=== PATIENT | female | born 1945 | race Caucasian/White ===

== ENCOUNTER 2017-01-15 11:54 | Inpatient (IN) | payer MEDICARE ==
[2017-01-15] MEDS ORDERED: SODIUM CHLORIDE 0.9% 1,000 ML IV STA (12:53)
[2017-01-15] MEDS ORDERED: ONDANSETRON 4 MG/2 ML VIAL IVP STA (12:53)
--- NOTE | 2017-01-15 12:56 | ED ---
General Adult HPI <Joe Dickey - Last Filed: 01/15/17 16:41> - General Source: patient, RN notes reviewed Mode of arrival: wheelchair Limitations: no limitations <Eleazar Delvalle - Last Filed: 01/15/17 17:18> - General Chief complaint: Abdominal Pain Stated complaint: Bowel Blockage Time Seen by Provider: 01/15/17 12:47 - History of Present Illness Initial comments: Patient 72-year-old female with significant past medical history for bowel instruction, who presents emergency room today with chief complaint of increased abdominal pain 2 hours. Patient does admit to pain in her lower abdomen. She states feels consistent with bowel obstruction that she has had in the past. Does admit to a few episodes of vomiting. Patient denies any other complaints or associated symptoms. Patient denies any recent fever, chills, shortness of breath, chest pain, back pain, numbness or tingling, dysuria or hematuria, constipation or diarrhea, headaches or visual changes, or any other complaints. (Eleazar Delvalle) - Related Data Home Medications Medication Instructions Recorded Confirmed Aspirin 81 mg PO DAILY 01/15/17 01/15/17 Atorvastatin [Lipitor] 40 mg PO HS 01/15/17 01/15/17 Metoprolol Succinate (ER) [Toprol 25 mg PO DAILY 01/15/17 01/15/17 Xl] Multivits-Min/Iron/FA/Lutein 1 tab PO DAILY 01/15/17 01/15/17 [Centrum Silver Women Tablet] Venlafaxine HCl ER [Effexor Xr] 75 mg PO DAILY 01/15/17 01/15/17 Allergies Allergy/AdvReac Type Severity Reaction Status Date / Time Penicillins Allergy Rash/Hives Verified 01/15/17 12:46 Review of Systems ROS Other: All systems not noted in ROS Statement are negative. <Joe Dickey - Last Filed: 01/15/17 16:41> ROS Other: All systems not noted in ROS Statement are negative. <Eleazar Delvalle - Last Filed: 01/15/17 17:18> ROS Statement: Those systems with pertinent positive or pertinent negative responses have been documented in the HPI. Past Medical History Past Medical History: Hyperlipidemia, Hypertension Additional Past Medical History / Comment(s): bowel obstructions History of Any Multi-Drug Resistant Organisms: None Reported Past Surgical History: Bowel Resection Past Psychological History: No Psychological Hx Reported Smoking Status: Never smoker Past Alcohol Use History: None Reported Past Drug Use History: None Reported <Eleazar Delvalle - Last Filed: 01/15/17 17:18> General Exam <Joe Dickey - Last Filed: 01/15/17 16:41> Limitations: no limitations <Eleazar Delvalle - Last Filed: 01/15/17 17:18> - General Exam Comments Initial Comments: General: The patient is awake and alert, in mild distress. Eye: Pupils are equal, round and reactive to light, extra-ocular movements are intact. No nystagmus. There is normal conjunctiva bilaterally. No signs of icterus. Ears, nose, mouth and throat: There are moist mucous membranes and no oral lesions. Neck: The neck is supple, there is no tenderness or JVD. Cardiovascular: There is a regular rate and rhythm. No murmur, rub or gallop is appreciated. Respiratory: Lungs are clear to auscultation, respirations are non-labored, breath sounds are equal. No wheezes, stridor, rales, or rhonchi. Gastrointestinal: Normal appearance of the abdomen. Decreased bowel sounds. Abdomen soft on palpation. Patient does have increased tenderness to lower abdomen. No rebound tenderness. No guarding. No CVA tenderness. Musculoskeletal: Normal ROM, no tenderness. Strength 5/5. Sensation intact. Pulses equal bilaterally 2+. Neurological: A&O x 3. CN II-XII intact, There are no obvious motor or sensory deficits. Coordination appears grossly intact. Speech is normal. Skin: Skin is warm and dry and no rashes or lesions are noted. Psychiatric: Cooperative, appropriate mood & affect, normal judgment. (Eleazar Delvalle) Medical Decision Making - Lab Data Result diagrams: 01/15/17 13:30 01/15/17 13:30 <Joe Dickey - Last Filed: 01/15/17 16:41> - Lab Data Result diagrams: 01/15/17 13:30 01/15/17 13:30 <Eleazar Delvalle - Last Filed: 01/15/17 17:18> - Medical Decision Making Decision making; the patient states she's had approximately 13 episodes of partial small bowel obstruction in the past. Her last surgery was 6 years ago. She states she's had multiple surgeries on the abdomen including surgery for diverticulitis. CAT scan today shows probable partial small bowel obstruction at the proximal ileum. This is suspicious for to be at the anastomosis site. There is also mild that day basilar infiltrates. Patient's white count is 8 hemoglobin 15 hematocrit of 43. Patient's feeling better with IV hydration and analgesics on board. She'll have an NG tube placed. The case discussed with Dr. Dr. Carrasquillo on-call general surgeon patient be admitted to his service for further evaluation and management and he requests general medical consult as well. Dr. Dickey (oJe Dickey) - Lab Data Lab Results 01/15/17 01/15/17 01/15/17 Range/Units 13:30 13:30 13:30 WBC 8.1 (3.8-10.6) k/uL RBC 4.70 (3.80-5.40) m/uL Hgb 15.2 (11.4-16.0) gm/dL Hct 43.7 (34.0-46.0) % MCV 93.1 (80.0-100.0) fL MCH 32.3 (25.0-35.0) pg MCHC 34.7 (31.0-37.0) g/dL RDW 13.3 (11.5-15.5) % Plt Count 339 (150-450) k/uL Neutrophils % 66 % Lymphocytes % 25 % Monocytes % 5 % Eosinophils % 2 % Basophils % 1 % Neutrophils # 5.4 (1.3-7.7) k/uL Lymphocytes # 2.1 (1.0-4.8) k/uL Monocytes # 0.4 (0-1.0) k/uL Eosinophils # 0.1 (0-0.7) k/uL Basophils # 0.1 (0-0.2) k/uL PT 10.6 (9.0-12.0) sec INR 1.0 (<1.1) APTT 22.1 (22.0-30.0) sec Sodium 139 (137-145) mmol/L Potassium 4.3 (3.5-5.1) mmol/L Chloride 103 (98-107) mmol/L Carbon Dioxide 28 (22-30) mmol/L Anion Gap 8 mmol/L BUN 16 (7-17) mg/dL Creatinine 0.64 (0.52-1.04) mg/dL Est GFR (MDRD) Af Amer >60 (>60 ml/min/1.73 sqM) Est GFR (MDRD) Non-Af >60 (>60 ml/min/1.73 sqM) Glucose 94 (74-99) mg/dL Plasma Lactic Acid Chris (0.7-2.0) mmol/L Calcium 10.5 H (8.4-10.2) mg/dL Total Bilirubin 0.7 (0.2-1.3) mg/dL AST 27 (14-36) U/L ALT 28 (9-52) U/L Alkaline Phosphatase 55 (38-126) U/L Total Protein 7.4 (6.3-8.2) g/dL Albumin 4.6 (3.5-5.0) g/dL Lipase 189 (23-300) U/L Urine Color Urine Appearance (Clear) Urine pH (5.0-8.0) Ur Specific [place] (1.001-1.035) Urine Protein (Negative) Urine Glucose (UA) (Negative) Urine Ketones (Negative) Urine Blood (Negative) Urine Nitrite (Negative) Urine Bilirubin (Negative) Urine Urobilinogen (<2.0) mg/dL Ur Leukocyte Esterase (Negative) 01/15/17 01/15/17 Range/Units 13:30 14:13 WBC (3.8-10.6) k/uL RBC (3.80-5.40) m/uL Hgb (11.4-16.0) gm/dL Hct (34.0-46.0) % MCV (80.0-100.0) fL MCH (25.0-35.0) pg MCHC (31.0-37.0) g/dL RDW (11.5-15.5) % Plt Count (150-450) k/uL Neutrophils % % Lymphocytes % % Monocytes % % Eosinophils % % Basophils % % Neutrophils # (1.3-7.7) k/uL Lymphocytes # (1.0-4.8) k/uL Monocytes # (0-1.0) k/uL Eosinophils # (0-0.7) k/uL Basophils # (0-0.2) k/uL PT (9.0-12.0) sec INR (<1.1) APTT (22.0-30.0) sec Sodium (137-145) mmol/L Potassium (3.5-5.1) mmol/L Chloride (98-107) mmol/L Carbon Dioxide (22-30) mmol/L Anion Gap mmol/L BUN (7-17) mg/dL Creatinine (0.52-1.04) mg/dL Est GFR (MDRD) Af Amer (>60 ml/min/1.73 sqM) Est GFR (MDRD) Non-Af (>60 ml/min/1.73 sqM) Glucose (74-99) mg/dL Plasma Lactic Acid Chris 1.6 (0.7-2.0) mmol/L Calcium (8.4-10.2) mg/dL Total Bilirubin (0.2-1.3) mg/dL AST (14-36) U/L ALT (9-52) U/L Alkaline Phosphatase (38-126) U/L Total Protein (6.3-8.2) g/dL Albumin (3.5-5.0) g/dL Lipase (23-300) U/L Urine Color Yellow Urine Appearance Clear (Clear) Urine pH 7.0 (5.0-8.0) Ur Specific [place] 1.013 (1.001-1.035) Urine Protein Negative (Negative) Urine Glucose (UA) Negative (Negative) Urine Ketones Negative (Negative) Urine Blood Negative (Negative) Urine Nitrite Negative (Negative) Urine Bilirubin Negative (Negative) Urine Urobilinogen <2.0 (<2.0) mg/dL Ur Leukocyte Esterase Negative (Negative) Disposition <Joe Dickey - Last Filed: 01/15/17 16:41> Time of Disposition: 16:35 <Eleazar Delvalle - Last Filed: 01/15/17 17:18> Clinical Impression: Small bowel obstruction Disposition: ADMITTED IP TO THIS [facility] Condition: Good
[2017-01-15] MEDS: HYDROmorphone 1 MG/ML 1 ML SYRINGE IVP STA ×2 (13:41→15:11)
[2017-01-15 13:58] LABS: Basophils # (A) 0.1 k/uL (0-0.2); Basophils % (A) 1 %; CH 32.1; CHCM 34.6; Eosinophils # (A) 0.1 k/uL (0-0.7); Eosinophils % (A) 2 %; HCT 43.7 % (34.0-46.0); HGB 15.2 gm/dL (11.4-16.0); Luc # (Auto) 0.18; Luc % (Auto) 2; Lymphocytes # (A) 2.1 k/uL (1.0-4.8); Lymphocytes % (A) 25 %; MCH 32.3 pg (25.0-35.0); MCHC 34.7 g/dL (31.0-37.0); MCV 93.1 fL (80.0-100.0); Mean Platelet Volume 6.7; Monocytes # (A) 0.4 k/uL (0-1.0); Monocytes % (A) 5 %; Neutrophils # (A) 5.4 k/uL (1.3-7.7); Neutrophils % (A) 66 %; RDW 13.3 % (11.5-15.5); WBC 8.1 k/uL (3.8-10.6); WBC (Perox) 8.02
[2017-01-15 14:04] LABS: Appearance,Urine Clear (Clear); Bilirubin,Urine Negative (Negative); Glucose,Urine (UA) Negative (Negative); Ketones,Urine Negative (Negative); Leukocyte Esterase,Urine Negative (Negative); Nitrite,Urine Negative (Negative); Protein,Urine Negative (Negative); Specific Gravity,Urine 1.013 (1.001-1.035); UA Billing (MACRO vs. MICRO) CHEM; Urobilinogen,Urine <2.0 mg/dL (<2.0)
[2017-01-15 14:09] LABS: Prothrombin Time 10.6 sec (9.0-12.0)
[2017-01-15 14:15] LABS: ALT 28 U/L (9-52); AST 27 U/L (14-36); Alkaline Phosphatase 55 U/L (38-126); Anion Gap 8 mmol/L; Blood Urea Nitrogen 16 mg/dL (7-17); Calcium 10.5 mg/dL (8.4-10.2); Carbon Dioxide 28 mmol/L (22-30); Chloride 103 mmol/L (98-107); Glucose 94 mg/dL (74-99); Non-African American GFR(MDRD) >60 (>60 ml/min/1.73 sqM); Potassium 4.3 mmol/L (3.5-5.1); Sodium 139 mmol/L (137-145); Total Bilirubin 0.7 mg/dL (0.2-1.3); Total Protein 7.4 g/dL (6.3-8.2)
[2017-01-15 14:18] LABS: Partial Thromboplastin Time 22.1 sec (22.0-30.0)
--- NOTE | 2017-01-15 15:01 | XR ---
EXAMINATION TYPE: XR abdomen complete w decub DATE OF EXAM: 01/15/2017 2:22 PM COMPARISON: NONE HISTORY: Right abdominal pain, constipation TECHNIQUE: 3 view abdomen supine and upright left lateral decubitus views. FINDINGS: No suspicious air-fluid levels or differential air-fluid levels are evident. No free air is evident. Nonspecific bowel gas within small bowel loops as well as the colon. Costochondral cartilag e calcification is present. Psoas margins are normal. Endometrium is not evident. No suspicious calci fications are evident. There may be some postsurgical changes in the right hemipelvis. IMPRESSION: 1. Nonspecific abdomen.
[2017-01-15] MEDS ORDERED: RX INFO: IV CONTRAST WAS GIVEN 1 EACH MISC MISCELLANE PRN (15:11)
[2017-01-15] MEDS ORDERED: HYDROmorphone 1 MG/ML 1 ML SYRINGE IVP STA (15:11)
--- NOTE | 2017-01-15 16:18 | CT ---
EXAMINATION TYPE: CT abdomen pelvis w con DATE OF EXAM: 01/15/2017 3:32 PM COMPARISON: NONE INDICATION: Pt states of abdominal pain and vomiting. Hx of bowel obstructions. DLP: 974 mGycm, Automated exposure control for dose reduction was used. CONTRAST: 100 mL of Omnipaque 300. Study performed without Oral Contrast TECHNIQUE: Axial images were obtained from above the diaphragm to the pubic rami in the axial plane a t 5 mm thick sections. Reconstructed images are reviewed on the computer in the coronal plane. FINDINGS: Limited CT sections are obtained the lung bases. The lung bases are clear. Hiatal hernia is present CT ABDOMEN: Liver: There is a 1.1 cm cyst in the posterior right lobe liver Spleen: Normal Pancreas: Normal Adrenal glands: The adrenal glands are normal. Gallbladder: Normal Kidneys: No masses are evident. No hydronephrosis is present. No cysts are present. Delayed images were obtained through the kidneys, which remain unremarkable. Aorta: Vascular calcification is within the aorta. Inferior vena cava: Normal. CT PELVIS: There are dilated fluid-filled small bowel loops within the abdomen extending into the lower abdomen transition appears to be within the proximal ileum. Distal ileum contains fluid without dilatation. T here is a small bowel anastomosis in the right hemipelvis. This appears to be a zone of transition. A ir and fecal debris is within the colon. Appendix: Not visualized Urinary bladder: Normal. Tiny air bubble may be present within urinary bladder which could be related to instrumentation. Genitourinary structures: Uterus and ovaries are not identified. Osseous structures: No suspicious lytic or sclerotic lesions. IMPRESSIONS: 1. Findings suggestive for partial small bowel obstruction likely within the proximal ileum. This ap pears to be at the anastomosis in the right lower quadrant on the coronal plane images. 2. Mild bibasilar infiltrates. 3. Report was called to the emergency room by Dr. Ingram by telephone at the time of interpretation. 01/15/2017 1615 hours
[2017-01-15] MEDS ORDERED: NALOXONE 0.4 MG/ML 1 ML VIAL IV PRN (16:42)
[2017-01-15] MEDS ORDERED: LEVOFLOXACIN 500MG-D5W PMX 500 MG in DEXTROSE/WATER 1 100ML.BAG IVPB STA (16:44)
[2017-01-15] MEDS: HYDROmorphone 1 MG/ML 1 ML SYRINGE IV PRN ×3 (17:07→22:13)
[2017-01-15 19:29] VITALS: BMI 20.2
[2017-01-15] MEDS: ONDANSETRON 4 MG/2 ML VIAL IVP PRN (19:36)
[2017-01-15] MEDS: SODIUM CHLORIDE 0.9% 1,000 ML IV ONE ×2 (19:37→19:43)
[2017-01-16] MEDS: HYDROmorphone 1 MG/ML 1 ML SYRINGE IV PRN ×4 (01:18→23:33)
[2017-01-16 08:03] LABS: Basophils % (A) 0 %; CH 32.3; CHCM 34.7; Eosinophils # (A) 0.1 k/uL (0-0.7); Eosinophils % (A) 1 %; HCT 36.5 % (34.0-46.0); HDW 2.59; HGB 12.6 gm/dL (11.4-16.0); Luc # (Auto) 0.16; Luc % (Auto) 2; Lymphocytes # (A) 1.6 k/uL (1.0-4.8); Lymphocytes % (A) 22 %; MCH 32.2 pg (25.0-35.0); MCHC 34.5 g/dL (31.0-37.0); MCV 93.3 fL (80.0-100.0); Mean Platelet Volume 8.6; Monocytes # (A) 0.5 k/uL (0-1.0); Monocytes % (A) 7 %; Neutrophils # (A) 4.9 k/uL (1.3-7.7); Neutrophils % (A) 67 %; RBC 3.91 m/uL (3.80-5.40); RDW 13.3 % (11.5-15.5); WBC 7.3 k/uL (3.8-10.6); WBC (Perox) 7.72
[2017-01-16 08:28] LABS: Anion Gap 10 mmol/L; Calcium 9.9 mg/dL (8.4-10.2); Carbon Dioxide 21 mmol/L (22-30); Chloride 115 mmol/L (98-107); Glucose 97 mg/dL (74-99); Non-African American GFR(MDRD) >60 (>60 ml/min/1.73 sqM); Sodium 146 mmol/L (137-145); Total Bilirubin 0.9 mg/dL (0.2-1.3)
[2017-01-16 08:37] LABS: ALT 29 U/L (9-52); AST 34 U/L (14-36); Alkaline Phosphatase 21 U/L (38-126); Blood Urea Nitrogen 18 mg/dL (7-17); Total Protein 5.9 g/dL (6.3-8.2)
--- NOTE | 2017-01-16 09:55 | P.HPIM ---
History of Present Illness H&P Date: 01/16/17 Chief Complaint: Abdominal pain vomiting The patient is a 71-year-old white female with the fairly quick onset of the abdominal pain mostly in the left the lower part of the abdomen associated with nausea and vomiting. It progressively worsened. She presented to the emergency room. Was found to have evidence of small bowel obstruction on a computed tomography scan at the anastomotic site the. She did had the 2 resections in the past for small bowel obstruction. Has had the or for 5 or 6 admissions for small bowel obstruction as well. She did had a previous sigmoid resection for complicated diverticular disease all done at the [facility]. Did have a bowel movement yesterday. Since her admission she states the pain has mostly resolved. Did pass some flatus during the night. Past history as above. Also has hypertension. Hyperlipidemia. Medications as listed. Had colonoscopy about 2 years ago. ALLERGIES penicillin. Social history. Denies smoking. Drinks alcohol occasionally socially. Systems review as above. No chest pain. No cardiac or respiratory problems. No urinary symptoms. No vaginal discharge or bleeding. 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 On examination. Patient is well-built well-nourished in no acute distress at this time. She is average weight at the BMI of 20.3. Vitals are normal. Temperature is normal. Hydration borderline. Color is good. Head and neck are normal. No neck masses. No lymphadenopathy. Heart regular sinus rhythm. Lungs clinically clear. Abdomen reveals a well-healed midline scar. No hernias. No mass or organomegaly. There is the mild tenderness mostly in the left lower quadrant of the abdomen but no guarding or rebound. Extremities normal with full motion. STORE WORKER is intact. X-rays abdominal x-rays are normal showing a nonspecific bowel gas pattern. No free air. CT the partial small bowel obstruction with the narrowing at the anastomotic site in the pelvis. There is gas and stool in the colon. Laboratory studies reviewed. WBC is normal. Impression recurrent the partial small bowel obstruction probably secondary to adhesive disease in view of multiple previous abdominal surgeries. History of hypertension. History of hyperlipidemia. History of diverticulosis status post sigmoid resection. Recommendation continued medical management. Repeat abdominal x-rays tomorrow. We will try to treat her conservatively. She is somewhat the upset about having recurrent obstruction. She is explained potential for more adhesive disease with the repeated surgeries and the technically difficult surgeries in view of the previous the resections 3 with probably very extensive adhesions in the abdomen now. Past Medical History Past Medical History: Hyperlipidemia, Hypertension Additional Past Medical History / Comment(s): bowel obstructions History of Any Multi-Drug Resistant Organisms: None Reported Past Surgical History: Bowel Resection Past Anesthesia/Blood Transfusion Reactions: No Reported Reaction Past Psychological History: No Psychological Hx Reported Smoking Status: Never smoker Past Alcohol Use History: None Reported Past Drug Use History: None Reported - Past Family History Sister(s) Family Medical History: Diabetes Mellitus Father Family Medical History: Coronary Artery Disease (CAD) Medications and Allergies Home Medications Medication Instructions Recorded Confirmed Type Aspirin 81 mg PO DAILY 01/15/17 01/15/17 History Atorvastatin [Lipitor] 40 mg PO HS 01/15/17 01/15/17 History Metoprolol Succinate (ER) [Toprol 25 mg PO DAILY 01/15/17 01/15/17 History Xl] Multivits-Min/Iron/FA/Lutein 1 tab PO DAILY 01/15/17 01/15/17 History [Centrum Silver Women Tablet] Venlafaxine HCl ER [Effexor Xr] 75 mg PO DAILY 01/15/17 01/15/17 History Allergies Allergy/AdvReac Type Severity Reaction Status Date / Time Penicillins Allergy Rash/Hives Verified 01/16/17 02:35 Physical Exam Vitals: Vital Signs Temp Pulse Pulse Resp BP BP Pulse Ox 01/16/17 07:21 98 01/16/17 01:31 98.0 F 81 16 141/81 95 01/15/17 19:29 97.5 F L 77 16 122/68 93 L 01/15/17 18:51 97.2 F L 80 18 132/75 95 Intake and Output 01/15/17 01/16/17 01/16/17 22:59 06:59 14:59 Intake Total 150 Balance 150 Intake: Intake, IV Titration 150 Amount Sodium Chloride 0.9% 1, 150 000 ml @ 75 mls/hr IV . [id number] Rx#:[id number] Other: Voiding Method Toilet # Voids 1 Weight 53.524 kg Results CBC & Chem 7: 01/16/17 07:26 01/16/17 07:26 Labs: Abnormal Lab Results - Last 24 Hours (Table) 01/16/17 Range/Units 07:26 Sodium 146 H (137-145) mmol/L Potassium 6.0 H (3.5-5.1) mmol/L Chloride 115 H (98-107) mmol/L Carbon Dioxide 21 L (22-30) mmol/L BUN 18 H (7-17) mg/dL Alkaline Phosphatase 21 L (38-126) U/L Total Protein 5.9 L (6.3-8.2) g/dL Thrombosis Risk Factor Assmnt - Choose All That Apply Each Risk Factor Represents 2 Points: Age 61-74 years Thrombosis Risk Factor Assessment Total Risk Factor Score: 2 Thrombosis Risk Factor Assessment Level: Low Risk
[2017-01-16] MEDS: ONDANSETRON 4 MG/2 ML VIAL IVP PRN (15:37)
[2017-01-16] MEDS ORDERED: SODIUM BICARB 8.4% 50 ML SYR (1 MEQ/ML) IV STA (17:48)
[2017-01-16] MEDS ORDERED: SODIUM CHLORIDE 0.45% 1,000 ML IV SCH (18:00)
[2017-01-16] MEDS ORDERED: INSULIN REGULAR 100 UNIT/ML VIAL IV ONE (18:00)
[2017-01-16] MEDS ORDERED: CALCIUM GLUCONATE 1,000 MG in SODIUM CHLORIDE 0.9% 100 ML IVPB ONE (18:30)
[2017-01-16] MEDS ORDERED: WATER IV ONE (18:30)
[2017-01-16] MEDS ORDERED: SODIUM ACETATE IV ONE ×2 (18:30)
[2017-01-16] MEDS ORDERED: DEXTROSE 5% IV ONE (18:30)
[2017-01-16 18:45] LABS: Anion Gap 10 mmol/L; Blood Urea Nitrogen 12 mg/dL (7-17); Carbon Dioxide 24 mmol/L (22-30); Chloride 107 mmol/L (98-107); Glucose 84 mg/dL (74-99); Non-African American GFR(MDRD) >60 (>60 ml/min/1.73 sqM); Potassium 3.6 mmol/L (3.5-5.1); Sodium 141 mmol/L (137-145)
[2017-01-16] MEDS: ATORVASTATIN 40 MG TAB PO SCH (19:54)
[2017-01-16] MEDS: METOPROLOL SUCCINATE (ER) 25 MG TAB.ER.24H PO SCH (19:54)
[2017-01-16] MEDS: VENLAFAXINE HCL ER 75 MG CAP PO SCH (19:54)
[2017-01-16] MEDS: ENOXAPARIN 40 MG/0.4 ML SYRINGE SQ SCH (20:02)
[2017-01-16] MEDS: LEVOFLOXACIN 500MG-D5W PMX 500 MG in DEXTROSE/WATER 1 100ML.BAG IVPB SCH (20:02)
[2017-01-17] MEDS: SODIUM CHLORIDE 0.9% 1,000 ML IV SCH ×2 (01:32→13:40)
[2017-01-17 07:44] LABS: Anion Gap 11 mmol/L; Blood Urea Nitrogen 9 mg/dL (7-17); Carbon Dioxide 24 mmol/L (22-30); Chloride 106 mmol/L (98-107); Glucose 81 mg/dL (74-99); Non-African American GFR(MDRD) >60 (>60 ml/min/1.73 sqM); Potassium 3.9 mmol/L (3.5-5.1); Sodium 141 mmol/L (137-145)
--- NOTE | 2017-01-17 08:32 | CONS ---
DATE OF CONSULTATION: 01/16/2017 REASON FOR CONSULTATION: Medical management requested by Dr. Carrasquillo. CONSULTATION: This is a pleasant 72-year-old patient with prior surgery bowel surgery, presents with one day of increasing abdominal pain, vomiting, found to have a bowel obstruction, NG tube was placed. Patient normally has a bowel movement every day. Feels a bit better and further no nausea or vomiting. Other chronic stable conditions include hypertension, hyperlipidemia, depression, no bowel movement, right now, lying in bed. REVIEW OF SYSTEMS: CONSTITUTIONAL: Tired. HEENT: NG tube in place. CARDIOVASCULAR: None. GASTROINTESTINAL: As above. GENITOURINARY: None. MUSCULOSKELETAL: None. Dermatologic: None. HEMATOLOGIC: None. LYMPHATIC: None. PSYCHIATRY: Depression. NEUROLOGICAL: None. PAST MEDICAL HISTORY: Recurrent bowel obstruction, hypertension, hyperlipidemia. PAST SURGICAL HISTORY: Bowel resection. She had 2 resections in the past and also had a previous sigmoid resection for complicated diverticular disease at [facility]. HOME MEDICATIONS: 1. Effexor-XR 75 mg p.o. daily. 2. Toprol-XL 25 p.o. daily. 3. Lipitor 40 mg q.h.s. 4. Aspirin 81 mg p.o. daily. ALLERGIES: PENICILLIN. On examination, temperature 98.3, pulse 92, respiratory rate 16, blood pressure 141/89, pulse ox 99% on 2 L. GENERAL APPEARANCE: Average build, lying in bed, tired-appearing. EYES: Pupils equal. Conjunctivae normal. HEENT: External appearance of nose and ears normal. Oral cavity normal. NECK: JVD not raised. Mass not palpable. RESPIRATORY: Effort normal LUNGS: Fair air entry. CARDIOVASCULAR: First and second sounds normal. No edema. ABDOMEN: Soft, mild tenderness. Bowel sounds are present. LYMPHATIC: No lymph nodes palpable in neck or axillae. PSYCHIATRY: Alert and oriented times three. Mood and affect is normal. SOCIAL HISTORY: Patient is . Does not smoke or drink alcohol. Family history of diabetes mellitus type 2. INVESTIGATIONS: White count 8.1, hemoglobin 15.2. Potassium 4.3. Repeat 6, BUN 16, creatinine 0.64. CT scan of the abdomen and pelvis partial small bowel obstruction in the proximal ileum, atelectasis. ASSESSMENT: 1. ( ). 2. Hyperkalemia. 3. Essential hypertension. 4. Hyperlipidemia. PLAN: At this point we will give the patient insulin with amp of dextrose, sodium bicarbonate, calcium and repeat potassium later in the day and give saline and also add DVT prophylaxis. Thank you Dr. Carrasquillo.
--- NOTE | 2017-01-17 08:38 | XR ---
EXAMINATION TYPE: XR abdomen 2V DATE OF EXAM: 01/17/2017 7:45 AM COMPARISON: 01/15/2017 HISTORY: Small bowel obstruction TECHNIQUE: One view abdominal series FINDINGS: The osseous structures are intact. The bowel gas pattern is nonspecific NG tube seen. Air within the colon noted. Chronic rib deformities on the left seen. Arthropathy of the hip joints. Postsurgical c hange in the pelvis. Vascular calcification seen. Minimal blunting of the left costophrenic angle. IMPRESSION: 1. Nonspecific abdomen. NG tube noted in position.
[2017-01-17] MEDS: VENLAFAXINE HCL ER 75 MG CAP PO SCH (09:15)
[2017-01-17] MEDS: METOPROLOL SUCCINATE (ER) 25 MG TAB.ER.24H PO SCH (09:16)
[2017-01-17] MEDS: ENOXAPARIN 40 MG/0.4 ML SYRINGE SQ SCH ×2 (09:42→23:53)
[2017-01-17] MEDS: HYDROmorphone 1 MG/ML 1 ML SYRINGE IV PRN ×2 (10:18→13:41)
[2017-01-17] MEDS: ONDANSETRON 4 MG/2 ML VIAL IVP PRN (10:24)
--- NOTE | 2017-01-17 13:27 | P.PN ---
Progress Note - Text The patient is afebrile. She still doesn't feels good. Occasional abdominal cramps. Did pass some flatus This morning. No BM. On examination the patient is afebrile. Vitals are stable. Has NG tube in place. About 200 amalgams last 8 hours out of it. Ania abdomen is quite soft with mild tenderness mostly left lower quadrant area but no guarding or rebound or rigidity. No distention. No hernias. Wbc's normal. Abdominal x-ray shows a nonspecific bowel gas pattern. No definite obstruction. Impression partial small bowel obstruction improving. Recommendation Will R DC NG tube tomorrow morning. Continue. Medical management.
[2017-01-17] MEDS: diphenhydrAMINE 50 MG/ML 1 ML VIAL IVP PRN (15:28)
[2017-01-17] MEDS: PANTOPRAZOLE 40 MG/10 ML VIAL IVP SCH (15:40)
[2017-01-17] MEDS: LEVOFLOXACIN 500MG-D5W PMX 500 MG in DEXTROSE/WATER 1 100ML.BAG IVPB SCH (16:53)
[2017-01-17] MEDS: ATORVASTATIN 40 MG TAB PO SCH (23:53)
[2017-01-18] MEDS: ATORVASTATIN 40 MG TAB PO SCH ×2 (01:10→20:16)
[2017-01-18] MEDS: SODIUM CHLORIDE 0.9% 1,000 ML IV SCH ×2 (05:04→15:37)
[2017-01-18] MEDS: HYDROmorphone 1 MG/ML 1 ML SYRINGE IV PRN ×4 (08:05→19:45)
[2017-01-18] MEDS: PANTOPRAZOLE 40 MG/10 ML VIAL IVP SCH (08:06)
--- NOTE | 2017-01-18 08:35 | PN ---
DATE OF SERVICE: 01/17/2017 PRESENTING COMPLAINT: Increasing abdominal pain, found to have a bowel obstruction. INTERVAL HISTORY: This is a patient who presented to the Emergency Room Department with increasing abdominal pain, vomiting, found to have a bowel obstruction. NG tube was placed at that time. Today, NG tube remains in place, currently not attached to wall suction. Dark drainage is noted within the tubing. The patient feels a bit better today. She was lying in bed. REVIEW OF SYSTEMS: For constitutional, HEENT, cardiovascular, respiratory, gastrointestinal, genitourinary, musculoskeletal, hematological, psychiatric, neurological all completed with notations as above. Current medications include: 1. Atorvastatin 40 mg daily. 2. Diphenhydramine 25 mg every six hours as needed. 3. Enoxaparin sodium 40 mg subcu daily. 4. Levofloxacin in an IV solution daily. 5. Metoprolol 25 mg daily. 6. Naloxone 0.2 as needed for over sedation. 7. Ondansetron 4 mg IV push every eight hours as needed. 8. Pantoprazole 40 mg IV push daily. 9. Venlafaxine 75 mg daily. On exam, temperature 98, pulse 87, respiratory rate 16, blood pressure 170/90. Pulse ox 94% on room air. GENERAL APPEARANCE: Average build, lying in bed, tired appearing. EYES: Pupils equal, reactive, conjunctivae normal. HEENT: External appearance of nose and ears normal. Oral cavity normal. NECK: JVD not raised. Mass not palpable. RESPIRATORY: Effort is normal. LUNGS: Fair airway clearance. CARDIOVASCULAR: S1, S2 noted. No edema. ABDOMEN: Soft, mild tenderness. Bowel sounds are present. LYMPHATICS: No lymph nodes palpable in the neck, axillae or groin. PSYCHIATRY: Alert and oriented times three. Mood and affect is normal. INVESTIGATIONS: White blood cell count 7.3. Hemoglobin 12.6, potassium 3.9, abdominal x-ray dated 01/17/2017 shows nonspecific abdomen, NG tube noted to be in position. CT scan of the abdomen and pelvis reveals partial small bowel obstruction in the proximal ileum and atelectasis. ASSESSMENT: 1. Acute small bowel obstruction, slow to respond to treatment. Continue NG tube anti-nausea medications as needed. 2. Hyperkalemia resolved. 3. Essential hypertension. Continue metoprolol. 4. Hyperlipidemia, continue atorvastatin daily.
[2017-01-18] MEDS: diphenhydrAMINE 50 MG/ML 1 ML VIAL IVP PRN ×3 (09:25→21:42)
[2017-01-18] MEDS: VENLAFAXINE HCL ER 75 MG CAP PO SCH (09:31)
[2017-01-18] MEDS: METOPROLOL TARTRATE 50 MG TAB PO SCH ×2 (09:32→20:16)
--- NOTE | 2017-01-18 11:26 | P.PN ---
Progress Note - Text Patient passed a large amount of flatus this morning. Feeling a little better. Had problems with IV last night. Less abdominal pain. On examination the patient is afebrile. Vitals are stable. She is in no acute distress. The abdomen is quite soft with much less tenderness in the lower abdomen. No guarding or rebound. No mass or hernias. Impression improving small bowel obstruction. Recommendation we will DC the NG tube. Start on clear liquid diet.
[2017-01-18] MEDS: LEVOFLOXACIN 500MG-D5W PMX 500 MG in DEXTROSE/WATER 1 100ML.BAG IVPB SCH (17:49)
[2017-01-18] MEDS: ENOXAPARIN 40 MG/0.4 ML SYRINGE SQ SCH (20:16)
[2017-01-19] MEDS: SODIUM CHLORIDE 0.9% 1,000 ML IV SCH ×2 (05:49→19:10)
--- NOTE | 2017-01-19 07:39 | P.PN ---
Progress Note - Text Patient tolerated a clear liquid diet. Passing flatus still. Abdominal pain is pretty much resolved. No Vomiting. On examination blood pressure is on the high side. Was increased yesterday. Medicine will continue to manage. Otherwise she is in no acute distress. No fever. He is quite soft and benign now with very minimal tenderness in the left lower quadrant. No guarding or rebound. Improving small bowel obstruction. Recommend increase her diet.
[2017-01-19] MEDS: traMADol 50 MG TAB PO SCH ×4 (08:21→20:18)
--- NOTE | 2017-01-19 08:21 | PN ---
DATE OF SERVICE: 01/18/2017 CHIEF COMPLAINT: Abdominal pain. PRESENTING COMPLAINT: Increasing abdominal pain, found to have a bowel obstruction. INTERVAL HISTORY: This is a patient who presented to the emergency room with increasing abdominal pain, vomiting, found to have a bowel obstruction. NG tube was placed at that time. Today, NG tube was removed, passing flatus. Patient feels much better today, tolerating a clear liquid diet. She is lying in bed. REVIEW OF SYSTEMS: For constitutional, HEENT, cardiovascular, respiratory, GI, , musculoskeletal, hematological, psychiatric, neurological all completed with notations as above. Current medications include: 1. Atorvastatin 40 mg daily. 2. Diphenhydramine 25 mg every 6 hours as needed. 3. Enoxaparin sodium 40 mg subcutaneous daily. 4. Levofloxacin as an IV solution daily. 5. Metoprolol 25 mg daily. 6. Naloxone 0.2 as needed for over sedation. 7. Ondansetron 4 mg IV push every 8 hours as needed. 8. Pantoprazole 40 mg IV push daily. 9. Venlafaxine 75 mg daily. On exam, temperature 98.2, pulse 71, respiratory rate 18, blood pressure 192/91, pulse ox 96% on room air. GENERAL APPEARANCE: Average build, lying in bed, much more awake today, alert, more interactive. EYES: Pupils equal, reactive. Conjunctivae normal. HEENT: External appearance of nose and ears normal. Oral cavity normal. NECK: JVD not raised. Mass not palpable. RESPIRATORY: Effort is normal. LUNGS: Fair airway clearance. CARDIOVASCULAR: S1, S2 noted. No edema. ABDOMEN: Soft, mild tenderness. Bowel sounds are present. LYMPHATICS: No lymph nodes palpable in the neck, axillae or groin. PSYCHIATRY: Alert and oriented x3. Mood and affect are normal. INVESTIGATIONS: Today's lab values were all within normal limits, nothing to report. ASSESSMENT: 1. Acute small bowel obstruction, slow to respond to treatment. NG tube discontinued today. Tolerating diet. Will continue to follow. 2. Hyperkalemia, resolved. 3. Essential hypertension. Continue metoprolol. 4. Hyperlipidemia, continue atorvastatin daily. Rounds and assessment were performed on the patient by me, the nurse practitioner, and the attending Dr. Campbell. The relevant and valenzuela points of the rounding assessment/diagnosis/plan is as dictated above.
[2017-01-19] MEDS: PANTOPRAZOLE 40 MG/10 ML VIAL IVP SCH (08:22)
[2017-01-19] MEDS: VENLAFAXINE HCL ER 75 MG CAP PO SCH (08:22)
[2017-01-19] MEDS: METOPROLOL TARTRATE 50 MG TAB PO SCH ×2 (08:22→20:18)
[2017-01-19] MEDS: LEVOFLOXACIN 500 MG TAB PO SCH (19:14)
[2017-01-19] MEDS: LEVOFLOXACIN 500MG-D5W PMX 500 MG in DEXTROSE/WATER 1 100ML.BAG IVPB SCH (19:14)
[2017-01-19] MEDS: ENOXAPARIN 40 MG/0.4 ML SYRINGE SQ SCH (20:17)
[2017-01-19] MEDS: ATORVASTATIN 40 MG TAB PO SCH (20:18)
--- NOTE | 2017-01-19 20:58 | PN ---
DATE OF SERVICE: 01/17/2017 ADDENDUM: This patient was seen and examined by me. The patient was also seen and examined by nurse practitioner Ms. Young. The relevant points of the history/physical/diagnoses/plan were discussed with the nurse practitioner and are as dictated in the note of nurse practitioner Ms. Young. Additionally, I discussed with the patient ( ) out of bed ( ) overall she started to feel better.
--- NOTE | 2017-01-19 21:43 | PN ---
DATE OF SERVICE: 01/18/2017 ADDENDUM: This patient was seen and examined by me. The patient was also seen and examined by nurse practitioner Ms. Young. The relevant points of the history, physical, diagnoses and plan were discussed with the nurse practitioner and are as dictated in her progress note.
--- NOTE | 2017-01-19 22:20 | PN ---
DATE OF SERVICE: 01/18/2017 PRESENTING COMPLAINT: Increased abdominal pain; found to have a bowel obstruction. INTERVAL HISTORY: This is a patient who presented to the emergency room with increasing abdominal pain, vomiting; found to have bowel obstruction. NG tube was placed time at that time. NG tube has been out now for 2 days. Patient is passing flatus. Patient states she feels much better today, tolerating a clear liquid diet, planning to get it advanced. She is lying in bed, at the bedside. Review of systems done for constitutional, cardiovascular, respiratory, GI, musculoskeletal and psychiatric; relevant findings as above. CURRENT MEDICATIONS: 1. Atorvastatin. 2. Diphenhydramine. 3. Enoxaparin sodium. 4. Levofloxacin. 5. Metoprolol. 6. Naloxone. 7. Ondansetron. 8. Pantoprazole. 9. Venlafaxine. PHYSICAL EXAMINATION: VITAL SIGNS: Temperature 98.6, pulse 70, respirations 16, blood pressure 135/73, pulse ox 92% on room air. GENERAL APPEARANCE: Patient lying in bed, at the bedside. Awake, alert, smiling. More interactive. EYES: Pupils equal, reactive. Conjunctivae normal. NECK: JVD not raised. Mass not palpable. RESPIRATORY: Effort is normal. LUNGS: Fair airway clearance. CARDIOVASCULAR: S1, S2 noted. No edema. ABDOMEN: Soft. Mild tenderness. Bowel sounds are present. PSYCHIATRY: Alert and oriented x3. Mood and affect are normal. INVESTIGATIONS: No new lab values to report. ASSESSMENT: 1. Acute small bowel obstruction, slow to respond to treatment. NG tube has been out for 2 days. Tolerating diet. Will continue to follow. 2. Hyperkalemia, resolved. 3. Essential hypertension. Continue metoprolol. 4. Hyperlipidemia. Continue atorvastatin daily. Extensive conversation was held with the patient and family regarding frequent occurrences of small bowel obstruction, and a discussion was held on adhesions. All questions asked by and patient were answered appropriately. History and physical was performed on the patient by me, the nurse practitioner, and attending, Dr. Campbell. The relevant points of the history, physical, diagnoses and plan were discussed and are as dictated above.
[2017-01-20] MEDS: SODIUM CHLORIDE 0.9% 1,000 ML IV SCH (03:31)
[2017-01-20 07:25] LABS: CH 32.5; CHCM 35.7; HCT 35.4 % (34.0-46.0); HDW 2.75; HGB 12.2 gm/dL (11.4-16.0); MCH 31.5 pg (25.0-35.0); MCHC 34.5 g/dL (31.0-37.0); MCV 91.5 fL (80.0-100.0); Mean Platelet Volume 6.7; RBC 3.87 m/uL (3.80-5.40); RDW 13.2 % (11.5-15.5)
[2017-01-20 07:47] LABS: Anion Gap 9 mmol/L; Blood Urea Nitrogen 9 mg/dL (7-17); Carbon Dioxide 24 mmol/L (22-30); Chloride 109 mmol/L (98-107); Glucose 107 mg/dL (74-99); Non-African American GFR(MDRD) >60 (>60 ml/min/1.73 sqM); Potassium 3.5 mmol/L (3.5-5.1); Sodium 142 mmol/L (137-145)
[2017-01-20] MEDS: METOPROLOL TARTRATE 50 MG TAB PO SCH ×2 (09:40→20:29)
[2017-01-20] MEDS: PANTOPRAZOLE 40 MG/10 ML VIAL IVP SCH (09:40)
[2017-01-20] MEDS: traMADol 50 MG TAB PO SCH ×4 (09:41→22:01)
[2017-01-20] MEDS: VENLAFAXINE HCL ER 75 MG CAP PO SCH (09:41)
[2017-01-20] MEDS ORDERED: BISACODYL 10 MG SUPP RECTAL STA (12:06)
--- NOTE | 2017-01-20 12:06 | P.PN ---
Progress Note - Text The coming along fairly well. Did have a good general last night. Diminished appetite today but no nausea or vomiting. Passing a lot of flatus but no bowel movement. On examination she is afebrile. Blood pressure is better. Abdomen is soft with the thickened distention. She has some mild generalized tenderness but no guarding or rebound or rigidity. WBC is normal. Labs are noted. Impression resolving small bowel obstruction. Recommend Dulcolax suppository. Monitor her the next 24 hours and hopefully she can be discharged tomorrow.
[2017-01-20] MEDS: LEVOFLOXACIN 500 MG TAB PO SCH (17:35)
[2017-01-20] MEDS: ACETAMINOPHEN TAB 325 MG TAB PO PRN (17:41)
[2017-01-20] MEDS: ATORVASTATIN 40 MG TAB PO SCH (20:29)
[2017-01-20] MEDS: ENOXAPARIN 40 MG/0.4 ML SYRINGE SQ SCH (20:29)
[2017-01-21 01:42] VITALS: RESP 16
[2017-01-21] MEDS: METOPROLOL TARTRATE 50 MG TAB PO SCH (07:40)
[2017-01-21] MEDS: VENLAFAXINE HCL ER 75 MG CAP PO SCH (07:40)
[2017-01-21] MEDS: SODIUM CHLORIDE 0.9% 1,000 ML IV SCH ×2 (07:41→10:42)
[2017-01-21] MEDS ORDERED: PANTOPRAZOLE 40 MG TABLET PO SCH (09:00)
--- NOTE | 2017-01-21 09:46 | PN ---
DATE OF SERVICE: 01/20/2017 PRESENTING COMPLAINT: Increasing abdominal pain, found to have a bowel obstruction. INTERVAL HISTORY: This is a patient who presented to the emergency room with increasing abdominal pain, vomiting, found to have a bowel obstruction. NG tube was placed at that time. NG tube has been out now for 3 days. Patient is passing flatus. Patient states she feels much better today, tolerating a soft diet. Patient is lying in the bed, awake, alert, looking comfortable. Review of systems done for constitutional, cardiovascular, respiratory, GI, musculoskeletal, psychiatric and relevant findings as above. CURRENT MEDICATIONS: Atorvastatin, diphenhydramine, enoxaparin sodium, levofloxacin, metoprolol, naloxone, ondansetron, pantoprazole, venlafaxine. PHYSICAL EXAMINATION: VITAL SIGNS: Temperature 97.1, pulse 63, respiratory rate 16, blood pressure 155/78, oxygen saturation 96% on room air. GENERAL APPEARANCE: Patient lying in her bed, looking comfortable, no acute distress, more interactive. EYES: Pupils equal. Conjunctivae normal. NECK: JVD not raised. Mass not palpable. Respiratory effort is normal. LUNGS: Fair airway clearance. CARDIOVASCULAR: S1, S2 noted. No edema. ABDOMEN: Soft, mild tenderness. Bowel sounds are present. PSYCHIATRY: A&O x3. Mood and affect are normal. INVESTIGATIONS: CBC, no abnormal values to report. Basic metabolic panel, no abnormal values to report. ASSESSMENT: 1. Acute small bowel obstruction, slow to respond to treatment. NG tube has been out for 3 days. Tolerating diet. Awaiting a bowel movement. 2. Hyperkalemia, resolved. 3. Essential hypertension, continue metoprolol. 4. Hyperlipidemia, continue atorvastatin daily. PLAN: Administered Dulcolax suppository in hopes that patient has a reasonable size BM. Patient has not yet had a full BM. Potentially, patient could discharge tomorrow. Patient was seen and examined by me/nurse practitioner and attending/Dr. Campbell. The relevant points of the history/physical/diagnoses/plan were discussed and are as dictated above.
[2017-01-21] MEDS: traMADol 50 MG TAB PO SCH ×2 (10:41→13:18)
[2017-01-21] MEDS: ACETAMINOPHEN TAB 325 MG TAB PO PRN (10:59)
--- NOTE | 2017-01-21 12:12 | P.PN ---
Progress Note - Text Patient states she has no appetite. However denies any nausea or vomiting. Passing flatus. Minimal stool with Dulcolax suppository yesterday. Denies abdominal pain. On examination patient is awake alert in no distress. Blood pressure still on the high side was up to 190 systolic yesterday and again this morning. Again denies any pain. Abdomen is soft with the no distention. Mild tenderness in the left side of the abdomen but no guarding or rebound or rigidity. No mass or organomegaly or hernias noted. Impression small bowel obstruction mostly resolved. Anorexia. Hypertension. Recommendation continued monitoring. We'll repeat abdominal films. Discharge when okay with the medicine and follow-up in the office next week.
--- NOTE | 2017-01-21 12:50 | XR ---
EXAMINATION TYPE: XR abdomen acute w cxr DATE OF EXAM: 01/21/2017 12:40 PM COMPARISON: 01/17/2017 HISTORY: Pain TECHNIQUE: Two views of the abdomen are obtained. PA view of the chest submitted. FINDINGS: Chronic deformities involving the left rib cage are seen and there is a tiny left pleural e ffusion with subsegmental consolidation. There is biapical pleural-based thickening. This is somewhat nodular in pattern on the right. Underlying COPD noted. Bowel gas pattern nonspecific with retained fecal debris throughout the colon. No evidence of bowel d ilation. Postsurgical changes noted. Vascular calcifications are noted. Arthropathy of the hip joints. IMPRESSION: 1. Nonspecific abdomen with no diagnostic evidence of obstruction 2. Small left pleural effusion and basilar atelectasis. Additionally there is pleural-based thickenin g with a nodular pattern noted on the right. Correlate clinically. 3. COPD
[2017-01-21 15:41] VITALS: BP 131/65; PULSE 59; TEMP 98.1
--- NOTE | 2017-01-21 22:22 | PN ---
DATE OF SERVICE: 01/21/2017 PRESENTING COMPLAINT: Increased abdominal pain, found to have a bowel obstruction. INTERVAL HISTORY: This patient presented to the emergency room with increasing abdominal pain, vomiting, found to have a bowel obstruction. Patient continues to pass flatus. Patient states she feels much better today, tolerating a soft diet. Patient is lying in bed, awake, alert, looking comfortable. Review of systems done for cardiovascular, constitutional, respiratory, GI, musculoskeletal, psychiatric; relevant findings as above. CURRENT MEDICATIONS: 1. Atorvastatin. 2. Diphenhydramine. 3. Enoxaparin sodium. 4. Levofloxacin. 5. Metoprolol. 6. Naloxone. 7. Ondansetron. 8. Pantoprazole. 9. Venlafaxine. PHYSICAL EXAMINATION: VITAL SIGNS: Temperature 98.1, heart rate 59, blood pressure 131/65, oxygen saturation 93% on room air. GENERAL APPEARANCE: Patient lying in bed, looking comfortable. No acute distress noted. More interactive today. EYES: Pupils equal. Conjunctivae normal. NECK: JVD not raised. Mass not palpable. RESPIRATORY: Effort is normal. LUNGS: Fair airway clearance. CARDIOVASCULAR: S1, S2 noted. No edema. ABDOMEN: Soft. Mild tenderness. Bowel sounds are present in all 4 quadrants. PSYCHIATRY: Alert and oriented x3. Mood and affect are normal. INVESTIGATIONS: Acute abdominal series performed 01/21/2017: nonspecific abdomen; no evidence of obstruction. Chest x-ray: small left pleural effusion with bibasilar atelectasis; COPD noted. Chloride 109. ASSESSMENT: 1. Acute small bowel obstructions, slow to respond to treatment. Patient has poor appetite but tolerating a diet she has been prescribed. Abdominal x-ray shows no bowel obstruction. 2. Hyperkalemia, resolved. 3. Essential hypertension. Continue on metoprolol. 4. Hyperlipidemia. Continue on atorvastatin daily. PLAN: Patient no longer has a bowel obstruction. From a medicine standpoint, patient is stable and ready for discharge. The patient was seen and examined by me, nurse practitioner, and attending, Dr. Campbell. The relevant points of the history, physical, diagnoses and plan were discussed and are as dictated above.
--- NOTE | 2017-01-28 12:25 | P.DS ---
Providers Date of admission: 01/15/17 18:15 Attending physician: Chalino Carrasquillo Primary care physician: Jerome Hanna Patient Condition at Discharge: Good Plan - Discharge Summary Discharge Medication List Aspirin 81 mg PO DAILY 01/15/17 [History] Atorvastatin [Lipitor] 40 mg PO HS 01/15/17 [History] Metoprolol Succinate (ER) [Toprol Xl] 25 mg PO DAILY 01/15/17 [History] Multivits-Min/Iron/FA/Lutein [Centrum Silver Women Tablet] 1 tab PO DAILY [History] Venlafaxine HCl ER [Effexor Xr] 75 mg PO DAILY 01/15/17 [History] Naproxen 500 mg PO Q12HR #10 tab 01/22/17 [Rx] Ranitidine HCl [Zantac] 150 mg PO BID #20 tab 01/22/17 [Rx] Follow up Appointment(s)/Referral(s): Chalino Carrasquillo MD [STAFF PHYSICIAN] - 1 Week (call for appointment (office closed) ) Jerome Hanna DO [Primary Care Provider] - 1-2 days Patient Instructions/Handouts: Bowel Obstruction (DC) Activity/Diet/Wound Care/Special Instructions: activity as tolerated diet as tolerated follow-up as directed Discharge Disposition: HOME SELF-CARE
--- NOTE | 2017-02-16 22:11 | CONS ---
DATE OF CONSULTATION: 01/16/2017 ADDENDUM ASSESSMENT: 1. Acute small bowel obstruction in the proximal ileum.
--- NOTE | 2017-02-17 06:03 | PN ---
DATE OF SERVICE: 01/19/2017 ADDENDUM: Incorrect date placed on original dictation. Health information management number is [id number]. The DD/DT is 01/18/17 1900 and the TD/TT is 01/19/17 0820. The addended item is the date of that original dictation.
--- NOTE | 2017-02-17 06:53 | PN ---
DATE OF SERVICE: 01/20/2017 ATTENDING NOTE: This patient was seen and examined by me. I reviewed the note of my nurse practitioner, Ms. Young. I discussed with her and agreed to same. This is a patient who presented with bowel obstruction. NG tube was placed and then taken out. Patient on soft diet, passing flatus. On examination, afebrile, blood pressure 155/78. LUNGS: Fair air entry. CARDIOVASCULAR: First and second sounds normal. ABDOMEN: Minimal tenderness. No guarding or rigidity. Bowel sounds are present. ASSESSMENT: Acute small bowel obstruction responding to treatment, status post nasogastric tube, awaiting bowel movement. PLAN: Continue current medication and treatment plan. Patient is supposed to get a Dulcolax suppository. Follow.
--- NOTE | 2017-02-17 23:07 | PN ---
DATE OF SERVICE: 01/17/2017 Attending note: This patient was seen and examined by me on 01/17/2017. I reviewed the note of my nurse practitioner, Ms. Young. Agreed with her and discussed the same. The patient had a small bowel obstruction. NG tube remains in place. ( ) to suction and the patient had significant drainage from the suction. On examination: lying in bed, tired -appearing. ABDOMEN: Soft. Mild tenderness. No guarding or rigidity. Bowel sounds present. PSYCH: Awake. CT scan of the abdomen shows partial small bowel obstruction. ASSESSMENT: Acute small bowel obstruction, NG tube. Continued with antinausea medications. Follow.
--- NOTE | 2017-02-18 06:25 | PN ---
DATE OF SERVICE: 01/18/2017 ATTENDING NOTE: This patient seen and examined by me on 01/18/17. I reviewed the note of my nurse practitioner, Ms. Young. I discussed and agree with the same. This is a patient admitted with small bowel obstruction. NG tube was taken out earlier. Patient is passing some flatus. Feels better. On a liquid diet. On examination, afebrile, blood pressure 192/91, pulse ox 96% on room air. GENERAL APPEARANCE: Lying in bed, more awake. LUNGS: Clear. CARDIOVASCULAR: First and second sounds normal. No edema. ABDOMEN: Soft, nontender. Bowel sounds are present. ASSESSMENT: 1. Acute small bowel obstruction. NG tube discontinued. 2. Essential hypertension. Repeat blood pressure check. PLAN: Continue current medication and treatment plan. Will follow.
--- NOTE | 2017-02-18 07:48 | PN ---
DATE OF SERVICE: 01/21/2017 ATTENDING NOTE: This patient is being seen and examined by me on 01/21/17. I reviewed the note of my nurse practitioner, Ms. Young, and discussed and agreed. This is a patient admitted with small bowel obstruction. Passing flatus. Tolerating a diet. On exam, afebrile. Blood pressure 130/65. LUNGS: Clear. CARDIOVASCULAR: First and second sounds normal. ABDOMEN: Soft, minimal tenderness. Bowel sounds are present. ASSESSMENT: 1. Acute small bowel obstruction. Tolerating some diet. Abdominal x-ray is not showing bowel obstruction. 2. Hypertension. PLAN: Continue current medication and treatment plan. Follow.
--- NOTE | 2017-03-17 21:58 | PN ---
DATE OF SERVICE: 01/19/2017 PRESENTING COMPLAINT: Abdominal pain. INTERVAL HISTORY: This patient was seen by me on 01/19/17. Patient presented with abdominal pain, found to have bowel obstruction. Initially NG tube was placed, then disconnected. Patient has been passing flatus, feeling better. On a clear liquid diet. Review of systems done for constitutional, cardiovascular, GI, pulmonary; relevant findings as above. Current medications are reviewed. On examination, temperature 98.6, pulse 70, respiration 16, blood pressure 135/73, pulse ox 92% on room air. GENERAL APPEARANCE: Lying in bed. Awake. Comfortable. EYES: Pupils equal. Conjunctivae normal. NECK: JVD not raised. Mass not palpable. RESPIRATORY: Effort normal. LUNGS: Fair air entry. CARDIOVASCULAR: First and second sounds normal. No edema. ABDOMEN: Soft. Minimal tenderness. Bowel sounds are present. PSYCHIATRY: Alert and oriented x3. Mood and affect normal. INVESTIGATIONS: No new labs. ASSESSMENT: 1. Acute small bowel obstruction. NG tube has been out. Tolerating diet. 2. Hyperkalemia, improved. 3. Essential hypertension. 4. Hyperlipidemia. PLAN: Care was discussed with the patient and her family. Questions were answered. Continue care.
--- NOTE | 2017-03-20 13:39 | PN ---
CORRECTION: ADDENDUM: The note dictated by Deana Young, date dictated on 02/16/2017 time 2123, date transcribed 02/17/2017 time 0602. Addendum note by my nurse practitioner, Ms. Deana Young is to be deleted. A new note for this date of service 01/19/2017 has been dictated by me already.
== END 2017-01-21 17:24 | disposition home or self-care (01) | DRG 390 ==
LOC: EC 11:54 → 3SUR 18:15
PROVIDERS: ADMIT Surgery; ATTEND Surgery
DX: K56.60 Unspecified intestinal obstruction (principal); E87.5 Hyperkalemia; E78.5 Hyperlipidemia, unspecified; F32.9 Major depressive disorder, single episode, unspecified; I10 Essential (primary) hypertension; K57.90 Diverticulosis of intestine, part unspecified, without perforation or abscess without bleeding; Z79.82 Long term (current) use of aspirin; Z79.899 Other long term (current) drug therapy; Z88.0 Allergy status to penicillin; Z82.49 Family history of ischemic heart disease and other diseases of the circulatory system
CPT/HCPCS: 36415; 74020; 74022; 74177; 80048; 80053; 81003; 83605; 83690; 85025; 85027; 85610; 85730; 94760; 96365; 96375; 96376; 99285

== ENCOUNTER 2017-01-22 15:39 | Observation (INO) | payer MEDICARE ==
[2017-01-22] MEDS ORDERED: SODIUM CHLORIDE 0.9% 1,000 ML IV STA (16:05)
[2017-01-22] MEDS ORDERED: FAMOTIDINE 20 MG/2 ML VIAL IV STA (16:05)
[2017-01-22] MEDS ORDERED: MORPHINE SULFATE 4 MG/ML SYRINGE IV STA (16:05)
[2017-01-22] MEDS ORDERED: ONDANSETRON 4 MG/2 ML VIAL IVP STA (16:06)
--- NOTE | 2017-01-22 16:10 | ED ---
General Adult HPI - General Chief complaint: Nausea/Vomiting/Diarrhea Stated complaint: Arm Pain/Nausea Time Seen by Provider: 01/22/17 15:58 Source: patient, family, RN notes reviewed Mode of arrival: wheelchair Limitations: no limitations - History of Present Illness Initial comments: Patient is a pleasant 72-year-old female presenting to the emergency department with complaints of nausea and left arm discomfort. Left arm discomfort is near the antecubital fossa. Discomfort is somewhat positional. No swelling. Patient did say she had a few IVs placed while recently in the hospital. Patient does have a headache that she describes as not that bad. No confusion or weakness. No vomiting. Patient was just discharged from the hospital yesterday for bowel obstruction. Nausea and arm discomfort has been present since that time. No chest pain or dyspnea. - Related Data Home Medications Medication Instructions Recorded Confirmed Aspirin 81 mg PO DAILY 01/15/17 01/22/17 Atorvastatin [Lipitor] 40 mg PO HS 01/15/17 01/22/17 Metoprolol Succinate (ER) [Toprol 25 mg PO DAILY 01/15/17 01/22/17 Xl] Multivits-Min/Iron/FA/Lutein 1 tab PO DAILY 01/15/17 01/22/17 [Centrum Silver Women Tablet] Venlafaxine HCl ER [Effexor Xr] 75 mg PO DAILY 01/15/17 01/22/17 Allergies Allergy/AdvReac Type Severity Reaction Status Date / Time Penicillins Allergy Rash/Hives Verified 01/22/17 16:09 Review of Systems ROS Statement: Those systems with pertinent positive or pertinent negative responses have been documented in the HPI. ROS Other: All systems not noted in ROS Statement are negative. Constitutional: Denies: fever Eyes: Denies: eye pain ENT: Denies: ear pain Respiratory: Denies: cough Cardiovascular: Denies: chest pain Endocrine: Denies: fatigue Gastrointestinal: Reports: nausea. Denies: abdominal pain, vomiting Genitourinary: Denies: dysuria Musculoskeletal: Denies: back pain Skin: Denies: rash Neurological: Reports: headache. Denies: weakness, confusion Past Medical History Past Medical History: Hyperlipidemia, Hypertension Additional Past Medical History / Comment(s): bowel obstructions History of Any Multi-Drug Resistant Organisms: None Reported Past Surgical History: Bowel Resection Past Anesthesia/Blood Transfusion Reactions: No Reported Reaction Past Psychological History: No Psychological Hx Reported Smoking Status: Never smoker Past Alcohol Use History: None Reported Past Drug Use History: None Reported - Past Family History Sister(s) Family Medical History: Diabetes Mellitus Father Family Medical History: Coronary Artery Disease (CAD) General Exam Limitations: no limitations General appearance: alert, in no apparent distress Head exam: Present: atraumatic Eye exam: Present: normal appearance, PERRL ENT exam: Present: normal oropharynx Neck exam: Present: normal inspection Respiratory exam: Present: normal lung sounds bilaterally Cardiovascular Exam: Present: regular rate, normal rhythm Expanded Peripheral pulses: 2+: Radial (R), Radial (L), Dorsalis Pedis (R), Dorsalis Pedis (L) GI/Abdominal exam: Present: soft. Absent: distended, tenderness Extremities exam: Present: tenderness (Mild tenderness left lower bicep region and left antecubital fossa. No erythema or swelling. Distally the extremity is neurovascular intact.) Neurological exam: Present: alert, CN II-XII intact. Absent: motor sensory deficit Expanded Speech: Present: fluid speech Motor strength exam: RUE: 5, LUE: 5, RLE: 5, LLE: 5 Eye Response: (4) open spontaneously Motor Response: (6) obeys commands Verbal Response: (5) oriented Psychiatric exam: Present: normal affect, normal mood Skin exam: Absent: rash Course Vital Signs 01/22/17 01/22/17 15:42 17:33 Temperature 97.9 F 98.2 F Pulse Rate 74 61 Respiratory 18 18 Rate Blood Pressure 127/76 175/85 O2 Sat by Pulse 93 L 95 Oximetry EKG Findings - EKG Comments: EKG Findings:: Normal sinus rhythm 64. ME 144. QRS 94. QT 472. QTC 486. Normal axis. LVH criteria. Nonspecific ST-T. Medical Decision Making - Medical Decision Making Patient reevaluated. Patient and family updated. Case discussed in detail with Dr. Ballesteros, who will admit for Dr. Lund. Patient was recently seen by Dr. altman and Dr. Ballesteros is covering. Magnesium and potassium replaced. - Lab Data Result diagrams: 01/22/17 16:15 01/22/17 16:15 Lab Results 01/22/17 01/22/17 01/22/17 Range/Units 16:15 16:15 16:15 WBC 6.9 (3.8-10.6) k/uL RBC 4.33 (3.80-5.40) m/uL Hgb 13.6 (11.4-16.0) gm/dL Hct 39.8 (34.0-46.0) % MCV 92.1 (80.0-100.0) fL MCH 31.5 (25.0-35.0) pg MCHC 34.2 (31.0-37.0) g/dL RDW 13.7 (11.5-15.5) % Plt Count 312 (150-450) k/uL Neutrophils % 51 % Lymphocytes % 37 % Monocytes % 6 % Eosinophils % 3 % Basophils % 1 % Neutrophils # 3.5 (1.3-7.7) k/uL Lymphocytes # 2.6 (1.0-4.8) k/uL Monocytes # 0.4 (0-1.0) k/uL Eosinophils # 0.2 (0-0.7) k/uL Basophils # 0.0 (0-0.2) k/uL PT (9.0-12.0) sec INR (<1.1) APTT (22.0-30.0) sec Sodium 141 (137-145) mmol/L Potassium 2.8 L* (3.5-5.1) mmol/L Chloride 101 (98-107) mmol/L Carbon Dioxide 28 (22-30) mmol/L Anion Gap 12 mmol/L BUN 7 (7-17) mg/dL Creatinine 0.66 (0.52-1.04) mg/dL Est GFR (MDRD) Af Amer >60 (>60 ml/min/1.73 sqM) Est GFR (MDRD) Non-Af >60 (>60 ml/min/1.73 sqM) Glucose 125 H (74-99) mg/dL Calcium 9.1 (8.4-10.2) mg/dL Magnesium 1.0 L* (1.6-2.3) mg/dL Total Bilirubin 0.5 (0.2-1.3) mg/dL AST 26 (14-36) U/L ALT 17 (9-52) U/L Alkaline Phosphatase 39 (38-126) U/L Total Creatine Kinase 69 (30-135) U/L CK-MB (CK-2) 0.9 (0.0-2.4) ng/mL CK-MB (CK-2) Rel Index 1.3 Troponin I <0.012 (0.000-0.034) ng/mL Total Protein 6.5 (6.3-8.2) g/dL Albumin 3.9 (3.5-5.0) g/dL Amylase 57 (30-110) U/L Lipase 213 (23-300) U/L 01/22/17 Range/Units 16:15 WBC (3.8-10.6) k/uL RBC (3.80-5.40) m/uL Hgb (11.4-16.0) gm/dL Hct (34.0-46.0) % MCV (80.0-100.0) fL MCH (25.0-35.0) pg MCHC (31.0-37.0) g/dL RDW (11.5-15.5) % Plt Count (150-450) k/uL Neutrophils % % Lymphocytes % % Monocytes % % Eosinophils % % Basophils % % Neutrophils # (1.3-7.7) k/uL Lymphocytes # (1.0-4.8) k/uL Monocytes # (0-1.0) k/uL Eosinophils # (0-0.7) k/uL Basophils # (0-0.2) k/uL PT 10.2 (9.0-12.0) sec INR 1.0 (<1.1) APTT 20.2 L (22.0-30.0) sec Sodium (137-145) mmol/L Potassium (3.5-5.1) mmol/L Chloride (98-107) mmol/L Carbon Dioxide (22-30) mmol/L Anion Gap mmol/L BUN (7-17) mg/dL Creatinine (0.52-1.04) mg/dL Est GFR (MDRD) Af Amer (>60 ml/min/1.73 sqM) Est GFR (MDRD) Non-Af (>60 ml/min/1.73 sqM) Glucose (74-99) mg/dL Calcium (8.4-10.2) mg/dL Magnesium (1.6-2.3) mg/dL Total Bilirubin (0.2-1.3) mg/dL AST (14-36) U/L ALT (9-52) U/L Alkaline Phosphatase (38-126) U/L Total Creatine Kinase (30-135) U/L CK-MB (CK-2) (0.0-2.4) ng/mL CK-MB (CK-2) Rel Index Troponin I (0.000-0.034) ng/mL Total Protein (6.3-8.2) g/dL Albumin (3.5-5.0) g/dL Amylase (30-110) U/L Lipase (23-300) U/L - Radiology Data Radiology results: report reviewed (Ultrasound left arm associated superficial thrombosis without DVT.), image reviewed (Chest x-ray and abdominal x-ray revealed no acute process) Disposition Clinical Impression: Hypomagnesemia, Hypokalemia, Superficial vein thrombosis Disposition: ADMITTED IP TO THIS [facility] Time of Disposition: 17:46
[2017-01-22] MEDS ORDERED: diphenhydrAMINE 50 MG/ML 1 ML VIAL IVP STA (16:27)
[2017-01-22] MEDS ORDERED: HYDROmorphone 1 MG/ML 1 ML SYRINGE IVP STA (16:27)
[2017-01-22 16:40] LABS: ALT 17 U/L (9-52); AST 26 U/L (14-36); Alkaline Phosphatase 39 U/L (38-126); Amylase 57 U/L (30-110); Anion Gap 12 mmol/L; Blood Urea Nitrogen 7 mg/dL (7-17); Calcium 9.1 mg/dL (8.4-10.2); Carbon Dioxide 28 mmol/L (22-30); Chloride 101 mmol/L (98-107); Glucose 125 mg/dL (74-99); Non-African American GFR(MDRD) >60 (>60 ml/min/1.73 sqM); Sodium 141 mmol/L (137-145); Total Bilirubin 0.5 mg/dL (0.2-1.3); Total Protein 6.5 g/dL (6.3-8.2)
[2017-01-22 16:42] LABS: Basophils % (A) 1 %; CH 32.5; CHCM 35.4; Eosinophils # (A) 0.2 k/uL (0-0.7); Eosinophils % (A) 3 %; HCT 39.8 % (34.0-46.0); HDW 2.77; HGB 13.6 gm/dL (11.4-16.0); Luc # (Auto) 0.16; Luc % (Auto) 2; Lymphocytes # (A) 2.6 k/uL (1.0-4.8); Lymphocytes % (A) 37 %; MCH 31.5 pg (25.0-35.0); MCHC 34.2 g/dL (31.0-37.0); MCV 92.1 fL (80.0-100.0); Mean Platelet Volume 6.9; Monocytes # (A) 0.4 k/uL (0-1.0); Monocytes % (A) 6 %; Neutrophils # (A) 3.5 k/uL (1.3-7.7); Neutrophils % (A) 51 %; RBC 4.33 m/uL (3.80-5.40); RDW 13.7 % (11.5-15.5); WBC 6.9 k/uL (3.8-10.6); WBC (Perox) 6.57
[2017-01-22 16:43] LABS: Potassium 2.8 mmol/L (3.5-5.1)
[2017-01-22 16:47] LABS: Creatine Kinase 69 U/L (30-135)
[2017-01-22 17:00] LABS: Creatine Kinase MB 0.9 ng/mL (0.0-2.4); Troponin I <0.012 ng/mL (0.000-0.034)
[2017-01-22] MEDS ORDERED: POTASSIUM CHLORIDE 10 MEQ, LIDOCAINE 2% INJ 10 MG in SODIUM CHLORIDE 0.9% 100 ML IVPB SCH ×2 (17:00→19:00)
[2017-01-22 17:01] LABS: Partial Thromboplastin Time 20.2 sec (22.0-30.0); Prothrombin Time 10.2 sec (9.0-12.0)
--- NOTE | 2017-01-22 17:04 | US ---
EXAMINATION TYPE: US venous doppler duplex UE LT DATE OF EXAM: 01/22/2017 4:55 PM COMPARISON: NONE CLINICAL HISTORY: Pain. Pain in forearm at recent IV site SIDE PERFORMED: Left Left Arm: Negative for DVT but appears to have thrombus within cephalic vein in forearm and recent IV site, non compressible vessel with internal echoes Satisfactory color flow and phasicity is seen in left subclavian vein. Satisfactory color flow, phasi [place], compressibility is seen in left internal jugular vein,, axillary and brachial vein and superfic ial left basilic vein in the left upper extremity. Left cephalic vein is noncompressible with absent color flow. There is satisfactory compression and the radial and ulnar veins below elbow. IMPRESSION: Acute thrombus in the superficial left cephalic vein is noted.
[2017-01-22] MEDS: MAGNESIUM SULFATE-D5W PMX 1 GM in DEXTROSE/WATER 1 100ML.BAG IVPB SCH ×3 (17:12→21:42)
--- NOTE | 2017-01-22 17:17 | XR ---
EXAMINATION TYPE: XR chest 2V DATE OF EXAM: 01/22/2017 5:10 PM COMPARISON: Prior chest x-ray from yesterday. HISTORY: Pain and small bowel obstruction. TECHNIQUE: Frontal and lateral views of the chest are obtained. FINDINGS: There is chronic parenchymal change with persistent tiny left pleural effusion and associa savanna left basilar atelectasis and/or infiltrate. The cardiac silhouette size is upper limits of sherrill l with atherosclerotic thoracic aorta. The osseous structures are demineralized. Old fracture defor mity left mid clavicle is redemonstrated. IMPRESSION: Persistent tiny left pleural effusion and left basilar atelectasis and/or infiltrate. No new infiltrate is seen.
--- NOTE | 2017-01-22 17:18 | XR ---
EXAMINATION TYPE: XR abdomen 1V DATE OF EXAM: 01/22/2017 5:10 PM CLINICAL HISTORY: Nausea and pain. TECHNIQUE: Single supine KUB image of the abdomen is obtained. COMPARISON: CT abdomen and pelvis from one week ago. Acute abdominal series from yesterday. FINDINGS: Scattered gas is seen in non-distended small bowel loops. Gas and fecal material is seen in non-distended colon. Osseous structures are demineralized. Vascular consultation overlies the mid abdomen. IMPRESSION: Overall nonspecific favor nonobstructive bowel gas pattern.
[2017-01-22] MEDS ORDERED: NALOXONE 0.4 MG/ML 1 ML VIAL IV PRN (17:46)
[2017-01-22] MEDS ORDERED: POTASSIUM CHLORIDE ER 20 MEQ TAB.ER PO STA ×4 (17:49→18:54)
[2017-01-22] MEDS ORDERED: 0.9% NACL WITH KCL 20 MEQ/L 1,000 ML IV SCH (18:00)
[2017-01-22] MEDS ORDERED: MAGNESIUM OXIDE 400 MG TAB PO STA (18:01)
[2017-01-22] MEDS ORDERED: ATORVASTATIN 40 MG TAB PO SCH (21:00)
[2017-01-22] MEDS: KETOROLAC 30 MG/ML 1 ML VIAL IVP PRN (21:38)
--- NOTE | 2017-01-22 21:41 | HP ---
DATE OF ADMISSION: 01/22/2017 Patient is a 72-year-old female who emergency department with complaints of nausea and left tonsillar discomfort and patient was found to have superficial thrombus in the antecubital fossa. Patient was found to have found to have very low magnesium of one, being supplemented at this point of time. Potassium of 2.8, which is also being supplemented. None of these conditions require her to be hospitalized, but patient appears to be quite weak upon my exam although I cannot come up with any reason for her weakness at this point of time. Patient is also tremulousness. Will correct electrolytes. We will monitor her tonight and if required the patient will get evaluation from PT and OT considering her recent hospitalization. We will leave the NSAIDS for her left cephalic vein superficial thrombus. Patient will not require anticoagulation for that. Home medications include: 1. Aspirin. 2. Atorvastatin. 3. Metoprolol. 4. Multivitamin. 5. Venlafaxine. ALLERGIES: PENICILLINS. REVIEW OF SYSTEMS: CONSTITUTIONAL: As described in HPI. HEENT: No recent visual problems or hearing problems. Denied any sore throat. CARDIOVASCULAR: No chest pain, orthopnea, PND, no palpitations, no syncope. PULMONARY: No shortness of breath, no cough, no hemoptysis. GASTROINTESTINAL: No diarrhea, no nausea, no vomiting, no abdominal pain. Normoactive bowel sounds. NEUROLOGICAL: No headaches, no weakness, no numbness. HEMATOLOGICAL: Denies any bleeding or petechiae. GENITOURINARY: Denies any burning micturition, frequency, or urgency. MUSCULOSKELETAL/RHEUMATOLOGICAL: As described in HPI. ENDOCRINE: Denies any polyuria or polydipsia. DERMATOLOGICAL: As described in HPI. The rest of the 14 point review of systems is negative. ALLERGIES: ALLERGY TO PENICILLIN. PAST MEDICAL HISTORY: Significant for hypertension, hyperlipidemia, bowel resection surgery and patient had a recent partial bowel obstruction. FAMILY HISTORY: Sister had diabetes mellitus. Father had coronary artery disease. PHYSICAL EXAMINATION: Temperature 98.2, pulse of 61, respiratory rate of 18, blood pressure is 135/85, saturating at 95% on 2 L O2 nasal cannula. GENERAL: The patient is alert and oriented x3, not in any acute distress. Well developed, well nourished. HEENT: Pupils are round and equally reacting to light. EOMI. No scleral icterus. No conjunctival pallor. Normocephalic, atraumatic. No pharyngeal erythema. No thyromegaly. CARDIOVASCULAR: S1 and S2 present. No murmurs, rubs, or gallops. PULMONARY: Chest is clear to auscultation, no wheezing or crackles. ABDOMEN: Soft, nontender, nondistended, normoactive bowel sounds. No palpable organomegaly. MUSCULOSKELETAL: No joint swelling or deformity. EXTREMITIES: Patient does have tenderness in the cephalic vein area where she has superficial thrombosis. Patient is tremulous and patient appears to be quite weak. NEUROLOGICAL: Gross neurological examination did not reveal any focal deficits. SKIN: No rashes. LABORATORY DATA: CBC, CMP are abnormal for low magnesium of 1.5, potassium of 2.8. ASSESSMENT AND PLAN: 1. Generalized weakness; unsure of the etiology. So far I did not see any signs or symptoms of sepsis, although there is a small pleural effusion which appears to be present in the previous chest x-ray. Beyond that I did not see any significant abnormality. 2. Left cephalic vein superficial thrombus for which patient will be on anti-inflammatories in the form of tramadol. 3. Nausea probably related to gastritis. Patient is on famotidine. We will continue with that and we will continue with tramadol instead of any naproxen or ibuprofen. 4. Hypomagnesemia. Unsure of the etiology of hypomagnesemia. Patient denied any significant history of alcoholism. 5. Hypokalemia secondary to anemia both of which will be supplemented. Will repeat electrolytes. Possibility of discharge tomorrow depending on above mentioned plan. 6. Recent partial small bowel obstruction. 7. Hypertension. 8. Hyperlipidemia for which I will go ahead and continue her home medications. 9. Depression for which I will go ahead continue her home medications.
[2017-01-22] MEDS ORDERED: METOPROLOL SUCCINATE (ER) 25 MG TAB.ER.24H PO STA (22:26)
[2017-01-22] MEDS: PANTOPRAZOLE 40 MG TABLET PO SCH (22:26)
[2017-01-22] MEDS: traMADol 50 MG TAB PO PRN (22:43)
[2017-01-23 00:14] VITALS: RESP 16
[2017-01-23] MEDS: MAGNESIUM SULFATE-D5W PMX 1 GM in DEXTROSE/WATER 1 100ML.BAG IVPB SCH (01:59)
[2017-01-23] MEDS: POTASSIUM CHLORIDE ER 20 MEQ TAB.ER PO SCH ×2 (03:24→08:05)
[2017-01-23] MEDS: KETOROLAC 30 MG/ML 1 ML VIAL IVP PRN ×2 (03:25→08:38)
[2017-01-23] MEDS: traMADol 50 MG TAB PO PRN (07:27)
[2017-01-23 07:35] VITALS: BP 152/82; PULSE 59; TEMP 97.5
[2017-01-23] MEDS: PANTOPRAZOLE 40 MG TABLET PO SCH (08:06)
[2017-01-23] MEDS ORDERED: VENLAFAXINE HCL ER 75 MG CAP PO SCH (09:00)
[2017-01-23] MEDS ORDERED: METOPROLOL SUCCINATE (ER) 25 MG TAB.ER.24H PO SCH ×2 (09:00)
[2017-01-23] MEDS ORDERED: MAGNESIUM OXIDE 400 MG TAB PO SCH (09:00)
[2017-01-23 09:11] LABS: Anion Gap 7 mmol/L; Blood Urea Nitrogen 6 mg/dL (7-17); Calcium 8.6 mg/dL (8.4-10.2); Carbon Dioxide 24 mmol/L (22-30); Chloride 111 mmol/L (98-107); Glucose 90 mg/dL (74-99); Magnesium 2.4 mg/dL (1.6-2.3); Non-African American GFR(MDRD) >60 (>60 ml/min/1.73 sqM); Phosphorous 3.7 mg/dL (2.5-4.5); Sodium 142 mmol/L (137-145)
--- NOTE | 2017-01-23 11:44 | DS ---
DATE OF ADMISSION: 01/22/2017 DATE OF DISCHARGE: 72-year-old came to the emergency department with left arm discomfort found to have superficial thrombosis of the cephalic vein and patient will need NSAIDS for that and patient appeared to be quite weak yesterday because of which I obtained PT and OT consultation. Patient does not require any physical therapy at home. Patient hypomagnesemia and hypokalemia were corrected. Repeat labs will be obtained in 3 days. Patient will be discharged today with GI prophylaxis and naproxen and patient does not have any nausea anymore. Patient was seen and examined on the day of discharge. Vitals are stable. FINAL DIAGNOSIS(ES): 1. Generalized weakness probably due to hospitalization, which resolved and may be related to the electrolytes imbalances, with resolution of electrolytes imbalances her generalized weakness improved as well. 2. Cephalic vein superficial thrombosis for which patient will need NSAIDS and anti-inflammatories. 3. Hypomagnesemia. 4. Hypokalemia both of which are corrected etiology of hypomagnesemia is unknown. 5. Recent partial small bowel obstruction. Patient does not have any such issues at this point of time. Able to tolerate oral diet and does have bowel sounds. 6. Hypertension. 7. Hyperlipidemia. 8. Depression. Patient will be discharged today. Please refer to my depart summary for further details of discharge medications. Activity as tolerated. Cardiac diet. Follow up with Dr. Jerome Dunlap in 3 to 7 days. Spent greater than 35 minutes in total discharge process.
[2017-01-23] MEDS ORDERED: MULTIVITAMINS, THERA 1 EACH TAB PO SCH (12:00)
== END 2017-01-23 12:27 | disposition home or self-care (01) ==
LOC: EC 15:39 → 4MS4W 17:46
PROVIDERS: ADMIT Internal Medicine; ATTEND Internal Medicine
DX: R53.1 Weakness (principal); I82.612 Acute embolism and thrombosis of superficial veins of left upper extremity; R11.0 Nausea; R51 Headache; E83.42 Hypomagnesemia; E87.6 Hypokalemia; D64.9 Anemia, unspecified; I10 Essential (primary) hypertension; E78.5 Hyperlipidemia, unspecified; F32.9 Major depressive disorder, single episode, unspecified; Z79.82 Long term (current) use of aspirin; Z79.899 Other long term (current) drug therapy; Z88.0 Allergy status to penicillin; Z83.3 Family history of diabetes mellitus; Z82.49 Family history of ischemic heart disease and other diseases of the circulatory system
CPT/HCPCS: 96365; 96368; 96375 ×4; 96361; 99285; 36415; 94760; 93005; 97161; 80053; 80048; 82150; 82550; 82553; 83690; 83735 ×2; 84100; 84484; 85025; 85610; 85730; 71020; 74000; 93971; G0378 ×2; J2001; J1200; J2405; J3480; J1885 ×2; J1170; J3475 ×2; 96366

== ENCOUNTER 2017-01-24 05:49 | Emergency (ER) | payer MEDICARE ==
[2017-01-24] MEDS ORDERED: NITROGLYCERIN SL TABS 0.4 MG TAB SUBLINGUAL STA ×2 (06:14)
[2017-01-24] MEDS ORDERED: ASPIRIN 81 MG CHEW PO STA (06:14)
--- NOTE | 2017-01-24 06:20 | ED ---
General Adult HPI <Adriano Tierney - Last Filed: 01/24/17 08:25> - General Source: patient, family Mode of arrival: ambulatory Limitations: no limitations - History of Present Illness -: hour(s) Location: left, upper extremity Radiation: non-radiation Quality: aching Consistency: constant Improves with: none Worsens with: none Associated Symptoms: denies other symptoms Treatments Prior to Arrival: NSAID <James Michel - Last Filed: 01/27/17 20:48> - General Chief complaint: Recheck/Abnormal Lab/Rx Stated complaint: L arm pain Time Seen by Provider: 01/24/17 06:03 - History of Present Illness Initial comments: This patient is a 72-year-old woman presenting to be evaluated for left upper extremity pain. She indicates the posterior aspect of the upper part of the arm , along the triceps. Patient states that the pain is been going on since yesterday. She had been discharged from the hospital then, and states that the pain has only continue to worsen. She did take the nonsteroidal medication that was prescribed yesterday, but it has not really provide much relief. Patient states the pain is constant, aching, severe, and she has not noted any worsening or relieving factors. She has not had any associated symptoms, no diaphoresis, dyspnea, nausea or vomiting. Patient states she was diagnosed with a blood clot in that arm yesterday. (James Michel) - Related Data Home Medications Medication Instructions Recorded Confirmed Aspirin 81 mg PO DAILY 01/15/17 01/27/17 Atorvastatin [Lipitor] 40 mg PO HS 01/15/17 01/27/17 Metoprolol Succinate (ER) [Toprol 25 mg PO DAILY 01/15/17 01/27/17 Xl] Multivits-Min/Iron/FA/Lutein 1 tab PO DAILY 01/15/17 01/27/17 [Centrum Silver Women Tablet] Venlafaxine HCl ER [Effexor Xr] 75 mg PO DAILY 01/15/17 01/27/17 Previous Rx's Medication Instructions Recorded Naproxen 500 mg PO Q12HR #10 tab 01/22/17 Ranitidine HCl [Zantac] 150 mg PO BID #20 tab 01/22/17 Allergies Allergy/AdvReac Type Severity Reaction Status Date / Time Penicillins Allergy Rash/Hives Verified 01/27/17 07:48 Review of Systems ROS Other: All systems not noted in ROS Statement are negative. <Adriano Tierney - Last Filed: 01/24/17 08:25> ROS Other: All systems not noted in ROS Statement are negative. Constitutional: Denies: fever Respiratory: Denies: cough, dyspnea Cardiovascular: Denies: chest pain, palpitations, orthopnea, syncope Gastrointestinal: Denies: abdominal pain, nausea, vomiting Musculoskeletal: Reports: myalgia. Denies: back pain Skin: Denies: rash Neurological: Denies: headache, weakness, numbness, paresthesias Psychiatric: Reports: anxiety <James Michel - Last Filed: 01/27/17 20:48> ROS Statement: Those systems with pertinent positive or pertinent negative responses have been documented in the HPI. Past Medical History Past Medical History: Hyperlipidemia, Hypertension Additional Past Medical History / Comment(s): bowel obstructions History of Any Multi-Drug Resistant Organisms: None Reported Past Surgical History: Bowel Resection Additional Past Surgical History / Comment(s): bowel resection x 2 Past Anesthesia/Blood Transfusion Reactions: No Reported Reaction Past Psychological History: Anxiety, Depression Smoking Status: Former smoker Past Alcohol Use History: None Reported Past Drug Use History: None Reported - Past Family History Sister(s) Family Medical History: Diabetes Mellitus Father Family Medical History: Coronary Artery Disease (CAD) <James Michel - Last Filed: 01/27/17 20:48> General Exam Limitations: no limitations General appearance: alert, in distress (Secondary to arm pain) Head exam: Present: atraumatic, normocephalic Eye exam: Present: normal appearance Neck exam: Present: normal inspection, full ROM. Absent: tenderness Respiratory exam: Present: normal lung sounds bilaterally. Absent: respiratory distress, wheezes, rales, rhonchi, stridor Cardiovascular Exam: Present: regular rate, normal rhythm, normal heart sounds. Absent: systolic murmur, diastolic murmur, rubs, gallop GI/Abdominal exam: Present: soft. Absent: distended, tenderness, guarding, rebound, mass Extremities exam: Present: normal inspection, normal capillary refill, other ( There is some mild tenderness over the brachiocephalic vein in the patient's forearm. There is no palpable DVT in the upper portion of the arm.). Absent: tenderness, pedal edema, calf tenderness Left General: Present: normal inspection. Absent: laceration, abrasion Shoulder Exam: Present: full ROM. Absent: tenderness, swelling, abrasion, laceration, ecchymosis, deformity, crepitus, dislocation, erythema Upper Arm exam: Present: full ROM. Absent: tenderness, swelling, abrasion, laceration, ecchymosis, deformity, crepidus, erythema Elbow exam: Present: full ROM. Absent: tenderness, swelling, abrasion, laceration, ecchymosis, deformity, crepitus, erythema Neurosensory exam: Present: radial nerve intact, ulnar nerve intact, median nerve intact Vascular: Present: normal capillary refill, radial pulse (Normal). Absent: vascular compromise, Pallo Back exam: Present: normal inspection. Absent: paraspinal tenderness, vertebral tenderness Neurological exam: Present: alert. Absent: motor sensory deficit Psychiatric exam: Present: anxious Skin exam: Present: warm, dry, intact, normal color. Absent: rash <James Michel - Last Filed: 01/27/17 20:48> EKG Findings - EKG Results: EKG: interpreted by ERMD, sinus rhythm (Rate 64 bpm), normal axis, normal ST/T, no acute changes - Blocks, [place], Hypertrophy, ST Abn: Chamber hypertrophy or enlargement: only voltage criteria for left ventricular hypertrophy <James Michel - Last Filed: 01/27/17 20:48> Medical Decision Making - Lab Data Result diagrams: 01/24/17 06:39 01/24/17 06:39 <Adriano Tierney - Last Filed: 01/24/17 08:25> - Lab Data Result diagrams: 01/24/17 06:39 01/24/17 06:39 <James Michel - Last Filed: 01/27/17 20:48> - Medical Decision Making This patient's a 72-year-old woman presenting with pain to the left upper portion of the arm. She did recently have diagnosis of thrombophlebitis. Patient seen and evaluated and signed out pending the results of her studies, which include duplex Doppler to rule out a propagation of the thrombophlebitis. (James Michel) - Lab Data Lab Results 01/24/17 01/24/17 01/24/17 Range/Units 06:39 06:39 06:39 WBC 8.4 (3.8-10.6) k/uL RBC 4.05 (3.80-5.40) m/uL Hgb 13.0 (11.4-16.0) gm/dL Hct 37.3 (34.0-46.0) % MCV 92.1 (80.0-100.0) fL MCH 32.0 (25.0-35.0) pg MCHC 34.8 (31.0-37.0) g/dL RDW 13.8 (11.5-15.5) % Plt Count 287 (150-450) k/uL Neutrophils % 74 % Lymphocytes % 16 % Monocytes % 5 % Eosinophils % 4 % Basophils % 0 % Neutrophils # 6.2 (1.3-7.7) k/uL Lymphocytes # 1.3 (1.0-4.8) k/uL Monocytes # 0.4 (0-1.0) k/uL Eosinophils # 0.3 (0-0.7) k/uL Basophils # 0.0 (0-0.2) k/uL Sodium 141 (137-145) mmol/L Potassium 4.9 (3.5-5.1) mmol/L Chloride 108 H (98-107) mmol/L Carbon Dioxide 25 (22-30) mmol/L Anion Gap 8 mmol/L BUN 9 (7-17) mg/dL Creatinine 0.57 (0.52-1.04) mg/dL Est GFR (MDRD) Af Amer >60 (>60 ml/min/1.73 sqM) Est GFR (MDRD) Non-Af >60 (>60 ml/min/1.73 sqM) Glucose 96 (74-99) mg/dL Calcium 9.2 (8.4-10.2) mg/dL Magnesium 1.6 (1.6-2.3) mg/dL Total Bilirubin 0.7 (0.2-1.3) mg/dL AST 30 (14-36) U/L ALT 21 (9-52) U/L Alkaline Phosphatase 39 (38-126) U/L Total Creatine Kinase 60 (30-135) U/L CK-MB (CK-2) 0.7 (0.0-2.4) ng/mL CK-MB (CK-2) Rel Index 1.2 Troponin I <0.012 (0.000-0.034) ng/mL Total Protein 6.1 L (6.3-8.2) g/dL Albumin 3.6 (3.5-5.0) g/dL Disposition Time of Disposition: 08:07 <Adriano Tierney - Last Filed: 01/24/17 08:25> <James Michel - Last Filed: 01/27/17 20:48> Clinical Impression: Triceps strain Disposition: HOME SELF-CARE Instructions: Muscle Strain (ED) Referrals: Jerome Hanna DO [Primary Care Provider] - 1-2 days
[2017-01-24 06:47] VITALS: RESP 18
[2017-01-24 06:49] LABS: Basophils % (A) 0 %; CH 32.6; CHCM 35.5; Eosinophils # (A) 0.3 k/uL (0-0.7); Eosinophils % (A) 4 %; HCT 37.3 % (34.0-46.0); HDW 2.82; Luc # (Auto) 0.11; Luc % (Auto) 1; Lymphocytes # (A) 1.3 k/uL (1.0-4.8); Lymphocytes % (A) 16 %; MCHC 34.8 g/dL (31.0-37.0); MCV 92.1 fL (80.0-100.0); Mean Platelet Volume 7.1; Monocytes # (A) 0.4 k/uL (0-1.0); Monocytes % (A) 5 %; Neutrophils # (A) 6.2 k/uL (1.3-7.7); Neutrophils % (A) 74 %; RBC 4.05 m/uL (3.80-5.40); RDW 13.8 % (11.5-15.5); WBC 8.4 k/uL (3.8-10.6); WBC (Perox) 8.54
[2017-01-24 06:57] LABS: ALT 21 U/L (9-52); AST 30 U/L (14-36); Alkaline Phosphatase 39 U/L (38-126); Anion Gap 8 mmol/L; Blood Urea Nitrogen 9 mg/dL (7-17); Calcium 9.2 mg/dL (8.4-10.2); Carbon Dioxide 25 mmol/L (22-30); Chloride 108 mmol/L (98-107); Glucose 96 mg/dL (74-99); Magnesium 1.6 mg/dL (1.6-2.3); Non-African American GFR(MDRD) >60 (>60 ml/min/1.73 sqM); Potassium 4.9 mmol/L (3.5-5.1); Sodium 141 mmol/L (137-145); Total Bilirubin 0.7 mg/dL (0.2-1.3); Total Protein 6.1 g/dL (6.3-8.2)
[2017-01-24] MEDS ORDERED: MORPHINE SULFATE 4 MG/ML SYRINGE IV STA (07:00)
[2017-01-24 07:07] LABS: Creatine Kinase 60 U/L (30-135)
[2017-01-24] MEDS ORDERED: HYDROmorphone 1 MG/ML 1 ML SYRINGE IVP STA (07:11)
--- NOTE | 2017-01-24 07:14 | XR ---
EXAMINATION TYPE: XR chest 1V portable DATE OF EXAM: 01/24/2017 7:02 AM COMPARISON: 01/22/2017 HISTORY: Shortness of breath TECHNIQUE: Single view of the chest is submitted. FINDINGS: Scattered senescent parenchymal changes noted. Hyperinflation compatible with COPD. No evidence for infiltrate. No evidence for atelectasis. Heart size is stable. Mediastinal structures are stable and grossly unremarkable. No evidence for hilar prominence. Degenerative changes dorsal spine. Chronic left-sided rib deformities noted. IMPRESSION: 1. No evidence for acute pulmonary disease.
[2017-01-24 07:21] LABS: Creatine Kinase MB 0.7 ng/mL (0.0-2.4); Troponin I <0.012 ng/mL (0.000-0.034)
--- NOTE | 2017-01-24 08:11 | US ---
EXAMINATION TYPE: US venous doppler duplex UE LT DATE OF EXAM: 01/24/2017 7:48 AM COMPARISON: Left lower extremity venous ultrasound 2 days ago. CLINICAL HISTORY: Pain, R/O DVT. Increasing left arm pain. Patient diagnosed with thrombus left cepha lic vein SIDE PERFORMED: left Left Arm: No evidence of DVT. Superficial thrombus noted within left cephalic vein There is redemonstration of satisfactory blood flow, phasicity, compressibility and the left internal jugular vein. Satisfactory color flow and phasicity is seen in the left subclavian vein. The axillar y and brachial veins show satisfactory color flow and compressibility. Left basilic vein show satisfa ctory color flow and compressibility. The left cephalic vein redemonstrates absent color flow and non compressibility. The paired radial and ulnar veins show satisfactory color flow and compressibility. IMPRESSION: Persistent acute thrombosis of superficial left cephalic vein. No significant change from recent stud y.
[2017-01-24] MEDS ORDERED: KETOROLAC 30 MG/ML 1 ML VIAL IVP ONE (08:30)
[2017-01-24 08:32] VITALS: BP 185/86; PULSE 62; TEMP 97.9
== END 2017-01-24 08:48 | disposition home or self-care (01) ==
LOC: EC 05:49
DX: S46.312A Strain of muscle, fascia and tendon of triceps, left arm, initial encounter (principal); E78.5 Hyperlipidemia, unspecified; I10 Essential (primary) hypertension; F32.9 Major depressive disorder, single episode, unspecified; Z88.0 Allergy status to penicillin; Z87.891 Personal history of nicotine dependence; Z79.82 Long term (current) use of aspirin; Z79.899 Other long term (current) drug therapy; X58.XXXA Exposure to other specified factors, initial encounter
CPT/HCPCS: 99284; 96374; 96375; 36415; 93005; 80053; 82550; 82553; 83735; 84484; 85025; 71010; 93971; J1885; J1170

== ENCOUNTER 2017-01-27 03:58 | Inpatient (IN) | payer MEDICARE ==
[2017-01-27] MEDS ORDERED: MORPHINE SULFATE 4 MG/ML SYRINGE IV STA (04:25)
[2017-01-27] MEDS ORDERED: SODIUM CHLORIDE 0.9% 1,000 ML IV STA ×3 (04:25→07:01)
[2017-01-27] MEDS ORDERED: LABETALOL 5 MG/ML VIAL MDV IVP STA (04:26)
[2017-01-27] MEDS ORDERED: LORazepam 2 MG/ML SYRINGE IV STA (04:30)
[2017-01-27] MEDS ORDERED: ONDANSETRON 4 MG/2 ML VIAL IVP STA (04:30)
[2017-01-27] MEDS ORDERED: HYDROmorphone 2 MG/ML 1 ML SYRINGE IVP STA (04:34)
--- NOTE | 2017-01-27 04:36 | ED ---
General Adult HPI - General Chief complaint: Dental/Oral Stated complaint: Facial Pain, swelling, altered Time Seen by Provider: 01/27/17 04:23 Source: patient, RN notes reviewed, old records reviewed Mode of arrival: EMS - History of Present Illness Initial comments: This is a 72-year-old female here for evaluation. Patient's brought in by family or her and EMS. Patient's troponin, and head pain. Patient is just complaining of facial pain, generalized pain. She is just, morning and going but is directable, history is also obtained from who state patient has multiple hospital admissions lately for first small bowel obstruction second superficial thrombosis of her upper extremity. Patient herself denies neurological complaints. Denies nausea vomiting. No fevers are noted. states patient's been eating appropriately. No abdominal pain at this time - Related Data Home Medications Medication Instructions Recorded Confirmed Aspirin 81 mg PO DAILY 01/15/17 01/27/17 Atorvastatin [Lipitor] 40 mg PO HS 01/15/17 01/27/17 Metoprolol Succinate (ER) [Toprol 25 mg PO DAILY 01/15/17 01/27/17 Xl] Multivits-Min/Iron/FA/Lutein 1 tab PO DAILY 01/15/17 01/27/17 [Centrum Silver Women Tablet] Venlafaxine HCl ER [Effexor Xr] 75 mg PO DAILY 01/15/17 01/27/17 Previous Rx's Medication Instructions Recorded Naproxen 500 mg PO Q12HR #10 tab 01/22/17 Ranitidine HCl [Zantac] 150 mg PO BID #20 tab 01/22/17 Allergies Allergy/AdvReac Type Severity Reaction Status Date / Time Penicillins Allergy Rash/Hives Verified 01/27/17 05:17 Review of Systems ROS Statement: Those systems with pertinent positive or pertinent negative responses have been documented in the HPI. ROS Other: All systems not noted in ROS Statement are negative. Past Medical History Past Medical History: Hyperlipidemia, Hypertension Additional Past Medical History / Comment(s): bowel obstructions , COpd History of Any Multi-Drug Resistant Organisms: None Reported Past Surgical History: Bowel Resection Additional Past Surgical History / Comment(s): bowel resection x 2 Past Anesthesia/Blood Transfusion Reactions: No Reported Reaction Past Psychological History: Anxiety, Depression Smoking Status: Former smoker Past Alcohol Use History: None Reported Past Drug Use History: None Reported - Past Family History Sister(s) Family Medical History: Diabetes Mellitus Father Family Medical History: Coronary Artery Disease (CAD) General Exam Limitations: altered mental status General appearance: alert, in no apparent distress Head exam: Present: atraumatic, normocephalic, normal inspection Eye exam: Present: normal appearance, PERRL, EOMI. Absent: scleral icterus, conjunctival injection, periorbital swelling ENT exam: Present: normal exam, mucous membranes moist Neck exam: Present: normal inspection. Absent: tenderness, meningismus, lymphadenopathy Respiratory exam: Present: normal lung sounds bilaterally. Absent: respiratory distress, wheezes, rales, rhonchi, stridor Cardiovascular Exam: Present: regular rate, normal rhythm, normal heart sounds. Absent: systolic murmur, diastolic murmur, rubs, gallop, clicks GI/Abdominal exam: Present: soft, normal bowel sounds. Absent: distended, tenderness, guarding, rebound, rigid Extremities exam: Present: normal inspection, full ROM, normal capillary refill. Absent: tenderness, pedal edema, joint swelling, calf tenderness Back exam: Present: normal inspection Neurological exam: Present: alert, oriented X3, CN II-XII intact Psychiatric exam: Present: normal affect, normal mood Skin exam: Present: warm, dry, intact, normal color. Absent: rash Course Vital Signs 01/27/17 01/27/17 01/27/17 03:59 04:33 04:36 Temperature 96.4 F L Pulse Rate 74 72 71 Respiratory 18 18 18 Rate Blood Pressure 240/106 233/109 191/81 O2 Sat by Pulse 95 95 Oximetry 01/27/17 01/27/17 01/27/17 04:39 04:41 04:47 Temperature Pulse Rate 70 70 68 Respiratory 18 18 18 Rate Blood Pressure 177/78 189/83 178/79 O2 Sat by Pulse 95 96 Oximetry 01/27/17 01/27/17 01/27/17 05:15 05:38 06:14 Temperature 99.3 F 98.4 F Pulse Rate 66 64 73 Respiratory 18 18 18 Rate Blood Pressure 170/101 185/76 151/67 O2 Sat by Pulse 96 95 96 Oximetry 01/27/17 06:43 Temperature Pulse Rate 70 Respiratory 18 Rate Blood Pressure 149/68 O2 Sat by Pulse 96 Oximetry - Reevaluation(s) Reevaluation #1: 01/27/17 07:00 Spoke with is 50 minutes regarding patient, very concerned for patient's clinical status, physical and mental deterioration since hospital admission EKG Findings - EKG Comments: EKG Findings:: EKG shows normal sinus rhythm rate of 65, NE 150, QRS 86, QTC 416 Medical Decision Making - Medical Decision Making 72. A year and not acting appropriately, patient week, and inability to ambulate positive UTI positive low magnesium, patient will be admitted for IV antibiotics magnesium replacement and occupational and physical therapy - Lab Data Result diagrams: 01/27/17 04:08 01/27/17 04:08 Lab Results 01/27/17 01/27/17 01/27/17 Range/Units 04:08 04:08 04:08 WBC 6.2 (3.8-10.6) k/uL RBC 4.53 (3.80-5.40) m/uL Hgb 14.2 (11.4-16.0) gm/dL Hct 41.6 (34.0-46.0) % MCV 91.7 (80.0-100.0) fL MCH 31.4 (25.0-35.0) pg MCHC 34.3 (31.0-37.0) g/dL RDW 13.7 (11.5-15.5) % Plt Count 333 (150-450) k/uL Neutrophils % 53 % Lymphocytes % 31 % Monocytes % 9 % Eosinophils % 4 % Basophils % 1 % Neutrophils # 3.3 (1.3-7.7) k/uL Lymphocytes # 1.9 (1.0-4.8) k/uL Monocytes # 0.5 (0-1.0) k/uL Eosinophils # 0.2 (0-0.7) k/uL Basophils # 0.0 (0-0.2) k/uL Sodium 139 (137-145) mmol/L Potassium 4.5 (3.5-5.1) mmol/L Chloride 104 (98-107) mmol/L Carbon Dioxide 24 (22-30) mmol/L Anion Gap 11 mmol/L BUN 19 H (7-17) mg/dL Creatinine 0.75 (0.52-1.04) mg/dL Est GFR (MDRD) Af Amer >60 (>60 ml/min/1.73 sqM) Est GFR (MDRD) Non-Af >60 (>60 ml/min/1.73 sqM) Glucose 109 H (74-99) mg/dL Calcium 9.7 (8.4-10.2) mg/dL Phosphorus 4.3 (2.5-4.5) mg/dL Magnesium 1.4 L (1.6-2.3) mg/dL Total Bilirubin 0.6 (0.2-1.3) mg/dL AST 30 (14-36) U/L ALT 18 (9-52) U/L Alkaline Phosphatase 41 (38-126) U/L Total Creatine Kinase 41 (30-135) U/L CK-MB (CK-2) 0.4 (0.0-2.4) ng/mL CK-MB (CK-2) Rel Index 1.0 Troponin I <0.012 (0.000-0.034) ng/mL Total Protein 7.4 (6.3-8.2) g/dL Albumin 4.2 (3.5-5.0) g/dL TSH 3.160 (0.465-4.680) mIU/L Urine Color Urine Appearance (Clear) Urine pH (5.0-8.0) Ur Specific [place] (1.001-1.035) Urine Protein (Negative) Urine Glucose (UA) (Negative) Urine Ketones (Negative) Urine Blood (Negative) Urine Nitrite (Negative) Urine Bilirubin (Negative) Urine Urobilinogen (<2.0) mg/dL Ur Leukocyte Esterase (Negative) Urine RBC (0-5) /hpf Urine WBC (0-5) /hpf Ur Squamous Epith Cells (0-4) /hpf Urine Bacteria (None) /hpf 01/27/17 Range/Units 04:54 WBC (3.8-10.6) k/uL RBC (3.80-5.40) m/uL Hgb (11.4-16.0) gm/dL Hct (34.0-46.0) % MCV (80.0-100.0) fL MCH (25.0-35.0) pg MCHC (31.0-37.0) g/dL RDW (11.5-15.5) % Plt Count (150-450) k/uL Neutrophils % % Lymphocytes % % Monocytes % % Eosinophils % % Basophils % % Neutrophils # (1.3-7.7) k/uL Lymphocytes # (1.0-4.8) k/uL Monocytes # (0-1.0) k/uL Eosinophils # (0-0.7) k/uL Basophils # (0-0.2) k/uL Sodium (137-145) mmol/L Potassium (3.5-5.1) mmol/L Chloride (98-107) mmol/L Carbon Dioxide (22-30) mmol/L Anion Gap mmol/L BUN (7-17) mg/dL Creatinine (0.52-1.04) mg/dL Est GFR (MDRD) Af Amer (>60 ml/min/1.73 sqM) Est GFR (MDRD) Non-Af (>60 ml/min/1.73 sqM) Glucose (74-99) mg/dL Calcium (8.4-10.2) mg/dL Phosphorus (2.5-4.5) mg/dL Magnesium (1.6-2.3) mg/dL Total Bilirubin (0.2-1.3) mg/dL AST (14-36) U/L ALT (9-52) U/L Alkaline Phosphatase (38-126) U/L Total Creatine Kinase (30-135) U/L CK-MB (CK-2) (0.0-2.4) ng/mL CK-MB (CK-2) Rel Index Troponin I (0.000-0.034) ng/mL Total Protein (6.3-8.2) g/dL Albumin (3.5-5.0) g/dL TSH (0.465-4.680) mIU/L Urine Color Yellow Urine Appearance Cloudy H (Clear) Urine pH 7.0 (5.0-8.0) Ur Specific [place] 1.017 (1.001-1.035) Urine Protein Trace H (Negative) Urine Glucose (UA) Negative (Negative) Urine Ketones Negative (Negative) Urine Blood Trace H (Negative) Urine Nitrite Negative (Negative) Urine Bilirubin Negative (Negative) Urine Urobilinogen <2.0 (<2.0) mg/dL Ur Leukocyte Esterase Large H (Negative) Urine RBC 19 H (0-5) /hpf Urine WBC >182 H (0-5) /hpf Ur Squamous Epith Cells 8 H (0-4) /hpf Urine Bacteria Rare H (None) /hpf - Radiology Data Radiology results: report reviewed (CT brain and facial bones negative for acute disease), image reviewed Disposition Clinical Impression: Hypomagnesemia, Weakness, UTI (urinary tract infection) Disposition: ADMITTED IP TO THIS HOSP Condition: Fair Referrals: Jerome Hanna DO [Primary Care Provider] - 1-2 days
[2017-01-27 04:39] LABS: Basophils % (A) 1 %; CH 32.5; CHCM 35.6; Eosinophils # (A) 0.2 k/uL (0-0.7); Eosinophils % (A) 4 %; HCT 41.6 % (34.0-46.0); HDW 2.65; HGB 14.2 gm/dL (11.4-16.0); Luc # (Auto) 0.23; Luc % (Auto) 4; Lymphocytes # (A) 1.9 k/uL (1.0-4.8); Lymphocytes % (A) 31 %; MCH 31.4 pg (25.0-35.0); MCHC 34.3 g/dL (31.0-37.0); MCV 91.7 fL (80.0-100.0); Mean Platelet Volume 6.9; Monocytes # (A) 0.5 k/uL (0-1.0); Monocytes % (A) 9 %; Neutrophils # (A) 3.3 k/uL (1.3-7.7); Neutrophils % (A) 53 %; RBC 4.53 m/uL (3.80-5.40); RDW 13.7 % (11.5-15.5); WBC 6.2 k/uL (3.8-10.6); WBC (Perox) 6.16
[2017-01-27 05:04] LABS: Creatine Kinase 41 U/L (30-135)
[2017-01-27 05:17] LABS: Creatine Kinase MB 0.4 ng/mL (0.0-2.4); Troponin I <0.012 ng/mL (0.000-0.034)
[2017-01-27 05:19] LABS: Appearance,Urine Cloudy (Clear); Bacteria,Urine Rare /hpf; Bilirubin,Urine Negative (Negative); Glucose,Urine (UA) Negative (Negative); Ketones,Urine Negative (Negative); Leukocyte Esterase,Urine Large (Negative); Nitrite,Urine Negative (Negative); Particle Count 17653; Protein,Urine Trace (Negative); RBC,Urine 19 /hpf (0-5); Specific Gravity,Urine 1.017 (1.001-1.035); Squamous Epithelial Cell,Urine 8 /hpf (0-4); UA Billing (MACRO vs. MICRO) MICRO; Urobilinogen,Urine <2.0 mg/dL (<2.0); WBC,Urine >182 /hpf (0-5)
--- NOTE | 2017-01-27 05:22 | CT ---
EXAM: CT Head Without Intravenous Contrast. CLINICAL HISTORY: Reason: Pain TECHNIQUE: Axial computed tomography images of the head/brain without intravenous contrast. CTDI is 57.4 mGy and DLP is 1024.2 mGy-cm This CT exam was performed using one or more of the following dose reduction techniques: automated exposure control, adjustment of the mA and/or kV according to patient size, and/or use of iterative reconstruction technique. COMPARISON: No relevant prior studies available. FINDINGS: Brain: No evidence of acute intracranial hemorrhage or mass effect. No midline shift. Mild periventricular white matter lucencies are nonspecific, though most likely represent small vessel ischemic changes in this patient age group. Ventricles: No ventriculomegaly. Bones: No acute fracture. Sinuses: Unremarkable as visualized. No acute sinusitis. Mastoid air cells: Unremarkable as visualized. No mastoid effusion. IMPRESSION: No acute intracranial abnormality. Mild small vessel ischemic changes.
--- NOTE | 2017-01-27 05:34 | CT ---
EXAM: CT Maxillofacial Without Intravenous Contrast. CLINICAL HISTORY: Reason: Pain TECHNIQUE: Axial computed tomography images of the face without intravenous contrast. CTDI is 30.6 mGy and DLP is 575.3 mGy-cm This CT exam was performed using one or more of the following dose reduction techniques: automated exposure control, adjustment of the mA and/or kV according to patient size, and/or use of iterative reconstruction technique. COMPARISON: No relevant prior studies available. FINDINGS: Bones: No acute fracture. Mild deformity of the left zygomatic arch suggestive of old fracture. Mild degenerative changes of the temporomandibular joints. Extracranial soft tissues: Unremarkable. Sinuses: Minimal mucosal thickening seen in bilateral maxillary sinuses. Remaining paranasal sinuses are normally pneumatized. Orbits: Unremarkable. IMPRESSION: No acute fracture.
[2017-01-27 06:01] LABS: Anion Gap 11 mmol/L; Blood Urea Nitrogen 19 mg/dL (7-17); Calcium 9.7 mg/dL (8.4-10.2); Carbon Dioxide 24 mmol/L (22-30); Chloride 104 mmol/L (98-107); Glucose 109 mg/dL (74-99); Magnesium 1.4 mg/dL (1.6-2.3); Non-African American GFR(MDRD) >60 (>60 ml/min/1.73 sqM); Phosphorous 4.3 mg/dL (2.5-4.5); Potassium 4.5 mmol/L (3.5-5.1); Sodium 139 mmol/L (137-145); Total Bilirubin 0.6 mg/dL (0.2-1.3); Total Protein 7.4 g/dL (6.3-8.2)
[2017-01-27 06:02] LABS: ALT 18 U/L (9-52); AST 30 U/L (14-36); Alkaline Phosphatase 41 U/L (38-126)
[2017-01-27] MEDS ORDERED: MAGNESIUM OXIDE 400 MG TAB PO STA (06:45)
[2017-01-27] MEDS ORDERED: HYDROmorphone 1 MG/ML 1 ML SYRINGE IVP PRN (06:58)
[2017-01-27] MEDS ORDERED: cefTRIAXone 2,000 MG in SODIUM CHLORIDE 0.9% 100 ML IVPB ONE (07:00)
[2017-01-27 07:59] LABS: Ammonia <9 umol/L (<30)
[2017-01-27] MEDS ORDERED: RX INFO: IV CONTRAST WAS GIVEN 1 EACH MISC MISCELLANE PRN (09:11)
[2017-01-27] MEDS: IOHEXOL 350 MG/ML 25 ML BOTTLE (ORAL USE) PO PRN ×2 (10:12→11:00)
--- NOTE | 2017-01-27 12:41 | P.CON ---
Consult Note - . Consult date: 01/27/17 Assessment/Plan:: Thank you very much for asking me to see this patient. She was recently discharged and admitted by myself for small bowel obstruction. 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 In fact had at least 2 exploratory laparotomies and bowel resections at the [facility] well in the past. The patient when she was discharged a little more than 2 weeks ago she was eating well. Had bowel movements and had no abdominal pain. She continued to do well at home with in terms of obstruction and that the especially according to her she's been eating well every day. Passing flatus. Although she has not had a bowel movement for the last 3-4 days. She denied however any nausea or vomiting or significant abdominal pain. She was admitted this time with change in her mental status. states she's been progressively deteriorating in terms of weakness arise debility. The CT of the head and face were nor normal. Has had some generalized aches and pains as well. Past history as above well-documented on my recent H&P. Does have a history of hypertension and the site and depression. ALLERGIES penicillin. Social history. Family history well-documented. On examination the patient is awake but somewhat lethargic. Treatment color satisfactory. Abdomen is fairly soft nondistended has a midline scar no hernia is no mass or organomegaly. There is some mild tenderness in the left lower quadrant but no guarding or rebound or rigidity. No mass or organomegaly noted although that may be a little fullness in the left lower quadrant. WBC is normal. Lites are normal magnesium borderline at 1.4. Urinalysis does show evidence of urinary tract infection positive for leukocyte esterase and WBCs and a few bacteria. Impression clinically no evidence of bowel obstruction at this time. Possible urinary tract infection with sepsis. Possible diverticulitis. In mental status. History of bowel obstructions in the past. Recommendation. Continued medical management with IV fluids antibiotics. We' ll review CAT scan which the was just completed treatment minutes ago and further management will the dependent on findings and a progressive hospital course,
[2017-01-27] MEDS: MULTIVITAMINS, THERA 1 EACH TAB PO SCH (12:48)
--- NOTE | 2017-01-27 12:54 | CT ---
EXAMINATION TYPE: CT abdomen pelvis w con DATE OF EXAM: 01/27/2017 12:22 PM COMPARISON: Prior CT abdomen pelvis December HISTORY: UTI, pain CT DLP: 624 mGycm Automated exposure control for dose reduction was used. TECHNIQUE: Helical acquisition of images from the lung bases through the pelvis have been completed. CONTRAST: Performed with Oral Contrast and with IV Contrast, patient injected with 100 mL of Omnipaque 300. FINDINGS: LUNG BASES: Some minimal patchy basilar density noted on the left is stable and may represent scar ra ther than airspace disease, hiatal hernia is again noted, there is thickening at the gastroesophageal junction which is of questionable clinical concern. AORTA: No significant abnormality is appreciated. LIVER/GB: Stable, cystic focus present within the posterior aspect of the right lobe of the liver, ga llbladder is unchanged PANCREAS: No significant abnormality is seen. SPLEEN: No significant abnormality is seen. ADRENALS: No significant abnormality is seen. KIDNEYS: No significant abnormality is seen. REPRODUCTIVE ORGANS: Absent, as on prior exam BOWEL: At the rectosigmoid junction there is some minimal wall thickening which is indeterminate, te rminal ileum also show some mild thickening. Postop changes are noted to the small bowel. Some loops of small bowel in the midline show improvement in bowel distention from prior exam. FREE AIR: No Free Air visible. ASCITES: None visible. PELVIC ADENOPATHY: None visualized. RETROPERITONEAL ADENOPATHY: No Retroperitoneal Adenopathy visible. URINARY BLADDER: No significant abnormality is seen. OSSEOUS STRUCTURES: No significant abnormality is seen. IMPRESSION: IMPROVEMENT IN PATIENT'S BOWEL OBSTRUCTION. CORRELATE TO EXCLUDE COLITIS, ENTERITIS. FOLLOW-UP IND ICATED
[2017-01-27] MEDS: MAGNESIUM SULFATE-D5W PMX 1 GM in DEXTROSE/WATER 1 100ML.BAG IVPB SCH ×4 (15:29→18:23)
--- NOTE | 2017-01-27 18:39 | P.CNNES ---
History of Present Illness Consult date: 01/27/17 Reason for Consult: Patient with right sided head pain and altered mental status. History of Present Illness: This patient is a 72-year-old right-handed white female who was admitted to the emergency room today for evaluation of his severe right-sided face and eye pain. Apparently her brought her to the ER as she was showing signs of increase lethargy and confusion at home. She was seen in the ER by Dr. Xie. She was sent for a computed tomography scan of the brain for further evaluation. CAT scan revealed no acute intracranial M MLD. Mild small vessel ischemic changes were noted. Patient has a history of recent small bowel obstruction. She was seen by general surgery today as well. She was noted to be lethargic earlier this morning and it was felt this may have been related to a dose of Dilaudid she received in the emergency room. She still remained somewhat confused and disoriented. She states that the right-sided facial pain is resolved. She is not a very good historian. In the ER she was found to have evidence of urinary tract infection and has been started on IV Rocephin. On evaluation today the patient is noted to have some left-sided facial droop. It is unclear if this is old or new. Nursing staff mentions that states there is no new finding of facial weakness. The patient states that he has seen a deterioration in her overall mental status since hospitalization. She does appear to be slightly encephalopathic. She was much more lethargic earlier today according to the nursing staff. Review the patient 's CAT scan of the brain does reveal evidence of bilateral frontal lobe atrophy. No acute stroke or hemorrhage is noted. We would recommend an MRI of the brain for further evaluation. Patient is being treated for urinary tract infection at this time. We will need to monitor her response to the IV antibiotics. Would try to avoid use of narcotic pain medications until patient is completely treated for UTI. Her overall prognosis at this time remains very guarded. Neurology is now been consulted for further evaluation and recommendations. Review of Systems Constitutional: Reports weakness, Denies chills, Denies fever Eyes: denies blurred vision, denies pain Ears, nose, mouth and throat: Denies headache, Denies sore throat Cardiovascular: Denies chest pain, Denies shortness of breath Respiratory: Denies cough Gastrointestinal: Denies abdominal pain, Denies diarrhea, Denies nausea, Denies vomiting Genitourinary: Denies dysuria, Denies hematuria Musculoskeletal: Denies myalgias Integumentary: Denies pruritus, Denies rash Neurological: Reports confusion, Reports headaches, Reports memory loss, Denies numbness, Denies weakness Psychiatric: Denies anxiety, Denies depression Endocrine: Denies fatigue, Denies weight change Past Medical History Past Medical History: COPD, GERD/Reflux, Hyperlipidemia, Hypertension, Pneumonia Additional Past Medical History / Comment(s): Pt recently admitted to [facility] with superficial thrombosis L arm cephalic vein, generalized weakness, hypomagnesemia, hypokalemia. Other HX: Multiple admissions for small bowel obstructions. History of Any Multi-Drug Resistant Organisms: None Reported Past Surgical History: Bowel Resection Additional Past Surgical History / Comment(s): bowel resection x 2, colonoscopy Past Anesthesia/Blood Transfusion Reactions: No Reported Reaction Past Psychological History: Anxiety, Depression Additional Psychological History / Comment(s): Pt resides with spouse. She uses no assistive device. She drives. Smoking Status: Former smoker Past Alcohol Use History: Occasional Additional Past Alcohol Use History / Comment(s): Pt started smoking as a teen and quit in 1978. Pt states she drinks alcohol on occasion. Past Drug Use History: None Reported - Past Family History Sister(s) Family Medical History: Diabetes Mellitus Father Family Medical History: Coronary Artery Disease (CAD), Myocardial Infarction ([place] ) Additional Family Medical History / Comment(s): Father of a [place] in his 60's or 70's. Mother Family Medical History: No Reported History Additional Family Medical History / Comment(s): Mother at the age of 88yrs. Medications and Allergies Home Medications Medication Instructions Recorded Confirmed Type Aspirin 81 mg PO DAILY 01/15/17 01/27/17 History Atorvastatin [Lipitor] 40 mg PO HS 01/15/17 01/27/17 History Metoprolol Succinate (ER) [Toprol 25 mg PO DAILY 01/15/17 01/27/17 History Xl] Multivits-Min/Iron/FA/Lutein 1 tab PO DAILY 01/15/17 01/27/17 History [Centrum Silver Women Tablet] Venlafaxine HCl ER [Effexor Xr] 75 mg PO DAILY 04/22/17 05/04/17 History Allergies Allergy/AdvReac Type Severity Reaction Status Date / Time Penicillins Allergy Rash/Hives Verified 01/27/17 07:48 Physical Examination - Vital Signs Vital Signs: Vital Signs Temp Pulse Pulse Resp BP BP Pulse Ox 01/27/17 09:05 97.8 F 76 20 159/91 97 01/27/17 08:20 98.7 F 69 18 170/79 96 01/27/17 07:45 98.7 F 69 18 170/79 96 - Constitutional General appearance: average body habitus, cooperative - EENT EENT: PERRL, mucous membranes moist - Respiratory Respiratory: lungs clear, normal breath sounds - Cardiovascular Cardiovascular: regular rate, normal S1, normal S2 Extremities: no peripheral edema bilaterally - Gastrointestinal Gastrointestinal: normoactive bowel sounds - Integumentary Integumentary: normal - Neurologic Cranial nerve examination: PERRL, EOMI, VFF, V1/V2/V3 grossly intact, tongue midline, intact gag reflex, facial droop (Patient has a left upper motor neuron facial weakness pattern.), normal palatal elevation Speech examination: intact Sensorimotor examination: intact Motor examination - right side: 4/5: biceps, triceps, wrist flexion, wrist extension, enrollment specialist, hip flexors, knee extensors, dorsiflexion, toe extension (EHL) , plantarflexion Motor examination - left side: 4/5: biceps, triceps, wrist flexion, wrist extension, enrollment specialist, hip flexors, knee extensors, dorsiflexion, toe extension (EHL) , plantarflexion Detailed sensory examination: intact Reflex and gait examination: intact Reflexes: 1+: ankle, bicep, knee, tricep - Musculoskeletal Musculoskeletal: no pain - Psychiatric Psychiatric: mood/affect appropriate, cooperative Results - Laboratory Findings CBC and BMP: 01/27/17 04:08 01/27/17 04:08 Assessment and Plan (1) Acute right arterial ischemic stroke, MCA (middle cerebral artery) Status: Acute Code(s): I63.511 - CEREB INFRC D/T UNSP OCCLS OR STENOS OF RIGHT MID CEREB ART (2) Acute encephalopathy Status: Acute Code(s): G93.40 - ENCEPHALOPATHY, UNSPECIFIED (3) UTI (urinary tract infection) Status: Acute Code(s): N39.0 - URINARY TRACT INFECTION, SITE NOT SPECIFIED (4) Small bowel obstruction Status: Acute Code(s): K56.69 - OTHER INTESTINAL OBSTRUCTION (5) Superficial vein thrombosis Status: Acute Code(s): I82.890 - ACUTE EMBOLISM AND THROMBOSIS OF OTHER SPECIFIED VEINS Plan: this patient is a 72-year-old female who was brought into the hospital initially with symptoms of right-sided face and eye pain symptoms. She was also noted having increased confusion. she recently was treated for small bowel obstruction. She was seen in the ER by Dr. Xie and underwent a computed tomography scan of the brain. CAT scan of the brain was negative for acute stroke or hemorrhage. She essentially admitted to Hospital. This morning she was noted to have increased some lethargy. she was given Dilaudid in the ER due to pain symptoms. Her neurological examination at this time reveals her to have a left upper motor neuron facial weakness. She does appear to be confused. This may be secondary to her urinary tract infection producing a diffuse metabolic encephalopathy. Would continue current IV antibiotics for this patient which includes Rocephin. We will obtain a MRI of the brain for further evaluation as well as MRA due to the severe right-sided headache pain. Her overall prognosis at this time remains very guarded. Time with Patient: Greater than 30
[2017-01-28] MEDS: LISINOPRIL 20 MG TAB PO SCH ×2 (00:32→07:44)
--- NOTE | 2017-01-28 07:30 | HP ---
DATE OF ADMISSION: CHIEF COMPLAINT: Weakness, failure to thrive, lethargy, and abdominal pain. HISTORY OF PRESENT ILLNESS: This is apparently another recent admission for this 72-year-old white female. Apparently, she was here 2 or 3 weeks ago and underwent a laparotomy and lysis of adhesions for small bowel obstruction. At that time, she was also hypomagnesemic. She apparently went home and was doing well, but then her brought her back in on the day of admission stating that she, "wasn't acting like herself". Apparently, she seemed very weak. There is no history that she has had a fever, chills, vomiting, melena, hematochezia, etc. Review of systems is not obtainable at this time because of her lethargy and inability to answer questions. Past medical history, family history, and personal and social histories are unobtainable. She is apparently on metoprolol, Effexor, Naprosyn, Lipitor and Zantac. In the emergency room, it was determined that she also had a urinary tract infection. PHYSICAL EXAMINATION: Blood pressure 170/79 with a pulse of 80 ( ). She is afebrile. GENERAL: She appeared to be weak and dehydrated. She was lethargic. Head, ears, eyes, nose, mouth, and throat found the sclerae to be normal. Gaze was conjugated. Pupils were small and reactive. Ears were clear. Nose, mouth, and throat were normal except for dry mucous membranes. Neck veins not distended. Neck was supple. Chest demonstrated shallow respirations, but they were heard on both sides. Cardiac exam demonstrated what sounded like sinus rhythm with no murmurs or extra sounds. Abdomen is fairly flat and she seemed to have generalized tenderness. There was no rebound. The abdomen was slightly firm and there were no masses or visceromegaly. Bowel sounds were heard. Extremities were normal. NEUROLOGICAL: She was lethargic. She is back into the hospital with diagnosis: 1. Lethargy. 2. Failure to thrive. 3. Hypomagnesemia. 4. Urinary tract infection. 5. Rule out sepsis. PLAN: 1. Bedrest. 2. IV fluids, 3. N.p.o. 4. CT of the abdomen. 5. ( ). 6. Surgery consult. 7. PT and OT. 8. Discharge planning.
[2017-01-28] MEDS ORDERED: ACETAMINOPHEN TAB 325 MG TAB PO PRN (07:36)
[2017-01-28] MEDS: ASPIRIN 81 MG CHEW PO SCH (07:44)
[2017-01-28] MEDS: METOPROLOL SUCCINATE (ER) 25 MG TAB.ER.24H PO SCH (07:45)
[2017-01-28] MEDS: VENLAFAXINE HCL ER 75 MG CAP PO SCH (07:46)
[2017-01-28 09:27] LABS: ALT 25 U/L (9-52); AST 25 U/L (14-36); Alkaline Phosphatase 37 U/L (38-126); Anion Gap 12 mmol/L; Blood Urea Nitrogen 8 mg/dL (7-17); Calcium 9.4 mg/dL (8.4-10.2); Carbon Dioxide 21 mmol/L (22-30); Chloride 106 mmol/L (98-107); Glucose 91 mg/dL (74-99); Non-African American GFR(MDRD) >60 (>60 ml/min/1.73 sqM); Potassium 4.6 mmol/L (3.5-5.1); Sodium 139 mmol/L (137-145); Total Bilirubin 0.6 mg/dL (0.2-1.3); Total Protein 6.4 g/dL (6.3-8.2)
[2017-01-28] MEDS ORDERED: ONDANSETRON 4 MG TAB PO PRN (12:26)
[2017-01-28] MEDS ORDERED: BISACODYL 10 MG SUPP RECTAL STA (12:36)
--- NOTE | 2017-01-28 12:36 | P.PN ---
Progress Note - Text The patient is doing better today. She is anxious to go home. Hasn't had a bowel movement for several days however. Is passing flatus. Slight nausea this morning but tolerated a breakfast. No vomiting. Her computed tomography scan was reviewed yesterday with Dr. Chavarria. No evidence of obstruction. Contrast past the bowel into the colon. There was evidence of some mild thickening of the bowel wall in the rectosigmoid area but nothing specific. No mass. No evidence of diverticulitis. Small bowel was also thickened at the terminal ileal site. Her EGD in the last the admission was unremarkable. On examination patient is awake and alert. Does have some evidence of left-sided facial weakness. Temperature is normal. Vitals are stable. The abdomen is very soft and benign not distended nontender no mass or organomegaly noted. The impression no evidence of bowel obstruction. Some constipation. Urinary tract infection. Evidence of CVA. Recommendation continue soft diet. Dulcolax suppository. Laxative as needed. MiraLAX daily. We will now follow her on an as-needed basis. She does have an appointment to see me in the office in the next week or 2.
[2017-01-28] MEDS ORDERED: MAGNESIUM HYDROXIDE 2,400 MG/10 ML CUP PO PRN (12:37)
[2017-01-28] MEDS: MULTIVITAMINS, THERA 1 EACH TAB PO SCH (12:57)
--- NOTE | 2017-01-28 13:46 | CDI ---
In responding to this query, please exercise your independent professional judgment. The [facility] Coding Staff and Clinical Documentation Specialists appreciate your assistance in clarifying documentation, maintaining compliance with coding guidelines, accurately documenting patients condition and capturing severity of illness. The fact that a question is asked does not imply that any particular answer is desired or expected. Communication forms are a method of clarifying documentation and are not made part of the Legal Health Record. Thank you in advance for your clarification. Last Revision, November 2015 Davi Gonzalez [address] [facility] [place] [address] Documentation Clarification Form Date: 01/28/2017 1:35:00 PM From: Caryl Chacon RN, CDS Admit Date: 01/27/2017 6:57:00 AM Patient Name: Yuli Celaya Visit Number: [id number] Dr. Miguel Suarez, Altered mental status was documented in the Neurology Consult Patient history/risk factors: 72 yo presents "not acting appropriately Clinical Indicators: UA trace blood, large leuk tess, rare bacteria, CT: Brain : mild small vessel ischemic changes, Treatment: IV Rocephin, [id number], In your professional opinion, please clarify the etiology of the altered mental status, if known. Metabolic Encephalopathy due to UTI Encephalopathy (specify Type and Underlying Medical Illness) Other condition (please specify) Unable to determine Please document in your progress notes and discharge summary in order to capture severity of illness and risk of mortality. Include clinical findings that support your diagnosis. FYI: Press F11 to launch patient chart. Place X here if this finding has no clinical significance, is not applicable or if you are not able to provide any additional documentation. MTDD
--- NOTE | 2017-01-28 14:20 | PN ---
CHIEF COMPLAINT: Delirium, lethargy, failure to thrive and hypertension. HISTORY OF PRESENT ILLNESS: This lady is much more awake and alert today than yesterday. She seems to be improving. Her blood pressure has been elevated, however. PHYSICAL EXAM: Chest is clear. Cardiac exam is normal. ABDOMEN: Soft and incisions look good. Bowel sounds are present. IMPRESSIONS: 1. Status post management of bowel obstruction. 2. Lethargy and delirium, etiology unknown. 3. Urinary tract infection. 4. Hypomagnesemia. 5. Hypertension. PLAN: 1. Control hypertension. 2. Continue to progress ( ) and send her home fairly soon.
--- NOTE | 2017-01-28 17:05 | MR ---
EXAMINATION TYPE: MR brain wo con DATE OF EXAM: 01/28/2017 4:57 PM COMPARISON: NONE HISTORY: Rt sided headache, lt facial droop TECHNIQUE: Multiplanar, multisequence images of the brain and brainstem is performed without intravenous contras t. FINDINGS: Diffusion weighted images demonstrate no evidence of a recent infarct or other diffusion ab normality. Scattered periventricular and subcortical T2/flair hyperintensities are present. Some of these are located at the leary-white junction. There is no extra-axial fluid collection or significant white matter signal abnormality. The ventricular system and cisternal spaces are normal in size and appearance. The brain volume is age appropriate. Midline structures demonstrate normal morphology. The craniocervical junction appears within normal limits. The visualized sinuses demonstrate perimucosal thickening within the maxillary sinuses, mild in degree. The globes are intact. IMPRESSION: 1. No evidence of acute territorial infarct, intracranial hemorrhage, or midline shift. 2. Moderate degree of subcortical and periventricular white matter changes, most commonly on the basi s of chronic microangiopathy. Few of these are more atypically located at the leary-white junction. If there is clinical concern for intracranial metastases contrast-enhanced MR could be performed to hayden luate for enhancement of any of these white matter changes.
--- NOTE | 2017-01-28 17:16 | MR ---
EXAMINATION TYPE: MR angio head wo con DATE OF EXAM: 01/28/2017 4:57 PM COMPARISON: CT brain for January 2017, MR brain 28 Jan 2017 HISTORY: Rt sided headache, lt facial droop TECHNIQUE: Time of flight images focusing on the [place] were performed without contrast. FINDINGS: The internal carotid arteries are patent. The vertebrobasilar system is patent. No evident aneurysm. There is no vascular malformation. IMPRESSION: No significant abnormality
--- NOTE | 2017-01-28 17:32 | P.PN ---
Subjective This patient is a 72-year-old female who was admitted to hospital yesterday for altered mental status and recent bowel obstruction. Patient was showing signs of lethargy and delirium yesterday. She is scheduled to undergo MRI of the brain for further evaluation. She was seen by surgery and there is no evidence for bowel obstruction at this time. She has been started on Dulcolax suppository and laxative as needed. She continues to have some episodes of confusion. We will await the neuroimaging studies and we will give further recommendations. Patient was able to complete MRI of the brain today. The MRI revealed no evidence of acute stroke. There was moderate degree of periventricular white matter ischemic changes noted. MRA was also performed and came back negative for any evidence of vascular change or aneurysm. Overall the patient seems to be doing much better today in terms of her mental status. She is much more awake and alert. is at bedside and he was updated on all of the neuroimaging test results. She is advised to continue on aspirin daily for secondary stroke prevention. She may follow-up in the outpatient neurology clinic in 3-4 weeks. Objective - Vital Signs Vital signs: Vital Signs Temp 97.6 F 01/28/17 07:00 Pulse 75 01/28/17 07:00 Resp 16 01/28/17 08:00 BP 135/74 01/28/17 07:00 Pulse Ox 94 L 01/28/17 07:00 Intake & Output 01/27/17 01/28/17 01/28/17 18:59 06:59 18:59 Intake Total 1980 850 Balance 1979 850 Weight 53.524 kg Intake: Intake, IV Titration 800 850 Amount Sodium Chloride 0.9% 1, 800 800 000 ml @ 100 mls/hr IV . Q10H [facility] Rx#:[id number] cefTRIAXone 1,000 mg In 50 Sodium Chloride 0.9% 50 ml @ 100 mls/hr IVPB Q24HR [facility] Rx#:[id number] Oral 1180 Other: # Voids 2 1 # Bowel Movements 1 - Exam Physical examination: PHYSICAL EXAMINATION: Patient is resting comfortably in bed. VITAL SIGNS: Blood pressure is [116/72]. Heart rate is [78]. Respiration is [18] . Temperature is [98.4]. HEENT: Head is atraumatic, neck is supple, there were no carotid bruits. CHEST: Lungs are clear to auscultation and percussion. CARDIAC: S1, S2 normal rate and rhythm. There is no murmur. ABDOMEN: Soft and nontender. Bowel sounds are present. EXTREMITIES: There is no pedal edema. Peripheral pulses are present. Neurological examination: Patient's neurological examination is unchanged from yesterday. - Labs CBC & Chem 7: 01/27/17 04:08 01/28/17 08:45 Labs: Abnormal Lab Results - Last 24 Hours (Table) 01/28/17 Range/Units 08:45 Carbon Dioxide 21 L (22-30) mmol/L Alkaline Phosphatase 37 L (38-126) U/L Assessment and Plan (1) Acute right arterial ischemic stroke, MCA (middle cerebral artery) Status: Acute Code(s): I63.511 - CEREB INFRC D/T UNSP OCCLS OR STENOS OF RIGHT MID CEREB ART (2) Acute encephalopathy Status: Acute Code(s): G93.40 - ENCEPHALOPATHY, UNSPECIFIED (3) UTI (urinary tract infection) Status: Acute Code(s): N39.0 - URINARY TRACT INFECTION, SITE NOT SPECIFIED (4) Small bowel obstruction Status: Acute Code(s): K56.69 - OTHER INTESTINAL OBSTRUCTION (5) Superficial vein thrombosis Status: Acute Code(s): I82.890 - ACUTE EMBOLISM AND THROMBOSIS OF OTHER SPECIFIED VEINS Plan: This patient is a 72-year-old female who was brought into the hospital initially with symptoms of right-sided face and eye pain symptoms. She was also noted having increased confusion. she recently was treated for small bowel obstruction. She was seen in the ER by Dr. Xie and underwent a computed tomography scan of the brain. CAT scan of the brain was negative for acute stroke or hemorrhage. She essentially admitted to Hospital. This morning she was noted to have increased some lethargy. she was given Dilaudid in the ER due to pain symptoms. Her neurological examination at this time reveals her to have a left upper motor neuron facial weakness. She does appear to be confused. This may be secondary to her urinary tract infection producing a diffuse metabolic encephalopathy. Would continue current IV antibiotics for this patient which includes Rocephin. We will obtain a MRI of the brain for further evaluation as well as MRA due to the severe right-sided headache pain. The patient was able to complete MRI of the brain today results are as noted above. MRI fails to reveal any evidence of acute or subacute stroke. MRA was normal. We reviewed the results of the neuroimaging test results with the patient and her at bedside today. Patient should be maintained on aspirin daily for secondary stroke prevention. She may be considered for discharge home with follow-up in the outpatient neurology clinic in 3-4 weeks. Her overall prognosis at this time remains very guarded.
--- NOTE | 2017-01-28 18:54 | EEG ---
DATE OF SERVICE: 01/28/2017 INDICATION FOR EXAMINATION: This patient is a 72-year-old female being evaluated for altered mental status and increased lethargy. Patient now with increased confusion. AGE: 72. EEG FINDINGS: A routine 21-channel awake digital EEG recording was accomplished utilizing the 10-20 international system with bipolar and referential montages. The background activity in the most alert resting state consists of a low to medium amplitude, fairly well developed and well sustained 6 Hz activity over the posterior head regions. This posterior rhythm attenuates to eye opening. There is a small amount of low amplitude 18-20 Hz beta activity seen maximally over the anterior head regions. Muscle and movement artifact was observed on a few occasions during the tracing. Hyperventilation was not performed. Photic stimulation at flash frequencies of 2-30 Hz produced a good symmetrical occipital driving response. No epileptiform discharges were seen. IMPRESSION: This EEG is moderately abnormal in diffuse fashion due to slowing of the EEG background. The EEG failed to reveal any focal, lateralized or epileptiform abnormalities. Clinical correlation is recommended.
[2017-01-28] MEDS: traZODone HCL 50 MG TAB PO PRN (20:58)
[2017-01-29] MEDS: ASPIRIN 81 MG CHEW PO SCH (07:30)
[2017-01-29] MEDS: VENLAFAXINE HCL ER 75 MG CAP PO SCH (07:30)
[2017-01-29] MEDS: METOPROLOL SUCCINATE (ER) 25 MG TAB.ER.24H PO SCH (07:33)
[2017-01-29] MEDS: LISINOPRIL 20 MG TAB PO SCH (07:33)
[2017-01-29] MEDS: MULTIVITAMINS, THERA 1 EACH TAB PO SCH (12:01)
--- NOTE | 2017-01-29 13:07 | PN ---
CHIEF COMPLAINT: Mental status changes, lethargy, status post small bowel obstruction and hypomagnesemia. HISTORY OF PRESENT ILLNESS: This lady is doing well and she is awake and alert. We are advancing her diet and activity. She has had no urinary complaints. PHYSICAL EXAM: Her chest is clear. Cardiac exam is normal. ABDOMEN: Soft, nontender. IMPRESSION: 1. Failure to thrive. 2. Abdominal pain. 3. Status post laparotomy for small bowel obstruction. 4. Hypomagnesemia. 5. Urinary tract infection. PLAN: Increase activity and probably home in the next day or 2.
[2017-01-29] MEDS: traZODone HCL 50 MG TAB PO PRN (21:11)
[2017-01-30] MEDS: ASPIRIN 81 MG CHEW PO SCH (07:09)
[2017-01-30] MEDS: VENLAFAXINE HCL ER 75 MG CAP PO SCH (07:09)
[2017-01-30] MEDS: LISINOPRIL 20 MG TAB PO SCH (07:09)
[2017-01-30] MEDS: METOPROLOL SUCCINATE (ER) 25 MG TAB.ER.24H PO SCH (07:10)
[2017-01-30 08:35] VITALS: RESP 16
[2017-01-30] MEDS: MULTIVITAMINS, THERA 1 EACH TAB PO SCH (11:25)
--- NOTE | 2017-01-30 14:59 | P.PN ---
Subjective This patient is a 72-year-old female who was admitted to hospital yesterday for altered mental status and recent bowel obstruction. Patient was showing signs of lethargy and delirium yesterday. She is scheduled to undergo MRI of the brain for further evaluation. She was seen by surgery and there is no evidence for bowel obstruction at this time. She has been started on Dulcolax suppository and laxative as needed. She continues to have some episodes of confusion. We will await the neuroimaging studies and we will give further recommendations. Patient was able to complete MRI of the brain today. The MRI revealed no evidence of acute stroke. There was moderate degree of periventricular white matter ischemic changes noted. MRA was also performed and came back negative for any evidence of vascular change or aneurysm. Overall the patient seems to be doing much better today in terms of her mental status. She is much more awake and alert. is at bedside and he was updated on all of the neuroimaging test results. She is advised to continue on aspirin daily for secondary stroke prevention. Patient is sitting up and having her lunch today and seems to be appropriate for her age. Her is at bedside. She does seem to be making good progress and we are awaiting possible discharge for this patient in the next 24 hours. We have discussed all of the findings once again with the patient and her in detail. Her overall prognosis remains guarded. She may follow-up in the outpatient neurology clinic in 3-4 weeks. Objective - Vital Signs Vital signs: Vital Signs Temp 97.0 F L 01/30/17 07:00 Pulse 83 01/30/17 08:00 Resp 16 01/30/17 08:00 BP 150/78 01/30/17 07:00 Pulse Ox 94 L 01/30/17 07:00 Intake & Output 01/29/17 01/30/17 01/30/17 18:59 06:59 18:59 Intake Total 9508 509 0058 Balance 6249 191 8339 Weight 53.524 kg 53.524 kg Intake: Intake, IV Titration 100 50 Amount cefTRIAXone 1,000 mg In 100 50 Sodium Chloride 0.9% 50 ml @ 100 mls/hr IVPB Q24HR [facility] Rx#:[id number] Oral 930 189 5893 Blood Product 850 Other: Voiding Method Toilet Toilet Toilet # Voids 2 1 3 # Bowel Movements 1 - Exam Physical examination: PHYSICAL EXAMINATION: Patient is resting comfortably in bed. VITAL SIGNS: Blood pressure is [150/78]. Heart rate is [83]. Respiration is [16] . Temperature is [97.0]. HEENT: Head is atraumatic, neck is supple, there were no carotid bruits. CHEST: Lungs are clear to auscultation and percussion. CARDIAC: S1, S2 normal rate and rhythm. There is no murmur. ABDOMEN: Soft and nontender. Bowel sounds are present. EXTREMITIES: There is no pedal edema. Peripheral pulses are present. Neurological examination: Patient's neurological examination is unchanged from yesterday. - Labs CBC & Chem 7: 01/27/17 04:08 01/28/17 08:45 Assessment and Plan (1) Acute right arterial ischemic stroke, MCA (middle cerebral artery) Status: Acute Code(s): I63.511 - CEREB INFRC D/T UNSP OCCLS OR STENOS OF RIGHT MID CEREB ART (2) Acute encephalopathy Status: Acute Code(s): G93.40 - ENCEPHALOPATHY, UNSPECIFIED (3) UTI (urinary tract infection) Status: Acute Code(s): N39.0 - URINARY TRACT INFECTION, SITE NOT SPECIFIED (4) Small bowel obstruction Status: Acute Code(s): K56.69 - OTHER INTESTINAL OBSTRUCTION (5) Superficial vein thrombosis Status: Acute Code(s): I82.890 - ACUTE EMBOLISM AND THROMBOSIS OF OTHER SPECIFIED VEINS Plan: This patient is a 72-year-old female who was brought into the hospital initially with symptoms of right-sided face and eye pain symptoms. She was also noted having increased confusion. she recently was treated for small bowel obstruction. She was seen in the ER by Dr. Xie and underwent a computed tomography scan of the brain. CAT scan of the brain was negative for acute stroke or hemorrhage. She essentially admitted to Hospital. This morning she was noted to have increased some lethargy. she was given Dilaudid in the ER due to pain symptoms. Her neurological examination at this time reveals her to have a left upper motor neuron facial weakness. She does appear to be confused. This may be secondary to her urinary tract infection producing a diffuse metabolic encephalopathy. Would continue current IV antibiotics for this patient which includes Rocephin. We will obtain a MRI of the brain for further evaluation as well as MRA due to the severe right-sided headache pain. The patient was able to complete MRI of the brain today results are as noted above. MRI fails to reveal any evidence of acute or subacute stroke. MRA was normal. We reviewed the results of the neuroimaging test results with the patient and her at bedside today. Patient should be maintained on aspirin daily for secondary stroke prevention. Patient is sitting up and eating her lunch today and seems to be appropriate for her age. She is being considered for possible discharge home in the next 24 hours. We have once again gone over all of her test results with the patient and her at bedside today. She may be considered for discharge home with follow-up in the outpatient neurology clinic in 3-4 weeks. Her overall prognosis at this time remains very guarded.
--- NOTE | 2017-01-30 20:04 | PN ---
DATE OF SERVICE: 01/30/2017 CHIEF COMPLAINT: Lethargy, mental status changes, hypomagnesemia and urinary tract infection. HISTORY OF PRESENT ILLNESS: This lady continues to improve. She is not having any further abdominal pain and she has not been seen by surgery today. PHYSICAL EXAMINATION: CHEST: Clear. CARDIAC: Normal. ABDOMEN: Soft and nontender. IMPRESSION: 1. Weakness, confusion, and failure to thrive. 2. Hypomagnesemia. 3. Recent laparotomy for bowel obstruction. PLAN: Probably home tomorrow.
[2017-01-30] MEDS: traZODone HCL 50 MG TAB PO PRN (21:00)
[2017-01-31] MEDS: LISINOPRIL 20 MG TAB PO SCH (08:03)
[2017-01-31] MEDS: METOPROLOL SUCCINATE (ER) 25 MG TAB.ER.24H PO SCH (08:03)
[2017-01-31] MEDS: VENLAFAXINE HCL ER 75 MG CAP PO SCH (08:03)
[2017-01-31] MEDS: ASPIRIN 81 MG CHEW PO SCH (08:03)
[2017-01-31 08:59] VITALS: BP 171/80; PULSE 80; TEMP 97.4
--- NOTE | 2017-01-31 10:18 | P.DS ---
Providers Date of admission: 01/27/17 06:57 Expected date of discharge: 01/31/17 Attending physician: Sunil Butt Consults: 01/27/17 09:08 Consult Physician Routine Consulting Provider: Miguel Suarez Consult Reason/Comments: Lethargy Do you want consulting provider notified?: Yes 01/27/17 09:09 Consult Physician Routine Consulting Provider: Chalino Carrasquillo Consult Reason/Comments: ABD pain Do you want consulting provider notified?: Yes Primary care physician: [facility] Course: This patient is a 72-year-old female who was admitted to hospital yesterday for altered mental status and recent bowel obstruction. Patient was showing signs of lethargy and delirium yesterday. She is scheduled to undergo MRI of the brain for further evaluation. She was seen by surgery and there is no evidence for bowel obstruction at this time. She has been started on Dulcolax suppository and laxative as needed. She continues to have some episodes of confusion. We will await the neuroimaging studies and we will give further recommendations. Patient was able to complete MRI of the brain today. The MRI revealed no evidence of acute stroke. There was moderate degree of periventricular white matter ischemic changes noted. MRA was also performed and came back negative for any evidence of vascular change or aneurysm. Overall the patient seems to be doing much better today in terms of her mental status. She is much more awake and alert. is at bedside and he was updated on all of the neuroimaging test results. She may follow-up in the outpatient neurology clinic in 3-4 weeks. Patient was treated this admission for acute metabolic encephalopathy due to a UTI. Impression discharge diagnosis Present on admission altered mental status acute metabolic encephalopathy due to a UTI Present on admission abdominal pain with no evidence of an obstruction per CAT scan of abdomen and pelvis A recent laparoscopic appendectomy with lysis of adhesions for small bowel obstruction 3 weeks prior Present on admission Abnormal lab values hypo-magnesium Present on admission dehydration due to poor oral intake MRI of the brain no evidence of acute infarct CAT scan of the brain on admission mild small vessel ischemic changes Present on admission hypertension urgency systolic blood pressure 240 resolved The above dictated assessment and findings were discussed with dr butt Impression and the plan of care have been dictated as directed. Avril Andrade nurse practitioner acting as a scribe for dr butt Patient Condition at Discharge: Fair Plan - Discharge Summary New Discharge Prescriptions: Levofloxacin [Levaquin] 500 mg PO DAILY #5 tab Lisinopril [Zestril] 40 mg PO DAILY #60 tab Discharge Medication List Aspirin 81 mg PO DAILY 01/15/17 [History] Atorvastatin [Lipitor] 40 mg PO HS 01/15/17 [History] Metoprolol Succinate (ER) [Toprol XL] 25 mg PO DAILY 01/15/17 [History] Multivits-Min/Iron/FA/Lutein [Centrum Silver Women Tablet] 1 tab PO DAILY [History] Venlafaxine HCl ER [Effexor XR] 75 mg PO DAILY 01/15/17 [History] Naproxen 500 mg PO Q12HR #10 tab 01/22/17 [Rx] Ranitidine HCl [Zantac] 150 mg PO BID #20 tab 01/22/17 [Rx] Levofloxacin [Levaquin] 500 mg PO DAILY #5 tab 01/31/17 [Rx] Lisinopril [Zestril] 40 mg PO DAILY #60 tab 01/31/17 [Rx] Follow up Appointment(s)/Referral(s): Jreome Hanna DO [Primary Care Provider] - 1-2 days Miguel Suarez MD [STAFF PHYSICIAN] - 1 Week Discharge Disposition: HOME SELF-CARE
--- NOTE | 2017-02-01 17:56 | PN ---
DATE OF SERVICE: 01/31/2017 CHIEF COMPLAINT: Failure to thrive, weakness, hypomagnesemia and urinary tract infection. HISTORY OF PRESENT ILLNESS: This lady continues to improve and doing better. She is eating and her activity is increasing. She is having no problems with orientation, alertness, etc. It is felt that she can probably go home today. This will be arranged by the nurse practitioner.
== END 2017-01-31 11:30 | disposition home or self-care (01) | DRG 689 ==
LOC: EC 03:58 → 5MS5E 06:57
PROVIDERS: ADMIT Family Medicine; ATTEND Family Medicine
DX: N39.0 Urinary tract infection, site not specified (principal); G93.41 Metabolic encephalopathy; I82.612 Acute embolism and thrombosis of superficial veins of left upper extremity; E83.42 Hypomagnesemia; J44.9 Chronic obstructive pulmonary disease, unspecified; E86.0 Dehydration; E78.5 Hyperlipidemia, unspecified; I16.0 Hypertensive urgency; K21.9 Gastro-esophageal reflux disease without esophagitis; R10.9 Unspecified abdominal pain; R29.810 Facial weakness; R62.7 Adult failure to thrive; F32.9 Major depressive disorder, single episode, unspecified; F41.9 Anxiety disorder, unspecified; H57.10 Ocular pain, unspecified eye; R51 Headache; Z79.82 Long term (current) use of aspirin; Z79.899 Other long term (current) drug therapy; Z87.891 Personal history of nicotine dependence; Z88.0 Allergy status to penicillin; Z82.49 Family history of ischemic heart disease and other diseases of the circulatory system
CPT/HCPCS: 36415; 70450; 70486; 70544; 70551; 71010; 74177; 80053; 81001; 82140; 82550; 82553; 83605; 83735; 84100; 84443; 84484; 85025; 87040; 87086; 93005; 95816; 96361; 96365; 96375; 99285

== ENCOUNTER 2017-03-01 18:09 | Inpatient (IN) | payer MEDICARE ==
[2017-03-01] MEDS ORDERED: HYDROmorphone 1 MG/ML 1 ML SYRINGE IVP STA (19:09)
[2017-03-01] MEDS ORDERED: ONDANSETRON 4 MG/2 ML VIAL IVP STA (19:09)
[2017-03-01] MEDS ORDERED: SODIUM CHLORIDE 0.9% 1,000 ML IV STA (19:10)
--- NOTE | 2017-03-01 19:18 | ED ---
General Adult HPI - General Source: patient, RN notes reviewed, old records reviewed Mode of arrival: wheelchair Limitations: no limitations <Eleazar Delvalle - Last Filed: 03/01/17 19:16> <Joe Dickey - Last Filed: 03/01/17 20:52> - General Chief complaint: Abdominal Pain Stated complaint: bowel blockage Time Seen by Provider: 03/01/17 19:04 - History of Present Illness Initial comments: patient 72-year-old female who has significant past history for bowel obstruction, who presents emergency room today with a chief complaint of increased abdominal pain over the last 2 hours. She does admit pains locally to the middle of her abdomen. She states pain is consistent with nauseousness had in the past. Does admit that she had a bowel movement this morning. States does not pass any flatulence the last 2 hours. Does admit to episodes of nausea vomiting in the waiting room waiting to be seen. States symptoms are consistent with bowel obstruction that she's had passed. She denies any other complaints or associated symptoms. Patient denies any recent fever, chills, shortness of breath, chest pain, back pain, numbness or tingling, dysuria or hematuria, constipation or diarrhea, headaches or visual changes, or any other complaints. (Eleazar Delvalle) - Related Data Home Medications Medication Instructions Recorded Confirmed Aspirin 81 mg PO DAILY 01/15/17 03/01/17 Atorvastatin [Lipitor] 40 mg PO HS 01/15/17 03/01/17 Metoprolol Succinate (ER) [Toprol 25 mg PO BID 01/15/17 03/01/17 XL] Multivit-Min/Iron/Folic/Lutein 1 tab PO DAILY 01/15/17 03/01/17 [Centrum Silver Women Tablet] Venlafaxine HCl ER [Effexor XR] 75 mg PO DAILY 01/15/17 03/01/17 Docusate [Colace] 200 mg PO HS 03/01/17 03/01/17 Allergies Allergy/AdvReac Type Severity Reaction Status Date / Time Penicillins Allergy Rash/Hives Verified 03/01/17 19:40 Review of Systems ROS Other: All systems not noted in ROS Statement are negative. <Eleazar Delvalle - Last Filed: 03/01/17 19:16> ROS Other: All systems not noted in ROS Statement are negative. <Joe Dickey - Last Filed: 03/01/17 20:52> ROS Statement: Those systems with pertinent positive or pertinent negative responses have been documented in the HPI. Past Medical History Past Medical History: COPD, GERD/Reflux, Hyperlipidemia, Hypertension, Pneumonia Additional Past Medical History / Comment(s): Pt recently admitted to [facility] with superficial thrombosis L arm cephalic vein, generalized weakness, hypomagnesemia, hypokalemia. Other HX: Multiple admissions for small bowel obstructions. History of Any Multi-Drug Resistant Organisms: None Reported Past Surgical History: Bowel Resection Additional Past Surgical History / Comment(s): bowel resection x 2, colonoscopy Past Anesthesia/Blood Transfusion Reactions: No Reported Reaction Past Psychological History: Anxiety, Depression Additional Psychological History / Comment(s): Pt resides with spouse. She uses no assistive device. She drives. Smoking Status: Former smoker Past Alcohol Use History: Occasional Additional Past Alcohol Use History / Comment(s): Pt started smoking as a teen and quit in 1978. Pt states she drinks alcohol on occasion. Past Drug Use History: None Reported - Past Family History Sister(s) Family Medical History: Diabetes Mellitus Father Family Medical History: Coronary Artery Disease (CAD) Additional Family Medical History / Comment(s): Father of a MT in his 60's or 70's. Mother Family Medical History: No Reported History Additional Family Medical History / Comment(s): Mother at the age of 88yrs. <Eleazar Delvalle - Last Filed: 03/01/17 19:16> General Exam Limitations: no limitations <Eleazar Delvalle - Last Filed: 03/01/17 19:16> <Joe Dickey - Last Filed: 03/01/17 20:52> - General Exam Comments Initial Comments: General: The patient is awake and alert, in no distress, and does not appear acutely ill. Eye: Pupils are equal, round and reactive to light, extra-ocular movements are intact. No nystagmus. There is normal conjunctiva bilaterally. No signs of icterus. Ears, nose, mouth and throat: There are moist mucous membranes and no oral lesions. Neck: The neck is supple, there is no tenderness or JVD. Cardiovascular: There is a regular rate and rhythm. No murmur, rub or gallop is appreciated. Respiratory: Lungs are clear to auscultation, respirations are non-labored, breath sounds are equal. No wheezes, stridor, rales, or rhonchi. Gastrointestinal: Normal appearance of the Abdomen. Normal bowel sounds. Abdomen soft on palpation. vision is tenderness both right and left lower quadrants. No rebound tenderness. No guarding. No CVA tenderness. Musculoskeletal: Normal ROM, no tenderness. Strength 5/5. Sensation intact. Pulses equal bilaterally 2+. Neurological: A&O x 3. CN II-XII intact, There are no obvious motor or sensory deficits. Coordination appears grossly intact. Speech is normal. Skin: Skin is warm and dry and no rashes or lesions are noted. Psychiatric: Cooperative, appropriate mood & affect, normal judgment. (Eleazar Delvalle) Medical Decision Making <Eleazar Delvalle - Last Filed: 03/01/17 19:16> - Lab Data Result diagrams: 03/01/17 19:35 03/01/17 19:35 <Joe Dickey - Last Filed: 03/01/17 20:52> - Medical Decision Making Medical decision making; patient's white count is 9.4 hemoglobin 14 hematocrit of 43 with a potassium 4.0. BUN 11 creatinine 0.67 and GFR greater than 60. Glucose is 97. Plasma lactic acid is a 5 which is within normal limits and amylase and lipase are within normal limits. X-ray of the abdomen was done and reviewed by radiologist his impression is there is no sign of intestinal obstruction or pneumoperitoneum. The fecal pattern is normal. There is no sign of a mass. There are no pathologic calcifications over the kidneys. There are phleboliths in the pelvis. Impression; nonacute abdomen. No change compared to old exam. As read by Dr. Crockett did have a bowel movement this morning but vomited afterwards very small amount of loose stool later on. Hypoactive bowel sounds at this time. X-rays noted above labs as noted above. The patient will have an NG tube placed as she has had frequent episodes of partial bowel obstruction. case discussed with Dr. dr rivas on-call for Dr. Carrasquillo. Patient will have an NG tube repeat white count the morning kept nothing by mouth throughout the night with repeat CBC in the morning. (Joe Dickey) - Lab Data Lab Results 03/01/17 03/01/17 03/01/17 Range/Units 19:35 19:35 19:35 WBC 9.4 (3.8-10.6) k/uL RBC 4.51 (3.80-5.40) m/uL Hgb 14.4 (11.4-16.0) gm/dL Hct 43.1 (34.0-46.0) % MCV 95.5 (80.0-100.0) fL MCH 31.9 (25.0-35.0) pg MCHC 33.5 (31.0-37.0) g/dL RDW 13.9 (11.5-15.5) % Plt Count 354 (150-450) k/uL Neutrophils % 65 % Lymphocytes % 25 % Monocytes % 6 % Eosinophils % 1 % Basophils % 1 % Neutrophils # 6.1 (1.3-7.7) k/uL Lymphocytes # 2.4 (1.0-4.8) k/uL Monocytes # 0.5 (0-1.0) k/uL Eosinophils # 0.1 (0-0.7) k/uL Basophils # 0.1 (0-0.2) k/uL Sodium 141 (137-145) mmol/L Potassium 4.0 (3.5-5.1) mmol/L Chloride 102 (98-107) mmol/L Carbon Dioxide 27 (22-30) mmol/L Anion Gap 12 mmol/L BUN 11 (7-17) mg/dL Creatinine 0.67 (0.52-1.04) mg/dL Est GFR (MDRD) Af Amer >60 (>60 ml/min/1.73 sqM) Est GFR (MDRD) Non-Af >60 (>60 ml/min/1.73 sqM) Glucose 97 (74-99) mg/dL Plasma Lactic Acid Chris 1.5 (0.7-2.0) mmol/L Calcium 10.6 H (8.4-10.2) mg/dL Total Bilirubin 0.6 (0.2-1.3) mg/dL AST 30 (14-36) U/L ALT 23 (9-52) U/L Alkaline Phosphatase 51 (38-126) U/L Total Protein 7.4 (6.3-8.2) g/dL Albumin 4.8 (3.5-5.0) g/dL Amylase 84 (30-110) U/L Lipase 167 (23-300) U/L Disposition <Eleazar Delvalle - Last Filed: 03/01/17 19:16> <Joe Dickey - Last Filed: 03/01/17 20:52> Clinical Impression: Abdominal pain, History of small bowel obstruction, High blood pressure Disposition: ADMITTED IP TO THIS [facility] Condition: Serious Referrals: Jerome Hanna DO [Primary Care Provider] - 1-2 days
[2017-03-01] MEDS ORDERED: ENALAPRILAT 1.25 MG/ML 1 ML VIAL IVP STA (19:48)
[2017-03-01 19:57] LABS: Basophils # (A) 0.1 k/uL (0-0.2); Basophils % (A) 1 %; CH 32.4; CHCM 34.1; Eosinophils # (A) 0.1 k/uL (0-0.7); Eosinophils % (A) 1 %; HCT 43.1 % (34.0-46.0); HDW 2.45; HGB 14.4 gm/dL (11.4-16.0); Luc # (Auto) 0.21; Luc % (Auto) 2; Lymphocytes # (A) 2.4 k/uL (1.0-4.8); Lymphocytes % (A) 25 %; MCH 31.9 pg (25.0-35.0); MCHC 33.5 g/dL (31.0-37.0); MCV 95.5 fL (80.0-100.0); Mean Platelet Volume 6.9; Monocytes # (A) 0.5 k/uL (0-1.0); Monocytes % (A) 6 %; Neutrophils # (A) 6.1 k/uL (1.3-7.7); Neutrophils % (A) 65 %; RBC 4.51 m/uL (3.80-5.40); RDW 13.9 % (11.5-15.5); WBC 9.4 k/uL (3.8-10.6); WBC (Perox) 8.89
[2017-03-01 20:06] LABS: ALT 23 U/L (9-52); AST 30 U/L (14-36); Alkaline Phosphatase 51 U/L (38-126); Amylase 84 U/L (30-110); Anion Gap 12 mmol/L; Blood Urea Nitrogen 11 mg/dL (7-17); Calcium 10.6 mg/dL (8.4-10.2); Carbon Dioxide 27 mmol/L (22-30); Chloride 102 mmol/L (98-107); Glucose 97 mg/dL (74-99); Non-African American GFR(MDRD) >60 (>60 ml/min/1.73 sqM); Sodium 141 mmol/L (137-145); Total Bilirubin 0.6 mg/dL (0.2-1.3); Total Protein 7.4 g/dL (6.3-8.2)
--- NOTE | 2017-03-01 20:16 | XR ---
EXAMINATION TYPE: XR abdomen complete w decub DATE OF EXAM: 03/01/2017 COMPARISON: 01/22/2017 HISTORY: Abdominal pain and cramping TECHNIQUE: Supine, upright, and left side down lateral decubitus views of the abdomen are obtained. FINDINGS: There is no sign of intestinal obstruction or pneumoperitoneum. Fecal pattern is normal. There is no sign of a mass. There are no pathologic calcifications over the kidneys. There are phleboliths in the pelvis. IMPRESSION: Nonacute abdomen. No change compared to old exam.
[2017-03-01] MEDS ORDERED: NALOXONE 0.4 MG/ML 1 ML VIAL IV PRN (20:52)
[2017-03-01] MEDS ORDERED: ENALAPRILAT 1.25 MG/ML 1 ML VIAL IVP PRN (20:52)
[2017-03-01] MEDS: HYDROmorphone 1 MG/ML 1 ML SYRINGE IV PRN (21:50)
[2017-03-01 22:45] LABS: Appearance,Urine Clear (Clear); Bilirubin,Urine Negative (Negative); Glucose,Urine (UA) Negative (Negative); Ketones,Urine 1+ (Negative); Leukocyte Esterase,Urine Negative (Negative); Nitrite,Urine Negative (Negative); Protein,Urine Negative (Negative); Specific Gravity,Urine 1.012 (1.001-1.035); UA Billing (MACRO vs. MICRO) CHEM; Urobilinogen,Urine <2.0 mg/dL (<2.0)
[2017-03-02] MEDS: HYDROmorphone 1 MG/ML 1 ML SYRINGE IV PRN ×5 (01:12→13:27)
[2017-03-02] MEDS: SODIUM CHLORIDE 0.9% 1,000 ML IV SCH ×2 (03:03→07:22)
[2017-03-02] MEDS: ONDANSETRON 4 MG/2 ML VIAL IVP PRN (04:13)
[2017-03-02] MEDS: PANTOPRAZOLE 40 MG/10 ML VIAL IV SCH (07:17)
[2017-03-02 07:26] LABS: Basophils % (A) 0 %; CH 31.5; CHCM 32.8; Eosinophils # (A) 0.1 k/uL (0-0.7); Eosinophils % (A) 1 %; HCT 39.3 % (34.0-46.0); HDW 2.43; HGB 13.1 gm/dL (11.4-16.0); Luc # (Auto) 0.14; Luc % (Auto) 2; Lymphocytes # (A) 1.7 k/uL (1.0-4.8); Lymphocytes % (A) 22 %; MCH 32.2 pg (25.0-35.0); MCHC 33.3 g/dL (31.0-37.0); MCV 96.6 fL (80.0-100.0); Mean Platelet Volume 6.9; Monocytes # (A) 0.4 k/uL (0-1.0); Monocytes % (A) 5 %; Neutrophils # (A) 5.4 k/uL (1.3-7.7); Neutrophils % (A) 70 %; RBC 4.07 m/uL (3.80-5.40); RDW 13.9 % (11.5-15.5); WBC 7.6 k/uL (3.8-10.6); WBC (Perox) 7.68
[2017-03-02 07:38] LABS: ALT 28 U/L (9-52); AST 29 U/L (14-36); Alkaline Phosphatase 36 U/L (38-126); Anion Gap 8 mmol/L; Blood Urea Nitrogen 10 mg/dL (7-17); Calcium 9.2 mg/dL (8.4-10.2); Carbon Dioxide 27 mmol/L (22-30); Chloride 107 mmol/L (98-107); Glucose 100 mg/dL (74-99); Non-African American GFR(MDRD) >60 (>60 ml/min/1.73 sqM); Potassium 4.2 mmol/L (3.5-5.1); Sodium 142 mmol/L (137-145); Total Bilirubin 0.6 mg/dL (0.2-1.3); Total Protein 6.1 g/dL (6.3-8.2)
[2017-03-02] MEDS ORDERED: hydrALAZINE HCL 20 MG/ML 1 ML VIAL IM PRN (17:19)
[2017-03-02] MEDS ORDERED: LORazepam 2 MG/ML SYRINGE IV STA ×2 (19:50→19:59)
--- NOTE | 2017-03-02 21:05 | P.GSHP ---
History of Present Illness H&P Date: 03/02/17 Chief Complaint: abdominal pain The patient is a 72-year-old white female who presented to the emergency room last night with the little over 2 hour history of lower abdominal pain crampy in nature associated with nausea and later some vomiting in the ER. Abdominal film showed no evidence of obstruction. She however has a past history of multiple obstructions and she states her symptoms are very similar. Was hospitalized the about 5 weeks ago for similar symptoms and CT at that time did show evidence of a small bowel obstruction. He responded well to medical management. Since her discharge she is been having regular bowel movement passing flatus. She did since admission pass flatus today but no bowel movement. She states she's had at least 2 bowel resections for obstruction. She also had a sigmoid resection for complicated diverticular disease all done out of town. No fever or chills. No blood in the stool. Last had a colonoscopy within the last 3 or 4 years. Past history: As above. Also has hypertension. Anxiety. Medications as listed. Includes metoprolol. Effexor. Family history noncontributory. Social history. Denies smoking. Drinks alcohol occasionally socially. She is and lives at home with her . Systems review as above. No definite chest pain. Has some degree of anxiety. No urinary symptoms. Generalized weakness. On examination: Patient is awake alert in no distress. She feels a lot better since admission. The pain has resolved. Doesn't feel hungry however. Does have an NG tube in place. Shaky. Blood pressure is 180/84.. Hydration is satisfactory. Color is good. Neck is supple. Heart regular rhythm. Lungs are clear. Shows well-healed midline scar. No mass or organomegaly. Mild suprapubic lower abdominal tenderness but no guarding or rebound or rigidity. Has active bowel sounds. No hernias are noted. No mass or organomegaly. Extremities normal with full motion [place] grossly intact. Laboratory studies are unremarkable. WBC is normal. The urine and creatinine are normal. On the lateral x-ray shows a nonspecific bowel gas pattern. No evidence of obstruction. Her previous abdominal abdominal films on the last admission be also normal but computed tomography scan did show an obstruction. Recommendation.: We will the abdomen and pelvis. Medical management in the meantime. May need surgical intervention if indeed she does have recurrent obstruction. Medical consult for her hypertension and medical issues. Past Medical History Past Medical History: COPD, GERD/Reflux, Hyperlipidemia, Hypertension, Pneumonia Additional Past Medical History / Comment(s): Pt recently admitted to [facility] with superficial thrombosis L arm cephalic vein, generalized weakness, hypomagnesemia, hypokalemia. Other HX: Multiple admissions for small bowel obstructions. History of Any Multi-Drug Resistant Organisms: None Reported Past Surgical History: Bowel Resection Additional Past Surgical History / Comment(s): bowel resection x 2, colonoscopy Past Anesthesia/Blood Transfusion Reactions: No Reported Reaction Past Psychological History: Anxiety, Depression Additional Psychological History / Comment(s): Pt resides with spouse. She uses no assistive device. She drives. Smoking Status: Former smoker Past Alcohol Use History: Occasional Additional Past Alcohol Use History / Comment(s): Pt started smoking as a teen and quit in 1978. Pt states she drinks alcohol on occasion. Past Drug Use History: None Reported - Past Family History Sister(s) Family Medical History: Diabetes Mellitus Father Family Medical History: Coronary Artery Disease (CAD) Additional Family Medical History / Comment(s): Father of a AL in his 60's or 70's. Mother Family Medical History: No Reported History Additional Family Medical History / Comment(s): Mother at the age of 88yrs. Medications and Allergies Home Medications Medication Instructions Recorded Confirmed Type Aspirin 81 mg PO DAILY 01/15/17 03/01/17 History Atorvastatin [Lipitor] 40 mg PO HS 01/15/17 03/01/17 History Metoprolol Succinate (ER) [Toprol 25 mg PO BID 01/15/17 03/01/17 History XL] Multivit-Min/Iron/Folic/Lutein 1 tab PO DAILY 01/15/17 03/01/17 History [Centrum Silver Women Tablet] Venlafaxine HCl ER [Effexor XR] 75 mg PO DAILY 01/15/17 03/01/17 History Docusate [Colace] 200 mg PO HS 03/01/17 03/01/17 History Allergies Allergy/AdvReac Type Severity Reaction Status Date / Time Penicillins Allergy Rash/Hives Verified 03/01/17 19:40 Surgical - Exam Vital Signs Temp Pulse Resp BP Pulse Ox 96.9 F L 65 22 215/103 98 03/01/17 18:10 03/01/17 18:10 03/01/17 18:10 03/01/17 18:10 03/01/17 18:10 Results - Labs 03/02/17 06:34 03/02/17 06:34 Abnormal Lab Results - Last 24 Hours (Table) 03/01/17 03/02/17 Range/Units 22:30 06:34 Glucose 100 H (74-99) mg/dL Alkaline Phosphatase 36 L (38-126) U/L Total Protein 6.1 L (6.3-8.2) g/dL Urine Ketones 1+ H (Negative) Diabetes panel 03/02/17 Range/Units 06:34 Sodium 142 (137-145) mmol/L Potassium 4.2 (3.5-5.1) mmol/L Chloride 107 (98-107) mmol/L Carbon Dioxide 27 (22-30) mmol/L BUN 10 (7-17) mg/dL Creatinine 0.69 (0.52-1.04) mg/dL Glucose 100 H (74-99) mg/dL Calcium 9.2 (8.4-10.2) mg/dL AST 29 (14-36) U/L ALT 28 (9-52) U/L Alkaline Phosphatase 36 L (38-126) U/L Total Protein 6.1 L (6.3-8.2) g/dL Albumin 3.8 (3.5-5.0) g/dL Calcium panel 03/02/17 Range/Units 06:34 Calcium 9.2 (8.4-10.2) mg/dL Albumin 3.8 (3.5-5.0) g/dL Pituitary panel 03/02/17 Range/Units 06:34 Sodium 142 (137-145) mmol/L Potassium 4.2 (3.5-5.1) mmol/L Chloride 107 (98-107) mmol/L Carbon Dioxide 27 (22-30) mmol/L BUN 10 (7-17) mg/dL Creatinine 0.69 (0.52-1.04) mg/dL Glucose 100 H (74-99) mg/dL Calcium 9.2 (8.4-10.2) mg/dL Adrenal panel 03/02/17 Range/Units 06:34 Sodium 142 (137-145) mmol/L Potassium 4.2 (3.5-5.1) mmol/L Chloride 107 (98-107) mmol/L Carbon Dioxide 27 (22-30) mmol/L BUN 10 (7-17) mg/dL Creatinine 0.69 (0.52-1.04) mg/dL Glucose 100 H (74-99) mg/dL Calcium 9.2 (8.4-10.2) mg/dL Total Bilirubin 0.6 (0.2-1.3) mg/dL AST 29 (14-36) U/L ALT 28 (9-52) U/L Alkaline Phosphatase 36 L (38-126) U/L Total Protein 6.1 L (6.3-8.2) g/dL Albumin 3.8 (3.5-5.0) g/dL
[2017-03-02] MEDS: IOHEXOL 350 MG/ML 25 ML BOTTLE (ORAL USE) PO PRN ×2 (21:16→22:05)
--- NOTE | 2017-03-02 23:57 | CT ---
EXAM: CT Abdomen and Pelvis Without Intravenous Contrast CLINICAL HISTORY: Reason: SBO-Nausea Vomiting TECHNIQUE: Axial computed tomography images of the abdomen and pelvis without intravenous contrast. Enteric contrast given. CTDI is 5.7 mGy and DLP is 254 mGy-cm. This CT exam was performed using one or more of the following dose reduction techniques: automated exposure control, adjustment of the mA and/or kV according to patient size, and/or use of iterative reconstruction technique. COMPARISON: 01/27/17 FINDINGS: Lack of IV contrast limits evaluation of viscera. There is also some artifact on this exam. Enteric tube present. Proximal side-port is near level of GE junction. Suggest advancement of enteric tube by about 5 cm for more ideal positioning. Motion degrades images of the lung bases. Hiatal hernia again noted. There is oral contrast in the hiatal hernia which may represent reflux. Unchanged appearance of lung bases allowing for artifact. Postoperative changes bowel again noted. There are some mildly distended small bowel segments. Oral contrast is seen to level rectum and no bowel obstruction is suspected. There is mural thickening of small bowel. On the previous exam there was a question of mural thickening of terminal ileum. On current exam appearance of the terminal ileum is not significantly changed and may be mildly thickened but more prominent mural thickening of small bowel is seen in the left and midline abdomen and pelvis which is new compared to prior. Mesenteric/interloop edema is seen adjacent to the thickened small bowel loops. Findings are suspicious for enteritis. Though most prominent thickening small bowel seen in the left mid to lower abdomen and the midline lower abdomen/pelvis, there may be more diffuse wall thickening of small bowel. Equivocal mural thickening of rectosigmoid versus incomplete distention. Small bowel findings are not equivocal. Allowing for absence of contrast, no significant change in appearance of solid viscera. Low-density liver lesion, left adrenal hyperplasia and other unchanged findings. IMPRESSION: Mural thickening of small bowel with interloop/mesenteric edema suspicious for enteritis. Findings are more prominent than the previous examination and in a different location. Please see above discussion. Equivocal mural thickening of portions of underdistended colon, example rectosigmoid versus underdistention. Enteric tube present. Proximal side-port is near level of GE junction. Suggest advancement of enteric tube by about 5 cm for more ideal positioning. Other findings, as above.
[2017-03-03] MEDS: SODIUM CHLORIDE 0.9% 1,000 ML IV SCH ×3 (05:06→13:28)
--- NOTE | 2017-03-03 08:09 | XR ---
EXAMINATION TYPE: XR abdomen complete w decub DATE OF EXAM: 03/03/2017 COMPARISON: Prior CT abdomen pelvis 03/02/2017 HISTORY: Small bowel obstruction TECHNIQUE: Supine, upright, and left side down lateral decubitus views of the abdomen are obtained. FINDINGS: There is passage of contrast material into the colon. Lung bases are clear. No pneumoperito neum. IMPRESSION: Contrast is coursing to the colon.
[2017-03-03] MEDS: PANTOPRAZOLE 40 MG/10 ML VIAL IV SCH (08:26)
[2017-03-03] MEDS: VENLAFAXINE HCL ER 75 MG CAP PO SCH (08:26)
[2017-03-03] MEDS: HYDROmorphone 1 MG/ML 1 ML SYRINGE IV PRN ×2 (08:27→18:32)
[2017-03-03] MEDS: ENOXAPARIN 40 MG/0.4 ML SYRINGE SQ SCH (08:27)
[2017-03-03] MEDS: ASPIRIN 81 MG CHEW PO SCH (08:27)
[2017-03-03] MEDS ORDERED: METOPROLOL TARTRATE 25 MG TAB PO SCH (09:00)
[2017-03-03 09:02] LABS: Basophils % (A) 1 %; CH 32.1; CHCM 33.4; Eosinophils # (A) 0.1 k/uL (0-0.7); Eosinophils % (A) 1 %; HCT 38.2 % (34.0-46.0); HDW 2.45; HGB 12.7 gm/dL (11.4-16.0); Luc # (Auto) 0.12; Luc % (Auto) 2; Lymphocytes # (A) 1.3 k/uL (1.0-4.8); Lymphocytes % (A) 25 %; MCH 32.1 pg (25.0-35.0); MCHC 33.3 g/dL (31.0-37.0); MCV 96.6 fL (80.0-100.0); Mean Platelet Volume 6.7; Monocytes # (A) 0.3 k/uL (0-1.0); Monocytes % (A) 6 %; Neutrophils # (A) 3.3 k/uL (1.3-7.7); Neutrophils % (A) 65 %; RBC 3.96 m/uL (3.80-5.40); RDW 13.9 % (11.5-15.5); WBC (Perox) 5.06
--- NOTE | 2017-03-03 09:02 | P.PN ---
Progress Note - Text The patient is doing somewhat better. Complains mostly of a headache. No definite nausea or vomiting. Cannot recall she passed any flatus through the night. Not particularly hungry however. On examination the patient is awake alert oriented in no acute distress. Until he should feels better. Temperature is normal. Blood pressure is better in and around 150/83. Color and hydration are good. Abdomen is fairly soft with very minimal tenderness in the suprapubic left lower quadrant area. No guarding or rebound. No mass or organomegaly or hernias noted. CT was reviewed. No evidence of bowel obstruction. Has evidence of enteritis" some thickening of the bowel wall. Hospital inflammatory condition with the thickening also of the mesentery. The bowel into the colon with no obstruction. abdominal films this morning she continues to show contrast into the colon with no evidence of obstruction. impression. abdominal pain possible enteritis. no evidence of bowel obstruction at this time. hypertension improving. some degree of anxiety. Recommendation. We will try her on some clear liquids today and progressively advance. Continued close monitoring.
[2017-03-03 09:15] LABS: Anion Gap 13 mmol/L; Blood Urea Nitrogen 4 mg/dL (7-17); Carbon Dioxide 21 mmol/L (22-30); Chloride 106 mmol/L (98-107); Glucose 83 mg/dL (74-99); Non-African American GFR(MDRD) >60 (>60 ml/min/1.73 sqM); Sodium 140 mmol/L (137-145)
[2017-03-03] MEDS ORDERED: METOPROLOL TARTRATE 25 MG TAB PO STA (09:17)
[2017-03-03] MEDS: hydrALAZINE HCL 20 MG/ML 1 ML VIAL IVP PRN ×2 (12:20→18:03)
--- NOTE | 2017-03-03 12:38 | P.CRDCN ---
History of Present Illness Consult date: 03/03/17 Chief complaint: Abdominal discomfort History of present illness: This is a pleasant 72-year-old female patient with a past medical history significant for hypertension, dyslipidemia, and COPD, presented to the hospital complaining of abdominal discomfort. The patient was diagnosed with possible partial small bowel obstruction and currently she is on medical treatment only with possible she might need surgery. We get involved in the care of the patient to manage the blood pressure which seems to be out of control. The patient denies having any chest pain or discomfort or difficulty breathing or heart racing or fluttering or dizziness or lightheadedness. She has some headache which is likely secondary to the hypertension which is not well controlled. Currently the patient is receiving 25 mg by mouth twice a day of metoprolol. I am going to increase the dose to 50 mg by mouth twice a day. Beside that I am adding Norvasc to the current medical treatment. Past Medical History Past Medical History: COPD, GERD/Reflux, Hyperlipidemia, Hypertension, Pneumonia Additional Past Medical History / Comment(s): Pt recently admitted to [facility] with superficial thrombosis L arm cephalic vein, generalized weakness, hypomagnesemia, hypokalemia. Other HX: Multiple admissions for small bowel obstructions. History of Any Multi-Drug Resistant Organisms: None Reported Past Surgical History: Bowel Resection Additional Past Surgical History / Comment(s): bowel resection x 2, colonoscopy Past Anesthesia/Blood Transfusion Reactions: No Reported Reaction Past Psychological History: Anxiety, Depression Additional Psychological History / Comment(s): Pt resides with spouse. She uses no assistive device. She drives. Smoking Status: Former smoker Past Alcohol Use History: Occasional Additional Past Alcohol Use History / Comment(s): Pt started smoking as a teen and quit in 1978. Pt states she drinks alcohol on occasion. Past Drug Use History: None Reported - Past Family History Sister(s) Family Medical History: Diabetes Mellitus Father Family Medical History: Coronary Artery Disease (CAD) Additional Family Medical History / Comment(s): Father of a [place] in his 60's or 70's. Mother Family Medical History: No Reported History Additional Family Medical History / Comment(s): Mother at the age of 88yrs. Medications and Allergies Home Medications Medication Instructions Recorded Confirmed Type Aspirin 81 mg PO DAILY 01/15/17 03/01/17 History Atorvastatin [Lipitor] 40 mg PO HS 01/15/17 03/01/17 History Metoprolol Succinate (ER) [Toprol 25 mg PO BID 01/15/17 03/01/17 History XL] Multivit-Min/Iron/Folic/Lutein 1 tab PO DAILY 01/15/17 03/01/17 History [Centrum Silver Women Tablet] Venlafaxine HCl ER [Effexor XR] 75 mg PO DAILY 01/15/17 03/01/17 History Docusate [Colace] 200 mg PO HS 03/01/17 03/01/17 History Allergies Allergy/AdvReac Type Severity Reaction Status Date / Time Penicillins Allergy Rash/Hives Verified 03/01/17 19:40 Physical Exam Vitals: Vital Signs Temp Pulse Resp BP BP Pulse Ox 03/03/17 12:18 72 174/68 03/03/17 10:44 178/85 180/78 03/03/17 07:00 98.1 F 90 18 182/81 98 03/03/17 02:13 98.2 F 100 16 154/78 96 03/02/17 20:30 97.4 F L 105 H 16 135/71 91 L 03/02/17 18:43 170/74 03/02/17 14:56 193/84 03/02/17 14:30 210/97 03/02/17 14:00 98.6 F 79 16 190/84 94 L Intake and Output 03/02/17 03/03/17 03/03/17 22:59 06:59 14:59 Intake Total 1200 1200 Balance 1200 1200 Intake: Intake, IV Titration 1200 Amount Sodium Chloride 0.9% 1, 1200 000 ml @ 100 mls/hr IV . Q10H [facility] Rx#:[id number] Tube Feeding 1200 Other: # Voids 1 - Constitutional General appearance: no acute distress - Respiratory Respiratory: bilateral: CTA - Cardiovascular Rhythm: regular Heart sounds: normal: S1, S2 Results 03/03/17 08:38 03/03/17 08:38 CBC 03/03/17 Range/Units 08:38 WBC 5.0 (3.8-10.6) k/uL RBC 3.96 (3.80-5.40) m/uL Hgb 12.7 (11.4-16.0) gm/dL Hct 38.2 (34.0-46.0) % Plt Count 283 (150-450) k/uL Comprehensive Metabolic Panel 03/03/17 Range/Units 08:38 Sodium 140 (137-145) mmol/L Potassium 4.0 (3.5-5.1) mmol/L Chloride 106 (98-107) mmol/L Carbon Dioxide 21 L (22-30) mmol/L BUN 4 L (7-17) mg/dL Creatinine 0.53 (0.52-1.04) mg/dL Glucose 83 (74-99) mg/dL Calcium 9.0 (8.4-10.2) mg/dL Current Medications Generic Name Dose Route Start Last Admin Trade Name Freq PRN Reason Stop Dose Admin Amlodipine Besylate 5 mg 03/04/17 09:00 Norvasc PO DAILY [facility] Aspirin 81 mg 03/03/17 09:00 03/03/17 08:27 Aspirin PO 81 mg DAILY [facility]ON[facility] Administration Atorvastatin Calcium 40 mg 03/03/17 21:00 Lipitor PO HS RONNA Docusate Sodium 200 mg 03/03/17 21:00 Colace PO HS RONNA Enalaprilat 1.25 mg 03/01/17 20:52 03/02/17 14:35 Vasotec IVP 1.25 mg Q4H PRN Administration systolic greater than 160 Enoxaparin Sodium 40 mg 03/03/17 09:00 03/03/17 08:27 Lovenox SQ 40 mg DAILY RONNA Administration Hydralazine HCl 10 mg 03/02/17 19:19 03/03/17 12:20 Apresoline IVP 10 mg Q6HR PRN Administration Blood Pressure - High Hydromorphone HCl 0.5 mg 03/01/17 20:52 03/03/17 08:27 Dilaudid IV 0.5 mg Q3HR PRN Administration Severe Pain Sodium Chloride 1,000 mls @ 100 mls/hr 03/01/17 21:00 03/03/17 09:22 Saline 0.9% IV 100 mls/hr .Q10H [facility]ON[facility] Administration Iohexol 25 ml 03/02/17 20:55 03/02/17 22:05 Omnipaque 350 Mg/Ml (For Oral Use) PO 03/03/17 20:57 25 ml Q60M PRN Administration CT Scan Metoprolol Tartrate 50 mg 03/03/17 12:33 Lopressor PO BID RONNA Naloxone HCl 0.2 mg 03/01/17 20:52 Narcan IV Q2M PRN Opioid Reversal Ondansetron HCl 4 mg 03/01/17 20:52 03/02/17 04:13 Zofran IVP 4 mg Q8HR PRN Administration Nausea And Vomiting Pantoprazole Sodium 40 mg 03/02/17 09:00 03/03/17 08:26 Protonix IV 40 mg DAILY RONNA Administration Venlafaxine HCl 75 mg 03/03/17 09:00 03/03/17 08:26 Effexor Xr PO 75 mg DAILY RONNA Administration Intake and Output 03/02/17 03/03/17 03/03/17 22:59 06:59 14:59 Intake Total 1200 1200 Balance 1200 1200 Intake: Intake, IV Titration 1200 Amount Sodium Chloride 0.9% 1, 1200 000 ml @ 100 mls/hr IV . Q10H [facility] Rx#:[id number] Tube Feeding 1200 Other: # Voids 1 03/03/17 08:38 03/03/17 08:38 Assessment and Plan Plan: Assessment #1 partial small bowel obstruction #2 uncontrolled hypertension Plan #1 increase the dose of metoprolol #2 add Norvasc to the current medical treatment #3 follow-up with the patient
[2017-03-03] MEDS: ONDANSETRON 4 MG/2 ML VIAL IVP PRN (13:27)
--- NOTE | 2017-03-03 18:20 | P.PN ---
Progress Note - Text DATE OF SERVICE: 03/03/2017 PRESENTING COMPLAINT: Acute abdominal pain, nausea vomiting INTERVAL HISTORY: This patient presented with acute abdominal pain with associated nausea, vomiting. History of multiple obstructions. Today patient is anxious appearing frustrated with her condition however passing gas, NG tube removed and overall abdominal pain and symptoms are much improved today. Patient states she just wants answers as to why this continues to happen. REVIEW OF SYSTEMS: Done for constitutional ,cardiovascular, GI, pulmonary with relevant findings as above. CURRENT MEDICATIONS Norvasc, aspirin, Lipitor, Colace, Vasotec, Lovenox, Apresoline, hydromorphone, Protonix. PHYSICAL EXAM: VITAL SIGNS: Temperature 98.0 pulse 87, respiratory rate 16, blood pressure 156/ 67, oxygen saturation 94% on room air. GENERAL APPEARANCE: Thin build. Lying in bed, not in distress. EYES: Pupils equal. Conjunctiva normal. NECK: JVD not raised. Mass not palpable. RESPIRATORY: Respiratory effort normal. Lungs clear to auscultation. CARDIOVASCULAR: First and second sounds normal. No edema. ABDOMEN: Soft. Liver and spleen not palpable. No tenderness. No mass palpable. PSYCHIATRY: Alert and oriented x3. Mood and affect normal. NEUROLOGICAL: Cranial nerves grossly intact. No facial asymmetry. Power and sensation grossly intact INVESTIGATIONS: White blood cell count 5.0, hemoglobin 12.7, platelet count 283, sodium 140, potassium 4.0, BUNs for, creatinine 0.53, Abdominal x-ray: Contrast coursing through intestinal tract. No pneumoperitoneum. ASSESSMENT: 1. Acute abdominal pain, improving. 2. Essential hypertension, uncontrolled 3. Acute nausea and vomiting, resolved PLAN: Imaging reveals no obvious obstructions per surgery. Her diet advanced we'll see how she tolerates it. Her blood pressure medications adjusted by cardiology. We'll continue to follow closely [employer] statement: Patient was seen and examined by nurse practitioner Deana Young in all elements of the case discussed with attending is Dr. Campbell
[2017-03-03] MEDS ORDERED: ATORVASTATIN 40 MG TAB PO SCH (21:00)
[2017-03-03] MEDS: METOPROLOL TARTRATE 50 MG TAB PO SCH (21:25)
[2017-03-03] MEDS: DOCUSATE 100 MG CAP PO SCH (21:25)
[2017-03-04] MEDS: hydrALAZINE HCL 20 MG/ML 1 ML VIAL IVP PRN (07:35)
[2017-03-04] MEDS: ONDANSETRON 4 MG/2 ML VIAL IVP PRN (07:41)
[2017-03-04] MEDS: SODIUM CHLORIDE 0.9% 1,000 ML IV SCH ×2 (08:35→10:12)
[2017-03-04] MEDS ORDERED: amLODIPine 5 MG TAB PO SCH (09:00)
--- NOTE | 2017-03-04 09:26 | P.PN ---
Progress Note - Text This is a pleasant 72-year-old female patient with a past medical history significant for hypertension, dyslipidemia, and COPD, presented to the hospital complaining of abdominal discomfort. The patient was diagnosed with possible partial small bowel obstruction and currently she is on medical treatment only with possible she might need surgery. We get involved in the care of the patient to manage the blood pressure which seems to be out of control. The patient denies having any chest pain or discomfort or difficulty breathing or heart racing or fluttering or dizziness or lightheadedness. She has some headache which is likely secondary to the hypertension which is not well controlled. I did increase the dose of metoprolol into 50 mg by mouth twice a day and also I did add Norvasc to the current medical treatment. The blood pressure seems to be better controlled on the current medical regimen. From the cardiovascular standpoint of view, the patient can be discharged home and I'll follow-up with the patient as an outpatient.
[2017-03-04] MEDS: DOCUSATE 100 MG CAP PO SCH (10:12)
[2017-03-04] MEDS: ENOXAPARIN 40 MG/0.4 ML SYRINGE SQ SCH (10:12)
[2017-03-04] MEDS: ASPIRIN 81 MG CHEW PO SCH (10:12)
[2017-03-04] MEDS: PANTOPRAZOLE 40 MG/10 ML VIAL IV SCH (10:13)
[2017-03-04] MEDS: VENLAFAXINE HCL ER 75 MG CAP PO SCH (10:13)
[2017-03-04] MEDS: METOPROLOL TARTRATE 50 MG TAB PO SCH (10:13)
--- NOTE | 2017-03-04 11:23 | P.PN ---
Progress Note - Text The patient is doing much better. Tolerated clear liquids this morning. Passing flatus and had 2 liquid bowel movements. Denies any significant abdominal pain. Her initial abdominal films in the ER and a computed tomography scan the day after admission revealed no evidence of obstruction. Question of some enteritis thickened small bowel wall evidence of mesenteric edema but no obstruction. Blood pressure is better map. Medications have been changed per cardiology and and the Dr. Campbell. On examination she is afebrile. Vitals are good. Abdomen is soft with mild tenderness in the right lower quadrant. No guarding or rebound. No distention. No mass or organomegaly. Impression lower abdominal pain now resolved. Possible early small bowel obstruction that resolved the within 24 hours. 2. History of anxiety disorder. Recommendation. We will try on a soft diet and if tolerated discharge her. We will see her back in the office in about 9-10 days. She will follow up with her primary care physician in a week. Blood pressure meds to be determined by medicine. And cardiology.
--- NOTE | 2017-03-04 12:38 | CONS ---
DATE OF CONSULTATION: 03/03/2017 REASON FOR CONSULTATION: Medical management requested by Dr. Carrasquillo. CONSULTATION: This is a very pleasant 72-year-old patient I saw this morning today. Has had prior bowel surgeries. Patient's chronic stable medical conditions include hypertension, hyperlipidemia, depression. The patient has had 2 prior bowel resections including that for complicated diverticular disease. Patient presented with increasing abdominal pain, nausea, vomiting, admitted for the same. Overnight, she felt actually better. REVIEW OF SYSTEMS: CONSTITUTIONAL: Tired. HEENT: None. RESPIRATORY: None. CARDIOVASCULAR: None. GASTROINTESTINAL: As above. GENITOURINARY: None. MUSCULOSKELETAL: None. DERMATOLOGIC: None. HEMATOLOGIC: None. LYMPHATICS: None. PSYCHIATRY: Depression. NEUROLOGICAL: None. Past medical history of ( ) bowel obstruction, hypertension, hyperlipidemia. PAST SURGICAL HISTORY: Bowel resection, 2 resections in the past. Also had previous sigmoid resection for complicated diverticular disease at [facility]. Allergies to PENICILLIN. HOME MEDICATIONS: 1. Effexor XR 75 mg a day. 2. Centrum Silver 1 tablet p.o. daily. 3. Toprol XL 25 mg p.o. b.i.d. 4. Colace 200 mg p.o. q.h.s. 5. Lipitor 40 mg q.h.s. 6. Aspirin 81 mg p.o. daily. On examination, temperature 98.1, pulse 90, respirations 18, blood pressure 154/78, pulse ox 96% on room air. GENERAL APPEARANCE: Small build, lying in bed, tired appearing. EYES: Pupils equal. Conjunctivae normal. HEENT: External appearance of nose and ears normal. Oral cavity normal. NECK: JVD not raised. Mass not palpable. RESPIRATORY: Effort normal. LUNGS: Fair air entry. CARDIOVASCULAR: First and second sounds normal. No edema. ABDOMEN: Soft. Minimal tenderness. Liver and spleen not palpable. LYMPHATIC: No lymph nodes palpable in the neck or axillae. PSYCHIATRY: Alert and oriented x3. Mood and affect normal. NEUROLOGICAL: Pupils equal. Cranial nerves grossly intact. Power and sensation grossly intact. INVESTIGATIONS: White count 7.6, hemoglobin 13.1. Potassium 4.2. BUN and creatinine are normal. CT scan of the abdomen and pelvis shows some mural thickening of the distal small bowel. ASSESSMENT: 1. Possible small bowel obstruction, partial, on presentation, responded well to NG tube. 2. Depression. 3. Essential hypertension. 4. Hyperlipidemia. 5. Blood pressure somewhat uncontrolled. PLAN: Dr. Jhaveri was consulted early today. He did increase patient's beta shira. Other medications and treatment plan is to continue. The patient's diet will be advanced per Surgery. Patient getting IV fluids. Care was discussed with the patient. Thank you Dr. Carrasquillo.
[2017-03-04 14:20] VITALS: BP 104/54; PULSE 77; RESP 16; TEMP 98
--- NOTE | 2017-03-04 22:23 | PN ---
DATE OF SERVICE: 03/04/2017 PRESENTING COMPLAINT: Abdominal pain. INTERVAL HISTORY: This is a patient who presented with what appears to be bowel obstruction, uncontrolled blood pressure. Doing much better. Patient is very anxious, which is contributing to her blood pressure. Did offer the patient the opportunity to see a psychiatrist, which she declined. Has bowel movement. Has tolerated some diet. Still somewhat anxious. Review of systems done for constitutional, cardiovascular, GI, pulmonary, psychiatric; relevant findings as above. Current medications are reviewed. On examination, temperature 97.9, pulse 71, respiration 16, blood pressure 161/70, pulse ox 94% on room air. GENERAL APPEARANCE: Lying in bed. Rather anxious-appearing. EYES: Pupils equal. Conjunctivae normal. NECK: JVD not raised. Mass not palpable. RESPIRATORY: Effort normal. Lungs are clear. CARDIOVASCULAR: First and second sounds normal. No edema. ABDOMEN: Soft. Minimal tenderness. Liver and spleen not palpable. PSYCHIATRY: Alert and oriented x3. Mood and affect very anxious-appearing. INVESTIGATIONS: White count 5, hemoglobin 12.7. Potassium 4. ASSESSMENT: 1. Possible small-bowel obstruction, partial on presentation, clinically improved and resolved. 2. Depression. 3. Anxiety, uncontrolled. 4. Essential hypertension, uncontrolled. 5. Hyperlipidemia. PLAN: I asked the patient if she wanted to see a psychiatrist. Patient declined; wants to go back and see her family doctor. Blood pressure medications were adjusted by Cardiology. She will go home on the same. Did tell the patient to keep a close eye on her blood pressure; if her anxiety comes down, her blood pressure may actually drop. This was also discussed with Dr. Carrasquillo.
== END 2017-03-04 16:40 | disposition home or self-care (01) | DRG 390 ==
LOC: EC 18:09 → 3SUR 20:53
PROVIDERS: ADMIT Surgery; ATTEND Surgery
DX: K56.60 Unspecified intestinal obstruction (principal); J44.9 Chronic obstructive pulmonary disease, unspecified; I10 Essential (primary) hypertension; F32.9 Major depressive disorder, single episode, unspecified; E78.5 Hyperlipidemia, unspecified; F41.9 Anxiety disorder, unspecified; K21.9 Gastro-esophageal reflux disease without esophagitis; K57.90 Diverticulosis of intestine, part unspecified, without perforation or abscess without bleeding; R51 Headache; Z79.82 Long term (current) use of aspirin; Z79.899 Other long term (current) drug therapy; Z88.0 Allergy status to penicillin; Z87.891 Personal history of nicotine dependence; Z82.49 Family history of ischemic heart disease and other diseases of the circulatory system
CPT/HCPCS: 36415; 74020; 74176; 80048; 80053; 81003; 82150; 83605; 83690; 85025

== ENCOUNTER 2017-04-21 18:09 | Observation (INO) | payer MEDICARE ==
[2017-04-21] MEDS ORDERED: SODIUM CHLORIDE 0.9% 500 ML IV STA (19:15)
[2017-04-21] MEDS ORDERED: ONDANSETRON 4 MG/2 ML VIAL IVP STA (19:15)
[2017-04-21] MEDS ORDERED: HYDROmorphone 1 MG/ML 1 ML SYRINGE IVP STA (19:15)
[2017-04-21 19:57] LABS: Basophils # (A) 0.1 k/uL (0-0.2); Basophils % (A) 0 %; CH 32.5; CHCM 34.6; Eosinophils # (A) 0.2 k/uL (0-0.7); Eosinophils % (A) 2 %; HCT 40.8 % (34.0-46.0); HGB 14.3 gm/dL (11.4-16.0); Luc # (Auto) 0.21; Luc % (Auto) 2; Lymphocytes # (A) 2.2 k/uL (1.0-4.8); Lymphocytes % (A) 19 %; MCH 33.1 pg (25.0-35.0); MCHC 35.1 g/dL (31.0-37.0); MCV 94.2 fL (80.0-100.0); Mean Platelet Volume 7.7; Monocytes # (A) 0.5 k/uL (0-1.0); Monocytes % (A) 4 %; Neutrophils # (A) 8.5 k/uL (1.3-7.7); Neutrophils % (A) 73 %; RBC 4.33 m/uL (3.80-5.40); RDW 14.1 % (11.5-15.5); WBC 11.6 k/uL (3.8-10.6); WBC (Perox) 11.34
[2017-04-21 20:06] LABS: Appearance,Urine Clear (Clear); Bilirubin,Urine Negative (Negative); Glucose,Urine (UA) Negative (Negative); Ketones,Urine Negative (Negative); Leukocyte Esterase,Urine Negative (Negative); Nitrite,Urine Negative (Negative); PH, Urine 6.5 (5.0-8.0); Protein,Urine Negative (Negative); Specific Gravity,Urine 1.007 (1.001-1.035); UA Billing (MACRO vs. MICRO) CHEM; Urobilinogen,Urine <2.0 mg/dL (<2.0)
[2017-04-21 20:09] LABS: ALT 28 U/L (9-52); AST 32 U/L (14-36); Alkaline Phosphatase 44 U/L (38-126); Amylase 74 U/L (30-110); Anion Gap 11 mmol/L; Blood Urea Nitrogen 18 mg/dL (7-17); Calcium 10.1 mg/dL (8.4-10.2); Carbon Dioxide 25 mmol/L (22-30); Chloride 103 mmol/L (98-107); Glucose 91 mg/dL (74-99); Non-African American GFR(MDRD) >60 (>60 ml/min/1.73 sqM); Potassium 4.4 mmol/L (3.5-5.1); Sodium 139 mmol/L (137-145); Total Bilirubin 0.5 mg/dL (0.2-1.3); Total Protein 6.8 g/dL (6.3-8.2)
[2017-04-21 20:14] LABS: Prothrombin Time 10.3 sec (9.0-12.0)
--- NOTE | 2017-04-21 20:19 | XR ---
2 view abdomen HISTORY: Abdominal pain 2 views of the abdomen submitted on 3 images and correlated to prior exam 03/03/2017 Lung bases are clear. No pneumoperitoneum or bowel obstruction. Retained fecal debris present through out the distribution of the colon. Atherosclerotic vascular calcifications present within the aorta. Bones show a stable appearance. No other pathologic calcification. IMPRESSION: Correlate for possible fecal stasis.
--- NOTE | 2017-04-21 20:33 | ED ---
General Adult HPI - General Chief complaint: Abdominal Pain Stated complaint: poss bowel blockage Source: patient, family, RN notes reviewed, old records reviewed Mode of arrival: ambulatory Limitations: no limitations - History of Present Illness Initial comments: Patient presents with abdominal pain. No bowel movement since yesterday. Patient has chronic problems with fecal stasis and partial intestinal obstruction. She was last in the hospital one month ago for 3 days for same problem. She usually needs an NG tube for decompression. - Related Data Home Medications Medication Instructions Recorded Confirmed Aspirin 81 mg PO DAILY 01/15/17 04/21/17 Atorvastatin [Lipitor] 40 mg PO HS 01/15/17 04/21/17 Multivit-Min/Iron/Folic/Lutein 1 tab PO DAILY 01/15/17 04/21/17 [Centrum Silver Women Tablet] Venlafaxine HCl ER [Effexor XR] 75 mg PO DAILY 01/15/17 04/21/17 Docusate [Colace] 200 mg PO DAILY 03/01/17 04/21/17 Bromfenac Sodium [Prolensa Ophth 1 drop OPHTHALMIC DAILY 04/21/17 04/21/17 Soln] Loteprednol Etabonate [Lotemax 1 drop OPHTHALMIC BID 04/21/17 04/21/17 Ophth Gel Drops] Ofloxacin [Ocuflox Ophth Soln] 1 drop RIGHT EYE TID 04/21/17 04/21/17 Previous Rx's Medication Instructions Recorded Metoprolol Tartrate [Lopressor] 50 mg PO BID #60 tab 03/04/17 amLODIPine [Norvasc] 5 mg PO DAILY #30 tab 03/04/17 Allergies Allergy/AdvReac Type Severity Reaction Status Date / Time Penicillins Allergy Rash/Hives Verified 04/21/17 18:46 Review of Systems ROS Statement: Those systems with pertinent positive or pertinent negative responses have been documented in the HPI. Review of systems no headache or visual acuity changes no chest pain or shortness of breath she has abdominal pain. Decreased appetite nausea no vomiting no bowel movement for 36 hours. No complaints of a neuro deficits. Past medical problems COPD, GERD, hyperlipidemia and hypertension. Pneumonia. Also 2 bowel resections and 13 or more episodes of hospitalization because of intestinal obstruction relieved with nasogastric suction. Family history no cancers. The patient has ALLERGIES to penicillin. Nonsmoker does not drink alcohol. ROS Other: All systems not noted in ROS Statement are negative. Past Medical History Past Medical History: COPD, GERD/Reflux, Hyperlipidemia, Hypertension, Pneumonia Additional Past Medical History / Comment(s): Pt recently admitted to [facility] with superficial thrombosis L arm cephalic vein, generalized weakness, hypomagnesemia, hypokalemia. Other HX: Multiple admissions for small bowel obstructions. History of Any Multi-Drug Resistant Organisms: None Reported Past Surgical History: Bowel Resection Additional Past Surgical History / Comment(s): bowel resection x 2, colonoscopy Past Anesthesia/Blood Transfusion Reactions: No Reported Reaction Past Psychological History: Anxiety, Depression Smoking Status: Former smoker Past Alcohol Use History: Occasional Past Drug Use History: None Reported - Past Family History Sister(s) Family Medical History: Diabetes Mellitus Father Family Medical History: Coronary Artery Disease (CAD) Additional Family Medical History / Comment(s): Father of a [place] in his 60's or 70's. Mother Family Medical History: No Reported History Additional Family Medical History / Comment(s): Mother at the age of 88yrs. General Exam - General Exam Comments Initial Comments: General: The patient is awake and alert, complains of abdominal pain no bowel movement since yesterday morning small amount of gas today. He is on stool softeners. Frequent histories of partial small bowel obstructions.. Vital signs shows temperature 96.7 pulse 59 respiratory rate 20 pulse ox 96% room air blood pressure 172/93 Eye: Pupils are equal, round and reactive to light, extra-ocular movements are intact ; there is normal conjunctiva bilaterally. No signs of icterus. Ears, nose, mouth and throat: There are moist mucous membranes and no oral lesions. Neck: The neck is supple, there is no tenderness . Cardiovascular: There is a regular rate and rhythm. No murmur, rub or gallop is appreciated. Respiratory: Lungs are clear to auscultation, respirations are non-labored, breath sounds are equal. No wheezes, stridor, rales, or rhonchi. Gastrointestinal: Mildly tender hypoactive bowel sounds. No masses palpable. No bowel movement for over 36 hours. Back: No back pain Musculoskeletal: No complaint of a peripheral neuropathy or swelling. Neurological: No focal or lateralizing findings Skin is warm and dry and no rashes or lesions are noted. Limitations: no limitations Course Vital Signs 04/21/17 04/21/17 04/21/17 18:17 19:16 19:45 Temperature 96.7 F L Pulse Rate 59 L 65 70 Respiratory 20 18 18 Rate Blood Pressure 172/93 153/82 160/90 O2 Sat by Pulse 96 95 96 Oximetry 04/21/17 04/21/17 20:31 20:59 Temperature Pulse Rate 71 71 Respiratory 18 18 Rate Blood Pressure 166/78 149/67 O2 Sat by Pulse 95 95 Oximetry Medical Decision Making - Medical Decision Making Patient's convinces another episode of what has been recently diagnosed his intestinal or partial intestinal obstruction. A Kumar starts with no bowel movement for several days. Often ending up with an NG tube. Currently no nausea no vomiting. Medical decision making white count 11.6 hemoglobin 14 hematocrit 40.8. INR 1.0 , potassium 4.4 BUN 18 creatinine 0.6 GFR greater than 60. Glucose 91. Urine clean no signs of infection. X-ray of the abdomen was done and reviewed by radiologist his impression is lung bases are clear. No pneumoperitoneum or bowel obstruction. Retained fecal debris present throughout the distribution of the colon. Atherosclerotic vascular calcifications present within the aorta. Bones show a stable appearance and no other pathologic calcifications. Impression: Possible fecal stasis. As read by Dr. Chavarria Case discussed with Dr. Madrid on-call for Dr. Paris. Due to the frequency of small bowel obstructions relieved with decompression. The patient be admitted this evening. Further evaluation the morning for repeat CBC. - Lab Data Result diagrams: 04/21/17 19:36 04/21/17 19:36 Lab Results 04/21/17 04/21/17 04/21/17 Range/Units 19:36 19:36 19:36 WBC 11.6 H (3.8-10.6) k/uL RBC 4.33 (3.80-5.40) m/uL Hgb 14.3 (11.4-16.0) gm/dL Hct 40.8 (34.0-46.0) % MCV 94.2 (80.0-100.0) fL MCH 33.1 (25.0-35.0) pg MCHC 35.1 (31.0-37.0) g/dL RDW 14.1 (11.5-15.5) % Plt Count 296 (150-450) k/uL Neutrophils % 73 % Lymphocytes % 19 % Monocytes % 4 % Eosinophils % 2 % Basophils % 0 % Neutrophils # 8.5 H (1.3-7.7) k/uL Lymphocytes # 2.2 (1.0-4.8) k/uL Monocytes # 0.5 (0-1.0) k/uL Eosinophils # 0.2 (0-0.7) k/uL Basophils # 0.1 (0-0.2) k/uL PT (9.0-12.0) sec INR (<1.2) Sodium 139 (137-145) mmol/L Potassium 4.4 (3.5-5.1) mmol/L Chloride 103 (98-107) mmol/L Carbon Dioxide 25 (22-30) mmol/L Anion Gap 11 mmol/L BUN 18 H (7-17) mg/dL Creatinine 0.60 (0.52-1.04) mg/dL Est GFR (MDRD) Af Amer >60 (>60 ml/min/1.73 sqM) Est GFR (MDRD) Non-Af >60 (>60 ml/min/1.73 sqM) Glucose 91 (74-99) mg/dL Plasma Lactic Acid Chris 1.0 (0.7-2.0) mmol/L Calcium 10.1 (8.4-10.2) mg/dL Total Bilirubin 0.5 (0.2-1.3) mg/dL AST 32 (14-36) U/L ALT 28 (9-52) U/L Alkaline Phosphatase 44 (38-126) U/L Total Protein 6.8 (6.3-8.2) g/dL Albumin 4.4 (3.5-5.0) g/dL Amylase 74 (30-110) U/L Lipase 158 (23-300) U/L Urine Color Urine Appearance (Clear) Urine pH (5.0-8.0) Ur Specific [place] (1.001-1.035) Urine Protein (Negative) Urine Glucose (UA) (Negative) Urine Ketones (Negative) Urine Blood (Negative) Urine Nitrite (Negative) Urine Bilirubin (Negative) Urine Urobilinogen (<2.0) mg/dL Ur Leukocyte Esterase (Negative) 04/21/17 04/21/17 Range/Units 19:36 19:36 WBC (3.8-10.6) k/uL RBC (3.80-5.40) m/uL Hgb (11.4-16.0) gm/dL Hct (34.0-46.0) % MCV (80.0-100.0) fL MCH (25.0-35.0) pg MCHC (31.0-37.0) g/dL RDW (11.5-15.5) % Plt Count (150-450) k/uL Neutrophils % % Lymphocytes % % Monocytes % % Eosinophils % % Basophils % % Neutrophils # (1.3-7.7) k/uL Lymphocytes # (1.0-4.8) k/uL Monocytes # (0-1.0) k/uL Eosinophils # (0-0.7) k/uL Basophils # (0-0.2) k/uL PT 10.3 (9.0-12.0) sec INR 1.0 (<1.2) Sodium (137-145) mmol/L Potassium (3.5-5.1) mmol/L Chloride (98-107) mmol/L Carbon Dioxide (22-30) mmol/L Anion Gap mmol/L BUN (7-17) mg/dL Creatinine (0.52-1.04) mg/dL Est GFR (MDRD) Af Amer (>60 ml/min/1.73 sqM) Est GFR (MDRD) Non-Af (>60 ml/min/1.73 sqM) Glucose (74-99) mg/dL Plasma Lactic Acid Chris (0.7-2.0) mmol/L Calcium (8.4-10.2) mg/dL Total Bilirubin (0.2-1.3) mg/dL AST (14-36) U/L ALT (9-52) U/L Alkaline Phosphatase (38-126) U/L Total Protein (6.3-8.2) g/dL Albumin (3.5-5.0) g/dL Amylase (30-110) U/L Lipase (23-300) U/L Urine Color Light Yellow Urine Appearance Clear (Clear) Urine pH 6.5 (5.0-8.0) Ur Specific [place] 1.007 (1.001-1.035) Urine Protein Negative (Negative) Urine Glucose (UA) Negative (Negative) Urine Ketones Negative (Negative) Urine Blood Negative (Negative) Urine Nitrite Negative (Negative) Urine Bilirubin Negative (Negative) Urine Urobilinogen <2.0 (<2.0) mg/dL Ur Leukocyte Esterase Negative (Negative) Disposition Clinical Impression: Abdominal pain, Hx SBO Disposition: ADMITTED IP TO THIS HOSP Condition: Fair Referrals: Jerome Hanna DO [Primary Care Provider] - 1-2 days
[2017-04-21] MEDS: SODIUM CHLORIDE 0.9% 1,000 ML IV STA ×2 (20:58→23:11)
[2017-04-21] MEDS ORDERED: NALOXONE 0.4 MG/ML 1 ML VIAL IV PRN (21:37)
[2017-04-21] MEDS ORDERED: ENALAPRILAT 1.25 MG/ML 1 ML VIAL IVP PRN (21:41)
[2017-04-21] MEDS: SODIUM CHLORIDE 0.9% 1,000 ML IV SCH (21:55)
[2017-04-21 22:46] VITALS: BMI 19.9
[2017-04-21] MEDS: ONDANSETRON 4 MG/2 ML VIAL IVP PRN (22:50)
[2017-04-21] MEDS: HYDROmorphone 1 MG/ML 1 ML SYRINGE IV PRN (22:51)
[2017-04-21] MEDS: FAMOTIDINE 20 MG/2 ML VIAL IV SCH (23:09)
[2017-04-21] MEDS: OFLOXACIN 0.3% OPHTH DROPS 5 ML BOTTLE RIGHT EYE SCH (23:11)
[2017-04-22] MEDS: HYDROmorphone 1 MG/ML 1 ML SYRINGE IV PRN ×5 (01:58→19:12)
[2017-04-22] MEDS: diphenhydrAMINE 50 MG/ML 1 ML VIAL IVP PRN ×4 (03:35→21:14)
[2017-04-22] MEDS: FAMOTIDINE 20 MG/2 ML VIAL IV SCH ×2 (07:52→20:10)
[2017-04-22] MEDS: OFLOXACIN 0.3% OPHTH DROPS 5 ML BOTTLE RIGHT EYE SCH ×3 (07:54→20:10)
[2017-04-22 07:56] LABS: Basophils % (A) 1 %; CH 32.4; Eosinophils # (A) 0.1 k/uL (0-0.7); Eosinophils % (A) 3 %; HCT 38.2 % (34.0-46.0); HDW 2.35; HGB 12.7 gm/dL (11.4-16.0); Luc # (Auto) 0.13; Luc % (Auto) 3; Lymphocytes # (A) 2.2 k/uL (1.0-4.8); Lymphocytes % (A) 44 %; MCH 31.9 pg (25.0-35.0); MCHC 33.3 g/dL (31.0-37.0); MCV 95.5 fL (80.0-100.0); Mean Platelet Volume 8.2; Monocytes # (A) 0.4 k/uL (0-1.0); Monocytes % (A) 7 %; Neutrophils # (A) 2.2 k/uL (1.3-7.7); Neutrophils % (A) 43 %; RDW 13.7 % (11.5-15.5); WBC (Perox) 5.21
[2017-04-22] MEDS: SODIUM CHLORIDE 0.9% 1,000 ML IV SCH ×2 (08:10→17:10)
[2017-04-22 08:53] LABS: ALT 17 U/L (9-52); AST 25 U/L (14-36); Alkaline Phosphatase 33 U/L (38-126); Anion Gap 6 mmol/L; Blood Urea Nitrogen 12 mg/dL (7-17); Calcium 8.9 mg/dL (8.4-10.2); Carbon Dioxide 25 mmol/L (22-30); Chloride 109 mmol/L (98-107); Glucose 79 mg/dL (74-99); Non-African American GFR(MDRD) >60 (>60 ml/min/1.73 sqM); Potassium 4.3 mmol/L (3.5-5.1); Sodium 140 mmol/L (137-145); Total Bilirubin 0.3 mg/dL (0.2-1.3); Total Protein 5.5 g/dL (6.3-8.2)
--- NOTE | 2017-04-22 16:37 | P.GSHP ---
History of Present Illness H&P Date: 04/22/17 Chief Complaint: Abdominal pain The patient's a 72-year-old female that has intermittent admissions with abdominal pain and constipation. She will develop an ileus which responds to conservative therapy. She's had recurrent pain. No bowel movement for quite a few days. - Review of Systems All systems: negative - Constitutional Constitutional: Denies chills, Denies fever Past Medical History Past Medical History: COPD, Hyperlipidemia, Hypertension, Pneumonia Additional Past Medical History / Comment(s): Pt recently admitted to [facility] with superficial thrombosis L arm cephalic vein, generalized weakness, hypomagnesemia, hypokalemia. Other HX: Multiple admissions for small bowel obstructions. History of Any Multi-Drug Resistant Organisms: None Reported Past Surgical History: Bowel Resection Additional Past Surgical History / Comment(s): bowel resection x 2, colonoscopy Past Anesthesia/Blood Transfusion Reactions: No Reported Reaction Past Psychological History: Anxiety, Depression Additional Psychological History / Comment(s): Pt resides with spouse. She uses no assistive device. She drives. Smoking Status: Former smoker Past Alcohol Use History: Occasional Additional Past Alcohol Use History / Comment(s): Pt started smoking as a teen and quit in 1978. Pt states she drinks alcohol on occasion. Past Drug Use History: None Reported - Past Family History Sister(s) Family Medical History: Diabetes Mellitus Father Family Medical History: Coronary Artery Disease (CAD) Additional Family Medical History / Comment(s): Father of a [place] in his 60's or 70's. Mother Family Medical History: No Reported History Additional Family Medical History / Comment(s): Mother at the age of 88yrs. Medications and Allergies Home Medications Medication Instructions Recorded Confirmed Type Aspirin 81 mg PO DAILY 01/15/17 04/21/17 History Atorvastatin [Lipitor] 40 mg PO HS 01/15/17 04/21/17 History Multivit-Min/Iron/Folic/Lutein 1 tab PO DAILY 01/15/17 04/21/17 History [Centrum Silver Women Tablet] Venlafaxine HCl ER [Effexor XR] 75 mg PO DAILY 01/15/17 04/21/17 History Docusate [Colace] 200 mg PO DAILY 03/01/17 04/21/17 History Bromfenac Sodium [Prolensa Ophth 1 drop OPHTHALMIC DAILY 04/21/17 04/21/17 History Soln] Loteprednol Etabonate [Lotemax 1 drop OPHTHALMIC BID 04/21/17 04/21/17 History Ophth Gel Drops] Ofloxacin [Ocuflox Ophth Soln] 1 drop RIGHT EYE TID 04/21/17 04/21/17 History Allergies Allergy/AdvReac Type Severity Reaction Status Date / Time Penicillins Allergy Rash/Hives Verified 04/21/17 18:46 Surgical - Exam Osteopathic Statement: *. No significant issues noted on an osteopathic structural exam other than those noted in the History and Physical/Consult. Vital Signs Temp Pulse Resp BP Pulse Ox 96.7 F L 59 L 20 172/93 96 04/21/17 18:17 04/21/17 18:17 04/21/17 18:17 04/21/17 18:17 04/21/17 18:17 - General well developed, well nourished, no distress - Eyes normal ocular movement - ENT normal mucosa - Neck trachea midline - Respiratory normal respiratory effort - Cardiovascular Rhythm: regular - Abdomen Abdomen: soft, no non tender, bowel sounds, no guarding, no rigid, no rebound, no distended Results - Labs 04/22/17 07:23 04/22/17 07:23 Abnormal Lab Results - Last 24 Hours (Table) 04/21/17 04/21/17 04/22/17 Range/Units 19:36 19:36 07:23 WBC 11.6 H (3.8-10.6) k/uL Neutrophils # 8.5 H (1.3-7.7) k/uL Chloride 109 H (98-107) mmol/L BUN 18 H (7-17) mg/dL Alkaline Phosphatase 33 L (38-126) U/L Total Protein 5.5 L (6.3-8.2) g/dL Albumin 3.4 L (3.5-5.0) g/dL Microbiology - Last 24 Hours (Table) 04/21/17 19:36 Urine Culture - Preliminary Urine,Voided Diabetes panel 04/21/17 04/22/17 Range/Units 19:36 07:23 Sodium 139 140 (137-145) mmol/L Potassium 4.4 4.3 (3.5-5.1) mmol/L Chloride 103 109 H (98-107) mmol/L Carbon Dioxide 25 25 (22-30) mmol/L BUN 18 H 12 (7-17) mg/dL Creatinine 0.60 0.63 (0.52-1.04) mg/dL Glucose 91 79 (74-99) mg/dL Calcium 10.1 8.9 (8.4-10.2) mg/dL AST 32 25 (14-36) U/L ALT 28 17 (9-52) U/L Alkaline Phosphatase 44 33 L (38-126) U/L Total Protein 6.8 5.5 L (6.3-8.2) g/dL Albumin 4.4 3.4 L (3.5-5.0) g/dL Calcium panel 04/21/17 04/22/17 Range/Units 19:36 07:23 Calcium 10.1 8.9 (8.4-10.2) mg/dL Albumin 4.4 3.4 L (3.5-5.0) g/dL Pituitary panel 04/21/17 04/22/17 Range/Units 19:36 07:23 Sodium 139 140 (137-145) mmol/L Potassium 4.4 4.3 (3.5-5.1) mmol/L Chloride 103 109 H (98-107) mmol/L Carbon Dioxide 25 25 (22-30) mmol/L BUN 18 H 12 (7-17) mg/dL Creatinine 0.60 0.63 (0.52-1.04) mg/dL Glucose 91 79 (74-99) mg/dL Calcium 10.1 8.9 (8.4-10.2) mg/dL Adrenal panel 04/21/17 04/22/17 Range/Units 19:36 07:23 Sodium 139 140 (137-145) mmol/L Potassium 4.4 4.3 (3.5-5.1) mmol/L Chloride 103 109 H (98-107) mmol/L Carbon Dioxide 25 25 (22-30) mmol/L BUN 18 H 12 (7-17) mg/dL Creatinine 0.60 0.63 (0.52-1.04) mg/dL Glucose 91 79 (74-99) mg/dL Calcium 10.1 8.9 (8.4-10.2) mg/dL Total Bilirubin 0.5 0.3 (0.2-1.3) mg/dL AST 32 25 (14-36) U/L ALT 28 17 (9-52) U/L Alkaline Phosphatase 44 33 L (38-126) U/L Total Protein 6.8 5.5 L (6.3-8.2) g/dL Albumin 4.4 3.4 L (3.5-5.0) g/dL - Imaging Abdominal x-ray: report reviewed, image reviewed Assessment and Plan (1) Abdominal pain Status: Acute Plan: We'll start some enemas. Reevaluate her. Likely discharge within the next 24- 48 hours. Nonsurgical
[2017-04-23] MEDS: HYDROmorphone 1 MG/ML 1 ML SYRINGE IV PRN ×3 (00:15→23:01)
[2017-04-23] MEDS: ONDANSETRON 4 MG/2 ML VIAL IVP PRN (00:21)
[2017-04-23] MEDS: diphenhydrAMINE 50 MG/ML 1 ML VIAL IVP PRN ×2 (03:07→23:06)
[2017-04-23] MEDS: SODIUM CHLORIDE 0.9% 1,000 ML IV SCH ×4 (03:12→20:02)
[2017-04-23] MEDS: FAMOTIDINE 20 MG/2 ML VIAL IV SCH ×2 (10:21→20:00)
[2017-04-23] MEDS: OFLOXACIN 0.3% OPHTH DROPS 5 ML BOTTLE RIGHT EYE SCH ×3 (10:24→20:09)
[2017-04-23] MEDS ORDERED: ASPIRIN 81 MG CHEW PO SCH (11:30)
[2017-04-23] MEDS ORDERED: BROMFENAC SODIUM OPHTHALMIC SCH (12:00)
[2017-04-23] MEDS ORDERED: MULTIVITAMINS, THERA 1 EACH TAB PO SCH (12:00)
--- NOTE | 2017-04-23 12:30 | P.PN ---
Subjective Principal diagnosis: Constipation The patient denies any pain, nausea, vomiting. The enema which I ordered yesterday was not given. She's not had a bowel movement. She is hungry. Objective - Vital Signs Vital signs: Vital Signs Temp 97.0 F L 04/23/17 01:51 Pulse 94 04/22/17 19:22 Resp 16 04/23/17 01:51 BP 155/75 04/23/17 01:51 Pulse Ox 93 L 04/23/17 01:51 Intake & Output 04/22/17 04/23/17 04/23/17 18:59 06:59 18:59 Intake Total 800 590 Balance 800 590 Weight 52.707 kg Intake: Intake, IV Titration 500 Amount Sodium Chloride 0.9% 1, 500 000 ml @ 100 mls/hr IV . Q10H RONNA Rx#:[id number] Oral 300 590 Other: # Voids 2 1 - Constitutional General appearance: Present: cooperative, no acute distress - Respiratory Respiratory: bilateral: CTA - Gastrointestinal General gastrointestinal: Present: normal bowel sounds, soft. Absent: tenderness - Labs CBC & Chem 7: 04/22/17 07:23 04/22/17 07:23 Labs: Microbiology - Last 24 Hours (Table) 04/21/17 19:36 Urine Culture - Final Urine,Voided Assessment and Plan (1) Abdominal pain Status: Acute (2) Constipation Status: Acute Plan: The nurse will give her the enema which was previously ordered. We'll start her on a diet. Likely discharge later today with scheduled MiraLAX. No evidence of obstruction.
[2017-04-23] MEDS: amLODIPine 5 MG TAB PO SCH (13:33)
[2017-04-23] MEDS: DOCUSATE 100 MG CAP PO SCH (13:33)
[2017-04-23] MEDS: VENLAFAXINE HCL ER 75 MG CAP PO SCH (13:35)
[2017-04-23] MEDS: METOPROLOL TARTRATE 50 MG TAB PO SCH ×2 (13:35→20:00)
[2017-04-23] MEDS: LOTEPREDNOL ETABONATE OPHTHALMIC SCH ×2 (13:41→20:00)
[2017-04-23] MEDS ORDERED: ATORVASTATIN 40 MG TAB PO SCH (21:00)
[2017-04-24 07:47] VITALS: BP 158/71; PULSE 57; RESP 16; TEMP 97.8
[2017-04-24] MEDS: METOPROLOL TARTRATE 50 MG TAB PO SCH (09:21)
[2017-04-24] MEDS: DOCUSATE 100 MG CAP PO SCH (09:21)
[2017-04-24] MEDS: VENLAFAXINE HCL ER 75 MG CAP PO SCH (09:21)
[2017-04-24] MEDS: FAMOTIDINE 20 MG/2 ML VIAL IV SCH (09:21)
[2017-04-24] MEDS: amLODIPine 5 MG TAB PO SCH (09:22)
--- NOTE | 2017-04-24 12:11 | P.DS ---
Providers Date of admission: 04/21/17 21:37 Expected date of discharge: 04/24/17 Attending physician: Destiney Madrid Primary care physician: Jerome Hanna - Discharge Diagnosis(es) (1) Abdominal pain Current Visit: Yes Status: Acute (2) Constipation Current Visit: Yes Status: Acute Hospital Course: The patient presented with abdominal pain it's to patient. She has a history of obstructions in the past. She was admitted. Given bowel rest. She was able to be started on a diet. She was given a enema bowel function improved. She was felt to be stable for discharge. In addition to the stool softeners to start MiraLAX daily. Patient Condition at Discharge: Fair Plan - Discharge Summary New Discharge Prescriptions: New Polyethylene Glycol 3350 [Miralax] 17 gm PO DAILY #255 gm No Action Venlafaxine HCl ER [Effexor XR] 75 mg PO DAILY Atorvastatin [Lipitor] 40 mg PO HS Aspirin 81 mg PO DAILY Multivit-Min/Iron/Folic/Lutein [Centrum Silver Women Tablet] 1 tab PO DAILY Docusate [Colace] 200 mg PO DAILY amLODIPine [Norvasc] 5 mg PO DAILY #30 tab Metoprolol Tartrate [Lopressor] 50 mg PO BID #60 tab Bromfenac Sodium [Prolensa Ophth Soln] 1 drop OPHTHALMIC DAILY Ofloxacin [Ocuflox Ophth Soln] 1 drop RIGHT EYE TID Loteprednol Etabonate [Lotemax Ophth Gel Drops] 1 drop OPHTHALMIC BID Discharge Medication List Aspirin 81 mg PO DAILY 01/15/17 [History] Atorvastatin [Lipitor] 40 mg PO HS 01/15/17 [History] Multivit-Min/Iron/Folic/Lutein [Centrum Silver Women Tablet] 1 tab PO DAILY [History] Venlafaxine HCl ER [Effexor XR] 75 mg PO DAILY 01/15/17 [History] Docusate [Colace] 200 mg PO DAILY 03/01/17 [History] Metoprolol Tartrate [Lopressor] 50 mg PO BID #60 tab 03/04/17 [Rx] amLODIPine [Norvasc] 5 mg PO DAILY #30 tab 03/04/17 [Rx] Bromfenac Sodium [Prolensa Ophth Soln] 1 drop OPHTHALMIC DAILY 04/21/17 [History ] Loteprednol Etabonate [Lotemax Ophth Gel Drops] 1 drop OPHTHALMIC BID 04/21/17 [ History] Ofloxacin [Ocuflox Ophth Soln] 1 drop RIGHT EYE TID 04/21/17 [History] Polyethylene Glycol 3350 [Miralax] 17 gm PO DAILY #255 gm 04/23/17 [Rx] Follow up Appointment(s)/Referral(s): Jerome Hanna DO [Primary Care Provider] - 1-2 days (CALL OFFICE TO SCHEDULE APPOINTMENT, OFFICE CLOSED AT TIME OF DISCHARGE.) Patient Instructions/Handouts: Constipation (DC), High Fiber Diet (DC) Discharge Disposition: HOME SELF-CARE
== END 2017-04-24 12:16 | disposition home or self-care (01) ==
LOC: EC 18:09 → 3SUR 21:37
PROVIDERS: ADMIT Surgery; ATTEND Surgery
DX: R10.9 Unspecified abdominal pain (principal); K59.00 Constipation, unspecified; J44.9 Chronic obstructive pulmonary disease, unspecified; K21.9 Gastro-esophageal reflux disease without esophagitis; E78.5 Hyperlipidemia, unspecified; I10 Essential (primary) hypertension; F32.9 Major depressive disorder, single episode, unspecified; F41.9 Anxiety disorder, unspecified; Z87.19 Personal history of other diseases of the digestive system; Z82.49 Family history of ischemic heart disease and other diseases of the circulatory system; Z79.899 Other long term (current) drug therapy; Z79.82 Long term (current) use of aspirin; Z88.0 Allergy status to penicillin; Z87.891 Personal history of nicotine dependence
CPT/HCPCS: 96376 ×4; 96361 ×3; 96375 ×3; 96374; 99285; 36415; 80053 ×2; 82150; 83605; 83690; 85025 ×2; 85610; 81003; 87086; 74020; G0378 ×4; J1200 ×2; J2405 ×2; J1170 ×3

== ENCOUNTER 2018-02-21 09:17 | Inpatient (IN) | payer MEDICARE ==
[2018-02-21] MEDS ORDERED: SODIUM CHLORIDE 0.9% 1,000 ML IV STA (10:00)
--- NOTE | 2018-02-21 10:03 | ED ---
General Adult HPI - General Chief complaint: Dizziness Stated complaint: SOB/Dizziness Time Seen by Provider: 02/21/18 09:28 Source: patient, RN notes reviewed, old records reviewed Mode of arrival: wheelchair Limitations: no limitations - History of Present Illness Initial comments: 73-year-old female presenting for evaluation of generalized weakness for the past one month. She has been seen by her primary care physician, she treated for UTI. She does have history of chronic UTI in the past. She's been complaining of some left flank pain as well. In addition to her weakness she's had a mild headache, some shortness of breath. No chest pain. No abdominal pain. She is also had some nausea without significant vomiting. No melena or dark stools. No rectal bleeding. Patient denies dysuria at this time. She denies cough or fever. - Related Data Home Medications Medication Instructions Recorded Confirmed Aspirin 81 mg PO DAILY 01/15/17 02/21/18 Atorvastatin [Lipitor] 40 mg PO HS 01/15/17 02/21/18 Multivit-Min/Iron/Folic/Lutein 1 tab PO DAILY 01/15/17 02/21/18 [Centrum Silver Women Tablet] Venlafaxine HCl ER [Effexor XR] 75 mg PO DAILY 01/15/17 02/21/18 Cholecalciferol (Vitamin D3) 2,000 unit PO DAILY 02/21/18 02/21/18 [Vitamin D3] Cranberry Fruit Extract [Theracran] 650 mg PO DAILY 02/21/18 02/21/18 Methenamine Hippurate [Hiprex] 1 gm PO BID 02/21/18 02/21/18 Polyethylene Glycol 3350 [Miralax] 17 gm PO Q48H 02/21/18 02/21/18 Vitamin B Complex 1 cap PO DAILY 02/21/18 02/21/18 Previous Rx's Medication Instructions Recorded Metoprolol Tartrate [Lopressor] 50 mg PO BID #60 tab 03/04/17 amLODIPine [Norvasc] 5 mg PO DAILY #30 tab 03/04/17 Allergies Allergy/AdvReac Type Severity Reaction Status Date / Time Penicillins Allergy Rash/Hives Verified 02/21/18 11:08 Review of Systems ROS Statement: Those systems with pertinent positive or pertinent negative responses have been documented in the HPI. ROS Other: All systems not noted in ROS Statement are negative. Past Medical History Past Medical History: COPD, Hyperlipidemia, Hypertension, Pneumonia Additional Past Medical History / Comment(s): Pt recently admitted to [facility] with superficial thrombosis L arm cephalic vein, generalized weakness, hypomagnesemia, hypokalemia. Other HX: Multiple admissions for small bowel obstructions. History of Any Multi-Drug Resistant Organisms: None Reported Past Surgical History: Bowel Resection Additional Past Surgical History / Comment(s): bowel resection x 2, colonoscopy Past Anesthesia/Blood Transfusion Reactions: No Reported Reaction Past Psychological History: Anxiety, Depression Smoking Status: Former smoker Past Alcohol Use History: Occasional Past Drug Use History: None Reported - Past Family History Sister(s) Family Medical History: Diabetes Mellitus Father Family Medical History: Coronary Artery Disease (CAD) Additional Family Medical History / Comment(s): Father of a [facility] in his 60's or 70's. Mother Family Medical History: No Reported History Additional Family Medical History / Comment(s): Mother at the age of 88yrs. General Exam Limitations: no limitations General appearance: alert, in no apparent distress Head exam: Present: atraumatic, normocephalic Eye exam: Present: normal appearance, PERRL, EOMI ENT exam: Present: mucous membranes dry Neck exam: Present: normal inspection. Absent: tenderness, meningismus Respiratory exam: Present: normal lung sounds bilaterally, respiratory distress Cardiovascular Exam: Present: regular rate, normal rhythm GI/Abdominal exam: Present: soft. Absent: distended, tenderness, guarding Extremities exam: Present: normal inspection, normal capillary refill. Absent: pedal edema Neurological exam: Present: alert, oriented X3, CN II-XII intact. Absent: motor sensory deficit Psychiatric exam: Present: normal affect, normal mood Skin exam: Present: warm, dry, intact. Absent: cyanosis, diaphoretic Course Vital Signs 02/21/18 02/21/18 09:21 10:12 Temperature 98.0 F Pulse Rate 60 52 L Respiratory 20 16 Rate Blood Pressure 169/74 145/69 O2 Sat by Pulse 96 96 Oximetry EKG Findings - EKG Comments: EKG Findings:: EKG shows sinus bradycardia, left atrial enlargement, left ventricular hypertrophy, rate of 56, CT interval 154, QRS duration 92, QTC 409 no definitive signs of ischemia Medical Decision Making - Medical Decision Making 73-year-old female history of chronic recurrent UTI presenting with generalized weakness. CBC is unremarkable, CMP within normal limits. Magnesium is low 1.5 which may be contributing to the patient's weakness. Urinalysis is clear, however given her history urine culture is obtained and is pending. Chest x- ray negative for focal pneumonia. Head CT is obtained which is negative for intracranial hemorrhage or mass effect. Patient is too weak to go home, she feels quite fatigued. She will be placed in observation for further evaluation and treatment. - Lab Data Result diagrams: 02/21/18 09:48 02/21/18 09:48 Lab Results 02/21/18 02/21/18 02/21/18 Range/Units 09:48 09:48 09:48 WBC 5.3 (3.8-10.6) k/uL RBC 4.52 (3.80-5.40) m/uL Hgb 14.4 (11.4-16.0) gm/dL Hct 42.3 (34.0-46.0) % MCV 93.7 (80.0-100.0) fL MCH 31.9 (25.0-35.0) pg MCHC 34.0 (31.0-37.0) g/dL RDW 13.6 (11.5-15.5) % Plt Count 382 (150-450) k/uL Neutrophils % 54 % Lymphocytes % 31 % Monocytes % 7 % Eosinophils % 4 % Basophils % 1 % Neutrophils # 2.9 (1.3-7.7) k/uL Lymphocytes # 1.6 (1.0-4.8) k/uL Monocytes # 0.4 (0-1.0) k/uL Eosinophils # 0.2 (0-0.7) k/uL Basophils # 0.0 (0-0.2) k/uL PT (9.0-12.0) sec INR (<1.2) APTT (22.0-30.0) sec Sodium 141 (137-145) mmol/L Potassium 4.7 (3.5-5.1) mmol/L Chloride 104 (98-107) mmol/L Carbon Dioxide 25 (22-30) mmol/L Anion Gap 12 mmol/L BUN 16 (7-17) mg/dL Creatinine 0.60 (0.52-1.04) mg/dL Est GFR (CKD-EPI)AfAm >90 (>60 ml/min/1.73 sqM) Est GFR (CKD-EPI)NonAf >90 (>60 ml/min/1.73 sqM) Glucose 106 H (74-99) mg/dL Plasma Lactic Acid Chris (0.7-2.0) mmol/L Calcium 10.3 H (8.4-10.2) mg/dL Magnesium 1.5 L (1.6-2.3) mg/dL Total Bilirubin 0.4 (0.2-1.3) mg/dL AST 32 (14-36) U/L ALT 29 (9-52) U/L Alkaline Phosphatase 48 (38-126) U/L Total Creatine Kinase 46 (30-135) U/L CK-MB (CK-2) 0.3 (0.0-2.4) ng/mL CK-MB (CK-2) Rel Index 0.7 Troponin I <0.012 (0.000-0.034) ng/mL Total Protein 6.8 (6.3-8.2) g/dL Albumin 4.4 (3.5-5.0) g/dL Urine Color Urine Appearance (Clear) Urine pH (5.0-8.0) Ur Specific [place] (1.001-1.035) Urine Protein (Negative) Urine Glucose (UA) (Negative) Urine Ketones (Negative) Urine Blood (Negative) Urine Nitrite (Negative) Urine Bilirubin (Negative) Urine Urobilinogen (<2.0) mg/dL Ur Leukocyte Esterase (Negative) 02/21/18 02/21/18 02/21/18 Range/Units 09:48 09:48 09:48 WBC (3.8-10.6) k/uL RBC (3.80-5.40) m/uL Hgb (11.4-16.0) gm/dL Hct (34.0-46.0) % MCV (80.0-100.0) fL MCH (25.0-35.0) pg MCHC (31.0-37.0) g/dL RDW (11.5-15.5) % Plt Count (150-450) k/uL Neutrophils % % Lymphocytes % % Monocytes % % Eosinophils % % Basophils % % Neutrophils # (1.3-7.7) k/uL Lymphocytes # (1.0-4.8) k/uL Monocytes # (0-1.0) k/uL Eosinophils # (0-0.7) k/uL Basophils # (0-0.2) k/uL PT 9.8 (9.0-12.0) sec INR 1.0 (<1.2) APTT 20.9 L (22.0-30.0) sec Sodium (137-145) mmol/L Potassium (3.5-5.1) mmol/L Chloride (98-107) mmol/L Carbon Dioxide (22-30) mmol/L Anion Gap mmol/L BUN (7-17) mg/dL Creatinine (0.52-1.04) mg/dL Est GFR (CKD-EPI)AfAm (>60 ml/min/1.73 sqM) Est GFR (CKD-EPI)NonAf (>60 ml/min/1.73 sqM) Glucose (74-99) mg/dL Plasma Lactic Acid Chris 1.0 (0.7-2.0) mmol/L Calcium (8.4-10.2) mg/dL Magnesium (1.6-2.3) mg/dL Total Bilirubin (0.2-1.3) mg/dL AST (14-36) U/L ALT (9-52) U/L Alkaline Phosphatase (38-126) U/L Total Creatine Kinase (30-135) U/L CK-MB (CK-2) (0.0-2.4) ng/mL CK-MB (CK-2) Rel Index Troponin I (0.000-0.034) ng/mL Total Protein (6.3-8.2) g/dL Albumin (3.5-5.0) g/dL Urine Color Yellow Urine Appearance Clear (Clear) Urine pH 6.5 (5.0-8.0) Ur Specific [place] 1.021 (1.001-1.035) Urine Protein Trace H (Negative) Urine Glucose (UA) Negative (Negative) Urine Ketones Negative (Negative) Urine Blood Negative (Negative) Urine Nitrite Negative (Negative) Urine Bilirubin Negative (Negative) Urine Urobilinogen <2.0 (<2.0) mg/dL Ur Leukocyte Esterase Negative (Negative) Disposition Clinical Impression: Dehydration, Hypomagnesemia Disposition: ADMITTED IP TO THIS HOSP Condition: Stable Is patient prescribed a controlled substance at d/c from ED?: No Referrals: Jerome Hanna DO [Primary Care Provider] - 1-2 days Decision to Admit Reason: Admit from EC Decision Date: 02/21/18 Decision Time: 12:53
[2018-02-21 10:22] LABS: Appearance,Urine Clear (Clear); Bilirubin,Urine Negative (Negative); Blood,Urine Negative (Negative); Color,Urine Yellow; Glucose,Urine (UA) Negative (Negative); Ketones,Urine Negative (Negative); Leukocyte Esterase,Urine Negative (Negative); Nitrite,Urine Negative (Negative); PH, Urine 6.5 (5.0-8.0); Protein,Urine Trace (Negative); Specific Gravity,Urine 1.021 (1.001-1.035); Urobilinogen,Urine <2.0 mg/dL (<2.0)
[2018-02-21 10:23] LABS: Basophils % (A) 1 %; Eosinophils # (A) 0.2 k/uL (0-0.7); Eosinophils % (A) 4 %; HCT 42.3 % (34.0-46.0); HGB 14.4 gm/dL (11.4-16.0); Lymphocytes # (A) 1.6 k/uL (1.0-4.8); Lymphocytes % (A) 31 %; MCH 31.9 pg (25.0-35.0); MCV 93.7 fL (80.0-100.0); Mean Platelet Volume 6.9; Monocytes # (A) 0.4 k/uL (0-1.0); Monocytes % (A) 7 %; Neutrophils # (A) 2.9 k/uL (1.3-7.7); Neutrophils % (A) 54 %; Platelet Count 382 k/uL (150-450); RBC 4.52 m/uL (3.80-5.40); RDW 13.6 % (11.5-15.5); WBC 5.3 k/uL (3.8-10.6)
[2018-02-21 10:30] LABS: ALT 29 U/L (9-52); AST 32 U/L (14-36); Albumin 4.4 g/dL (3.5-5.0); Alkaline Phosphatase 48 U/L (38-126); Anion Gap 12 mmol/L; Blood Urea Nitrogen 16 mg/dL (7-17); Calcium 10.3 mg/dL (8.4-10.2); Carbon Dioxide 25 mmol/L (22-30); Chloride 104 mmol/L (98-107); Glucose 106 mg/dL (74-99); Magnesium 1.5 mg/dL (1.6-2.3); Potassium 4.7 mmol/L (3.5-5.1); Sodium 141 mmol/L (137-145); Total Bilirubin 0.4 mg/dL (0.2-1.3); Total Protein 6.8 g/dL (6.3-8.2)
[2018-02-21 10:35] LABS: Prothrombin Time 9.8 sec (9.0-12.0)
[2018-02-21 10:45] LABS: Partial Thromboplastin Time 20.9 sec (22.0-30.0)
--- NOTE | 2018-02-21 10:45 | CT ---
EXAMINATION TYPE: CT brain wo con DATE OF EXAM: 02/21/2018 HISTORY: Weakness for [address] DLP: 1054.2 mGycm. Automated Exposure Control for Dose Reduction was Utilized. TECHNIQUE: CT scan of the head is performed without contrast. COMPARISON: CT brain January 27, 2017. MRI brain 02/12/2017 FINDINGS: There is no acute intracranial hemorrhage or midline shift identified. There is diffuse v entricular and sulcal prominence consistent with diffuse age-related cerebral atrophy. There is vagu e low-attenuation in the periventricular white matter consistent with chronic small vessel ischemic c hange. The globes are intact and the visualized sinuses are clear. IMPRESSION: No acute intracranial hemorrhage or midline shift. There is fairly moderate diffuse age -related cerebral atrophy and moderate to severe chronic small vessel ischemic change redemonstrated. No significant change from prior CT.
[2018-02-21 10:47] LABS: Creatine Kinase 46 U/L (30-135)
[2018-02-21 11:00] LABS: Creatine Kinase MB 0.3 ng/mL (0.0-2.4); Troponin I <0.012 ng/mL (0.000-0.034)
--- NOTE | 2018-02-21 11:05 | XR ---
EXAMINATION TYPE: XR chest 2V DATE OF EXAM: 02/21/2018 COMPARISON: Chest x-ray January 24, 2017 HISTORY: Weakness for one month. TECHNIQUE: Frontal and lateral views of the chest are obtained. FINDINGS: There is chronic parenchymal change without suspicious new focal air space opacity, pleura l effusion, or pneumothorax seen. There is persistent left basilar scarring and/or atelectasis. The c ardiac silhouette size is within normal limits. The osseous structures remain demineralized. There is old fracture deformity left mid clavicle. IMPRESSION: Chronic changes without acute pulmonary process.
[2018-02-21] MEDS ORDERED: MAGNESIUM SULFATE-D5W PMX 1 GM in DEXTROSE/WATER 1 100ML.BAG IVPB ONE (11:57)
[2018-02-21] MEDS ORDERED: NALOXONE 0.4 MG/ML 1 ML VIAL IV PRN (12:37)
[2018-02-21] MEDS ORDERED: ONDANSETRON 4 MG/2 ML VIAL IVP PRN (12:37)
[2018-02-21] MEDS ORDERED: KETOROLAC 30 MG/ML 1 ML VIAL IVP STA (13:21)
[2018-02-21 15:10] VITALS: BMI 19.7
[2018-02-21] MEDS: 0.9% NACL WITH KCL 20 MEQ/L 1,000 ML IV SCH (15:32)
[2018-02-21 16:30] LABS: Creatine Kinase 42 U/L (30-135)
[2018-02-21 16:43] LABS: Creatine Kinase MB 0.3 ng/mL (0.0-2.4); Troponin I <0.012 ng/mL (0.000-0.034)
[2018-02-21] MEDS ORDERED: RX INFO: IV CONTRAST WAS GIVEN 1 EACH MISC MISCELLANE PRN (18:17)
[2018-02-21] MEDS: ACETAMINOPHEN TAB 325 MG TAB PO PRN (18:29)
[2018-02-21] MEDS: IOPAMIDOL-300 CONTRAST 30 ML VIAL (ORAL USE) PO PRN ×2 (19:31→20:31)
--- NOTE | 2018-02-21 21:42 | HP ---
HISTORY AND PHYSICAL CHIEF COMPLAINT: Generalized weakness and a many month history of discomfort in the left upper quadrant. HISTORY OF PRESENT ILLNESS: This is the first admission for this 73-year-old white female who came to the emergency room with very vague complaints. She states about 3 weeks ago she thought she had a UTI. Her doctor treated her with an antibiotic. Culture came back negative and they stopped the antibiotic. She has been feeling slightly dizzy and completely exhausted. She has also been having some mild headaches and has had some nausea and diarrhea in the last several days. She has not had a fever or chills or any other signs or symptoms of infection. In the emergency room, her studies were essentially normal and it was decided that she should be admitted and further evaluated. The only abnormal finding was magnesium as well. REVIEW OF SYSTEMS: She has had no other symptoms. She has had no orthopnea, PND, jaundice, renal failure, signs or symptoms to suggest diabetes, heart disease, etc. Past medical history, family history, personal and social history reveals SHE IS ALLERGIC TO PENICILLIN. She is on Lipitor, , Lopressor, Norvasc, and Effexor. Surgically she has had a hysterectomy and exploratory procedure for bowel resections on 2 different occasions. She has been losing quite a bit of weight over the last several months and has had discomfort in the left upper outer aspect of the left upper quadrant. She does not smoke or drink. PHYSICAL EXAM: Blood pressure is 161/90 with a pulse 60, respirations of 35 and she is afebrile. Pulse ox is 95. LYMPH nodes not enlarged. SKIN was normal in color. HEENT: Head, ears, eyes, nose, mouth, and throat were normal. NECK: Carotids normal. There is no neck vein distention. CHEST is clear. CARDIAC exam is normal with sinus rhythm and no murmurs or extra sounds. ABDOMEN: The abdomen is soft and nontender without visceromegaly or masses. EXTREMITIES: Normal. NEUROLOGICAL is intact. She is admitted to the hospital with diagnoses: 1. Weight loss, generalized fatigue and weakness, left upper quadrant pain, etiology unknown. 2. Hypertension. 3. Hyperlipidemia. 4. History of depression. 5. Hypomagnesemia. PLAN: 1. Bed rest. 2. IV fluids. 3. D-dimer. 4. CA-19-9. 5. CT the abdomen. MMODL / IJN: [id number] /
--- NOTE | 2018-02-21 21:56 | CT ---
EXAMINATION TYPE: CT abdomen pelvis w con DATE OF EXAM: 02/21/2018 COMPARISON: Prior abdomen pelvis CT 03/02/2017 HISTORY: Left upper quadrant pain, weight loss CT DLP: 421.1 mGycm Automated exposure control for dose reduction was used. TECHNIQUE: Helical acquisition of images from the lung bases through the pelvis have been completed. CONTRAST: Performed with Oral Contrast and with IV Contrast, patient injected with 100 mL of Isovue 300. FINDINGS: There is a small hiatal hernia. Difficult to exclude a mass at the gastroesophageal junctio n. LUNG BASES: There is some inflammatory change present at the left costophrenic angle level, correlate for possible pneumonia. AORTA: No significant abnormality is appreciated. LIVER/GB: There is a hypodensity in the inferior right lobe of the liver as on prior, gallbladder is stable PANCREAS: No significant abnormality is seen. SPLEEN: No significant abnormality is seen. ADRENALS: No significant abnormality is seen. KIDNEYS: No significant abnormality is seen. REPRODUCTIVE ORGANS: Absent BOWEL: No significant abnormality is seen. FREE AIR: No Free Air visible. ASCITES: None visible. PELVIC ADENOPATHY: None visualized. RETROPERITONEAL ADENOPATHY: No Retroperitoneal Adenopathy visible. URINARY BLADDER: No significant abnormality is seen. OSSEOUS STRUCTURES: No significant abnormality is seen. IMPRESSION: CORRELATE TO EXCLUDE PNEUMONIA, CONSIDER DIRECT VISUALIZATION TO EXCLUDE MASS AT THE GASTROESOPHAGEAL JUNCTION, GASTRIC CARDIA LEVEL
[2018-02-21] MEDS: METOPROLOL TARTRATE 50 MG TAB PO SCH (22:16)
[2018-02-21 23:09] LABS: Creatine Kinase 44 U/L (30-135)
[2018-02-21 23:35] LABS: Creatine Kinase MB 0.3 ng/mL (0.0-2.4)
[2018-02-21 23:39] LABS: Troponin I <0.012 ng/mL (0.000-0.034)
[2018-02-22 04:15] LABS: Hemoglobin A1C 5.7 % (4.0-6.0)
[2018-02-22] MEDS: ASPIRIN 81 MG PO SCH (07:55)
[2018-02-22] MEDS: VENLAFAXINE HCL ER 75 MG CAP PO SCH (07:55)
[2018-02-22] MEDS: METOPROLOL TARTRATE 50 MG TAB PO SCH (07:55)
[2018-02-22] MEDS: POLYETHYLENE GLYCOL 3350 17 GM POWD.PACK PO SCH (07:55)
[2018-02-22 08:36] LABS: Anion Gap 7 mmol/L; Blood Urea Nitrogen 16 mg/dL (7-17); Calcium 9.1 mg/dL (8.4-10.2); Carbon Dioxide 28 mmol/L (22-30); Chloride 108 mmol/L (98-107); Glucose 83 mg/dL (74-99); Magnesium 1.8 mg/dL (1.6-2.3); Potassium 5.5 mmol/L (3.5-5.1); Sodium 143 mmol/L (137-145)
--- NOTE | 2018-02-22 09:51 | ECHOF ---
Referral Reason:sob, fatigue MEASUREMENTS -------- HEIGHT: 162.6 cm WEIGHT: 51.7 kg BP: 118/56 RVIDd: 2.8 cm (< 3.3) IVSd: 1.2 cm (0.6 - 1.1) LVIDd: 3.6 cm (3.9 - 5.3) LVPWd: 1.1 cm (0.6 - 1.1) IVSs: 1.6 cm LVIDs: 2.7 cm LVPWs: 1.6 cm LA Diam: 2.8 cm (2.7 - 3.8) LAESV Index (A-L): 19.21 ml/m Ao Diam: 3.2 cm (2.0 - 3.7) AV Cusp: 1.3 cm (1.5 - 2.6) MV EXCURSION: 10.716 mm (> 18.000) MV EF SLOPE: 41 mm/s (70 - 150) EPSS: 0.8 cm MV E Bautista: 0.87 m/s MV DecT: 288 ms MV A Bautista: 1.03 m/s MV E/A Ratio: 0.85 AR PHT: 748 ms RAP: 5.00 mmHg RVSP: 26.68 mmHg FINDINGS -------- Sinus rhythm. This was a technically good study. The left ventricular size is normal. There is borderline concentric left ventricular hypertrophy. Overall left ventricular systolic function is normal with, an EF between 55 - 60 %. The right ventricle is normal in size. Normal LA size by volume 22+/-6 ml/m2. The right atrium is normal in size. The aortic valve is trileaflet and appears structurally normal. There is [id number] aortic re gurgitation. The mitral valve leaflets are mildly thickened. Mild mitral regurgitation is present. Mild tricuspid regurgitation present. Right ventricular systolic pressure is normal at < 35 mmHg. There is no pulmonic regurgitation present. The aortic root size is normal. Normal inferior vena cava with normal inspiratory collapse consistent with estimated right atrial pre ssure of 5 mmHg. There is no pericardial effusion. CONCLUSIONS -------- 1. Sinus rhythm. 2. This was a technically good study. 3. The left ventricular size is normal. 4. There is borderline concentric left ventricular hypertrophy. 5. Overall left ventricular systolic function is normal with, an EF between 55 - 60 %. 6. Normal LA size by volume 22+/-6 ml/m2. 7. There is wdqb-[id number]-vcqvknhx aortic regurgitation. 8. The mitral valve leaflets are mildly thickened. 9. Mild mitral regurgitation is present. 10. Mild tricuspid regurgitation present. 11. Right ventricular systolic pressure is normal at < 35 mmHg. 12. There is no pulmonic regurgitation present. 13. The aortic root size is normal. 14. Normal inferior vena cava with normal inspiratory collapse consistent with estimated right atrial pressure of 5 mmHg. 15. There is no pericardial effusion. MANAGER CULTURE: Juju Roper RDCS
[2018-02-22] MEDS: ACETAMINOPHEN TAB 325 MG TAB PO PRN (10:09)
[2018-02-22] MEDS: SODIUM CHLORIDE 0.9% 1,000 ML IV SCH (12:41)
[2018-02-22] MEDS: 0.9% NACL WITH KCL 20 MEQ/L 1,000 ML IV SCH (13:04)
--- NOTE | 2018-02-22 20:22 | PN ---
PROGRESS NOTE CHIEF COMPLAINT: Generalized weakness and hypomagnesemia. HISTORY OF PRESENT ILLNESS: This lady is about the same. She has had no new issues. She has no chest pain, abdominal pain, nausea, etc. She does have a CT that suggested there may be a distal gastroesophageal mass. She denies any dysphagia. PHYSICAL EXAM: Her abdomen is soft and nontender and no palpable masses evident. Chest is clear and cardiac is normal. IMPRESSION: 1. Generalized weakness with weight loss. 2. ? lesion in the gastroesophageal junction. PLAN: 1. Continue workup. 2. GI consult for endoscopy. MMODL / IJN: [id number] /
[2018-02-23] MEDS: METOPROLOL TARTRATE 50 MG TAB PO SCH ×3 (00:13→20:35)
[2018-02-23] MEDS: SODIUM CHLORIDE 0.9% 1,000 ML IV SCH (08:57)
[2018-02-23] MEDS: ASPIRIN 81 MG PO SCH (08:58)
[2018-02-23] MEDS: VENLAFAXINE HCL ER 75 MG CAP PO SCH (08:59)
--- NOTE | 2018-02-23 09:20 | P.CONS ---
History of Present Illness - Reason for Consult Consult date: 02/23/18 EGD evaluation Requesting physician: Sunil Butt - History of Present Illness 73-year-old female history of 2 bowel resections for obstruction, diverticulosis , presents with a one-month history of progressive weakness and shortness of breath epigastric burning indigestion 5 pound weight loss and decreased appetite without fever chills hematemesis hematochezia or melena. No constipation or diarrhea. Chronic antibiotic usage for UTI prophylaxis last 8 months however not seen on admission medication list. Patient is unsure the name of antibiotic. Consult requested for EGD evaluation. CT abdomen and pelvis could not exclude GE mass. Denies dysphagia or odynophagia. No history of EGD. Last colonoscopy to her memory was performed about a year ago an outside facility and within normal limits. White count 5.3. Hemoglobin 14.4. Platelets 382. INR 1.0. LFTs within normal limits. CA-19-9 23.3. Potassium 5.5. Magnesium 1.5. Morning chemistries are pending. Review of Systems Constitutional: Denies fever, chills, sweats, weight gain, 5 pound weight loss. Increased weakness. HEENT: Negative for migraines, blurred vision or loss, earaches, drainage, tinnitus, oral mucosal lesions, dysphagia, or odynophagia. CARDIAC: Negative for chest pain, arrhythmias, or palpitation. RESPIRATORY: Increased shortness of breath, denies hemoptysis, cough, or sputum production. GI: See HPI for pertinent findings. : Negative for hematuria, urgency, frequency, polyuria, or dysuria. GYNc: Negative vaginal discharge. MUSCULOSKELETAL: Negative for muscle aches, swelling, arthritis, and arthralgias. NEUROLOGIC: Negative for stroke or TIA. ENDOCRINE: Negative for thyroid problems. SKIN: Negative for rash or itching. PSYCHIATRIC: Negative history for depression and anxiety Past Medical History Past Medical History: COPD, Hyperlipidemia, Hypertension, Pneumonia Additional Past Medical History / Comment(s): Pt recently admitted to [facility] with superficial thrombosis L arm cephalic vein, generalized weakness, hypomagnesemia, hypokalemia. Other HX: Multiple admissions for small bowel obstructions. History of Any Multi-Drug Resistant Organisms: None Reported Past Surgical History: Bowel Resection Additional Past Surgical History / Comment(s): bowel resection x 2, colonoscopy , hysterectomy Past Anesthesia/Blood Transfusion Reactions: No Reported Reaction Past Psychological History: Anxiety, Depression Additional Psychological History / Comment(s): Pt resides with spouse. She uses no assistive device. She drives. Smoking Status: Former smoker Past Alcohol Use History: Occasional Additional Past Alcohol Use History / Comment(s): Pt started smoking as a teen and quit in 1978. Pt states she drinks alcohol on occasion. Past Drug Use History: None Reported - Past Family History Sister(s) Family Medical History: Diabetes Mellitus Father Family Medical History: Coronary Artery Disease (CAD) Additional Family Medical History / Comment(s): Father of a [employer] in his 60's or 70's. Mother Family Medical History: No Reported History, Diabetes Mellitus Additional Family Medical History / Comment(s): Mother at the age of 88yrs. Medications and Allergies Home Medications Medication Instructions Recorded Confirmed Type Aspirin 81 mg PO DAILY 01/15/17 02/21/18 History Atorvastatin [Lipitor] 40 mg PO HS 01/15/17 02/21/18 History Multivit-Min/Iron/Folic/Lutein 1 tab PO DAILY 01/15/17 02/21/18 History [Centrum Silver Women Tablet] Venlafaxine HCl ER [Effexor XR] 75 mg PO DAILY 01/15/17 02/21/18 History Metoprolol Tartrate [Lopressor] 50 mg PO BID #60 tab 03/04/17 02/21/18 Rx amLODIPine [Norvasc] 5 mg PO DAILY #30 tab 03/04/17 02/21/18 Rx Cholecalciferol (Vitamin D3) 2,000 unit PO DAILY 02/21/18 02/21/18 History [Vitamin D3] Cranberry Fruit Extract [Theracran] 650 mg PO DAILY 02/21/18 02/21/18 History Methenamine Hippurate [Hiprex] 1 gm PO BID 02/21/18 02/21/18 History Polyethylene Glycol 3350 [Miralax] 17 gm PO Q48H 02/21/18 02/21/18 History Vitamin B Complex 1 cap PO DAILY 02/21/18 02/21/18 History Allergies Allergy/AdvReac Type Severity Reaction Status Date / Time Penicillins Allergy Rash/Hives Verified 02/21/18 11:08 Physical Exam Vitals: Vital Signs Temp Pulse Pulse Resp BP Pulse Ox 02/23/18 06:43 97.8 F 68 16 140/76 95 02/22/18 22:05 18 02/22/18 22:04 97.6 F 60 18 139/79 93 L 02/22/18 14:12 97.7 F 59 L 16 122/56 92 L Intake and Output 02/22/18 02/23/18 02/23/18 22:59 06:59 14:59 Intake Total 450 850 Balance 450 850 Intake: Intake, IV Titration 200 600 Amount Sodium Chloride 0.9% 1, 200 600 000 ml @ 50 mls/hr IV . Q20H RONNA Rx#:[id number] Oral 250 250 Other: Voiding Method Toilet # Voids 1 2 General appearance: The patient is alert, oriented, in no acute distress. HET: Head is normocephalic and atraumatic. Pupils are equal and reactive. Oropharynx is clear without lesions. Neck: Supple without lymphadenopathy. Trachea midline. Heart: S1 S2. Regular rate and rhythm. Lungs: No crackles or wheezes are heard. Abdomen: Soft, mild midepigastric tenderness, nondistended with bowel sounds. No peritoneal signs. No palpable organomegaly or masses. Extremities: Normal skin color and turgor. No cyanosis, rash, ulceration, clubbing, or edema. Radial and pedal pulses are 2/4 bilaterally. Neurological: No focal deficits. Strength and sensation are grossly intact. Results CBC & Chem 7: 02/21/18 09:48 02/23/18 08:43 Labs: Microbiology - Last 24 Hours (Table) 02/21/18 09:48 Urine Culture - Final Urine,Voided CT scan - abdomen: report reviewed (Dr. Rogers) Assessment and Plan (1) Abdominal pain Narrative/Plan: 73-year-old female admitted with a one-month history of progressive weakness shortness of breath midepigastric pain burning GERD-like symptoms with decreased appetite in 5 pound unintentional weight loss. CT abdomen and pelvis could not rule out GE mass. Current Visit: No Status: Acute Code(s): R10.9 - UNSPECIFIED ABDOMINAL PAIN SNOMED Code(s): 68908712 Plan: 1. EGD. 2. Protonix 40 mg daily. 3. Nothing by mouth except meds. 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 The patient has indicated understanding and acceptance of the risks and procedures discussed. Thank you for this kind referral and the opportunity to participate in the care of your patient. This consultation was discussed with Dr. Rogers. The impression and plan of care have been directed as dictated.
[2018-02-23 10:01] LABS: Anion Gap 8 mmol/L; Blood Urea Nitrogen 8 mg/dL (7-17); Calcium 9.4 mg/dL (8.4-10.2); Carbon Dioxide 26 mmol/L (22-30); Chloride 108 mmol/L (98-107); Glucose 87 mg/dL (74-99); Magnesium 1.4 mg/dL (1.6-2.3); Potassium 4.4 mmol/L (3.5-5.1); Sodium 142 mmol/L (137-145)
[2018-02-23] MEDS ORDERED: Magnesium Replacement Protocol 1 EACH MISC MISCELLANE PRN (10:43)
[2018-02-23] MEDS ORDERED: PROPOFOL 10 MG/ML 20 ML VIAL IV ONE (12:16)
[2018-02-23] MEDS ORDERED: LIDOCAINE 1% INJ 10MG/ML (20 ML MDV) ONE (12:16)
[2018-02-23] MEDS ORDERED: IV FLUID CONTINUATION 1,000 ML IV ONE (12:17)
--- NOTE | 2018-02-23 12:27 | P.PCN ---
Date of Procedure: 02/23/18 Procedure(s) Performed: BRIEF HISTORY: Patient is a 73-year-old, pleasant, white female, admitted to the hospital with weakness, shortness of breath and weight loss of 10 pounds in the last few weeks duration. CT of the abdomen and pelvis showed fullness at the GE junction, rule out mass. She is scheduled for an upper endoscopy to evaluate further. PROCEDURE PERFORMED: Esophagogastroduodenoscopy PREOPERATIVE DIAGNOSIS: Abnormal CT of the abdomen to rule out GE junction mass. IV sedation per anesthesia. PROCEDURE: After informed consent was obtained, the patient was brought into the endoscopy unit. IV sedation was administered by Anesthesia under continuous monitoring. Initially the Olympus GIF-140 video endoscope was inserted into the mouth. Esophagus intubated without any difficulty. It was gradually advanced into the stomach and duodenum and carefully examined. The bulb and the second part of the duodenum appeared normal. The scope at this time was withdrawn to the stomach, adequately insufflated with air, and upon careful examination, mucosa of the antrum, and mild gastritis noted. The body, cardia and the fundus appeared normal. The scope was then withdrawn into the esophagus. Small size hiatal hernia noted. The GE junction was located at 36 cm from the incisors. It appeared irregular and there was no masses noted. The esophagus appeared normal. There were no erosions or ulcerations seen and the patient tolerated the procedure well. IMPRESSION: 1. Small hiatal hernia but no evidence of mass identified. 2. Mild antral gastritis. RECOMMENDATIONS: The findings of this examination were discussed with the patient as. Diet will be advanced as tolerated..
[2018-02-23] MEDS: MAGNESIUM SULFATE-D5W PMX 1 GM in DEXTROSE/WATER 1 100ML.BAG IVPB SCH ×3 (13:25→16:49)
[2018-02-23] MEDS: ACETAMINOPHEN TAB 325 MG TAB PO PRN (14:48)
--- NOTE | 2018-02-23 17:53 | PN ---
PROGRESS NOTE DATE OF SERVICE: 02/23/18 CHIEF COMPLAINT: Generalized weakness. HISTORY OF PRESENT ILLNESS: This lady is still feeling the same. She is going for endoscopy today to look at the possible gastroesophageal junction mass. PHYSICAL EXAM: CHEST: Clear. Cardiac exam is normal. Abdomen is soft, nontender. Color is good. IMPRESSION: 1. Generalized weakness and malaise, etiology unknown. 2. Possible gastric lesion. PLAN: Endoscopy today. MMODL / IJN: [id number] /
[2018-02-24] MEDS: SODIUM CHLORIDE 0.9% 1,000 ML IV SCH (06:18)
[2018-02-24] MEDS: METOPROLOL TARTRATE 50 MG TAB PO SCH (07:42)
[2018-02-24] MEDS: POLYETHYLENE GLYCOL 3350 17 GM POWD.PACK PO SCH (07:42)
[2018-02-24] MEDS: ASPIRIN 81 MG PO SCH (07:42)
[2018-02-24] MEDS: VENLAFAXINE HCL ER 75 MG CAP PO SCH (07:42)
--- NOTE | 2018-02-24 08:44 | P.PN ---
Subjective Progress Note Date: 02/24/18 Principal diagnosis: Weakness epigastric discomfort Status post EGD evaluation yesterday with no evidence of GE mass. Feeling better. Patient thinks her symptoms may be related to chronic antibiotic use for the last several months for chronic UTIs. She is going to discuss continuance of antibiotics with her primary and urologist. Objective - Vital Signs Vital signs: Vital Signs Temp 98.2 F 02/24/18 05:49 Pulse 65 02/24/18 05:49 Resp 16 02/24/18 05:49 BP 152/70 02/24/18 05:49 Pulse Ox 95 02/24/18 07:25 Intake & Output 02/23/18 02/24/18 02/24/18 18:59 06:59 18:59 Intake Total 400 Balance 400 Intake: Intake, IV Titration 400 Amount Sodium Chloride 0.9% 1, 400 000 ml @ 50 mls/hr IV . Q20H RONNA Rx#:[id number] Other: Voiding Method Toilet Toilet # Voids 4 1 - Exam General appearance: The patient is alert, oriented, in no acute distress. HET: Head is normocephalic and atraumatic. Pupils are equal and reactive. Oropharynx is clear without lesions. Neck: Supple without lymphadenopathy. Trachea midline. Heart: S1 S2. Regular rate and rhythm. Lungs: No crackles or wheezes are heard. Abdomen: Soft, nontender, nondistended with bowel sounds. No peritoneal signs. No palpable organomegaly or masses. Extremities: Normal skin color and turgor. No cyanosis, rash, ulceration, clubbing, or edema. Radial and pedal pulses are 2/4 bilaterally. Neurological: No focal deficits. Strength and sensation are grossly intact. - Labs CBC & Chem 7: 02/21/18 09:48 02/23/18 08:43 Labs: Abnormal Lab Results - Last 24 Hours (Table) 02/23/18 Range/Units 08:43 Chloride 108 H (98-107) mmol/L Magnesium 1.4 L (1.6-2.3) mg/dL Assessment and Plan (1) Abdominal pain Narrative/Plan: 73-year-old female admitted with a one-month history of progressive weakness shortness of breath midepigastric pain burning GERD-like symptoms with decreased appetite in 5 pound unintentional weight loss. CT abdomen and pelvis could not rule out GE mass subsequently she underwent EGD evaluation yesterday with no evidence of GE mass. Current Visit: No Status: Acute Code(s): R10.9 - UNSPECIFIED ABDOMINAL PAIN SNOMED Code(s): 20159121 Plan: 1. Supportive measures. Diet as tolerated. Discharge per medicine. Patient states she will follow-up with her primary an urologist regarding continuance of her antibiotic therapy. Assessment and plan a care discussed with Dr. Rogers
--- NOTE | 2018-02-24 17:03 | PN ---
PROGRESS NOTE CHIEF COMPLAINT: Weakness, malaise, fatigue and shortness of breath. HISTORY OF PRESENT ILLNESS: This lady still is complaining of weakness and shortness of breath. Endoscopy was unremarkable. REVIEW OF SYSTEMS: Otherwise unremarkable. She is not febrile and she is having no chest pain, abdominal pain, nausea, etc. PHYSICAL EXAMINATION: Vital signs normal. The chest is clear. Cardiac exam is normal. Abdomen is soft, nontender. IMPRESSION: Weakness, malaise and fatigue, etiology unknown. PLAN: 1. Review her studies to date. 2. Stop some of the medication to see if she feels any better. MMODL / IJN: [id number] /
[2018-02-25] MEDS: SODIUM CHLORIDE 0.9% 1,000 ML IV SCH ×2 (06:23→22:19)
[2018-02-25] MEDS: VENLAFAXINE HCL ER 75 MG CAP PO SCH (08:17)
[2018-02-25] MEDS: ASPIRIN 81 MG PO SCH (08:17)
[2018-02-25] MEDS ORDERED: LISINOPRIL 20 MG TAB PO STA (14:06)
--- NOTE | 2018-02-25 14:08 | PN ---
PROGRESS NOTE DATE OF SERVICE: 02/25/2018 CHIEF COMPLAINT: Weakness. HISTORY OF PRESENT ILLNESS: This lady states she feels better since she has been taken off the beta shira. However, apparently her blood pressure is rising and this will have to be watched. She is asymptomatic now. PHYSICAL EXAMINATION: Color is good. Chest is clear. Cardiac exam is normal. Abdomen is soft, nontender. IMPRESSION: 1. Weakness and malaise. 2. Hypertension. PLAN: Continue to follow blood pressure. There does not seem to be any other explanation for her weakness and malaise. MMODL / IJN: [id number] /
[2018-02-25] MEDS: MAGNESIUM SULFATE-D5W PMX 1 GM in DEXTROSE/WATER 1 100ML.BAG IVPB SCH ×3 (20:06→22:19)
[2018-02-26] MEDS: ACETAMINOPHEN TAB 325 MG TAB PO PRN (05:52)
[2018-02-26] MEDS: VENLAFAXINE HCL ER 75 MG CAP PO SCH (07:45)
[2018-02-26] MEDS: ASPIRIN 81 MG PO SCH (07:45)
[2018-02-26] MEDS: POLYETHYLENE GLYCOL 3350 17 GM POWD.PACK PO SCH (07:45)
--- NOTE | 2018-02-26 12:28 | P.CNPUL ---
History of Present Illness Consult date: 02/26/18 Reason for consult: dyspnea History of present illness: I was asked to evaluate this patient because of some exertional dyspnea and hypoxemia as well as noted during this current hospital stay. The patient came into the hospital because of progressive weakness, epigastric pain, indigestion , weight loss, and during the course of her treatment the patient was also complaining of some exertional dyspnea. The patient had no chills or fever. No hematemesis or or hematochezia or melena. The patient a CAT scan of the abdomen and pelvis that showed no significant abnormalities in lung bases. The patient's had a suspicious lesion in the GE junction. Based on that, and EGD was done that showed hiatal hernia. Patient has no previous history of cardiac disease. Echocardiogram was done during this current admission and the results were normal. The patient has remote history of smoking. No history of any inhaler use. Her current pulse ox is 94% on room air. I was able to ablate her in the hallway without any significant desaturation yet she was having some exertional dyspnea. No previous history of DVT or pulmonary embolism. Review of Systems Constitutional: Denies fever, chills, sweats, weight gain, 5 pound weight loss. Increased weakness. HEENT: Negative for migraines, blurred vision or loss, earaches, drainage, tinnitus, oral mucosal lesions, dysphagia, or odynophagia. CARDIAC: Negative for chest pain, arrhythmias, or palpitation. RESPIRATORY: Increased shortness of breath, denies hemoptysis, cough, or sputum production. GI: See HPI for pertinent findings. : Negative for hematuria, urgency, frequency, polyuria, or dysuria. GYNc: Negative vaginal discharge. MUSCULOSKELETAL: Negative for muscle aches, swelling, arthritis, and arthralgias. NEUROLOGIC: Negative for stroke or TIA. ENDOCRINE: Negative for thyroid problems. SKIN: Negative for rash or itching. PSYCHIATRIC: Negative history for depression and anxiety Past Medical History Past Medical History: COPD, Hyperlipidemia, Hypertension Additional Past Medical History / Comment(s): Pt recently admitted to [facility] with superficial thrombosis L arm cephalic vein, generalized weakness, hypomagnesemia, hypokalemia. Other HX: Multiple admissions for small bowel obstructions. History of Any Multi-Drug Resistant Organisms: None Reported Past Surgical History: Bowel Resection Additional Past Surgical History / Comment(s): bowel resection x 2, colonoscopy , hysterectomy Past Anesthesia/Blood Transfusion Reactions: No Reported Reaction Past Psychological History: Anxiety, Depression Additional Psychological History / Comment(s): Pt resides with spouse. She uses no assistive device. She drives. Smoking Status: Former smoker Past Alcohol Use History: Occasional Additional Past Alcohol Use History / Comment(s): Pt started smoking as a teen and quit in 1978. Pt states she drinks alcohol on occasion. Past Drug Use History: None Reported - Past Family History Sister(s) Family Medical History: Diabetes Mellitus Father Family Medical History: Coronary Artery Disease (CAD) Additional Family Medical History / Comment(s): Father of a AR in his 60's or 70's. Mother Family Medical History: No Reported History, Diabetes Mellitus Additional Family Medical History / Comment(s): Mother at the age of 88yrs. Medications and Allergies Home Medications Medication Instructions Recorded Confirmed Type Aspirin 81 mg PO DAILY 01/15/17 02/21/18 History Atorvastatin [Lipitor] 40 mg PO HS 01/15/17 02/21/18 History Multivit-Min/Iron/Folic/Lutein 1 tab PO DAILY 01/15/17 02/21/18 History [Centrum Silver Women Tablet] Venlafaxine HCl ER [Effexor XR] 75 mg PO DAILY 01/15/17 02/21/18 History Metoprolol Tartrate [Lopressor] 50 mg PO BID #60 tab 03/04/17 02/21/18 Rx amLODIPine [Norvasc] 5 mg PO DAILY #30 tab 03/04/17 02/21/18 Rx Cholecalciferol (Vitamin D3) 2,000 unit PO DAILY 02/21/18 02/21/18 History [Vitamin D3] Cranberry Fruit Extract [Theracran] 650 mg PO DAILY 02/21/18 02/21/18 History Methenamine Hippurate [Hiprex] 1 gm PO BID 02/21/18 02/21/18 History Polyethylene Glycol 3350 [Miralax] 17 gm PO Q48H 02/21/18 02/21/18 History Vitamin B Complex 1 cap PO DAILY 02/21/18 02/21/18 History Allergies Allergy/AdvReac Type Severity Reaction Status Date / Time Penicillins Allergy Rash/Hives Verified 02/21/18 11:08 Physical Exam Vitals: Vital Signs Temp Pulse Pulse Resp BP BP Pulse Ox 02/26/18 11:14 78 126/81 02/26/18 05:25 97.8 F 79 16 167/74 92 L 02/25/18 20:15 98.1 F 81 22 162/76 92 L 02/25/18 15:10 98.4 F 95 16 177/79 92 L Intake and Output 02/25/18 02/26/18 02/26/18 22:59 06:59 14:59 Intake Total 1090 400 Balance 1090 400 Intake: Intake, IV Titration 500 400 Amount Magnesium Sulfate-D5w Pmx 200 100 1 gm In Dextrose/Water 1 100ml.bag @ 100 mls/hr IVPB Q1H RONNA Rx#: [id number] Sodium Chloride 0.9% 1, 300 300 000 ml @ 50 mls/hr IV . Q20H RONNA Rx#:[id number] Oral 590 Other: Voiding Method Toilet Toilet Toilet # Voids 2 2 The patient appeared well nourished and normally developed. Vital signs as documented. Head exam is unremarkable. No scleral icterus or corneal arcus noted. Neck is without jugular venous distension, thyromegaly, or carotid bruits. Carotid upstrokes are brisk bilaterally. Lungs are clear to auscultation and percussion. Cardiac exam reveals the PMI to be normally sized and situated. Rhythm is regular. First and second heart sounds normal. No murmurs, rubs or gallops. Abdominal exam reveals normal bowel sounds, no masses , no organomegaly and no aortic enlargement. Extremities are nonedematous and both femoral and pedal pulses are normal.Examination of the skin revealed no evidence of significant rashes, suspicious appearing nevi or other concerning lesions. Neurologically awake and alert and there is no focal neurological deficit this point Results - Laboratory Findings CBC and BMP: 02/21/18 09:48 02/23/18 08:43 PT/INR, D-dimer PT 9.8 sec (9.0-12.0) 02/21/18 09:48 INR 1.0 (<1.2) 02/21/18 09:48 D-Dimer 0.36 mg/L FEU (<0.60) 02/21/18 19:09 Abnormal lab findings: Abnormal Labs 0502/21/18 02/21/18 09:48 09:48 09:48 APTT 20.9 L Potassium Chloride Glucose 106 H Calcium 10.3 H Magnesium 1.5 L Urine Protein Trace H 02/22/18 02/23/18 02/25/18 07:12 08:43 06:39 APTT Potassium 5.5 H Chloride 108 H 108 H Glucose Calcium Magnesium 1.4 L 1.4 L Urine Protein - Diagnostic Findings Chest x-ray: image reviewed Assessment and Plan Plan: Assessment 1 exertional dyspnea, currently under investigation. Will need a CT angios the chest to rule out pulmonary embolism or any other pathology contributing to exertional dyspnea. I wasn't able to document oxygen desaturation although the patient's baseline pulse ox is low ranging between 1994%. Echo of the heart is within normal 2 abdominal pain with a workup being negative. Results of the CAT scan of the abdomen and pelvis and EGD was noted. 3 history of recurrent small bowel obstruction in the past 4 hypertension 5 hyperlipidemia 6 previous history of superficial thrombosis of the left upper upper extremity/ cephalic vein. Plan patient is stable. Proceed with a CT angios the chest to further evaluate the patient shortness of breath and rule out any other pathology contributing to her dyspnea. We'll follow.
[2018-02-26] MEDS: LISINOPRIL 20 MG TAB PO SCH (15:25)
--- NOTE | 2018-02-26 15:46 | CT ---
EXAMINATION TYPE: CT angio chest DATE OF EXAM: 02/26/2018 COMPARISON: Chest x-ray from February 21, 2018 HISTORY: Patient complains of difficulty breathing. CT DLP: 112.9 mGycm. Automated Exposure Control for Dose Reduction was Utilized. CONTRAST: CTA scan of the thorax is performed with IV Contrast, patient injected with 100 mL of Isovue 370, pul monary embolism protocol. MIP Images are created on CT scanner and reviewed. FINDINGS: LUNGS: There is moderate biapical pleural/parenchymal scarring. There is additional scattered areas o f scarring bilaterally most prominent along the periphery. There is mild to moderate irregular pleura l thickening in the bilateral upper lungs. Multifocal areas of groundglass opacity in the upper lungs for reference right upper lobe axial image 38 are noted. Areas of acute infiltrate is cannot be excl uded. No suspicious mass is present. No significant pleural effusion or pneumothorax is seen. There i s more prominent lateral scarring in the left lung base. MEDIASTINUM: There is satisfactory enhancement of the pulmonary artery and its branches, there is no CT evidence for pulmonary embolism. There are no greater than 1 cm hilar or mediastinal lymph nodes. No cardiomegaly or pericardial effusion is seen. OTHER: No additional significant abnormality is seen. IMPRESSION: 1. No CT evidence for acute pulmonary embolism. 2. Chronic pleural/parenchymal fibrosis with areas of acute infiltrate difficult to exclude in the bi lateral upper lobes. Correlate clinically.
--- NOTE | 2018-02-26 20:13 | PN ---
PROGRESS NOTE CHIEF COMPLAINT: Generalized weakness, malaise. HISTORY OF PRESENT ILLNESS: This lady's condition is about the same. She has the same complaints. Magnesium is in normal range. It was brought to my attention by one of the nurses that when she gets up and moves around, her pulse ox drops down to around 80. She has no pain, wheezing, etc. This will be investigated. PHYSICAL EXAM: Cardiac exam is normal. Chest is clear. Abdomen is soft, nontender. IMPRESSION: 1. Generalized weakness and malaise. 2. Hypoxemia with ambulation. PLAN: Pulmonology consult. MMODL / IJN: [id number] /
[2018-02-26] MEDS: SODIUM CHLORIDE 0.9% 1,000 ML IV SCH (20:54)
[2018-02-27] MEDS: ACETAMINOPHEN TAB 325 MG TAB PO PRN ×2 (02:30→21:34)
[2018-02-27] MEDS: ASPIRIN 81 MG PO SCH (08:33)
[2018-02-27] MEDS: LISINOPRIL 20 MG TAB PO SCH (08:34)
[2018-02-27] MEDS: VENLAFAXINE HCL ER 75 MG CAP PO SCH (08:34)
[2018-02-27 09:33] LABS: HCT 39.2 % (34.0-46.0); HGB 13.3 gm/dL (11.4-16.0); MCHC 33.9 g/dL (31.0-37.0); MCV 97.3 fL (80.0-100.0); Mean Platelet Volume 6.9; Platelet Count 298 k/uL (150-450); RBC 4.03 m/uL (3.80-5.40); RDW 13.9 % (11.5-15.5); WBC 4.8 k/uL (3.8-10.6)
[2018-02-27 10:19] LABS: Anion Gap 16 mmol/L; Blood Urea Nitrogen 14 mg/dL (7-17); Carbon Dioxide 16 mmol/L (22-30); Chloride 109 mmol/L (98-107); Cholesterol 191 mg/dL (<200); Glucose 111 mg/dL (74-99); HDL Cholesterol 72 mg/dL (40-60); LDL Cholesterol,Calculated 88 mg/dL (0-99); Sodium 141 mmol/L (137-145); Triglycerides 153 mg/dL (<150)
[2018-02-27] MEDS: MAGNESIUM OXIDE 400 MG TAB PO SCH (10:27)
[2018-02-27 10:28] LABS: Potassium 4.8 mmol/L (3.5-5.1)
[2018-02-27] MEDS ORDERED: Magnesium Replacement Protocol 1 EACH MISC MISCELLANE PRN (10:51)
[2018-02-27] MEDS: MAGNESIUM SULFATE-D5W PMX 1 GM in DEXTROSE/WATER 1 100ML.BAG IVPB SCH ×3 (11:56→15:24)
--- NOTE | 2018-02-27 12:32 | P.CRDCN ---
History of Present Illness History of present illness: Mrs. Celaya is a pleasant 73-year-old female past medical history significant for hypertension, dyslipidemia and COPD. She denies history of coronary artery disease and has never seen a managing cognitive engineer for any reason. We have been asked to see her in consultation for shortness of breath. She states for the last couple of months she has noticed her breathing has worsened. Mostly with activity but does also occur sometimes at rest. Prior to this she was very active physically and used a treadmill at home regularly, however recently she has been much too fatigued to continue this activity. She also describes having feelings of lightheadedness with activity and intermittent palpitations. The palpitations seem to be associated with when she is feeling lightheaded. This is very brief when it happens. She denies any symptoms of chest pain, PND, orthopnea or diaphoresis. She has been admitted in the hospital since 02/21 with symptoms of weakness, fatigue, nausea and generalized malaise. She has undergone an EGD for evaluation of possible mass noted on CT at the GE junction. EGD was unremarkable for mass with hiatal hernia and possibility of pneumonia. Pulmonary has been consulted as well and ordered a CTA of the chest which revealed no PE with chronic fibrosis with area of possible infiltrate of b/l upper lobes. Since admission she has been short of breath with exertion with oxygen saturation dropping to the high 80's on room air. EKG reveals sinus mechanism with criteria for LVH with J-point elevation indicative of early repolarization. Laboratory data reviewed, hemoglobin 13.3, platelets 298, sodium 141, potassium 4.8, magnesium 1.4, creatinine 0.56, LDL 88, HDL 72, triglycerides 150. Total cholesterol 191. On admission d-dimer was checked and found to be negative at 0.36, cardiac enzymes negative 3, proBNP 156, TSH 2.33. From cardiac medications include aspirin 81 mg daily, amlodipine 5 mg daily, atorvastatin 40 mg daily and Lopressor 50 [place] grams twice a day. Since admission amlodipine and Lopressor have been discontinued and she has been started on lisinopril 40 mg daily. She follows with a primary care physician out of Dr. Jacques Sabillon. Review of Systems At the time of my exam: CONSTITUTIONAL: Denies fever. Denies chills. EYES: Denies blurred vision. Denies vision changes. Denies eye pain. EARS, NOSE, MOUTH & THROAT: Denies headache. Denies sore throat. Denies ear pain. CARDIOVASCULAR: Denies chest pain. Complains of exertional shortness of breath. Denies orthopnea. Denies PND. Denies palpitations. RESPIRATORY: Denies cough. GASTROINTESTINAL: Denies abdominal pain. Denies diarrhea. Denies constipation. Denies nausea. Denies vomiting. MUSCULOSKELETAL: Denies myalgias. INTEGUMENTARY: Denies pruitis. Denies rash. NEUROLOGIC: Denies numbness. Denies tingling. Complains of generalized weakness. PSYCHIATRIC: Denies anxiety. Denies depression. ENDOCRINE: Complains of fatigue. Denies weight change. Denies polydipsia. Denies polyurina. GENITOURINARY: Denies burning, hematuria or urgency with micturation. HEMATOLOGIC: Denies history of anemia. Denies bleeding. Past Medical History Past Medical History: COPD, Hyperlipidemia, Hypertension Additional Past Medical History / Comment(s): Pt recently admitted to [facility] with superficial thrombosis L arm cephalic vein, generalized weakness, hypomagnesemia, hypokalemia. Other HX: Multiple admissions for small bowel obstructions. History of Any Multi-Drug Resistant Organisms: None Reported Past Surgical History: Bowel Resection Additional Past Surgical History / Comment(s): bowel resection x 2, colonoscopy , hysterectomy Past Anesthesia/Blood Transfusion Reactions: No Reported Reaction Past Psychological History: Anxiety, Depression Additional Psychological History / Comment(s): Pt resides with spouse. She uses no assistive device. She drives. Smoking Status: Former smoker Past Alcohol Use History: Occasional Additional Past Alcohol Use History / Comment(s): Pt started smoking as a teen and quit in 1978. Pt states she drinks alcohol on occasion. Past Drug Use History: None Reported - Past Family History Sister(s) Family Medical History: Diabetes Mellitus Father Family Medical History: Coronary Artery Disease (CAD) Additional Family Medical History / Comment(s): Father of a [place] in his 60's or 70's. Mother Family Medical History: No Reported History, Diabetes Mellitus Additional Family Medical History / Comment(s): Mother at the age of 88yrs. Medications and Allergies Home Medications Medication Instructions Recorded Confirmed Type Aspirin 81 mg PO DAILY 01/15/17 02/21/18 History Atorvastatin [Lipitor] 40 mg PO HS 01/15/17 02/21/18 History Multivit-Min/Iron/Folic/Lutein 1 tab PO DAILY 01/15/17 02/21/18 History [Centrum Silver Women Tablet] Venlafaxine HCl ER [Effexor XR] 75 mg PO DAILY 01/15/17 02/21/18 History Metoprolol Tartrate [Lopressor] 50 mg PO BID #60 tab 03/04/17 02/21/18 Rx amLODIPine [Norvasc] 5 mg PO DAILY #30 tab 03/04/17 02/21/18 Rx Cholecalciferol (Vitamin D3) 2,000 unit PO DAILY 02/21/18 02/21/18 History [Vitamin D3] Cranberry Fruit Extract [Theracran] 650 mg PO DAILY 02/21/18 02/21/18 History Methenamine Hippurate [Hiprex] 1 gm PO BID 02/21/18 02/21/18 History Polyethylene Glycol 3350 [Miralax] 17 gm PO Q48H 02/21/18 02/21/18 History Vitamin B Complex 1 cap PO DAILY 02/21/18 02/21/18 History Allergies Allergy/AdvReac Type Severity Reaction Status Date / Time Penicillins Allergy Rash/Hives Verified 02/21/18 11:08 Physical Exam Vitals: Vital Signs Temp Pulse Pulse Resp BP Pulse Ox 02/27/18 08:40 92 L 02/27/18 08:35 131/64 93 L 02/27/18 08:30 88 87 18 02/27/18 05:05 97.6 F 88 18 123/74 94 L 02/27/18 02:27 18 94 L 02/27/18 02:26 18 87 L 02/26/18 20:59 98.1 F 77 18 159/75 92 L 02/26/18 14:36 98.1 F 87 16 153/73 92 L 02/26/18 11:14 78 126/81 Intake and Output 02/26/18 02/27/18 02/27/18 22:59 06:59 14:59 Intake Total 550 Balance 550 Intake: Oral 550 Other: Voiding Method Toilet Toilet # Voids 1 1 Blood pressure 131/64 heart rate 88 afebrile maintaining oxygen saturation on room air. She has been afebrile since admission. GENERAL: This is a 73-year-old female in no apparent distress at the time of my examination. HEENT: Head is atraumatic, normocephalic. Pupils are equal, round. Sclerae anicteric. Conjunctivae are clear. Mucous membranes of the mouth are moist. Neck is supple. There is no jugular venous distention. No carotid bruit is heard. LUNGS: Dry crackles b/l bases with diminished air entry. No wheezes or rhonchi. No chest wall tenderness is noted on palpation or with deep breathing. HEART: Regular rate and rhythm without murmurs, rubs or gallops. S1 and S2 heard. ABDOMEN: Soft, nontender. Bowel sounds are heard. No organomegaly noted. EXTREMITIES: No evidence of peripheral edema and no calf tenderness noted. VASCULAR: Radial and dorsalis pedis pulses palpated, no evidence of clubbing. NEUROLOGIC: Patient is awake, alert and oriented x3. Results 02/27/18 08:50 02/27/18 08:50 Lipids 02/27/18 Range/Units 08:50 Triglycerides 153 H (<150) mg/dL Cholesterol 191 (<200) mg/dL HDL Cholesterol 72 H (40-60) mg/dL CBC 02/27/18 Range/Units 08:50 WBC 4.8 (3.8-10.6) k/uL RBC 4.03 (3.80-5.40) m/uL Hgb 13.3 (11.4-16.0) gm/dL Hct 39.2 (34.0-46.0) % Plt Count 298 (150-450) k/uL Comprehensive Metabolic Panel 02/27/18 Range/Units 08:50 Sodium 141 (137-145) mmol/L Potassium 4.8 (3.5-5.1) mmol/L Chloride 109 H (98-107) mmol/L Carbon Dioxide 16 L (22-30) mmol/L BUN 14 (7-17) mg/dL Creatinine 0.56 (0.52-1.04) mg/dL Glucose 111 H (74-99) mg/dL Calcium 10.0 (8.4-10.2) mg/dL Current Medications Generic Name Dose Route Start Last Admin Trade Name Freq PRN Reason Stop Dose Admin Acetaminophen 650 mg 02/21/18 12:37 02/27/18 02:30 Tylenol Tab PO 650 mg Q6HR PRN Administration Mild Pain or Fever > 100.5 Aspirin 81 mg 02/22/18 09:00 02/27/18 08:33 Aspirin PO 81 mg DAILY RONNA Administration Sodium Chloride 1,000 mls @ 50 mls/hr 02/22/18 11:45 02/26/18 20:54 Saline 0.9% IV Not Given .Q20H RONNA Lisinopril 40 mg 02/26/18 10:15 02/27/18 08:34 Zestril PO 40 mg DAILY RONNA Administration Magnesium Oxide 200 mg 02/27/18 09:15 02/27/18 10:27 Mag-Ox PO 200 mg DAILY RONNA Administration Miscellaneous Information 1 each 02/23/18 10:43 Magnesium Per Protocol MISCELLANE DAILY PRN Per Protocol Protocol Naloxone HCl 0.2 mg 02/21/18 12:37 Narcan IV Q2M PRN Opioid Reversal Ondansetron HCl 4 mg 02/21/18 12:37 Zofran IVP Q8HR PRN Nausea And Vomiting Polyethylene Glycol 17 gm 02/22/18 09:00 02/26/18 07:45 Miralax PO 17 gm Q48H RONNA Administration Venlafaxine HCl 75 mg 02/22/18 09:00 02/27/18 08:34 Effexor Xr PO 75 mg DAILY RONNA Administration Intake and Output 02/26/18 02/27/18 02/27/18 22:59 06:59 14:59 Intake Total 550 Balance 550 Intake: Oral 550 Other: Voiding Method Toilet Toilet # Voids 1 1 02/27/18 08:50 02/27/18 08:50 Assessment and Plan Assessment: ASSESSMENT 1. Shortness of breath with mild exertion. Etiology unknown at this time. 2. Hypertension 3. Dyslipidemia 4. Orthostatic hypotension, symptomatic 5. COPD 3. Hypomagnesemia PLAN EKG has been repeated this morning and reviewed. Repeat orthostatic vital signs. Replace magnesium per protocol. Place the patient on telemetry to evaluate for arrhythmia. NPO after midnight for a dobutamine stress test in the morning. No beta blocking agents. Further recommendations to follow based on clinical course. Thank you kindly for this consultation. Nurse Practitioner note has been reviewed, I agree with a documented findings and plan of care. Patient was seen and examined.
[2018-02-27 14:32] VITALS: RESP 16
--- NOTE | 2018-02-27 15:08 | PN ---
PROGRESS NOTE DATE OF SERVICE: 02/27/2018 CHIEF COMPLAINT: Weakness and shortness of breath. HISTORY OF PRESENT ILLNESS: This lady has been found to become quite hypoxic when she is up and about and this is being explored. A CTA was ordered and was negative. The reason for her to have this drop with exertion is not clear. Will obtain a Cardiology consult. MMMAVERICK / IKEN: [id number] /
[2018-02-27 15:23] LABS: ABG Base Excess 2.2 mmol/L; ABG HCO3 26 mmol/L (21-25); ABG Oxygen Saturation 91.8 % (94-97); ABG PCO2 38 mmHg (35-45); ABG PH 7.45 (7.35-7.45); ABG PO2 62 mmHg (83-108); ABG TCO2 27 mmol/L (19-24)
--- NOTE | 2018-02-27 15:55 | P.PN ---
Subjective Progress Note Date: 02/27/18 Principal diagnosis: Exertional dyspnea, under investigation I was asked to evaluate this patient because of some exertional dyspnea and hypoxemia as well as noted during this current hospital stay. The patient came into the hospital because of progressive weakness, epigastric pain, indigestion , weight loss, and during the course of her treatment the patient was also complaining of some exertional dyspnea. The patient had no chills or fever. No hematemesis or or hematochezia or melena. The patient a CAT scan of the abdomen and pelvis that showed no significant abnormalities in lung bases. The patient's had a suspicious lesion in the GE junction. Based on that, and EGD was done that showed hiatal hernia. Patient has no previous history of cardiac disease. Echocardiogram was done during this current admission and the results were normal. The patient has remote history of smoking. No history of any inhaler use. Her current pulse ox is 94% on room air. I was able to ablate her in the hallway without any significant desaturation yet she was having some exertional dyspnea. No previous history of DVT or pulmonary embolism. On 02/27/2018 he seen in follow-up on medical surgical floor. She continues to complain of generalized weakness, and last night there was a documented pulse ox of 87% on room air at [id number]. She still feels dyspneic at rest, and more so with any exertion. She has been complaining of ongoing weakness and fatigue. Denies any fever or chills, denies any chest pain, denies any cough, denies any hemoptysis. Her left sided posterior left flank pain persists. Patient is an ex-smoker, she quit smoking in 1978, but prior to that smoked 16 years and off, up to 2 packs a day. She is not known to have any chronic lung disease. Does not wear oxygen at her baseline. She states she has been treated for multiple urinary tract infections, and she has been on Hiprex for prophylaxis/ suppression of chronic recurring UTIs. She states in the last 3-4 months she has lost 6 pounds, and her eating habits are the same, however she has had ongoing fatigue. Her serum magnesium is persistently low despite the replacements, and today's serum magnesium is 1.4, and the patient has been placed on magnesium oxide 200 mg daily. CTA chest showed no evidence for acute pulmonary embolism, but showed chronic pleural/parenchymal fibrosis with areas of acute infiltrate were difficult to exclude in the bilateral upper lobes, specifically there were multifocal areas of groundglass opacity in the upper lungs, in the right upper lobe. Lab work showed no evidence of leukocytosis, WBC is 4.8, sodium is 141, potassium is 4.8, chloride is 109, carbon dioxide is 16, BUN is 14, creatinine 0.56. Patient has evidence of anion gap metabolic acidosis, possibly related to an underlying infectious process. Room air pulse ox is 94%, vital signs are stable, lung sounds are extremely diminished, with bibasilar faint crackles. Patient incentive spirometry effort is only 500-750. Objective - Vital Signs Vital signs: Vital Signs Temp 97.6 F 02/27/18 05:05 Pulse 87 02/27/18 08:30 Resp 18 02/27/18 08:30 BP 156/78 02/27/18 11:03 Pulse Ox 92 L 02/27/18 08:40 Intake & Output 02/26/18 02/27/18 02/27/18 18:59 06:59 18:59 Intake Total 300 550 Balance 300 550 Intake: Intake, IV Titration 300 Amount Sodium Chloride 0.9% 1, 300 000 ml @ 50 mls/hr IV . Q20H RONNA Rx#:[id number] Oral 550 Other: Voiding Method Toilet Toilet Toilet # Voids 1 - Exam The patient appeared well nourished and normally developed. Vital signs as documented. Head exam is unremarkable. No scleral icterus or corneal arcus noted. Neck is without jugular venous distension, thyromegaly, or carotid bruits. Carotid upstrokes are brisk bilaterally. Lungs are diminished with a few bibasilar crackles. Cardiac exam reveals the PMI to be normally sized and situated. Rhythm is regular. First and second heart sounds normal. No murmurs, rubs or gallops. Abdominal exam reveals normal bowel sounds, no masses, no organomegaly and no aortic enlargement. Extremities are nonedematous and both femoral and pedal pulses are normal.Examination of the skin revealed no evidence of significant rashes, suspicious appearing nevi or other concerning lesions. Neurologically awake and alert and there is no focal neurological deficit this point - Labs CBC & Chem 7: 02/27/18 08:50 02/27/18 08:50 Labs: Abnormal Lab Results - Last 24 Hours (Table) 02/27/18 02/27/18 Range/Units 08:50 08:50 Chloride 109 H (98-107) mmol/L Carbon Dioxide 16 L (22-30) mmol/L Glucose 111 H (74-99) mg/dL Magnesium 1.4 L (1.6-2.3) mg/dL Triglycerides 153 H (<150) mg/dL HDL Cholesterol 72 H (40-60) mg/dL Assessment and Plan Plan: Assessment: 1 exertional dyspnea and hypoxemia, likely related to underlying interstitial lung disease and a possible right upper lobe pneumonia. CT angios showed no evidence of pulmonary embolism, but showed chronic pleural/parenchymal fibrosis with areas of acute infiltrate that were difficult to exclude in the bilateral upper lobes, there is an infiltrate in the right upper lobe, possibly related to pneumonia. Echo of the heart is within normal. 2 abdominal pain with a workup being negative. Results of the CAT scan of the abdomen and pelvis and EGD was noted. 3 Anion gap metabolic acidosis, rule out infectious etiology 4 history of recurrent small bowel obstruction in the past 5 recurrent urinary tract infections, and the patient is on maintenance dose of Hiprex for prophylaxis 6 generalized weakness, and ongoing fatigue, mild weight loss of 6 pounds in the last 3-4 months 7 hypertension 8 hyperlipidemia 9 previous history of superficial thrombosis of the left upper upper extremity/ cephalic vein. 10 history of remote nicotine dependence, quit smoking in 1978, smoked for 16 years on and off up to [address] day Plan [address] angios results have been reviewed by Dr. Barraza, and showed no evidence of acute pulmonary embolism, but there were chronic pleural/parenchymal fibrosis noted and an area of right upper lobe infiltrate, possibly related to right upper lobe pneumonia. We will obtain of arterial blood gas, we will place the patient empirically on oral Levaquin for a possible right upper lobe pneumonia. Patient has developed metabolic acidosis, anion gap, possibly related to underlying infectious process. We'll obtain blood culture, and lactic acid level. In addition patient has evidence of an underlying interstitial lung disease, and she will need an outpatient follow-up and possibly a lung biopsy. I performed a history & physical examination of the patient and discussed their management with my nurse practitioner, Sandy Delgado. I reviewed the nurse practitioner's note and agree with the documented findings and plan of care. Lung sounds are diminished, with bibasilar crackles. The findings and the impression was discussed with the patient. I attest to the documentation by the nurse practitioner. Time with Patient: Less than 30
[2018-02-27] MEDS: SODIUM CHLORIDE 0.9% 1,000 ML IV SCH (16:13)
[2018-02-27] MEDS: LEVOFLOXACIN 500 MG TAB PO SCH (16:33)
[2018-02-27] MEDS: ATORVASTATIN 40 MG TAB PO SCH (21:35)
[2018-02-28] MEDS ORDERED: DOBUTamine DRIP for NUC MED 500 MG in DEXTROSE/WATER 1 250ML.BAG IV ONE (06:00)
[2018-02-28] MEDS: MAGNESIUM OXIDE 400 MG TAB PO SCH (08:38)
--- NOTE | 2018-02-28 08:57 | P.PN ---
Subjective Mrs. Celaya is a pleasant 73-year-old female past medical history significant for hypertension, dyslipidemia and COPD. We are following her for symptoms of shortness of breath with palpitations and dizziness. She is scheduled for a dobutamine stress test this morning. She continues to c/o exertional shortness of breath. Denies any further palpitations or dizziness. Orthostatic vital signs shows mild drop in systolic blood pressure but maintained above 137 systolic. No symptoms. Telemetry tracings have been unremarkable for arrhythmia, indicate sinus mechanism. Pulmonary has started her on antibiotics for possible pneumonia. Sodium 141, potassium 4.8, creatinine 0.56, magnesium 1.7. Blood pressure 125/63 heart rate 79 afebrile and maintaining oxygen saturation on room air. Objective - Vital Signs Vital signs: Vital Signs Temp 97.8 F 02/28/18 07:16 Pulse 79 02/28/18 07:16 Resp 16 02/28/18 07:16 BP 125/63 02/28/18 07:16 Pulse Ox 98 02/28/18 07:16 Intake & Output 02/27/18 02/28/18 02/28/18 18:59 06:59 18:59 Intake Total 100 Balance 100 Weight 52.04 kg Intake: Intake, IV Titration 100 Amount Magnesium Sulfate-D5w Pmx 100 1 gm In Dextrose/Water 1 100ml.bag @ 100 mls/hr IVPB Q1H [facility] Rx#: [id number] Other: Voiding Method Toilet Toilet # Voids 1 1 - Exam GENERAL: Well-appearing, well-nourished and in no acute distress. NECK: Supple without JVD or thyromegaly. LUNGS: Breath sounds clear to auscultation bilaterally. Respiration equal and unlabored. No wheezes, rales or rhonchi. HEART: Regular rate and rhythm without murmurs, rubs or gallops. S1 and S2 heard. EXTREMITIES: Normal range of motion, no edema. No clubbing or cyanosis. Peripheral pulses intact and strong. - Labs CBC & Chem 7: 02/27/18 08:50 02/27/18 08:50 Labs: Abnormal Lab Results - Last 24 Hours (Table) 02/27/18 02/27/18 02/27/18 Range/Units 08:50 08:50 15:19 ABG pO2 62 L (83-108) mmHg ABG HCO3 26 H (21-25) mmol/L ABG Total CO2 27 H (19-24) mmol/L ABG O2 Saturation 91.8 L (94-97) % Chloride 109 H (98-107) mmol/L Carbon Dioxide 16 L (22-30) mmol/L Glucose 111 H (74-99) mg/dL Magnesium 1.4 L (1.6-2.3) mg/dL Triglycerides 153 H (<150) mg/dL HDL Cholesterol 72 H (40-60) mg/dL Assessment and Plan Assessment: ASSESSMENT 1. Shortness of breath with mild exertion. Etiology unknown at this time. 2. Hypertension 3. Dyslipidemia 4. Orthostatic hypotension, symptomatic initially 5. COPD 3. Hypomagnesemia PLAN Proceed with dobutamine stress echocardiogram this morning as was previously ordered. If this is normal she is stable from a cardiac perspective. She can follow up with Dr. Black in 2-3 weeks. Nurse Practitioner note has been reviewed, I agree with a documented findings and plan of care. Patient was seen and examined.
[2018-02-28 09:33] LABS: Basophils % (A) 1 %; Eosinophils # (A) 0.3 k/uL (0-0.7); Eosinophils % (A) 7 %; HGB 13.2 gm/dL (11.4-16.0); Lymphocytes # (A) 1.7 k/uL (1.0-4.8); Lymphocytes % (A) 36 %; MCH 31.1 pg (25.0-35.0); MCHC 32.2 g/dL (31.0-37.0); MCV 96.7 fL (80.0-100.0); Mean Platelet Volume 7.4; Monocytes # (A) 0.4 k/uL (0-1.0); Monocytes % (A) 8 %; Neutrophils # (A) 2.1 k/uL (1.3-7.7); Neutrophils % (A) 46 %; Platelet Count 299 k/uL (150-450); RBC 4.24 m/uL (3.80-5.40); RDW 13.8 % (11.5-15.5); WBC 4.6 k/uL (3.8-10.6)
[2018-02-28 09:51] LABS: Anion Gap 13 mmol/L; Blood Urea Nitrogen 17 mg/dL (7-17); Calcium 9.8 mg/dL (8.4-10.2); Carbon Dioxide 24 mmol/L (22-30); Chloride 104 mmol/L (98-107); Glucose 97 mg/dL (74-99); Potassium 4.9 mmol/L (3.5-5.1); Sodium 141 mmol/L (137-145)
--- NOTE | 2018-02-28 11:59 | P.PN ---
Subjective Progress Note Date: 02/28/18 Principal diagnosis: Exertional dyspnea, under investigation I was asked to evaluate this patient because of some exertional dyspnea and hypoxemia as well as noted during this current hospital stay. The patient came into the hospital because of progressive weakness, epigastric pain, indigestion , weight loss, and during the course of her treatment the patient was also complaining of some exertional dyspnea. The patient had no chills or fever. No hematemesis or or hematochezia or melena. The patient a CAT scan of the abdomen and pelvis that showed no significant abnormalities in lung bases. The patient's had a suspicious lesion in the GE junction. Based on that, and EGD was done that showed hiatal hernia. Patient has no previous history of cardiac disease. Echocardiogram was done during this current admission and the results were normal. The patient has remote history of smoking. No history of any inhaler use. Her current pulse ox is 94% on room air. I was able to ablate her in the hallway without any significant desaturation yet she was having some exertional dyspnea. No previous history of DVT or pulmonary embolism. On 02/27/2018 he seen in follow-up on medical surgical floor. She continues to complain of generalized weakness, and last night there was a documented pulse ox of 87% on room air at O226. She still feels dyspneic at rest, and more so with any exertion. She has been complaining of ongoing weakness and fatigue. Denies any fever or chills, denies any chest pain, denies any cough, denies any hemoptysis. Her left sided posterior left flank pain persists. Patient is an ex-smoker, she quit smoking in 1978, but prior to that smoked 16 years and off, up to 2 packs a day. She is not known to have any chronic lung disease. Does not wear oxygen at her baseline. She states she has been treated for multiple urinary tract infections, and she has been on Hiprex for prophylaxis/ suppression of chronic recurring UTIs. She states in the last 3-4 months she has lost 6 pounds, and her eating habits are the same, however she has had ongoing fatigue. Her serum magnesium is persistently low despite the replacements, and today's serum magnesium is 1.4, and the patient has been placed on magnesium oxide 200 mg daily. CTA chest showed no evidence for acute pulmonary embolism, but showed chronic pleural/parenchymal fibrosis with areas of acute infiltrate were difficult to exclude in the bilateral upper lobes, specifically there were multifocal areas of groundglass opacity in the upper lungs, in the right upper lobe. Lab work showed no evidence of leukocytosis, WBC is 4.8, sodium is 141, potassium is 4.8, chloride is 109, carbon dioxide is 16, BUN is 14, creatinine 0.56. Patient has evidence of anion gap metabolic acidosis, possibly related to an underlying infectious process. Room air pulse ox is 94%, vital signs are stable, lung sounds are extremely diminished, with bibasilar faint crackles. Patient incentive spirometry effort is only 500-750. On 02/28/2018 patient seen in follow-up. She still complains of being weak and tired, and short of breath at rest, but in no acute distress. Denies any chest pain. Yesterday patient was found to be in metabolic acidosis, blood cultures were sent, and are pending at this time, there is no phlegm production, lactic acid was within normal limits at 1.1, today's labs were all within normal limits. Patient is scheduled to undergo dobutamine stress test. Continue with current antibiotic coverage, she will need outpatient follow-up in regards to interstitial lung disease Objective - Vital Signs Vital signs: Vital Signs Temp 97.8 F 02/28/18 07:16 Pulse 79 02/28/18 08:45 Resp 16 02/28/18 08:45 BP 125/63 02/28/18 07:16 Pulse Ox 98 02/28/18 07:16 Intake & Output 02/27/18 02/28/18 02/28/18 18:59 06:59 18:59 Intake Total 100 Balance 100 Weight 52.04 kg Intake: Intake, IV Titration 100 Amount Magnesium Sulfate-D5w Pmx 100 1 gm In Dextrose/Water 1 100ml.bag @ 100 mls/hr IVPB Q1H RONNA Rx#: [id number] Other: Voiding Method Toilet Toilet Toilet # Voids 1 1 - Exam The patient appeared well nourished and normally developed. Vital signs as documented. Head exam is unremarkable. No scleral icterus or corneal arcus noted. Neck is without jugular venous distension, thyromegaly, or carotid bruits. Carotid upstrokes are brisk bilaterally. Lungs are diminished with a few bibasilar crackles. Cardiac exam reveals the PMI to be normally sized and situated. Rhythm is regular. First and second heart sounds normal. No murmurs, rubs or gallops. Abdominal exam reveals normal bowel sounds, no masses, no organomegaly and no aortic enlargement. Extremities are nonedematous and both femoral and pedal pulses are normal.Examination of the skin revealed no evidence of significant rashes, suspicious appearing nevi or other concerning lesions. Neurologically awake and alert and there is no focal neurological deficit this point - Labs CBC & Chem 7: 02/28/18 06:38 02/28/18 06:38 Labs: Abnormal Lab Results - Last 24 Hours (Table) 02/27/18 Range/Units 15:19 ABG pO2 62 L (83-108) mmHg ABG HCO3 26 H (21-25) mmol/L ABG Total CO2 27 H (19-24) mmol/L ABG O2 Saturation 91.8 L (94-97) % Assessment and Plan Plan: Assessment: 1 exertional dyspnea and hypoxemia, likely related to underlying interstitial lung disease and a possible right upper lobe pneumonia. CT angios showed no evidence of pulmonary embolism, but showed chronic pleural/parenchymal fibrosis with areas of acute infiltrate that were difficult to exclude in the bilateral upper lobes, there is an infiltrate in the right upper lobe, possibly related to pneumonia. Echo of the heart is within normal. 2 abdominal pain with a workup being negative. Results of the CAT scan of the abdomen and pelvis and EGD was noted. 3 Anion gap metabolic acidosis, rule out infectious etiology, resolved. Lactic acid was within normal limit at 1.1, blood cultures were sent and are pending at this time, there is no leukocytosis, no fever or chills 4 history of recurrent small bowel obstruction in the past 5 recurrent urinary tract infections, and the patient is on maintenance dose of Hiprex for prophylaxis 6 generalized weakness, and ongoing fatigue, mild weight loss of 6 pounds in the last 3-4 months 7 hypertension 8 hyperlipidemia 9 previous history of superficial thrombosis of the left upper upper extremity/ cephalic vein. 10 history of remote nicotine dependence, quit smoking in 1978, smoked for 16 years on and off up to 2 packs a day Plan Continue with current antibiotic coverage, blood cultures were sent and are pending at this time, no fever or chills. Today's labs are all within normal limits, metabolic acidosis has resolved, lactic acid was within normal limits. Patient is scheduled to undergo dobutamine stress testing today. Patient will need outpatient follow-up for interstitial lung disease, and possible lung biopsy I performed a history & physical examination of the patient and discussed their management with my nurse practitioner, Sandy Delgado. I reviewed the nurse practitioner's note and agree with the documented findings and plan of care. Lung sounds are diminished, with bibasilar crackles. The findings and the impression was discussed with the patient. I attest to the documentation by the nurse practitioner. Time with Patient: Less than 30
[2018-02-28] MEDS: POLYETHYLENE GLYCOL 3350 17 GM POWD.PACK PO SCH (12:34)
[2018-02-28] MEDS: ASPIRIN 81 MG PO SCH (12:34)
[2018-02-28] MEDS: LISINOPRIL 20 MG TAB PO SCH (12:34)
[2018-02-28] MEDS: VENLAFAXINE HCL ER 75 MG CAP PO SCH (12:34)
--- NOTE | 2018-02-28 13:08 | CDI ---
Last Revision, August 2017 Right upper lobe infiltrate, possibly related to pneumonia, unable to determine the type. She has been empirically treated with Levaquin Documentation Clarification Form Date: 02/28/18 1304 From: Radhika Zamora RN, CCDS Admit Date: 02/23/2018 8:21:00 AM Patient Name: Yuli Celaya Visit Number: [id number] ATTENTION: The Clinical Documentation Specialists (CDI) and [facility] Coding Staff appreciate your assistance in clarifying documentation. Please respond to the clarification below the line at the bottom and electronically sign. The CDI & [facility] Coding staff will review the response and follow-up if needed. Please note: Queries are made part of the Legal Health Record. If you have any questions, please contact the author of this message via ITS. Dr. Chata Ramirez/Sandy Delgado CNP Pneumonia was documented in your notes and requires further specificity. History/Risk Factors: COPD, Pneumonia, hypomagnesaemia, hypokalemia Clinical Indicators: Pulmonary Progress notes: "possible RUL pneumonia." 02/28 Cardiology: "Pulmonary has started her on antibiotics for possible pneumonia." 02/27 H&P: "EGD was unremarkable for mass with hiatal hernia and possibility of pneumonia." WBC: 5.3 Left shift: 1.6 CTA Chest: "Chronic pleural/parenchymal fibrosis with areas of acute infiltrate difficult to exclude in the bilateral upper lobes." 02/28 Pulmonary Lung/Breathing assessment: "Lungs are diminished with a few bibasilar crackles." Treatment: Antibiotics: Levaquin 500 mg PO Q 24 hrs O2: Room air to 2L NC Breathing TX: none In order to capture the severity of condition, please clarify if the condition signifies and you are treating for: Aspiration Pneumonia, identify if: Due to solids or liquids Bacterial Pneumonia, specify causal organism (if known) Gram Negative Pneumonia Due to Strep Due to Staph Due to E. coli Other bacteria (please specify) Other, please specify Unable to determine Please continue to document in your progress notes and discharge summary in order to capture severity of illness and risk of mortality. Include clinical findings that support your diagnosis. MTDD
--- NOTE | 2018-02-28 13:12 | ECHOS ---
STRESS ECHOCARDIOGRAM DATE OF SERVICE: 02/28/2018 DOBUTAMINE STRESS ECHO INDICATIONS: Shortness of breath. MEDICATIONS: BASELINE HEART RATE: 91 BASELINE BLOOD PRESSURE: 148/86 MAXIMUM HEART RATE: 124 MAXIMUM BLOOD PRESSURE: 92/62 85% MPHR: 124 100% MPHR: 146 METS: MAXIMUM STAGE REACHED: TOTAL EXERCISE TIME: CLINICAL INFORMATION: Baseline rhythm is sinus mechanism, rate of 91, borderline right axis deviation, nonspecific ST-T wave changes. Baseline blood pressure 148/8 mmHg. Patient received infusion of dobutamine. Peak rate 124 beats per minute, which is equal to 85% maximum predicted heart rate. Peak blood pressure 92/62 mmHg. Electrocardiographic monitoring revealed no evidence of diagnostic ischemic ST deviation. Baseline echocardiogram revealed normal wall motion. At peak exercise, there was normal wall motion augmentation with no hypokinesis or dyskinesis. CONCLUSION: 1. Nondiagnostic electrocardiographic response to dobutamine secondary to baseline EKG abnormality. 2. Normal stress echocardiogram with no evidence of stress induced ischemia. MMODL / IJN: [id number] /
[2018-02-28] MEDS: SODIUM CHLORIDE 0.9% 1,000 ML IV SCH ×2 (15:32→23:10)
[2018-02-28] MEDS: LEVOFLOXACIN 500 MG TAB PO SCH (15:33)
--- NOTE | 2018-02-28 18:15 | PN ---
PROGRESS NOTE CHIEF COMPLAINT: Generalized weakness. HISTORY OF PRESENT ILLNESS: This lady is still complaining more and more of weakness. She is going for a stress study today. Will also order ACTH, a.m. and p.m. cortisols. PHYSICAL EXAM: Color is good. Chest is clear. Cardiac is normal. Abdomen is soft, nontender. IMPRESSION: 1. Generalized weakness. 2. Hypoxia, etiology unknown. PLAN: Continue workup and await results of cardiac testing. MMODL / IJN: [id number] /
[2018-02-28] MEDS: ATORVASTATIN 40 MG TAB PO SCH (21:17)
[2018-03-01 05:52] VITALS: BP 105/58; TEMP 97.5
[2018-03-01 08:04] VITALS: PULSE 120
[2018-03-01] MEDS: LISINOPRIL 20 MG TAB PO SCH (08:06)
[2018-03-01] MEDS: VENLAFAXINE HCL ER 75 MG CAP PO SCH (08:06)
[2018-03-01] MEDS: ASPIRIN 81 MG PO SCH (08:06)
[2018-03-01] MEDS: MAGNESIUM OXIDE 400 MG TAB PO SCH (08:06)
[2018-03-01] MEDS ORDERED: Magnesium Replacement Protocol 1 EACH MISC MISCELLANE PRN (09:38)
[2018-03-01] MEDS: MAGNESIUM SULFATE-D5W PMX 1 GM in DEXTROSE/WATER 1 100ML.BAG IVPB SCH ×2 (10:14→11:55)
--- NOTE | 2018-03-01 13:39 | P.PN ---
Subjective Progress Note Date: 03/01/18 Principal diagnosis: Exertional dyspnea, under investigation I was asked to evaluate this patient because of some exertional dyspnea and hypoxemia as well as noted during this current hospital stay. The patient came into the hospital because of progressive weakness, epigastric pain, indigestion , weight loss, and during the course of her treatment the patient was also complaining of some exertional dyspnea. The patient had no chills or fever. No hematemesis or or hematochezia or melena. The patient a CAT scan of the abdomen and pelvis that showed no significant abnormalities in lung bases. The patient's had a suspicious lesion in the GE junction. Based on that, and EGD was done that showed hiatal hernia. Patient has no previous history of cardiac disease. Echocardiogram was done during this current admission and the results were normal. The patient has remote history of smoking. No history of any inhaler use. Her current pulse ox is 94% on room air. I was able to ablate her in the hallway without any significant desaturation yet she was having some exertional dyspnea. No previous history of DVT or pulmonary embolism. On 02/27/2018 he seen in follow-up on medical surgical floor. She continues to complain of generalized weakness, and last night there was a documented pulse ox of 87% on room air at O226. She still feels dyspneic at rest, and more so with any exertion. She has been complaining of ongoing weakness and fatigue. Denies any fever or chills, denies any chest pain, denies any cough, denies any hemoptysis. Her left sided posterior left flank pain persists. Patient is an ex-smoker, she quit smoking in 1978, but prior to that smoked 16 years and off, up to 2 packs a day. She is not known to have any chronic lung disease. Does not wear oxygen at her baseline. She states she has been treated for multiple urinary tract infections, and she has been on Hiprex for prophylaxis/ suppression of chronic recurring UTIs. She states in the last 3-4 months she has lost 6 pounds, and her eating habits are the same, however she has had ongoing fatigue. Her serum magnesium is persistently low despite the replacements, and today's serum magnesium is 1.4, and the patient has been placed on magnesium oxide 200 mg daily. CTA chest showed no evidence for acute pulmonary embolism, but showed chronic pleural/parenchymal fibrosis with areas of acute infiltrate were difficult to exclude in the bilateral upper lobes, specifically there were multifocal areas of groundglass opacity in the upper lungs, in the right upper lobe. Lab work showed no evidence of leukocytosis, WBC is 4.8, sodium is 141, potassium is 4.8, chloride is 109, carbon dioxide is 16, BUN is 14, creatinine 0.56. Patient has evidence of anion gap metabolic acidosis, possibly related to an underlying infectious process. Room air pulse ox is 94%, vital signs are stable, lung sounds are extremely diminished, with bibasilar faint crackles. Patient incentive spirometry effort is only 500-750. On 02/28/2018 patient seen in follow-up. She still complains of being weak and tired, and short of breath at rest, but in no acute distress. Denies any chest pain. Yesterday patient was found to be in metabolic acidosis, blood cultures were sent, and are pending at this time, there is no phlegm production, lactic acid was within normal limits at 1.1, today's labs were all within normal limits. Patient is scheduled to undergo dobutamine stress test. Continue with current antibiotic coverage, she will need outpatient follow-up in regards to interstitial lung disease On 03/01/2018 patient seen again in follow-up. She remains fatigued, and weak, but slightly more alert, and a bit more energetic compared to yesterday. Yesterday we checked her thyroid function, ACTH, and cortisol level, TSH and ACTH levels were within normal limits, however the cortisol level was low at 3. Denies any acute dyspnea, her incentive spirometry effort is 1000. Lung sounds are positive for diffuse crackles, and the patient's CT chest showed interstitial lung disease, pulmonary fibrosis, that will be investigated further in outpatient setting. Patient has been empirically treated for a possible right upper lobe pneumonia, although the patient has not had any fever chills, leukocytosis, sputum production, chest congestion. No new chest x-rays or labs today. She had a 6 minute walk yesterday, on room air, and her lowest pulse ox was 90%. Remains afebrile. Discharge home is pending today, and the patient will need to follow-up in the outpatient setting in regards to the pulmonary fibrosis. We will start the patient on a prednisone taper for a low cortisol level, patient has evidence of adrenal insufficiency Objective - Vital Signs Vital signs: Vital Signs Temp 97.5 F L 03/01/18 05:52 Pulse 120 H 03/01/18 07:50 Resp 16 03/01/18 05:52 BP 105/58 03/01/18 05:52 Pulse Ox 90 L 03/01/18 07:50 Intake & Output 02/28/18 03/01/18 03/01/18 18:59 06:59 18:59 Intake Total 240 240 Balance 240 240 Weight 52.04 kg Intake: Oral 240 240 Other: Voiding Method Toilet Toilet # Voids 2 1 - Exam The patient appeared well nourished and normally developed. Vital signs as documented. Head exam is unremarkable. No scleral icterus or corneal arcus noted. Neck is without jugular venous distension, thyromegaly, or carotid bruits. Carotid upstrokes are brisk bilaterally. Lungs are diminished with a few bibasilar crackles. Cardiac exam reveals the PMI to be normally sized and situated. Rhythm is regular. First and second heart sounds normal. No murmurs, rubs or gallops. Abdominal exam reveals normal bowel sounds, no masses, no organomegaly and no aortic enlargement. Extremities are nonedematous and both femoral and pedal pulses are normal.Examination of the skin revealed no evidence of significant rashes, suspicious appearing nevi or other concerning lesions. Neurologically awake and alert and there is no focal neurological deficit this point - Labs CBC & Chem 7: 02/28/18 06:38 02/28/18 06:38 Labs: Abnormal Lab Results - Last 24 Hours (Table) 03/01/18 Range/Units 07:39 Magnesium 1.5 L (1.6-2.3) mg/dL Microbiology - Last 24 Hours (Table) 02/27/18 17:05 Blood Culture - Preliminary Blood No Growth after 24 hours 02/27/18 16:18 Blood Culture - Preliminary Blood No Growth after 24 hours Assessment and Plan Plan: Assessment: 1 exertional dyspnea and hypoxemia, likely related to underlying interstitial lung disease and a possible right upper lobe pneumonia. CT angios showed no evidence of pulmonary embolism, but showed chronic pleural/parenchymal fibrosis with areas of acute infiltrate that were difficult to exclude in the bilateral upper lobes, there is an infiltrate in the right upper lobe, possibly related to pneumonia. Echo of the heart is within normal. 2 abdominal pain with a workup being negative. Results of the CAT scan of the abdomen and pelvis and EGD was noted. 3 Anion gap metabolic acidosis, rule out infectious etiology, resolved. Lactic acid was within normal limit at 1.1, blood cultures were sent and are pending at this time, there is no leukocytosis, no fever or chills 4 adrenal insufficiency, serum cortisol was 3 5 history of recurrent small bowel obstruction in the past 6 recurrent urinary tract infections, and the patient is on maintenance dose of Hiprex for prophylaxis 7 generalized weakness, and ongoing fatigue, mild weight loss of 6 pounds in the last 3-4 months 8 hypertension 9 hyperlipidemia 10 previous history of superficial thrombosis of the left upper upper extremity/ cephalic vein. 11 history of remote nicotine dependence, quit smoking in 1978, smoked for 16 years on and off up to 2 packs a day Plan Patient's cortisol level was found to be low, only at 3, TSH and ACTH levels were within normal limits. Patient has been afebrile, but has been weak, and fatigued. Denies any dyspnea, her 6 minute walk was completed, and patient maintained 2 saturation of 90%. Increase activity as tolerated, patient is stable for discharge home today on an outpatient course of Levaquin, start the patient on prednisone tapering dose from 30 mg for 5 days, 20 mg for 5 days, 10 mg for 5 days. Patient will be seen in the outpatient setting by Dr. Arroyo in regards to the pulmonary fibrosis. I performed a history & physical examination of the patient and discussed their management with my nurse practitioner, Sandy Delgado. I reviewed the nurse practitioner's note and agree with the documented findings and plan of care. Lung sounds are diminished, with bibasilar crackles. The findings and the impression was discussed with the patient. I attest to the documentation by the nurse practitioner. Time with Patient: Less than 30
--- NOTE | 2018-03-01 20:43 | DS ---
DISCHARGE SUMMARY CHIEF COMPLAINT: Generalized weakness. HISTORY OF PRESENT ILLNESS AND PHYSICAL EXAMINATION: Details of this lady's history and physical can be found in the initial workup. LABORATORY STUDIES: While she was in the hospital she had laboratory studies, details of which are extensive and can be found in the laboratory section of her chart. COURSE IN THE HOSPITAL: After admission she was placed on bedrest, started on intravenous fluids, and worked up for her generalized weakness. Her magnesium remained fairly low, but this was not felt an adequate reason to cause all of her difficulty. Nothing could be found, and then it was noticed by the nurses that whenever she walked, her pulse ox dropped significantly. It would get down as low as 80. She had no chest pain, palpitations, fever, chills, cough, orthopnea, PND, etc. She was seen in consultation by Pulmonology and Cardiology and underwent a stress study which was also normal. She had no evidence of pulmonary emboli. It was felt that she could go home on March 01, and she will go home on her usual activity and diet and medication, and she will be on magnesium each day. She will follow up in the office. FINAL DIAGNOSES: 1. Generalized weakness and malaise, etiology unknown. 2. Hypomagnesemia. 3. Hypoxemia with exertion. OPERATIONS: None. CONSULTATIONS: None. She is improved. GRAHAM / IKEN: [id number] /
--- NOTE | 2018-03-02 20:26 | P.PN ---
Progress Note - Text Progress Note Date: 03/02/18 addendum:ct chest is suggestive of infiltrate in rul.suspect community acquired pneumonia with underlying interstitial lung disease
== END 2018-03-01 15:15 | disposition home or self-care (01) | DRG 196 ==
LOC: EC 09:17 → 5MS5E 12:39 → OBSVTOIN 02-23 08:21
PROVIDERS: ADMIT Family Medicine; ATTEND Family Medicine
PROC: 0DJ08ZZ Inspection of Upper Intestinal Tract, Via Natural or Artificial Opening Endoscopic (ICD-10-PCS; principal; 2018-02-23 07:30)
DX: J84.10 Pulmonary fibrosis, unspecified (principal); J18.9 Pneumonia, unspecified organism; E27.40 Unspecified adrenocortical insufficiency; E87.2 Acidosis; N39.0 Urinary tract infection, site not specified; R09.02 Hypoxemia; E78.5 Hyperlipidemia, unspecified; E83.42 Hypomagnesemia; I10 Essential (primary) hypertension; I95.1 Orthostatic hypotension; J44.9 Chronic obstructive pulmonary disease, unspecified; K29.60 Other gastritis without bleeding; K44.9 Diaphragmatic hernia without obstruction or gangrene; F32.9 Major depressive disorder, single episode, unspecified; F41.9 Anxiety disorder, unspecified; K30 Functional dyspepsia; R19.7 Diarrhea, unspecified; K21.9 Gastro-esophageal reflux disease without esophagitis; E86.0 Dehydration; K57.10 Diverticulosis of small intestine without perforation or abscess without bleeding; Z79.2 Long term (current) use of antibiotics; Z79.82 Long term (current) use of aspirin; Z79.899 Other long term (current) drug therapy; Z88.0 Allergy status to penicillin; Z87.891 Personal history of nicotine dependence; Z90.710 Acquired absence of both cervix and uterus; Z87.01 Personal history of pneumonia (recurrent); Z86.718 Personal history of other venous thrombosis and embolism; Z90.49 Acquired absence of other specified parts of digestive tract; Z83.3 Family history of diabetes mellitus; Z82.49 Family history of ischemic heart disease and other diseases of the circulatory system
CPT/HCPCS: 36415; 36600; 43200; 70450; 71046; 71275; 74177; 80048; 80053; 80061; 81003; 82024; 82272; 82533; 82550; 82553; 82805; 83036; 83605; 83735; 83880; 84443; 84484; 85025; 85027; 85379; 85610; 85730; 86301; 87040; 87086; 93005; 93306; 93351; 94760; 96361; 96365; 96375; 99285

== ENCOUNTER 2018-03-08 17:05 | Emergency (ER) | payer MEDICARE ==
[2018-03-08] MEDS ORDERED: MORPHINE SULFATE 2 MG/ML SYRINGE IVP PRN (17:37)
[2018-03-08] MEDS ORDERED: ONDANSETRON 4 MG/2 ML VIAL IVP STA (18:39)
[2018-03-08 18:47] LABS: Appearance,Urine Clear (Clear); Bilirubin,Urine Negative (Negative); Color,Urine Yellow; Glucose,Urine (UA) Negative (Negative); Ketones,Urine Negative (Negative); Protein,Urine Negative (Negative); Specific Gravity,Urine 1.014 (1.001-1.035)
[2018-03-08 18:47] LABS: Basophils % (A) 1 %; Eosinophils # (A) 0.2 k/uL (0-0.7); Eosinophils % (A) 2 %; HCT 40.1 % (34.0-46.0); HGB 13.6 gm/dL (11.4-16.0); Lymphocytes # (A) 2.3 k/uL (1.0-4.8); Lymphocytes % (A) 28 %; MCH 31.7 pg (25.0-35.0); MCV 93.4 fL (80.0-100.0); Monocytes # (A) 0.6 k/uL (0-1.0); Monocytes % (A) 7 %; Neutrophils # (A) 5.1 k/uL (1.3-7.7); Neutrophils % (A) 60 %; Platelet Count 355 k/uL (150-450); RDW 13.4 % (11.5-15.5); WBC 8.4 k/uL (3.8-10.6)
[2018-03-08 18:48] LABS: Blood,Urine Negative (Negative); Leukocyte Esterase,Urine Negative (Negative); Nitrite,Urine Negative (Negative); Urobilinogen,Urine <2.0 mg/dL (<2.0)
[2018-03-08 18:55] LABS: ALT 40 U/L (9-52); AST 32 U/L (14-36); Albumin 4.5 g/dL (3.5-5.0); Alkaline Phosphatase 54 U/L (38-126); Anion Gap 13 mmol/L; Blood Urea Nitrogen 20 mg/dL (7-17); Calcium 10.3 mg/dL (8.4-10.2); Carbon Dioxide 25 mmol/L (22-30); Chloride 102 mmol/L (98-107); Glucose 98 mg/dL (74-99); Lipase 196 U/L (23-300); Potassium 4.4 mmol/L (3.5-5.1); Sodium 140 mmol/L (137-145); Total Bilirubin 0.4 mg/dL (0.2-1.3); Total Protein 6.7 g/dL (6.3-8.2)
--- NOTE | 2018-03-08 19:17 | XR ---
EXAMINATION TYPE: XR abdomen acute w cxr DATE OF EXAM: 03/08/2018 COMPARISON: 02/21/2018 HISTORY: Abdominal pain TECHNIQUE: Chest x-ray and supine and upright abdomen. FINDINGS: There is no heart failure nor confluent pneumonic infiltrate. There is no sign of intestinal obstruct ion or pneumoperitoneum. Fecal pattern is normal. There are no pathologic calcifications over the kid neys. There are phleboliths in the pelvis. There is mild pulmonary hyperinflation. IMPRESSION: Nonacute abdomen. COPD. Chest is stable compared to 02/21/2018. Old left clavicle fracture noted.
[2018-03-08] MEDS ORDERED: HYDROmorphone 0.5 MG/0.5 ML SYRINGE IVP STA (19:23)
[2018-03-08 19:57] VITALS: BP 145/70; PULSE 70; RESP 16; TEMP 97.9
--- NOTE | 2018-03-08 20:15 | ED ---
Abdominal Pain HPI - General Chief Complaint: Abdominal Pain Stated Complaint: poss bowel obstruction Source: patient Mode of arrival: wheelchair Limitations: no limitations - History of Present Illness Initial Comments: History of present illness: 73-year-old female with past medical history dyslipidemia, hypertension, abdominal pain presents with 2 days of abdominal symptoms. Denies any fever, chills or night sweats. She states that she had one episode of nausea and vomiting prior to coming to the emergency department. Denies any diarrhea. Patient reports that her whole abdomen is hurting. She is insistent that her symptoms represent small bowel obstruction. Past Medical History: Hypertension, dyslipidemia, small bowel obstruction, constipation Surgical History: Colon resection Social History: [Reviewed, noncontributory] Family history:[Reviewed, noncontributory] 14 point ROS was reviewed with patient and found to be negative - Related Data Home Medications Medication Instructions Recorded Confirmed Aspirin 81 mg PO DAILY 01/15/17 03/08/18 Atorvastatin [Lipitor] 40 mg PO HS 01/15/17 03/08/18 Multivit-Min/Iron/Folic/Lutein 1 tab PO DAILY 01/15/17 03/08/18 [Centrum Silver Women Tablet] Venlafaxine HCl ER [Effexor XR] 75 mg PO DAILY 01/15/17 03/08/18 Cholecalciferol (Vitamin D3) 2,000 unit PO DAILY 02/21/18 03/08/18 [Vitamin D3] Cranberry Fruit Extract [Theracran] 650 mg PO DAILY 02/21/18 03/08/18 Polyethylene Glycol 3350 [Miralax] 17 gm PO Q48H 02/21/18 03/08/18 Vitamin B Complex 1 cap PO DAILY 02/21/18 03/08/18 Previous Rx's Medication Instructions Recorded Metoprolol Tartrate [Lopressor] 50 mg PO BID #60 tab 03/04/17 amLODIPine [Norvasc] 5 mg PO DAILY #30 tab 03/04/17 Levofloxacin [Levaquin] 500 mg PO Q24H #10 tab 03/01/18 Lisinopril [Zestril] 40 mg PO DAILY #30 tab 03/01/18 Magnesium Oxide [Mag-Ox] 200 mg PO BID #60 tab 03/01/18 predniSONE 10 mg PO DIRECTED 15 Days #30 03/01/18 tab HYDROcodone/APAP 5-325MG [Machias 1 tab PO Q6HR PRN 3 Days #12 tab 03/08/18 5-325] Allergies Allergy/AdvReac Type Severity Reaction Status Date / Time Penicillins Allergy Rash/Hives Verified 03/08/18 18:04 Review of Systems ROS Statement: Those systems with pertinent positive or pertinent negative responses have been documented in the HPI. ROS Other: All systems not noted in ROS Statement are negative. Past Medical History Past Medical History: COPD, Hyperlipidemia, Hypertension Additional Past Medical History / Comment(s): Pt recently admitted to [facility] with superficial thrombosis L arm cephalic vein, generalized weakness, hypomagnesemia, hypokalemia. Other HX: Multiple admissions for small bowel obstructions. History of Any Multi-Drug Resistant Organisms: None Reported Past Surgical History: Bowel Resection Additional Past Surgical History / Comment(s): bowel resection x 2, colonoscopy , hysterectomy Past Anesthesia/Blood Transfusion Reactions: No Reported Reaction Past Psychological History: Anxiety, Depression Smoking Status: Former smoker Past Alcohol Use History: Occasional Past Drug Use History: None Reported - Past Family History Sister(s) Family Medical History: Diabetes Mellitus Father Family Medical History: Coronary Artery Disease (CAD) Additional Family Medical History / Comment(s): Father of a [place] in his 60's or 70's. Mother Family Medical History: No Reported History, Diabetes Mellitus Additional Family Medical History / Comment(s): Mother at the age of 88yrs. General Exam - General Exam Comments Initial Comments: Vital signs on arrival: Vital signs upon arrival are within normal limits Physical examination: General: Alert and oriented 4, no acute distress HEENT: Normocephalic atraumatic, extraocular muscles intact, pupils equal round reactive to light and accommodation Cardiovascular: Heart is regular rate and rhythm, no murmurs rubs or gallops Chest: Lungs clear to auscultation bilaterally, no tenderness to palpation of the chest wall Abdomen: Diffuse abdominal tenderness, abdomen is soft, nondistended, normoactive bowel sounds Musculoskeletal: No peripheral edema, DP pulses and radial pulses 2+ bilaterally Neurologic: Cranial nerves II-12 intact, no focal neurologic deficits, no ataxia Skin: No rashes or lesions Limitations: no limitations Course Vital Signs 03/08/18 03/08/18 17:11 19:54 Temperature 98.3 F 97.9 F Pulse Rate 85 70 Respiratory 18 16 Rate Blood Pressure 185/82 145/70 O2 Sat by Pulse 93 L 92 L Oximetry Medical Decision Making - Medical Decision Making EKG interpretation: Ventricular rate 68. Sinus rhythm, rhythm. AL interval 160 , respiration 98, QTC 427. No QT prolongation. No ST or T-wave changes. Overall this EKG is unremarkable. ED course/medical decision-makin-year-old female who has past medical history of COPD, dyslipidemia, hypertension presents with abdominal pain. She is insistent that her symptoms represent small bowel obstruction. Patient has been worked up extensively for the past several months with no clear etiology of patient's symptoms. Vital signs upon arrival within normal limits. Initial vital signs showed hypoxia 92 on room air. The reading was an error. Patient is not hypoxic. I bedside patient was 90% on room air. Patient is well- appearing. Physical examination is benign. Abdomen is soft. Patient denies any symptoms of obstipation P she states she is passing gas. Laboratory evaluation obtained. No leukocytosis. Hemoglobin is stable. Compressive metabolic panel is unremarkable. There is some prerenal azotemia. Urinalysis is negative. Lipase is negative. Patient given intravenous fluids and multiple rounds of IV analgesics with improvement of symptoms. Abdominal x- rays with chest x-ray shows no acute processes. There appears to be gas that is trace [place] up to the rectum. No significant air-fluid levels to suggest small bowel obstruction versus ileus. Patient tolerating by mouth at bedside. Patient still complaining of some residual pain however reports that her symptoms are improved. Given the patient had frequent imaging studies done in the past months no computed tomography scan imaging is indicated at this time. Discussed with patient that I do not believe that she would benefit from inpatient admission. Patient tolerate by mouth bedside. Patient pain is controlled. Patient given prescription for by mouth pain medications. She is advised follow up with primary care physician upon discharge. Told to return to the [facility] department with worsening abdominal symptoms. Patient is understandable and agreeable to discharge. Final impression: 1. Abdominal pain, unclear etiology, no high-risk features Plan: Discharged with instructed to follow-up with primary care physician a prescription for by mouth analgesics Disposition: Discharged home - Lab Data Result diagrams: 03/08/18 18:05 03/08/18 18:05 Lab Results 06/13/18 06/13/18 06/13/18 Range/Units 17:55 18:05 18:05 WBC 8.4 (3.8-10.6) k/uL RBC 4.30 (3.80-5.40) m/uL Hgb 13.6 (11.4-16.0) gm/dL Hct 40.1 (34.0-46.0) % MCV 93.4 (80.0-100.0) fL MCH 31.7 (25.0-35.0) pg MCHC 34.0 (31.0-37.0) g/dL RDW 13.4 (11.5-15.5) % Plt Count 355 (150-450) k/uL Neutrophils % 60 % Lymphocytes % 28 % Monocytes % 7 % Eosinophils % 2 % Basophils % 1 % Neutrophils # 5.1 (1.3-7.7) k/uL Lymphocytes # 2.3 (1.0-4.8) k/uL Monocytes # 0.6 (0-1.0) k/uL Eosinophils # 0.2 (0-0.7) k/uL Basophils # 0.0 (0-0.2) k/uL Sodium 140 (137-145) mmol/L Potassium 4.4 (3.5-5.1) mmol/L Chloride 102 (98-107) mmol/L Carbon Dioxide 25 (22-30) mmol/L Anion Gap 13 mmol/L BUN 20 H (7-17) mg/dL Creatinine 0.60 (0.52-1.04) mg/dL Est GFR (CKD-EPI)AfAm >90 (>60 ml/min/1.73 sqM) Est GFR (CKD-EPI)NonAf >90 (>60 ml/min/1.73 sqM) Glucose 98 (74-99) mg/dL Calcium 10.3 H (8.4-10.2) mg/dL Total Bilirubin 0.4 (0.2-1.3) mg/dL AST 32 (14-36) U/L ALT 40 (9-52) U/L Alkaline Phosphatase 54 (38-126) U/L Total Protein 6.7 (6.3-8.2) g/dL Albumin 4.5 (3.5-5.0) g/dL Lipase 196 (23-300) U/L Urine Color Yellow Urine Appearance Clear (Clear) Urine pH 7.0 (5.0-8.0) Ur Specific [place] 1.014 (1.001-1.035) Urine Protein Negative (Negative) Urine Glucose (UA) Negative (Negative) Urine Ketones Negative (Negative) Urine Blood Negative (Negative) Urine Nitrite Negative (Negative) Urine Bilirubin Negative (Negative) Urine Urobilinogen <2.0 (<2.0) mg/dL Ur Leukocyte Esterase Negative (Negative) Disposition Clinical Impression: Abdominal pain Disposition: HOME SELF-CARE Instructions: Abdominal Pain (ED) Additional Instructions: follow up with PCP Prescriptions: HYDROcodone/APAP 5-325MG [Machias 5-325] 1 tab PO Q6HR PRN 3 Days #12 tab PRN Reason: Pain Is patient prescribed a controlled substance at d/c from ED?: Yes Referrals: Jerome Hanna DO [Primary Care Provider] - 1-2 days Time of Disposition: 20:20
== END 2018-03-08 20:46 | disposition home or self-care (01) ==
LOC: EC 17:05
DX: R10.84 Generalized abdominal pain (principal); R11.2 Nausea with vomiting, unspecified; R79.89 Other specified abnormal findings of blood chemistry; E78.5 Hyperlipidemia, unspecified; I10 Essential (primary) hypertension; F32.9 Major depressive disorder, single episode, unspecified; F41.9 Anxiety disorder, unspecified; Z90.49 Acquired absence of other specified parts of digestive tract; Z88.0 Allergy status to penicillin; Z79.82 Long term (current) use of aspirin; Z79.899 Other long term (current) drug therapy; Z87.891 Personal history of nicotine dependence
CPT/HCPCS: 99284; 96374; 96375 ×2; 36415; 93005; 80053; 83690; 85025; 81003; 74022; J2405; J2270; J1170

== ENCOUNTER → 2020-11-07 | Outpatient (CLI) | payer MEDICARE ==
--- NOTE | 2020-11-08 09:16 | MR ---
MRI liver without contrast. HISTORY: Liver lesion. COMPARISON: CT abdomen and pelvis dated 02/21/2018. There is no prior MRI of the abdomen for compariso n. TECHNIQUE: Multiecho multiplanar images of the abdomen were obtained without contrast. FINDINGS: There is a 13 mm cyst in the posterior segment of the right lobe of liver which was seen on prior CT and is stable. No other liver focal abnormalities are seen. There is no biliary ductal dilatation. The gallbladder is unremarkable. The pancreas and spleen are normal without focal mass or organomegaly. The kidneys are unremarkable bilaterally without evidence of focal mass or hydronephrosis. The caliber of the abdominal aorta is normal. There is no free intraperitoneal fluid. The bowel loops are normal in caliber. IMPRESSION: No significant abnormality seen. There is a stable small cyst in the posterior segment of the right l iver.
== END | disposition home or self-care (01) ==
LOC: RADMRIMAIN 08:02
PROVIDERS: ATTEND Family Medicine
DX: K76.89 Other specified diseases of liver (principal)
CPT/HCPCS: 74181

== ENCOUNTER → 2021-08-31 | Outpatient (CLI) | payer MEDICARE ==
--- NOTE | 2021-08-31 15:11 | CT ---
EXAMINATION TYPE: CT angio chest, CT angio upper extremity LT, CT abdomen pelvis w con DATE OF EXAM: 08/31/2021 COMPARISON: Prior CTA chest February 26, 2018. Prior MRI liver November 07, 2020.'s HISTORY: Subclavian Stenosis. Left upper extremity weakness and numbness. Microhematuria. Recurrent u rinary tract infections. CT DLP: 1667.8 mGycm. Automated Exposure Control for Dose Reduction was Utilized. CONTRAST: CTA scan of the thorax and left upper extremity are performed with IV Contrast, patient injected with 100 mL of Isovue 370, aneurysm protocol. . 3D reconstructed images are created on an independent wor kstation and reviewed. CT scan of the abdomen and pelvis is performed with oral and IV contrast. FINDINGS: LUNGS: Moderate biapical pleural/parenchymal scarring is redemonstrated extending along the periphery of the upper lungs bilaterally. There are areas of reticulation and groundglass opacity again seen. Moderate lateral left basilar parenchymal scarring again seen. No pleural effusion or pneumothorax no [place]. No new suspicious consolidation. MEDIASTINUM: There is satisfactory enhancement of the pulmonary artery and its branches, there is no CT evidence for pulmonary embolism. Satisfactory enhancement from the aorta with ascending aorta russell suring up to 3.4 cm in diameter. No significant plaque or stenosis in the 3 great vessels. In particu lar minimal peripheral plaque along course of the left subclavian artery without significant stenosis . There is satisfactory visualization of the left subclavian artery into the axillary artery without significant plaque or stenosis. There are no new greater than 1 cm hilar or mediastinal lymph nodes. No cardiomegaly or pericardial effusion is seen. Coronary artery calcification redemonstrated. Left upper extremity: Good flow left axillary artery into the brachial artery without significant boris nosis. There is suboptimal bolus opacification before branching into radial and ulnar arteries making evaluation suboptimal passages point. Imaging is cut off shortly after elbow joint. LIVER/GB: Simple appearing 1.1 cm thin-walled cyst posterior right hepatic lobectomy 24 redemonstrate d. PANCREAS: No significant abnormality is seen. SPLEEN: No significant abnormality is seen. ADRENALS: Thickening to both adrenal glands is stable. Signal dropout on MRI is noted. KIDNEYS: Symmetric cortical medullary uptake and excretion without hydronephrosis seen bilaterally. N o intraluminal calculus or suspicious mass in the poorly distended bladder BOWEL: Oral contrast does not reach the terminal ileum making evaluation distal bowel slightly subopt imal. Fluid and fecal prominence in the right and transverse colon. Some contrast prominent small bow el loops in the lower abdomen and pelvis. No greater than 3.0 cm dilatation. Prominent contrast fille d bowel loop in the right pelvis at site of sutures is noted. UTERUS/ADNEXA: Uterus surgically absent or markedly atrophic. LYMPH NODES: No greater than 1cm abdominal or pelvic lymph nodes are appreciated. OSSEOUS STRUCTURES: Osseous structures are demineralized. OTHER: Mild/moderate calcified plaque of the aorta extends into branch vessels. IMPRESSION: 1. No significant plaque or stenosis in the 3 great vessels from the aortic arch including left subcl carmel[place] artery. Suboptimal arterial evaluation left upper extremity past the distal brachial artery. No significant plaque or stenosis up to this point. 2. Source of pneumaturia not identified. 3. Nonspecific but likely nonobstructive bowel gas pattern. Cannot exclude diarrhea and/or mild uncom plicated right-sided colitis, correlate clinically. Surgical changes to distal bowel in the right pel vis with focal dilated bowel loop but no bowel obstruction.
== END | disposition home or self-care (01) ==
LOC: RADCTMAIN 12:02
PROVIDERS: ATTEND Urology
DX: N30.20 Other chronic cystitis without hematuria (principal)
CPT/HCPCS: 82565; 84520; 73206; 71275; 74177; Q9967

== ENCOUNTER → 2021-08-31 | Outpatient (CLI) | payer MEDICARE | END | disposition home or self-care (01) | LOC: RADCTMAIN 12:04 | PROVIDERS: ATTEND Surgery | DX: Z53.9 Procedure and treatment not carried out, unspecified reason (principal) ==

== ENCOUNTER → 2022-01-19 | Outpatient (CLI) | payer MEDICARE | END | disposition home or self-care (01) | LOC: LABWHC1 09:35 | PROVIDERS: ATTEND Psychiatry & Neurology Neurology | DX: Z79.899 Other long term (current) drug therapy (principal); M79.601 Pain in right arm | CPT/HCPCS: 36415; 82607 ==

== ENCOUNTER → 2022-01-19 | Outpatient (CLI) | payer MEDICARE ==
[2022-01-19 16:52] LABS: Appearance,Urine Clear (Clear); Bacteria,Urine Trace /HPF (None Seen); Bilirubin,Urine Small (Negative); Blood,Urine Negative (Negative); Color,Urine Dark Yellow (Yellow); Ketones,Urine Trace mg/dL (Negative); Nitrite,Urine Negative (Negative); Specific Gravity,Urine 1.021 (1.001-1.030); Urobilinogen,Urine 0.2 (0.2,1.0); Yeast (UA) Present /LPF (None Seen)
== END | disposition home or self-care (01) ==
LOC: LABWHC1 09:39
PROVIDERS: ATTEND Internal Medicine Infectious Disease
DX: U07.1 COVID-19 (principal)
CPT/HCPCS: 81001; 87086

== ENCOUNTER 2022-01-23 09:52 | Emergency (ER) | payer MEDICARE ==
[2022-01-23 10:38] LABS: HGB 12.9 gm/dL (11.4-16.0); MCH 31.3 pg (25.0-35.0); MCHC 32.2 g/dL (31.0-37.0); MCV 97.3 fL (80.0-100.0); RBC 4.11 m/uL (3.80-5.40); WBC 5.8 k/uL (3.8-10.6)
[2022-01-23 10:39] LABS: Basophils % (A) 0 %; Eosinophils # (A) 0.1 k/uL (0-0.7); Eosinophils % (A) 1 %; Lymphocytes # (A) 1.2 k/uL (1.0-4.8); Lymphocytes % (A) 20 %; Mean Platelet Volume 7.5; Monocytes # (A) 0.4 k/uL (0-1.0); Monocytes % (A) 6 %; Neutrophils # (A) 4.1 k/uL (1.3-7.7); Neutrophils % (A) 70 %; Platelet Count 315 k/uL (150-450); RDW 14.1 % (11.5-15.5)
[2022-01-23 10:44] LABS: Appearance,Urine Clear (Clear); Bacteria,Urine Rare /hpf; Bilirubin,Urine Negative (Negative); Blood,Urine Negative (Negative); Color,Urine Yellow; Glucose,Urine (UA) Negative (Negative); Hyaline Casts,Urine 3 /lpf (0-2); Ketones,Urine Trace (Negative); Leukocyte Esterase,Urine Trace (Negative); Mucus,Urine Occasional /hpf; Nitrite,Urine Negative (Negative); PH, Urine 6.5 (5.0-8.0); Protein,Urine Trace (Negative); RBC,Urine 1 /hpf (0-5); Specific Gravity,Urine 1.021 (1.001-1.035); Squamous Epithelial Cell,Urine 2 /hpf (0-4); Urobilinogen,Urine <2.0 mg/dL (<2.0); WBC,Urine 4 /hpf (0-5)
[2022-01-23] MEDS ORDERED: ACETAMINOPHEN TAB 325 MG TAB PO STA (10:51)
[2022-01-23 10:53] LABS: African American GFR (CKD) >90 (>60 ml/min/1.73 sqM); Anion Gap 10 mmol/L; Blood Urea Nitrogen 13 mg/dL (7-17); Calcium 9.6 mg/dL (8.4-10.2); Carbon Dioxide 25 mmol/L (22-30); Chloride 104 mmol/L (98-107); Glucose 101 mg/dL (74-99); Non-African American GFR(CKD) 86 (>60 ml/min/1.73 sqM); Potassium 4.1 mmol/L (3.5-5.1); Sodium 139 mmol/L (137-145)
--- NOTE | 2022-01-23 10:54 | ED ---
General Adult HPI - General Chief complaint: Recheck/Abnormal Lab/Rx Stated complaint: Syncope, vomiting Time Seen by Provider: 01/23/22 10:06 Source: patient Mode of arrival: wheelchair Limitations: no limitations - History of Present Illness Initial comments: Dictation was produced using [employer] dictation software. please excuse any grammatical, word or spelling errors. Chief Complaint: 77-year-old female presents emergency department for body aches and fevers since the last couple days History of Present Illness: Patient is 77-year-old female she presents to the emergency department for body aches and fever. Patient reports she had her Covid booster yesterday. States however that her symptoms of body aches and fever started prior to that. Patient had completed anabiotic treatment for urinary tract infection within the last month. She does not know what antibiotic she was on most recently. Denies any cough. No runny nose perthroat. Patient reports that she has chronic suprapubic abdominal pain that is unchanged. The ROS documented in this emergency department record has been reviewed and confirmed by me. Those systems with pertinent positive or negative responses have been documented in the HPI. All other systems are other negative and/or noncontributory. PHYSICAL EXAM: General Impression: Alert and oriented x3, not in acute distress HEENT: Normocephalic atraumatic, extra-ocular movements intact, pupils equal and reactive to light bilaterally, mucous membranes moist. Cardiovascular: Heart regular rate and rhythm Chest: Able to complete full sentences, no retractions, no tachypnea Abdomen: abdomen soft, non-tender, non-distended, no organomegaly Musculoskeletal: Pulses present and equal in all extremities, no peripheral edema Motor: no focal deficits noted Neurological: CN II-XII grossly intact, no focal motor or sensory deficits noted Skin: Intact with no visualized rashes Psych: Normal affect and mood ED course: 77-year-old female with chief complaint of constitutional symptoms. Vital signs upon arrival shows temperature 100.5, rest of vital signs within acceptable limits. Laboratory evaluation obtained. CBC, metabolic panel is unremarkable. Urinalysis is negative. 4 panel viral PCR is negative. Chest x-ray shows no acute processes. Patient likely has a viral illness causing chills. Patient given Tylenol. She is discharged told to follow-up with primary care doctor. EKG interpretation: Ventricular rate 76, sinus rhythm, [place] interval 165, QS 97, QTc 388. No [place] prolongation, no QTC prolongation, no ST or T-wave changes noted. Overall, this EKG is unremarkable - Related Data Home Medications Medication Instructions Recorded Confirmed Aspirin 81 mg PO DAILY 01/15/17 03/08/18 Atorvastatin [Lipitor] 40 mg PO HS 01/15/17 03/08/18 Multivit-Min/Iron/Folic/Lutein 1 tab PO DAILY 01/15/17 03/08/18 [Centrum Silver Women Tablet] Venlafaxine HCl ER [Effexor XR] 75 mg PO DAILY 01/15/17 03/08/18 Cholecalciferol (Vitamin D3) 2,000 unit PO DAILY 02/21/18 03/08/18 [Vitamin D3] Cranberry Fruit Extract [Theracran] 650 mg PO DAILY 02/21/18 03/08/18 Polyethylene Glycol 3350 [Miralax] 17 gm PO Q48H 02/21/18 03/08/18 Vitamin B Complex 1 cap PO DAILY 02/21/18 03/08/18 Previous Rx's Medication Instructions Recorded Metoprolol Tartrate [Lopressor] 50 mg PO BID #60 tab 03/04/17 amLODIPine [Norvasc] 5 mg PO DAILY #30 tab 03/04/17 Levofloxacin [Levaquin] 500 mg PO Q24H #10 tab 03/01/18 Magnesium Oxide [Mag-Ox] 200 mg PO BID #60 tab 03/01/18 lisinopriL [Zestril] 40 mg PO DAILY #30 tab 03/01/18 predniSONE 10 mg PO DIRECTED 15 Days #30 03/01/18 tab HYDROcodone/APAP 5-325MG [Page 1 tab PO Q6HR PRN 3 Days #12 tab 03/08/18 5-325] Allergies Allergy/AdvReac Type Severity Reaction Status Date / Time Penicillins Allergy Rash/Hives Verified 01/23/22 09:59 Review of Systems ROS Statement: Those systems with pertinent positive or pertinent negative responses have been documented in the HPI. ROS Other: All systems not noted in ROS Statement are negative. Past Medical History Past Medical History: COPD, Hyperlipidemia, Hypertension Additional Past Medical History / Comment(s): Pt recently admitted to [facility] 01/22/17 with superficial thrombosis L arm cephalic vein, generalized weakness, hypomagnesemia, hypokalemia. Other HX: Multiple admissions for small bowel obstructions. History of Any Multi-Drug Resistant Organisms: ESBL Date of last positivie culture/infection: 12/22/21 MDRO Source:: ESBL URINE Past Surgical History: Bowel Resection Additional Past Surgical History / Comment(s): bowel resection x 2, colonoscopy, hysterectomy Past Anesthesia/Blood Transfusion Reactions: No Reported Reaction Past Psychological History: Anxiety, Depression Smoking Status: Never smoker Past Alcohol Use History: Occasional Past Drug Use History: None Reported - Past Family History Sister(s) Family Medical History: Diabetes Mellitus Father Family Medical History: Coronary Artery Disease (CAD) Additional Family Medical History / Comment(s): Father of a [place] in his 60's or 70's. Mother Family Medical History: No Reported History, Diabetes Mellitus Additional Family Medical History / Comment(s): Mother at the age of 88yrs. General Exam Limitations: no limitations Course Vital Signs 01/23/22 01/23/22 09:57 11:22 Temperature 100.5 F H 99.1 F Pulse Rate 78 65 Respiratory 16 18 Rate Blood Pressure 139/84 140/75 O2 Sat by Pulse 95 94 L Oximetry Medical Decision Making - Lab Data Result diagrams: 01/23/22 10:26 01/23/22 10:26 Lab Results 01/23/22 01/23/22 01/23/22 Range/Units 10:26 10:26 10:26 WBC 5.8 (3.8-10.6) k/uL RBC 4.11 (3.80-5.40) m/uL Hgb 12.9 (11.4-16.0) gm/dL Hct 40.0 (34.0-46.0) % MCV 97.3 (80.0-100.0) fL MCH 31.3 (25.0-35.0) pg MCHC 32.2 (31.0-37.0) g/dL RDW 14.1 (11.5-15.5) % Plt Count 315 (150-450) k/uL MPV 7.5 Neutrophils % 70 % Lymphocytes % 20 % Monocytes % 6 % Eosinophils % 1 % Basophils % 0 % Neutrophils # 4.1 (1.3-7.7) k/uL Lymphocytes # 1.2 (1.0-4.8) k/uL Monocytes # 0.4 (0-1.0) k/uL Eosinophils # 0.1 (0-0.7) k/uL Basophils # 0.0 (0-0.2) k/uL Sodium 139 (137-145) mmol/L Potassium 4.1 (3.5-5.1) mmol/L Chloride 104 (98-107) mmol/L Carbon Dioxide 25 (22-30) mmol/L Anion Gap 10 mmol/L BUN 13 (7-17) mg/dL Creatinine 0.65 (0.52-1.04) mg/dL Est GFR (CKD-EPI)AfAm >90 (>60 ml/min/1.73 sqM) Est GFR (CKD-EPI)NonAf 86 (>60 ml/min/1.73 sqM) Glucose 101 H (74-99) mg/dL Calcium 9.6 (8.4-10.2) mg/dL Urine Color Urine Appearance (Clear) Urine pH (5.0-8.0) Ur Specific [place] (1.001-1.035) Urine Protein (Negative) Urine Glucose (UA) (Negative) Urine Ketones (Negative) Urine Blood (Negative) Urine Nitrite (Negative) Urine Bilirubin (Negative) Urine Urobilinogen (<2.0) mg/dL Ur Leukocyte Esterase (Negative) Urine RBC (0-5) /hpf Urine WBC (0-5) /hpf Ur Squamous Epith Cells (0-4) /hpf Urine Bacteria (None) /hpf Hyaline Casts (0-2) /lpf Urine Mucus (None) /hpf Influenza Type A (PCR) Not Detected (Not Detectd) Influenza Type B (PCR) Not Detected (Not Detectd) RSV (PCR) Not Detected (Not Detectd) SARS-CoV-2 (PCR) Not Detected (Not Detectd) 01/23/22 Range/Units 10:26 WBC (3.8-10.6) k/uL RBC (3.80-5.40) m/uL Hgb (11.4-16.0) gm/dL Hct (34.0-46.0) % MCV (80.0-100.0) fL MCH (25.0-35.0) pg MCHC (31.0-37.0) g/dL RDW (11.5-15.5) % Plt Count (150-450) k/uL MPV Neutrophils % % Lymphocytes % % Monocytes % % Eosinophils % % Basophils % % Neutrophils # (1.3-7.7) k/uL Lymphocytes # (1.0-4.8) k/uL Monocytes # (0-1.0) k/uL Eosinophils # (0-0.7) k/uL Basophils # (0-0.2) k/uL Sodium (137-145) mmol/L Potassium (3.5-5.1) mmol/L Chloride (98-107) mmol/L Carbon Dioxide (22-30) mmol/L Anion Gap mmol/L BUN (7-17) mg/dL Creatinine (0.52-1.04) mg/dL Est GFR (CKD-EPI)AfAm (>60 ml/min/1.73 sqM) Est GFR (CKD-EPI)NonAf (>60 ml/min/1.73 sqM) Glucose (74-99) mg/dL Calcium (8.4-10.2) mg/dL Urine Color Yellow Urine Appearance Clear (Clear) Urine pH 6.5 (5.0-8.0) Ur Specific [place] 1.021 (1.001-1.035) Urine Protein Trace H (Negative) Urine Glucose (UA) Negative (Negative) Urine Ketones Trace H (Negative) Urine Blood Negative (Negative) Urine Nitrite Negative (Negative) Urine Bilirubin Negative (Negative) Urine Urobilinogen <2.0 (<2.0) mg/dL Ur Leukocyte Esterase Trace H (Negative) Urine RBC 1 (0-5) /hpf Urine WBC 4 (0-5) /hpf Ur Squamous Epith Cells 2 (0-4) /hpf Urine Bacteria Rare H (None) /hpf Hyaline Casts 3 H (0-2) /lpf Urine Mucus Occasional H (None) /hpf Influenza Type A (PCR) (Not Detectd) Influenza Type B (PCR) (Not Detectd) RSV (PCR) (Not Detectd) SARS-CoV-2 (PCR) (Not Detectd) Disposition Clinical Impression: Viral illness Disposition: HOME SELF-CARE Condition: Good Instructions (If sedation given, give patient instructions): Viral Syndrome (ED) Is patient prescribed a controlled substance at d/c from ED?: No Referrals: Jerome Hanna DO [Primary Care Provider] - 1-2 days
[2022-01-23 11:25] VITALS: RESP 18
--- NOTE | 2022-01-23 12:05 | XR ---
EXAMINATION TYPE: XR chest 2V DATE OF EXAM: 01/23/2022 COMPARISON: 02/21/2018 INDICATION: Malaise weakness dizziness TECHNIQUE: Frontal and lateral views of the chest are obtained. FINDINGS: The heart size is normal. The pulmonary vasculature is normal. The lungs are clear. IMPRESSION: 1. No acute pulmonary process. Follow-up can be performed as clinically indicated.
[2022-01-23 12:40] VITALS: BP 139/72; PULSE 66; TEMP 99.2
== END 2022-01-23 12:41 | disposition home or self-care (01) ==
LOC: EC 09:52
DX: B34.9 Viral infection, unspecified (principal); I10 Essential (primary) hypertension; J44.9 Chronic obstructive pulmonary disease, unspecified; Z20.822 Contact with and (suspected) exposure to COVID-19; Z88.0 Allergy status to penicillin
CPT/HCPCS: 36415; 71046; 80048; 81001; 85025; 87636; 93005; 99285

== ENCOUNTER 2022-03-03 08:45 | Observation (INO) | payer MEDICARE ==
[2022-03-03] MEDS ORDERED: ONDANSETRON 4 MG/2 ML VIAL IVP STA (09:52)
[2022-03-03] MEDS ORDERED: HYDROmorphone 0.5 MG/0.5 ML SYRINGE IVP STA ×2 (09:52→11:58)
[2022-03-03] MEDS ORDERED: KETOROLAC 15 MG/ML 1 ML VIAL IVP STA ×2 (09:53→14:24)
[2022-03-03 10:16] LABS: Basophils % (A) 1 %; Eosinophils # (A) 0.2 k/uL (0-0.7); Eosinophils % (A) 2 %; HCT 44.4 % (34.0-46.0); HGB 14.1 gm/dL (11.4-16.0); Lymphocytes # (A) 1.8 k/uL (1.0-4.8); Lymphocytes % (A) 23 %; MCH 31.1 pg (25.0-35.0); MCHC 31.7 g/dL (31.0-37.0); MCV 98.1 fL (80.0-100.0); Mean Platelet Volume 7.9; Monocytes # (A) 0.4 k/uL (0-1.0); Monocytes % (A) 5 %; Neutrophils # (A) 5.1 k/uL (1.3-7.7); Neutrophils % (A) 67 %; Platelet Count 357 k/uL (150-450); RBC 4.52 m/uL (3.80-5.40); WBC 7.5 k/uL (3.8-10.6)
[2022-03-03 10:29] LABS: ALT 15 U/L (4-34); AST 32 U/L (14-36); African American GFR (CKD) >90 (>60 ml/min/1.73 sqM); Albumin 4.5 g/dL (3.5-5.0); Alkaline Phosphatase 58 U/L (38-126); Anion Gap 9 mmol/L; Blood Urea Nitrogen 18 mg/dL (7-17); Calcium 9.8 mg/dL (8.4-10.2); Carbon Dioxide 26 mmol/L (22-30); Chloride 105 mmol/L (98-107); Glucose 110 mg/dL (74-99); Non-African American GFR(CKD) 83 (>60 ml/min/1.73 sqM); Potassium 4.8 mmol/L (3.5-5.1); Sodium 140 mmol/L (137-145); Total Bilirubin 0.6 mg/dL (0.2-1.3); Total Protein 7.1 g/dL (6.3-8.2)
--- NOTE | 2022-03-03 10:55 | ED ---
Back Pain HPI - General Chief Complaint: Back Pain/Injury Stated Complaint: back pain, poss UTI Time Seen by Provider: 03/03/22 08:51 Source: patient, RN notes reviewed Limitations: no limitations - History of Present Illness Initial Comments: 77-year-old female presents emergency Department with chief complaint of low back pain. She states primarily left lower back to does radiate down her left leg. She denies any bowel bladder retention. She states she has chronic urinar y incontinence secondary to frequent urinary tract infections. She states that she does see Dr. Kiara Ford. Patient states that she is nondrinker antibiotics probably she does have urinary tract infection. Patient states pain is worse with any movement. She denies any lower abdominal pain no fevers or chills. No chest pain she states is all started after moving a flower pot at home. - Related Data Home Medications Medication Instructions Recorded Confirmed Multivit-Min/Iron/Folic/Lutein 1 tab PO DAILY 01/15/17 03/03/22 [Centrum Silver Women Tablet] Venlafaxine HCl ER [Effexor XR] 75 mg PO DAILY 01/15/17 03/03/22 Vitamin B Complex 1 cap PO DAILY 02/21/18 03/03/22 Atorvastatin [Lipitor] 20 mg PO HS 03/03/22 03/03/22 Estradiol Cream [Estrace Cream 1 gm VAGINAL TUSA 03/03/22 03/03/22 0.01%] Umeclidinium Brm/Vilanterol Tr 1 puff INHALATION RT-DAILY 03/03/22 03/03/22 [Anoro Ellipta 62.5-25 Mcg INH] Previous Rx's Medication Instructions Recorded Metoprolol Tartrate [Lopressor] 50 mg PO BID #60 tab 03/04/17 amLODIPine [Norvasc] 5 mg PO DAILY #30 tab 03/04/17 Allergies Allergy/AdvReac Type Severity Reaction Status Date / Time Penicillins Allergy Rash/Hives Verified 03/03/22 11:14 Review of Systems ROS Statement: Those systems with pertinent positive or pertinent negative responses have been documented in the HPI. ROS Other: All systems not noted in ROS Statement are negative. Past Medical History Past Medical History: COPD, Hyperlipidemia, Hypertension Additional Past Medical History / Comment(s): Pt recently admitted to [facility] 01/22/17 with superficial thrombosis L arm cephalic vein, generalized weakness, hypomagnesemia, hypokalemia. Other HX: Multiple admissions for small bowel obstructions. History of Any Multi-Drug Resistant Organisms: ESBL Date of last positivie culture/infection: 12/22/21 MDRO Source:: ESBL URINE Past Surgical History: Bowel Resection Additional Past Surgical History / Comment(s): bowel resection x 2, colonoscopy, hysterectomy Past Anesthesia/Blood Transfusion Reactions: No Reported Reaction Past Psychological History: Anxiety, Depression Smoking Status: Never smoker Past Alcohol Use History: Occasional Past Drug Use History: None Reported - Past Family History Sister(s) Family Medical History: Diabetes Mellitus Father Family Medical History: Coronary Artery Disease (CAD) Additional Family Medical History / Comment(s): Father of a [place] in his 60's or 70's. Mother Family Medical History: No Reported History, Diabetes Mellitus Additional Family Medical History / Comment(s): Mother at the age of 88yrs. General Exam Limitations: no limitations General appearance: alert, in no apparent distress Head exam: Present: atraumatic, normocephalic, normal inspection Eye exam: Present: normal appearance, PERRL, EOMI. Absent: scleral icterus, conjunctival injection, periorbital swelling ENT exam: Present: normal exam, normal oropharynx, mucous membranes moist Neck exam: Present: normal inspection, full ROM. Absent: tenderness, meningismus, lymphadenopathy Respiratory exam: Present: normal lung sounds bilaterally. Absent: respiratory distress, wheezes, rales, rhonchi, stridor Cardiovascular Exam: Present: regular rate, normal rhythm, normal heart sounds. Absent: systolic murmur, diastolic murmur, rubs, gallop, clicks GI/Abdominal exam: Present: soft, normal bowel sounds. Absent: distended, tenderness, guarding, rebound, rigid Extremities exam: Present: normal inspection, full ROM Back exam: Present: full ROM, tenderness, muscle spasm, paraspinal tenderness. Absent: vertebral tenderness Neurological exam: Present: alert, oriented X3 Course Vital Signs 03/03/22 08:48 Temperature 97.6 F Pulse Rate 63 Respiratory 20 Rate Blood Pressure 134/73 O2 Sat by Pulse 94 L Oximetry Medical Decision Making - Medical Decision Making Left-sided pain. Patient symptoms seem to be related to radiculopathy as she has severe degenerative changes though patient's been having intractable back pain, evidence urinary tract infection. Patient's been having recurrent issues his been seen by Dr. Shook. Patient we placed on Rocephin will be admitted for pain control and further treatment - Lab Data Result diagrams: 03/03/22 10:02 03/03/22 10:02 Lab Results 03/03/22 03/03/22 03/03/22 Range/Units 09:47 10:02 10:02 WBC 7.5 (3.8-10.6) k/uL RBC 4.52 (3.80-5.40) m/uL Hgb 14.1 (11.4-16.0) gm/dL Hct 44.4 (34.0-46.0) % MCV 98.1 (80.0-100.0) fL MCH 31.1 (25.0-35.0) pg MCHC 31.7 (31.0-37.0) g/dL RDW 14.0 (11.5-15.5) % Plt Count 357 (150-450) k/uL MPV 7.9 Neutrophils % 67 % Lymphocytes % 23 % Monocytes % 5 % Eosinophils % 2 % Basophils % 1 % Neutrophils # 5.1 (1.3-7.7) k/uL Lymphocytes # 1.8 (1.0-4.8) k/uL Monocytes # 0.4 (0-1.0) k/uL Eosinophils # 0.2 (0-0.7) k/uL Basophils # 0.0 (0-0.2) k/uL Sodium 140 (137-145) mmol/L Potassium 4.8 (3.5-5.1) mmol/L Chloride 105 (98-107) mmol/L Carbon Dioxide 26 (22-30) mmol/L Anion Gap 9 mmol/L BUN 18 H (7-17) mg/dL Creatinine 0.70 (0.52-1.04) mg/dL Est GFR (CKD-EPI)AfAm >90 (>60 ml/min/1.73 sqM) Est GFR (CKD-EPI)NonAf 83 (>60 ml/min/1.73 sqM) Glucose 110 H (74-99) mg/dL Calcium 9.8 (8.4-10.2) mg/dL Total Bilirubin 0.6 (0.2-1.3) mg/dL AST 32 (14-36) U/L ALT 15 (4-34) U/L Alkaline Phosphatase 58 (38-126) U/L Total Protein 7.1 (6.3-8.2) g/dL Albumin 4.5 (3.5-5.0) g/dL Urine Color Yellow Urine Appearance Turbid H (Clear) Urine pH 6.0 (5.0-8.0) Ur Specific [place] 1.021 (1.001-1.035) Urine Protein 1+ H (Negative) Urine Glucose (UA) Negative (Negative) Urine Ketones Negative (Negative) Urine Blood Small H (Negative) Urine Nitrite Positive H (Negative) Urine Bilirubin Negative (Negative) Urine Urobilinogen <2.0 (<2.0) mg/dL Ur Leukocyte Esterase Large H (Negative) Urine RBC 23 H (0-5) /hpf Urine WBC >182 H (0-5) /hpf Urine WBC Clumps Many H (None) /hpf Ur Squamous Epith Cells <1 (0-4) /hpf Urine Bacteria Many H (None) /hpf Urine Mucus Few H (None) /hpf Disposition Clinical Impression: UTI (urinary tract infection), Weakness, Intractable back pain Disposition: ADMITTED IP TO THIS [facility] Condition: Fair Referrals: Jerome Hanna DO [Primary Care Provider] - 1-2 days Time of Disposition: 11:49
[2022-03-03 11:02] LABS: Appearance,Urine Turbid (Clear); Bacteria,Urine Many /hpf; Bilirubin,Urine Negative (Negative); Blood,Urine Small (Negative); Color,Urine Yellow; Glucose,Urine (UA) Negative (Negative); Ketones,Urine Negative (Negative); Leukocyte Esterase,Urine Large (Negative); Mucus,Urine Few /hpf; Nitrite,Urine Positive (Negative); Protein,Urine 1+ (Negative); RBC,Urine 23 /hpf (0-5); Specific Gravity,Urine 1.021 (1.001-1.035); Squamous Epithelial Cell,Urine <1 /hpf (0-4); Urobilinogen,Urine <2.0 mg/dL (<2.0); WBC,Urine >182 /hpf (0-5)
--- NOTE | 2022-03-03 11:07 | XR ---
EXAM TYPE: LUMBAR SPINE X RAY SERIES COMPARISON: NONE HISTORY: Pain TECHNIQUE: 4 views are submitted. FINDINGS: Curvature of the spine with diffuse osteopenia. Facet arthropathy at multiple levels and there are va scular calcifications. Chronic appearing endplate deformity L1. IMPRESSION: 1. Diffuse osteopenia with multilevel degenerative disc disease and facet arthropathy.
[2022-03-03] MEDS ORDERED: cefTRIAXone IN SWFI 1,000 MG/10 ML SYRINGE IVP STA (11:37)
[2022-03-03] MEDS ORDERED: NALOXONE 0.4 MG/ML 1 ML VIAL IV PRN (12:14)
[2022-03-03] MEDS ORDERED: ACETAMINOPHEN TAB 325 MG TAB PO PRN (12:14)
[2022-03-03] MEDS ORDERED: ONDANSETRON 4 MG/2 ML VIAL IVP PRN (12:14)
[2022-03-03] MEDS ORDERED: methylPREDNISolone SOD SUCCI 125 MG/2 ML VIAL IV STA (12:15)
[2022-03-03] MEDS ORDERED: ORPHENADRINE 30 MG/ML 2 ML VIAL IVP STA (14:24)
[2022-03-03] MEDS: HYDROmorphone 0.5 MG/0.5 ML SYRINGE IVP PRN ×2 (14:25→20:57)
--- NOTE | 2022-03-03 15:51 | P.HPIM ---
History of Present Illness H&P Date: 03/03/22 History of Presenting Illness: Patient is a very pleasant 77-year-old female with a past medical history of COPD, hypertension, and hyperlipidemia. She presented to the emergency department with a chief complaint of back pain. Patient reports pain to left gluteal region radiating down laterally into left lateral thigh. Patient denies any falls or previous injuries. She denies history of previous back problems. She denies having any fevers, chills, dizziness, lightheadedness, chest pain, palpitations, shortness of breath, abdominal pain, nausea, vomiting, changes in urinary function including frequency, urgency, or dysuria or experiencing any numbness/tingling/weakness in her extremities. Patient denies having any involuntary loss of bowel or bladder and denies saddlebag anesthesias. Patient underwent full evaluation in the emergency department. X-ray lumbar spine completed revealing diffuse osteopenia with multilevel degenerative disc disease and facet arthropathy. CBC and CMP unremarkable. Urinalysis positive for blood, nitrites, leukocytes, and greater than 182 WBCs. Patient was admitted under our services for pain management. Review of systems: Pertinent positives and negatives as discussed in HPI, a complete review of systems was performed and all other systems are negative. Physical exam: Vital signs reviewed and stable. General: Nontoxic, no distress and appears stated age. Derm: Skin warm and dry, normal coloration for ethnicity. Head: Atraumatic, normocephalic and symmetric. Eyes: EOMs intact, no lid lag, and anicteric sclera Mouth: no lip lesions, mucus membranes moist Cardiovascular: regular rate and rhythm with normal S1S2, no murmur, positive posterior tibial pulses bilaterally, and cap refill < 2 seconds. Lungs: Respirations even, regular, and unlabored on room air. Lungs CTA bilaterally, no rhonchi, no rales, no wheezing, and no accessory muscle usage. Abdominal: soft, nontender to palpation, no guarding, no appreciable organomegaly Ext: ROM intact. No gross muscle atrophy, no edema, no contractures Neuro: Speech clear, face symmetrical and CN II-XII grossly intact with no noted focal neuro deficits Psych: Alert and oriented to person, place, time, and situation. Appropriate and pleasant affect. Assessment and Plan of Care: Lumbar back pain with left sided sciatica -X-ray lumbar spine revealing diffuse osteopenia with multilevel degenerative disc disease and facet arthropathy. -Patient being given Toradol, Norflex, and steroids 1 dose. -We will continue with pain management with [place]. -If pain remains uncontrolled or no improvement overnight, we will consult orthospine specialist and order MRI. -Fall precautions -PT/OT UTI -Rocephin 1 g every 24 hours and follow up on urine culture Hypertension -Monitor vital signs and continue daily medication regimen with amlodipine and metoprolol. Hyperlipidemia -Continue daily medication regimen with atorvastatin. The patient is admitted with an anticipated less than 2 midnight stay for evaluation of back pain CODE STATUS: Full code DVT prophylaxis: Lovenox Discussed with: Patient and RN Anticipated discharge date: Tomorrow Anticipated discharge place: Home A total of 40 minutes was spent on the care of this complex patient more than 50% of the time was spent in counseling and care coordination. Joe Felipe NP rendered care for this patient independently, reviewed the findings and plan as documented in the note above. I did not physically speak with or examine the patient on this date. Past Medical History Past Medical History: COPD, Hyperlipidemia, Hypertension Additional Past Medical History / Comment(s): Pt recently admitted to [facility] 01/22/17 with superficial thrombosis L arm cephalic vein, generalized weakness, hypomagnesemia, hypokalemia. Other HX: Multiple admissions for small bowel obstructions. History of Any Multi-Drug Resistant Organisms: ESBL Date of last positivie culture/infection: 12/22/21 MDRO Source:: ESBL URINE Past Surgical History: Bowel Resection Additional Past Surgical History / Comment(s): bowel resection x 2, colonoscopy, hysterectomy Past Anesthesia/Blood Transfusion Reactions: No Reported Reaction Past Psychological History: Anxiety, Depression Smoking Status: Never smoker Past Alcohol Use History: Occasional Past Drug Use History: None Reported - Past Family History Sister(s) Family Medical History: Diabetes Mellitus Father Family Medical History: Coronary Artery Disease (CAD) Additional Family Medical History / Comment(s): Father of a [place] in his 60's or 70's. Mother Family Medical History: No Reported History, Diabetes Mellitus Additional Family Medical History / Comment(s): Mother at the age of 88yrs. Medications and Allergies Home Medications Medication Instructions Recorded Confirmed Type Multivit-Min/Iron/Folic/Lutein 1 tab PO DAILY 01/15/17 03/03/22 History [Centrum Silver Women Tablet] Venlafaxine HCl ER [Effexor XR] 75 mg PO DAILY 01/15/17 03/03/22 History Metoprolol Tartrate [Lopressor] 50 mg PO BID #60 tab 03/04/17 03/03/22 Rx amLODIPine [Norvasc] 5 mg PO DAILY #30 tab 03/04/17 03/03/22 Rx Vitamin B Complex 1 cap PO DAILY 02/21/18 03/03/22 History Atorvastatin [Lipitor] 20 mg PO HS 03/03/22 03/03/22 History Estradiol Cream [Estrace Cream 1 gm VAGINAL TUSA 03/03/22 03/03/22 History 0.01%] Umeclidinium Brm/Vilanterol Tr 1 puff INHALATION RT-DAILY 03/03/22 03/03/22 History [Anoro Ellipta 62.5-25 Mcg INH] Allergies Allergy/AdvReac Type Severity Reaction Status Date / Time Penicillins Allergy Rash/Hives Verified 03/03/22 11:14 Physical Exam Osteopathic Statement: *. No significant issues noted on an osteopathic structural exam other than those noted in the History and Physical/Consult. Vitals: Vital Signs Temp Pulse Pulse Resp BP BP Pulse Ox 03/03/22 15:19 98 F 70 20 116/87 95 03/03/22 15:00 97.8 F 70 18 178/78 96 03/03/22 12:23 66 18 155/73 96 03/03/22 08:48 97.6 F 63 20 134/73 94 L Intake and Output 03/03/22 03/03/22 03/03/22 06:59 14:59 22:59 Other: Weight 55.338 kg Results CBC & Chem 7: 03/03/22 10:02 03/03/22 10:02 Labs: Abnormal Lab Results - Last 24 Hours (Table) 03/03/22 03/03/22 Range/Units 09:47 10:02 BUN 18 H (7-17) mg/dL Glucose 110 H (74-99) mg/dL Urine Appearance Turbid H (Clear) Urine Protein 1+ H (Negative) Urine Blood Small H (Negative) Urine Nitrite Positive H (Negative) Ur Leukocyte Esterase Large H (Negative) Urine RBC 23 H (0-5) /hpf Urine WBC >182 H (0-5) /hpf Urine WBC Clumps Many H (None) /hpf Urine Bacteria Many H (None) /hpf Urine Mucus Few H (None) /hpf
[2022-03-03] MEDS: LIDOCAINE 5% PATCH TOPICAL SCH (17:25)
[2022-03-03] MEDS: METOPROLOL TARTRATE 50 MG TAB PO SCH (20:57)
[2022-03-03] MEDS: ATORVASTATIN 20 MG TAB PO SCH (20:57)
[2022-03-04] MEDS: HYDROmorphone 0.5 MG/0.5 ML SYRINGE IVP PRN ×5 (04:23→23:51)
[2022-03-04] MEDS: IPRATROPIUM 0.5 MG/2.5 ML NEBU INHALATION SCH ×4 (07:56→20:43)
[2022-03-04] MEDS: FORMOTEROL FUMARATE 20 MCG/2 ML NEBU INHALATION SCH ×2 (07:56→20:43)
[2022-03-04] MEDS: METOPROLOL TARTRATE 50 MG TAB PO SCH ×2 (08:16→21:06)
[2022-03-04] MEDS: amLODIPine 5 MG TAB PO SCH (08:16)
[2022-03-04] MEDS: ENOXAPARIN 40 MG/0.4 ML SYRINGE SQ SCH (08:16)
[2022-03-04] MEDS: MULTIVITAMINS, THERA 1 EACH TAB PO SCH (08:16)
[2022-03-04] MEDS: VENLAFAXINE HCL ER 75 MG CAP PO SCH (08:16)
[2022-03-04] MEDS ORDERED: NON FORMULARY DRUG (Vitamin B Complex [Vitamin B Complex] 1 EACH Capsule) PO SCH (09:00)
[2022-03-04] MEDS: HYDROcodone/APAP 5-325MG 1 EACH TAB PO PRN ×2 (10:55→20:08)
--- NOTE | 2022-03-04 13:23 | P.PN ---
Subjective Progress Note Date: 03/04/22 Hospital course: Patient is a very pleasant 77-year-old female with a past medical history of COPD, hypertension, and hyperlipidemia. She presented to the emergency department with a chief complaint of back pain. Patient reports pain to left gluteal region radiating down laterally into left lateral thigh. Patient denies any falls or previous injuries. She denies history of previous back problems. She denies having any fevers, chills, dizziness, lightheadedness, chest pain, p alpitations, shortness of breath, abdominal pain, nausea, vomiting, changes in urinary function including frequency, urgency, or dysuria or experiencing any numbness/tingling/weakness in her extremities. Patient denies having any involuntary loss of bowel or bladder and denies saddlebag anesthesias. Patient underwent full evaluation in the emergency department. X-ray lumbar spine completed revealing diffuse osteopenia with multilevel degenerative disc disease and facet arthropathy. CBC and CMP unremarkable. Urinalysis positive for blood, nitrites, leukocytes, and greater than 182 WBCs. Patient was admitted under our services for pain management and monitored overnight. Patient reports continued uncontrolled lower back pain. She currently reports she is having pain to left lower lumbar region spine radiating into the left buttocks, hip, and wrapping around into left groin. Patient reports in addition to that she has been having urinary incontinence every time she sits up or stands up since yesterday. She does report a hx of urinary incontinence, but states never like this before. Patient denies having any numbness, weakness, decreased sensation or tingling in lower extremities. Order placed for stat MRI as cause of incontinence cannot be determined as this could be resulting from current UTI or spinal compression. Consult in place to orthospine surgery. Physical exam: Patient seen and fully evaluated at bedside. She reports continued uncontrolled lower back pain. She currently reports she is having pain to left lower lumbar region spine radiating into the left buttocks, hip, and wrapping around into left groin. Patient reports in addition to that she has been having urinary incontinence every time she sits up or stands up since yesterday. She does report a hx of urinary incontinence, but states never like this before. Patient denies having any numbness, weakness, decreased sensation or tingling in lower extremities. Order placed for stat MRI as cause of incontinence cannot be determined as this could be resulting from current UTI or spinal compression. Consult in place to orthospine surgery. Vital signs reviewed and stable. General: Nontoxic, no distress and appears stated age. Derm: Skin warm and dry, normal coloration for ethnicity. Head: Atraumatic, normocephalic and symmetric. Eyes: EOMs intact, no lid lag, and anicteric sclera Mouth: no lip lesions, mucus membranes moist Cardiovascular: regular rate and rhythm with normal S1S2, no murmur, positive posterior tibial pulses bilaterally, and cap refill < 2 seconds. Lungs: Respirations even, regular, and unlabored on room air. Lungs CTA bilaterally, no rhonchi, no rales, no wheezing, and no accessory muscle usage. Abdominal: soft, nontender to palpation, no guarding, no appreciable organomegaly Ext: ROM intact. No gross muscle atrophy, no edema, no contractures Neuro: Speech clear, face symmetrical and CN II-XII grossly intact with no noted focal neuro deficits Psych: Alert and oriented to person, place, time, and situation. Appropriate and pleasant affect. Assessment and Plan of Care: Lumbar back pain with left sided sciatica Urinary incontinence, unclear etiology as this could be resulting from current UTI or spinal cord depression. Need MRI. -X-ray lumbar spine revealing diffuse osteopenia with multilevel degenerative disc disease and facet arthropathy. -MRI lumbar spine without contrast -Decadron 4 mg IVP every 6 hours. -We will continue with pain management with [place]. -Bladder scan to monitor for retention and/or post void residual -Fall precautions -PT/OT -Orthospine consulted. UTI -Rocephin 1 g every 24 hours and follow up on urine culture, preliminary culture pending Hypertension -Monitor vital signs and continue daily medication regimen with amlodipine and metoprolol. Hyperlipidemia -Continue daily medication regimen with atorvastatin. CODE STATUS: Full code DVT prophylaxis: Lovenox Discussed with: Patient and RN Anticipated discharge date: Clinical course to determine Anticipated discharge place: Home A total of 39 minutes was spent on the care of this complex patient more than 50% of the time was spent in counseling and care coordination. I reviewed the documentation as provided by the ELVIN above, who is the original author of this note. I agree with the documented assessment and plan, with the following changes: none Objective - Vital Signs Vital signs: Vital Signs Temp 97.5 F L 03/04/22 07:00 Pulse 54 L 03/04/22 12:06 Resp 18 03/04/22 07:00 BP 129/56 03/04/22 07:00 Pulse Ox 98 03/04/22 07:00 FiO2 Intake & Output 03/03/22 03/04/22 03/04/22 18:59 06:59 18:59 Weight 55.338 kg Other: Voiding Method Toilet Toilet Diaper Diaper # Voids 1 1 1 - Labs CBC & Chem 7: 03/03/22 10:02 03/03/22 10:02 Labs: Microbiology - Last 24 Hours (Table) 03/03/22 09:47 Urine Culture - Preliminary Urine,Voided
[2022-03-04] MEDS ORDERED: DEXAMETHASONE SOD PHOSPHATE 4 MG/ML 1 ML VIAL IVP PRN (13:32)
--- NOTE | 2022-03-04 17:17 | P.CNOR ---
History of Present Illness - [facility] Consult date: 03/04/22 Consult reason: low back pain History of present illness: 77 yo female presented to the ED with c/o low back and leg pain after she states she was moving a heavy rock about 3-4 days ago. She initially did not have any issues but it became worse and worse and so she came to the ED. She also noticed that she started having issues with bladder control of which is not necessarily new for her as she has a long hx of UTI and difficulty with this but what was new is the overt incontinence that she was having. She states this is somewhat new. She denies any numbness or tingling in her genital region and she is able to control and know when she is having a BM. She denies any constipation or loss of bowel control currently. She states she can walk but her back is extremely painful when she does. She states if she were to stand up in the room now she would likely loose control of her bladder. She again has been treated several times for UTI and she states it all started after a surgery at an OSH several years back but that this is worse than it has been. She denies any f/c/sob/cp at this time. States tingling in b/l LE which worsens when she stands and walks. She denies weakness in LE. She states no N/V/change in vision/blurred vision. Review of Systems 14 pt ROS completed and as stated in HPI. All other systems reviewed are negative. Constitutional: Reports as per HPI Past Medical History Past Medical History: COPD, Hyperlipidemia, Hypertension Additional Past Medical History / Comment(s): Pt recently admitted to [facility] 01/22/17 with superficial thrombosis L arm cephalic vein, generalized weakness, hypomagnesemia, hypokalemia. Other HX: Multiple admissions for small bowel obstructions. History of Any Multi-Drug Resistant Organisms: ESBL Year Discovered:: 12/22/21 MDRO Source:: ESBL URINE Past Surgical History: Bowel Resection Additional Past Surgical History / Comment(s): bowel resection x 2, colonoscopy, hysterectomy Past Anesthesia/Blood Transfusion Reactions: No Reported Reaction Past Psychological History: Anxiety, Depression Smoking Status: Never smoker Past Alcohol Use History: Occasional Past Drug Use History: None Reported - Past Family History Sister(s) Family Medical History: Diabetes Mellitus Father Family Medical History: Coronary Artery Disease (CAD) Additional Family Medical History / Comment(s): Father of a NM in his 60's or 70's. Mother Family Medical History: No Reported History, Diabetes Mellitus Additional Family Medical History / Comment(s): Mother at the age of 88yrs. Medications and Allergies Home Medications Medication Instructions Recorded Confirmed Type Multivit-Min/Iron/Folic/Lutein 1 tab PO DAILY 01/15/17 03/03/22 History [Centrum Silver Women Tablet] Venlafaxine HCl ER [Effexor XR] 75 mg PO DAILY 01/15/17 03/03/22 History Metoprolol Tartrate [Lopressor] 50 mg PO BID #60 tab 03/04/17 03/03/22 Rx amLODIPine [Norvasc] 5 mg PO DAILY #30 tab 03/04/17 03/03/22 Rx Vitamin B Complex 1 cap PO DAILY 02/21/18 03/03/22 History Atorvastatin [Lipitor] 20 mg PO HS 03/03/22 03/03/22 History Estradiol Cream [Estrace Cream 1 gm VAGINAL TUSA 03/03/22 03/03/22 History 0.01%] Umeclidinium Brm/Vilanterol Tr 1 puff INHALATION RT-DAILY 03/03/22 03/03/22 History [Anoro Ellipta 62.5-25 Mcg INH] Allergies Allergy/AdvReac Type Severity Reaction Status Date / Time Penicillins Allergy Rash/Hives Verified 03/03/22 11:14 Physical Examination Osteopathic Statement: *. No significant issues noted on an osteopathic structural exam other than those noted in the History and Physical/Consult. PHYSICAL EXAMINATION: Vitals: Stable General: Awake, alert, appropriate for age, in no acute distress. HEENT: No unusual neck masses around region of lateral neck triangle, thyroid, supraclavicular groove. Extremities: Skin warm and dry without no acute lesions, coloration, temperature, skin intact, no tenderness or erythema. Integument: Hairy patches: Absent Dorsal skin dimples: Absent Cafe au lait spots: Absent Surgical incisions: None Palpation: Please see Pain drawing on Intake sheet for further detail. (Tenderness = T, Nontender = NT, Swelling = S, Ecchymosis = E) Findings on Midline and paraspinal palpation and percussion: Cervical: NT Thoracic: NT Lumbar: Mild tenderness to palpation paraspinal left-hand side Sacral: NT Special findings: Known POSTURAL and MUSCULO-SKELETAL EVALUATION: Lumbar ROM: Restricted secondary to pain Shoulder ROM: Symmetric in abduction, ER/IR Hip ROM: Symmetric in abduction, adduction, ER/IR Knee ROM: Symmetric and intact in Flexion / extension Hands: Normal appearing structure L and R Feet: Normal appearing structure L and R VASCULAR STATUS : Wrist Pulses: 2/4 bilateral radial and ulnar Pedal Pulses: 2/4 bilateral DP and PT Color: Normal Edema: None NEUROLOGIC EXAMINATION: Mental Status: Awake and alert, fully oriented, with normal attention, concentration and memory, and fluent, appropriate speech. Cranial Nerves: I: Olfactory not tested. II: Visual acuity normal, no visual field deficit noted with confrontation. III,IV: Normal pupillary reflexes & intact extraocular movements without nystagmus. V,: Intact symmetrical facial sensation. VII: Intact symmetrical facial motor movement VIII: Hearing intact. IX,X: Intact gag, swallow, & normal voice. XI: Sternocleidomastoid, trapezius function intact. XII: Tongue midline with normal movements. Special Tests: L'hermitte's Sign: Absent Spurling'Sign: Absent Bilateral Cubital percussion test: Absent Bilateral Rafa-Tinel sign - Carpal region: Absent Bilateral Straight Leg Raising: Absent Bilateral Motor Exam (0-5/5, N/T) STRENGTH UPPER EXTREMITY Shoulder Abd (Not part of SOY Motor score): RIGHT 5 LEFT 5 Elbow Flexors: RIGHT 5 LEFT 5 Elbow Extensor: RIGHT 5 LEFT 5 Wrrist Dorsiflexors: RIGHT 5 LEFT 5 Finger Abductor: RIGHT 5 LEFT 5 Mems Device Scientist: RIGHT 5 LEFT 5 LOWER EXTREMITY Hip Flexor (Not part of SOY Motor Score): RIGHT 5 LEFT 5 Knee Flexor: RIGHT 5 LEFT 5 Knee Extensor: RIGHT 5 LEFT 5 Ankle Dorsiflexion: RIGHT 5 LEFT 5 Ankle Plantarflexion: RIGHT 5 LEFT 5 EHL: RIGHT 5 LEFT 5 FHL: RIGHT 5 LEFT 5 Some deconditioning noted overall but she does have good strength bilaterally in the equal REFLEXES Biecp: RIGHT 2 LEFT 2 Tricep: RIGHT 2 LEFT 2 Brachioradialis: RIGHT 2 LEFT 2 Patellar: RIGHT 2 LEFT 2 Achilles: RIGHT 2 LEFT 2 Pathological Reflexes Bryant's: RIGHT Absent LEFT Absent Babinski: RIGHT Absent LEFT Absent Clonus: RIGHT None LEFT None SENSORY Joint Position: Intact bilaterally Vibration Intact bilaterally Pain and LT sense Intact C5-T1 and L2-S1 Dermatomal deficit None Gait and Functional Evaluation: Ambulatory aids: Walker currently, normally she ambulates independently - Lumbar Spine Back pain: none, gradual onset, getting worse Pain modifiers: throughout ROM Results Xray Lumbar spine reviewed. Spondylosis noted of the lumbar spine. No evidence of fracture or lesions. No instability noted, these are not kinetic films however. Disc spaces slightly decreased overall. Facet arthropathy noted. Vertebral body heights maintained. LL reasonable. Coronal balance maintained. MRI pending. - Labs Labs: Microbiology - Last 24 Hours (Table) 03/03/22 09:47 Urine Culture - Preliminary Urine,Voided H & H 03/03/22 Range/Units 10:02 Hgb 14.1 (11.4-16.0) gm/dL Hct 44.4 (34.0-46.0) % Result Diagrams: 03/03/22 10:02 03/03/22 10:02 Assessment and Plan Assessment: 77 yo female with mechanical low back pain, UI and UTI BLE paresthesias Plan: -Appreciate Team management and consultants -Pain control as appropriate -Recommend decadron -Agree with stat MRI L spine w/o -Consider Gabapentin for neuropathic pain and low back pain -Cont with UTI treatments to see if her UI gets any better -Further recs once MRI is completed. Thank you very much for this consultation, do not hesitate to contact with any questions. Time with Patient: Greater than 30
[2022-03-04] MEDS: DEXAMETHASONE SOD PHOSPHATE 4 MG/ML 1 ML VIAL IVP SCH ×2 (17:45→23:51)
[2022-03-04] MEDS: LIDOCAINE 5% PATCH TOPICAL SCH (17:45)
[2022-03-04] MEDS: ATORVASTATIN 20 MG TAB PO SCH (21:06)
[2022-03-05] MEDS: DEXAMETHASONE SOD PHOSPHATE 4 MG/ML 1 ML VIAL IVP SCH ×4 (06:09→22:04)
[2022-03-05] MEDS: HYDROcodone/APAP 5-325MG 1 EACH TAB PO PRN ×3 (06:09→18:12)
[2022-03-05] MEDS: FORMOTEROL FUMARATE 20 MCG/2 ML NEBU INHALATION SCH ×2 (07:23→22:06)
[2022-03-05] MEDS: IPRATROPIUM 0.5 MG/2.5 ML NEBU INHALATION SCH ×4 (07:23→22:06)
--- NOTE | 2022-03-05 07:58 | P.PN ---
Subjective Progress Note Date: 03/05/22 Principal diagnosis: Low back pain Patient seen and examined at bedside. Patient was laying recumbent in bed with breathing treatment being administered. Patient states that her pain is better controlled on current regimen. She states her MRI is scheduled for 10:15 today. Informed patient that we will be back over this afternoon to discuss further plan of care after MRI results are reviewed. Patient verbalized understanding. Patient states all needs are minimal at this time. Objective - Vital Signs Vital signs: Vital Signs Temp 97.7 F 03/05/22 00:40 Pulse 74 03/05/22 07:38 Resp 18 03/05/22 00:40 BP 170/69 03/05/22 00:40 Pulse Ox 95 03/05/22 00:40 FiO2 Intake & Output 03/04/22 03/05/22 03/05/22 18:59 06:59 18:59 Other: Voiding Method Toilet Toilet Diaper Diaper Incontinent # Voids 1 6 - Exam Physical Examination General: The patient is awake and alert, in no acute distress Skin: Skin is warm and dry with no obvious rashes or lesions. Hairy patches abs ent, no dorsal skin dimples, no cafe au lait spots, and no surgical incisions. Eye: Pupils are equal, round and reactive to light, extra-ocular movements are intact; there is normal conjunctiva bilaterally. Neck: The neck is supple, there is no tenderness and ROM intact. Cardiovascular: There is a regular rate and rhythm. No murmur, rub or gallop is appreciated. Respiratory: Lungs are clear to auscultation, respirations are non-labored, breath sounds are equal. Gastrointestinal: Soft, non-distended, non-tender abdomen . Back: There is no tenderness to palpation in the midline, paralumbar, parathoracic or buttocks region. There is no obvious deformity . Musculoskeletal: ROM limited secondary to pain and stiffness from surgical procedure. Shoulder abduction 5/5, elbow flexors 5/5, wrist dorsiflexors 5/5. finger abductor 5/5, non destructive testing inspector 5/5, hip flexor 5/5, knee flexor 5/5, ankle d orsiflexor 5/5, ankle plantarflexion 5/5 and extensor hallucis 5/5. Neurological: CN 2-12 intact. There are no obvious motor or sensory deficits. Movement and coordination equal and intact. Sensory exam to light touch intact C5-T1 and intact from L2-S1. Reflexes 2/4 in bilateral upper and lower e xtremities. Negative Hoffmans, babinski, and clonus signs. Psychiatric: Cooperative, appropriate mood & affect, normal judgment. - Labs CBC & Chem 7: 03/03/22 10:02 03/03/22 10:02 Labs: Microbiology - Last 24 Hours (Table) 03/03/22 09:47 Urine Culture - Preliminary Urine,Voided Gram Neg Bacilli Assessment and Plan Assessment: Mechanical low back pain BLE paresthesias Plan: -Appreciate Team management and consultants -Pain control as appropriate -Further recommendations once MRI is completed. Thank you very much for this consultation, do not hesitate to contact with any questions. *I reviewed and discussed this case with my attending Dr. Oconnor, whom has reviewed this chart and films and is in agreement with assessment and plan of care as outlined above. I have personally seen and examined the patient, performed the documentation and the assessment and plan as written. Number of minutes spent on the visit: 20m.
[2022-03-05] MEDS: METOPROLOL TARTRATE 50 MG TAB PO SCH ×2 (08:09→19:29)
[2022-03-05] MEDS: ENOXAPARIN 40 MG/0.4 ML SYRINGE SQ SCH (08:09)
[2022-03-05] MEDS: VENLAFAXINE HCL ER 75 MG CAP PO SCH (08:09)
[2022-03-05] MEDS: amLODIPine 5 MG TAB PO SCH (08:09)
[2022-03-05] MEDS: MULTIVITAMINS, THERA 1 EACH TAB PO SCH (08:13)
[2022-03-05] MEDS: HYDROmorphone 0.5 MG/0.5 ML SYRINGE IVP PRN ×3 (08:24→21:52)
--- NOTE | 2022-03-05 10:47 | P.PN ---
Subjective Progress Note Date: 03/05/22 Hospital course: Patient is a very pleasant 77-year-old female with a past medical history of COPD, hypertension, and hyperlipidemia. She presented to the emergency department with a chief complaint of back pain. Patient reports pain to left gluteal region radiating down laterally into left lateral thigh. Patient denies any falls or previous injuries. She denies history of previous back problems. She denies having any fevers, chills, dizziness, lightheadedness, chest pain, p alpitations, shortness of breath, abdominal pain, nausea, vomiting, changes in urinary function including frequency, urgency, or dysuria or experiencing any numbness/tingling/weakness in her extremities. Patient denies having any involuntary loss of bowel or bladder and denies saddlebag anesthesias. Patient underwent full evaluation in the emergency department. X-ray lumbar spine completed revealing diffuse osteopenia with multilevel degenerative disc disease and facet arthropathy. CBC and CMP unremarkable. Urinalysis positive for blood, nitrites, leukocytes, and greater than 182 WBCs. Patient was admitted under our services for pain management and monitored overnight. Patient reports continued uncontrolled lower back pain. She currently reports she is having pain to left lower lumbar region spine radiating into the left buttocks, hip, and wrapping around into left groin. Patient reports in addition to that she has been having urinary incontinence every time she sits up or stands up since yesterday. She does report a hx of urinary incontinence, but states never like this before. Patient denies having any numbness, weakness, decreased sensation or tingling in lower extremities. Order placed for stat MRI as cause of incontinence cannot be determined as this could be resulting from current UTI or spinal compression. Consult in place to orthospine surgery. Physical exam: Patient seen and fully evaluated at bedside this morning. She is scheduled to be taken down for MRI at 10:15 AM. She reports continued uncontrolled lower back pain and today reports numbness and tingling in her lower extremities upon standing which she reports began yesterday. Patient denies having any incontinence at rest but also continues to report urinary incontinence upon sitting and/or standing. This is possibly urge incontinence secondary to UTI and long-standing history of incontinence, but MRI is being completed to rule out causing factor as patient also has degenerative disc disease and lumbar spine and acute lower back pain. Patient denies having any saddlebag anesthesia s. She remains on IV antibiotic Rocephin for treatment of UTI. Preliminary urine cultures positive for gram-negative bacilli awaiting final culture and sensitivity report. Vital signs reviewed and stable. General: Nontoxic, no distress and appears stated age. Derm: Skin warm and dry, normal coloration for ethnicity. Head: Atraumatic, normocephalic and symmetric. Eyes: EOMs intact, no lid lag, and anicteric sclera Mouth: no lip lesions, mucus membranes moist Cardiovascular: regular rate and rhythm with normal S1S2, no murmur, positive posterior tibial pulses bilaterally, and cap refill < 2 seconds. Lungs: Respirations even, regular, and unlabored on room air. Lungs CTA bilaterally, no rhonchi, no rales, no wheezing, and no accessory muscle usage. Abdominal: soft, nontender to palpation, no guarding, no appreciable organomegaly Ext: ROM intact. No gross muscle atrophy, no edema, no contractures Neuro: Speech clear, face symmetrical and CN II-XII grossly intact with no noted focal neuro deficits Psych: Alert and oriented to person, place, time, and situation. Appropriate and pleasant affect. Assessment and Plan of Care: Lumbar back pain with left sided sciatica Urinary incontinence, unclear etiology as this could be resulting from urge incontinence on top of UTI or spinal cord depression. Need MRI . -X-ray lumbar spine revealing diffuse osteopenia with multilevel degenerative disc disease and facet arthropathy. -MRI lumbar spine without contrast -Decadron 4 mg IVP every 6 hours. -We will continue with pain management with [place]. -Bladder scan to monitor for retention and/or post void residual -Fall precautions -PT/OT -Orthospine consulted. UTI -Rocephin 1 g every 24 hours and follow up on urine culture, preliminary culture positive for gram-negative bacilli, final culture and sensitivity report pending Hypertension -Monitor vital signs and continue daily medication regimen with amlodipine and metoprolol. Hyperlipidemia -Continue daily medication regimen with atorvastatin. CODE STATUS: Full code DVT prophylaxis: Lovenox Discussed with: Patient and RN Anticipated discharge date: Clinical course to determine Anticipated discharge place: Home A total of 35 minutes was spent on the care of this complex patient more than 50% of the time was spent in counseling and care coordination. I reviewed the documentation as provided by the ELVIN above, who is the original author of this note. I agree with the documented assessment and plan, with the following changes: none Objective - Vital Signs Vital signs: Vital Signs Temp 97.7 F 03/05/22 07:00 Pulse 74 03/05/22 07:38 Resp 16 03/05/22 07:00 BP 153/67 03/05/22 07:00 Pulse Ox 95 03/05/22 07:00 FiO2 Intake & Output 03/04/22 03/05/22 03/05/22 18:59 06:59 18:59 Intake Total 358 Balance 358 Intake: Oral 358 Other: Voiding Method Toilet Toilet Diaper Diaper Incontinent # Voids 1 6 1 - Labs CBC & Chem 7: 03/03/22 10:02 03/03/22 10:02 Labs: Microbiology - Last 24 Hours (Table) 03/03/22 09:47 Urine Culture - Preliminary Urine,Voided Gram Neg Bacilli
--- NOTE | 2022-03-05 12:25 | MR ---
EXAMINATION TYPE: MR lumbar spine wo con DATE OF EXAM: 03/05/2022 COMPARISON: 03/03/2022 plain film HISTORY: Lower back pain, incontinence CONTRAST: 0 mL intravenous Gadavist. TECHNIQUE: Multiplanar, multisequence images of the lumbar spine were acquired. FINDINGS: Cord terminates at T12 level. Diffuse disc desiccation is through the lumbar spine. L5-S1: Minimal disc bulge is present without thecal sac contact or exiting nerve root contact some fa cet hypertrophy is present No spinal canal stenosis. No foraminal stenosis. . L4-L5: Broad-based disc bulge is present with anterior thecal sac contact. No AP spinal canal stenosi s present facet hypertrophy and ligamentum flavum laxity is evident. No spinal canal stenosis. No f oraminal stenosis. Neural foramen are patent.. L3-L4: No significant disc bulge or disc herniation. No spinal canal stenosis. No foraminal stenosi s. Mild facet hypertrophy is present without significant posterior lateral thecal sac compression L2-L3: No significant disc bulge or disc herniation. No spinal canal stenosis. No foraminal stenosi s. Neural foramen are patent.. L1-L2: No significant disc bulge or disc herniation. No spinal canal stenosis. No foraminal stenosi s. Neural foramen are patent.. T12-L1: No significant disc bulge or disc herniation. No spinal canal stenosis. No foraminal stenos is. Neural foramen are patent.. Some endplate changes at the inferior endplate of T12 may be related to Schmorl's node. Distal spinal cord within the field of view appears unremarkable. No suspicious cord compression or c auda equina masses are evident. IMPRESSION: 1. Mild disc bulging at L4-5 and L5-S1. 2. Minimal facet hypertrophy present at L3-4 through L5-S1. 3. No suspicious changes to account for incontinence within the [id number]
[2022-03-05] MEDS: LIDOCAINE 5% PATCH TOPICAL SCH (15:43)
--- NOTE | 2022-03-05 17:11 | P.PN ---
Progress Note - Text Progress Note Date: 03/05/22 MRI reviewed. There is an old T12 inferior endplate VCF that does not appear acute on T1 or T2 films. There are no areas of stenosis that would explain the patients symptoms in the lumbar spine. If clinical suspicion continues or she has weakness globally in her legs would need T spine MRI, but she has been doing better and feeling better with her current treatments. Cont with conservative measures for back pain. No surgical intervention at this time.
[2022-03-05] MEDS: ATORVASTATIN 20 MG TAB PO SCH (19:29)
[2022-03-06] MEDS: HYDROcodone/APAP 5-325MG 1 EACH TAB PO PRN ×4 (02:53→22:13)
[2022-03-06] MEDS: DEXAMETHASONE SOD PHOSPHATE 4 MG/ML 1 ML VIAL IVP SCH ×2 (05:34→14:57)
[2022-03-06] MEDS: VENLAFAXINE HCL ER 75 MG CAP PO SCH (07:56)
[2022-03-06] MEDS: MULTIVITAMINS, THERA 1 EACH TAB PO SCH (07:56)
[2022-03-06] MEDS: ENOXAPARIN 40 MG/0.4 ML SYRINGE SQ SCH (07:56)
[2022-03-06] MEDS: amLODIPine 5 MG TAB PO SCH (07:56)
[2022-03-06] MEDS: METOPROLOL TARTRATE 50 MG TAB PO SCH ×2 (07:56→20:22)
[2022-03-06] MEDS: FORMOTEROL FUMARATE 20 MCG/2 ML NEBU INHALATION SCH ×2 (07:59→20:02)
[2022-03-06] MEDS: IPRATROPIUM 0.5 MG/2.5 ML NEBU INHALATION SCH ×4 (07:59→20:02)
[2022-03-06] MEDS: HYDROmorphone 0.5 MG/0.5 ML SYRINGE IVP PRN ×2 (09:13→23:50)
--- NOTE | 2022-03-06 12:21 | P.PN ---
Subjective Progress Note Date: 03/06/22 Hospital course: Patient is a very pleasant 77-year-old female with a past medical history of COPD, hypertension, and hyperlipidemia. She presented to the emergency department with a chief complaint of back pain. Patient reports pain to left gluteal region radiating down laterally into left lateral thigh. Patient denies any falls or previous injuries. She denies history of previous back problems. She denies having any fevers, chills, dizziness, lightheadedness, chest pain, palpitations, shortness of breath, abdominal pain, nausea, vomiting, changes in urinary function including frequency, urgency, or dysuria or experiencing any numbness/tingling/weakness in her extremities. Patient denies having any involuntary loss of bowel or bladder and denies saddlebag anesthesias. Patient underwent full evaluation in the emergency department. X-ray lumbar spine completed revealing diffuse osteopenia with multilevel degenerative disc disease and facet arthropathy. CBC and CMP unremarkable. Urinalysis positive for blood, nitrites, leukocytes, and greater than 182 WBCs. Patient was admitted under our services for pain management and monitored overnight. Patient reports continued uncontrolled lower back pain. She currently reports she is having p ain to left lower lumbar region spine radiating into the left buttocks, hip, and wrapping around into left groin. Patient reports in addition to that she has been having urinary incontinence every time she sits up or stands up since yesterday. She does report a hx of urinary incontinence, but states never like this before. Patient denies having any numbness, weakness, decreased sensation or tingling in lower extremities. Order placed for stat MRI as cause of incontinence cannot be determined as this could be resulting from current UTI or spinal compression. Consult in place to orthospine surgery. MRI completed revealing mild disc bulging at L4 through L5 and L5 through S1 with minimal f acet hypertrophy at L3-L4 through L5 through S1. MRI findings not consistent with urinary incontinence. Urinary incontinence likely secondary to recurrent UTIs. Patient will need to follow up outpatient with urology for recurrent urinary tract infections and gynecology as current reports of incontinence are consistent with stress incontinence. Physical exam: Patient seen and fully evaluated at bedside this morning. Patient currently reporting she continues to have difficulties with ambulation secondary to lower back pain and also reports continued urinary incontinence upon sitting or standing. Patient denies having any headache, lightheadedness, dizziness, chest pain, palpitations, shortness of breath, or any other complaints at this time. Discussed with case management patient's concerns and requests for possible SNF placement. Urine culture resulting positive for E. coli. IV antibiotic discontinued and patient placed on Keflex 500 mg twice a day. Plan is for discharge in the next 24-48 hours home with homecare versus SNF. Vital signs reviewed and stable. General: Nontoxic, no distress and appears stated age. Derm: Skin warm and dry, normal coloration for ethnicity. Head: Atraumatic, normocephalic and symmetric. Eyes: EOMs intact, no lid lag, and anicteric sclera Mouth: no lip lesions, mucus membranes moist Cardiovascular: regular rate and rhythm with normal S1S2, no murmur, positive posterior tibial pulses bilaterally, and cap refill < 2 seconds. Lungs: Respirations even, regular, and unlabored on room air. Lungs CTA bilaterally, no rhonchi, no rales, no wheezing, and no accessory muscle usage. Abdominal: soft, nontender to palpation, no guarding, no appreciable organomegaly Ext: ROM intact. No gross muscle atrophy, no edema, no contractures Neuro: Speech clear, face symmetrical and CN II-XII grossly intact with no noted focal neuro deficits Psych: Alert and oriented to person, place, time, and situation. Appropriate and pleasant affect. Assessment and Plan of Care: Lumbar back pain with left sided sciatica -X-ray lumbar spine revealing diffuse osteopenia with multilevel degenerative disc disease and facet arthropathy. -Lumbar MRI completed revealing mild disc bulging at L4 through L5 and L5 through S1 with minimal facet hypertrophy at L3-L4 through L5 through S1. MRI findings not consistent with urinary incontinence. -Decadron 4 mg IVP every 6 hours. -We will continue with pain management with [place]. -Bladder scan to monitor for retention and/or post void residual -Fall precautions -PT/OT -Orthospine consulted. E. coli UTI Urinary incontinence, consistent with stress incontinence -Urine culture positive for E. coli. -Keflex 500 mg twice a day -Bladder management with bladder scans as needed to monitor for postvoid residuals and retention -Patient will need to follow up outpatient with urology for recurrent urinary tract infections and gynecology as current reports of incontinence are consistent with stress incontinence. Hypertension -Monitor vital signs and continue daily medication regimen with amlodipine and metoprolol. Hyperlipidemia -Continue daily medication regimen with atorvastatin. CODE STATUS: Full code DVT prophylaxis: Lovenox Discussed with: Patient and RN Anticipated discharge date: Plan for discharge in the next 24-48 hours. Home with homecare versus SNF. Anticipated discharge place: Home with homecare versus SNF A total of 33 minutes was spent on the care of this complex patient more than 50% of the time was spent in counseling and care coordination. I reviewed the documentation as provided by the ELVIN above, who is the original author of this note. I agree with the documented assessment and plan, with the following changes: None Objective - Vital Signs Vital signs: Vital Signs Temp 97.7 F 03/06/22 07:00 Pulse 60 03/06/22 11:33 Resp 18 03/06/22 08:00 BP 174/78 03/06/22 07:00 Pulse Ox 97 03/06/22 07:00 FiO2 Intake & Output 03/05/22 03/06/22 03/06/22 18:59 06:59 18:59 Intake Total 716 180 Balance 716 180 Intake: Oral 716 180 Other: Voiding Method Toilet Toilet Toilet Diaper Diaper Diaper Incontinent Incontinent Incontinent # Voids 1 1 1 - Labs CBC & Chem 7: 03/03/22 10:02 03/03/22 10:02 Labs: Microbiology - Last 24 Hours (Table) 03/03/22 09:47 Urine Culture - Final Urine,Voided Escherichia coli
[2022-03-06] MEDS: LIDOCAINE 5% PATCH TOPICAL SCH (17:51)
[2022-03-06] MEDS: ATORVASTATIN 20 MG TAB PO SCH (20:22)
[2022-03-06] MEDS: CEPHALEXIN 500 MG CAP PO SCH (20:23)
[2022-03-06] MEDS ORDERED: HYDROcodone/APAP 10-325MG 1 EACH TAB PO PRN (23:03)
[2022-03-07] MEDS: amLODIPine 5 MG TAB PO SCH (08:41)
[2022-03-07] MEDS: METOPROLOL TARTRATE 50 MG TAB PO SCH (08:41)
[2022-03-07] MEDS: MULTIVITAMINS, THERA 1 EACH TAB PO SCH (08:41)
[2022-03-07] MEDS: VENLAFAXINE HCL ER 75 MG CAP PO SCH (08:41)
[2022-03-07] MEDS: CEPHALEXIN 500 MG CAP PO SCH (08:41)
[2022-03-07] MEDS: ENOXAPARIN 40 MG/0.4 ML SYRINGE SQ SCH (08:42)
[2022-03-07 08:49] VITALS: BP 167/81; RESP 16; TEMP 98
[2022-03-07] MEDS ORDERED: methylPREDNISolone 4 MG TAB TAPER PO SCH (09:00)
[2022-03-07] MEDS: FORMOTEROL FUMARATE 20 MCG/2 ML NEBU INHALATION SCH (09:13)
[2022-03-07] MEDS: IPRATROPIUM 0.5 MG/2.5 ML NEBU INHALATION SCH ×2 (09:13→12:56)
[2022-03-07 10:28] VITALS: PULSE 66
[2022-03-07] MEDS: HYDROmorphone 0.5 MG/0.5 ML SYRINGE IVP PRN (11:16)
--- NOTE | 2022-03-07 11:51 | P.DS ---
Providers Date of admission: 03/04/22 13:05 Expected date of discharge: 03/07/22 Attending physician: Krista Gonzalez DO Consults: 03/04/22 13:02 Consult Physician Urgent Consulting Provider: Zach Oconnor Consult Reason/Comments: lower back pain DDD, now reporting incontinence Do you want consulting provider notified?: Yes Primary care physician: [facility] Course: Discharge Diagnosis: Lumbar back pain with left sided sciatica Bulging of lumbar disc L4 through L5 and L5 through S1, follow-up outpatient with orthospine specialist Dr. Oconnor E. coli UTI, patient received 3 days of IV antibiotics and to be discharged home on additional 4 day course of Keflex to complete 7 day course Urinary incontinence, consistent with stress incontinence, follow-up outpatient with gynecology Hypertension, Monitor vital signs and continue daily medication regimen with amlodipine and metoprolol. Hyperlipidemia, Continue daily medication regimen with atorvastatin. Hospital Course: Patient is a very pleasant 77-year-old female with a past medical history of COPD, hypertension, and hyperlipidemia. She presented to the emergency department with a chief complaint of back pain. Patient reports pain to left gluteal region radiating down laterally into left lateral thigh. Patient denies any falls or previous injuries. She denies history of previous back problems. She denies having any fevers, chills, dizziness, lightheadedness, chest pain, palpitations, shortness of breath, abdominal pain, nausea, vomiting, changes in urinary function including frequency, urgency, or dysuria or experiencing any numbness/tingling/weakness in her extremities. Patient denies having any involuntary loss of bowel or bladder and denies saddlebag anesthesias. Patient underwent full evaluation in the emergency department. X-ray lumbar spine completed revealing diffuse osteopenia with multilevel degenerative disc disease and facet arthropathy. CBC and CMP unremarkable. Urinalysis positive for blood, nitrites, leukocytes, and greater than 182 WBCs. Patient was admitted under our services for pain management and monitored overnight. Patient reports continued uncontrolled lower back pain. She currently reports she is having pain to left lower lumbar region spine radiating into the left buttocks, hip, and wrapping around into left groin. Patient reports in addition to that she has been having urinary incontinence every time she sits up or stands up since yesterday. She does report a hx of urinary incontinence, but states never like this before. Patient denies having any numbness, weakness, decreased sensation or tingling in lower extremities. Order placed for stat MRI as cause of incontinence cannot be determined as this could be resulting from current UTI or spinal compression. Consult in place to orthospine surgery. MRI completed revealing mild disc bulging at L4 through L5 and L5 through S1 with minimal facet hypertrophy at L3-L4 through L5 through S1. MRI findings not consistent with urinary incontinence. Urinary incontinence likely secondary to recurrent UTIs. Patient will need to follow up outpatient with urology for recurrent urinary tract infections and gynecology as current reports of incontinence are consistent with stress incontinence. Patient is medically stable at this time. She has been working with PT/OT and ambulating up and down the halls without any noted difficulties. Patient being discharged home with home care for continued PT/OT. Patient to follow-up outpatient with orthospine specialist Dr. Oconnor, for continued management of back pain. Follow up outpatient with gynecology for stress incontinence. And continue to follow with your urologist and infectious disease for continued treatment of recurrent UTIs. Patient discharged home on an additional 4 day course of antibiotics with Keflex to complete a full 7 day course. Physical exam: Vital signs reviewed and stable. General: Nontoxic, no distress and appears stated age. Derm: Skin warm and dry, normal coloration for ethnicity. Head: Atraumatic, normocephalic and symmetric. Eyes: EOMs intact, no lid lag, and anicteric sclera Mouth: no lip lesions, mucus membranes moist Cardiovascular: regular rate and rhythm with normal S1S2, no murmur, positive posterior tibial pulses bilaterally, and cap refill < 2 seconds. Lungs: Respirations even, regular, and unlabored on room air. Lungs CTA bila terally, no rhonchi, no rales, no wheezing, and no accessory muscle usage. Abdominal: soft, nontender to palpation, no guarding, no appreciable organomegaly Ext: ROM intact. No gross muscle atrophy, no edema, no contractures Neuro: Speech clear, face symmetrical and CN II-XII grossly intact with no noted focal neuro deficits Psych: Alert and oriented to person, place, time, and situation. Appropriate and pleasant affect. A total of 36 minutes of time were spent preparing this complex discharge summary. Pt was discharged on 03/07/22 at 11:51 AM I reviewed the documentation as provided by the ELVIN above, who is the original author of this note. I agree with the documented assessment and plan, with the following changes: none Patient Condition at Discharge: Stable Plan - Discharge Summary Discharge Rx Participant: No New Discharge Prescriptions: New Lidocaine 5% Patch [Lidoderm 5% Patch] 1 patch TOPICAL Q24H 30 Days #30 patch Ibuprofen [Motrin] 800 mg PO Q8H PRN #24 tab PRN Reason: Pain Cephalexin [Keflex] 500 mg PO BID 4 Days #8 cap methylPREDNISolone [Medrol Dose Pack] See Taper PO DIRECTED #1 packet HYDROcodone/APAP 5-325MG [[place] 5-325] 1 tab PO Q4HR PRN 3 Days #18 tab PRN Reason: Pain Continue Venlafaxine HCl ER [Effexor XR] 75 mg PO DAILY Multivit-Min/Iron/Folic/Lutein [Centrum Silver Women Tablet] 1 tab PO DAILY amLODIPine [Norvasc] 5 mg PO DAILY #30 tab Metoprolol Tartrate [Lopressor] 50 mg PO BID #60 tab Vitamin B Complex 1 cap PO DAILY Umeclidinium Brm/Vilanterol Tr [Anoro Ellipta 62.5-25 Mcg INH] 1 puff INHALATION RT-DAILY Estradiol Cream [Estrace Cream 0.01%] 1 gm VAGINAL TUSA Atorvastatin [Lipitor] 20 mg PO HS Discharge Medication List Multivit-Min/Iron/Folic/Lutein [Centrum Silver Women Tablet] 1 tab PO DAILY 01/15/17 [History] Venlafaxine HCl ER [Effexor XR] 75 mg PO DAILY 01/15/17 [History] Metoprolol Tartrate [Lopressor] 50 mg PO BID #60 tab 03/04/17 [Rx] amLODIPine [Norvasc] 5 mg PO DAILY #30 tab 03/04/17 [Rx] Vitamin B Complex 1 cap PO DAILY 02/21/18 [History] Atorvastatin [Lipitor] 20 mg PO HS 03/03/22 [History] Estradiol Cream [Estrace Cream 0.01%] 1 gm VAGINAL TUSA 03/03/22 [History] Umeclidinium Brm/Vilanterol Tr [Anoro Ellipta 62.5-25 Mcg INH] 1 puff INHALATION RT-DAILY 03/03/22 [History] Cephalexin [Keflex] 500 mg PO BID 4 Days #8 cap 03/07/22 [Rx] HYDROcodone/APAP 5-325MG [[place] 5-325] 1 tab PO Q4HR PRN 3 Days #18 tab 03/07/22 [Rx] Ibuprofen [Motrin] 800 mg PO Q8H PRN #24 tab 03/07/22 [Rx] Lidocaine 5% Patch [Lidoderm 5% Patch] 1 patch TOPICAL Q24H 30 Days #30 patch 03/07/22 [Rx] methylPREDNISolone [Medrol Dose Pack] See Taper PO DIRECTED #1 packet 03/07/22 [Rx] Follow up Appointment(s)/Referral(s): Zach Oconnor DO [Doctor of Osteopathic Medicine] - 1 Week Jerome Hanna DO [Primary Care Provider] - 1-2 days Naheed Chopra DO [Doctor of Osteopathic Medicine] - 1 Week (Need to follow-up for stress incontinence) Patient Instructions/Handouts: Urinary Incontinence (GEN), Kegel Exercises for Women (DC), Low Back Strain (DC), Acute Low Back Pain (GEN) Activity/Diet/Wound Care/Special Instructions: Activity: As tolerated. Take breaks as needed. Diet: Heart healthy and carb consistent diet. Avoid salts, or foods with hidden salts such as canned or boxed foods and frozen dinners. Extra salt makes your heart work harder and traps the fluid in your body for longer. Special Instructions: Take all of your medications as directed and remember to keep all of your doctor's appointments and follow-up as needed. As recommended, you will need to follow up with bit wel[facility] for evaluation of your stress incontinence. It is also recommended that you follow-up with Dr. Oconnor, Orthospine specialist as needed for management of your back pain. Thank you for allowing us to participate in your care, it was truly a pleasure having you for our patient!!! Discharge Disposition: HOME WITH HOME HEALTH SERVICES
== END 2022-03-07 13:58 | disposition home health service (06) ==
LOC: EC 08:45 → 6NMEDSUR 12:27 → OBSVTOIN 03-04 13:05 → INTOOBSV 03-04 13:05 → UNDODISIN 03-07 13:58
PROVIDERS: ADMIT Internal Medicine; ATTEND Internal Medicine
DX: M51.16 Intervertebral disc disorders with radiculopathy, lumbar region (principal); N39.0 Urinary tract infection, site not specified; I10 Essential (primary) hypertension; E78.5 Hyperlipidemia, unspecified; M47.896 Other spondylosis, lumbar region; M46.96 Unspecified inflammatory spondylopathy, lumbar region; M85.88 Other specified disorders of bone density and structure, other site; J44.9 Chronic obstructive pulmonary disease, unspecified; N39.498 Other specified urinary incontinence; B96.20 Unspecified Escherichia coli [E. coli] as the cause of diseases classified elsewhere; F32.A Depression, unspecified; F41.9 Anxiety disorder, unspecified; E87.6 Hypokalemia; E83.42 Hypomagnesemia; Z79.899 Other long term (current) drug therapy; Z82.49 Family history of ischemic heart disease and other diseases of the circulatory system; Z83.3 Family history of diabetes mellitus; Z87.440 Personal history of urinary (tract) infections; Z90.710 Acquired absence of both cervix and uterus; Z88.0 Allergy status to penicillin; Z87.81 Personal history of (healed) traumatic fracture; Z87.19 Personal history of other diseases of the digestive system; Z71.9 Counseling, unspecified
CPT/HCPCS: 96376 ×6; 96365; 96372 ×4; 96375 ×3; 99285; 36415; 94640 ×8; 94760; 97116; 97530; 97162; 97166; 80053; 85025; 81001; 87086; 87077; 87186; 72110; 72148; G0378 ×5; J1100 ×3; J2360; J2930; J2405; J1650 ×4; J0696 ×4; J1885; J7509; J1170 ×5; 96374

== ENCOUNTER 2023-05-16 10:02 | Observation (INO) | payer MEDICARE ==
[2023-05-16 10:06] LABS: Glucose,Whole Blood 92 mg/dL (70-110)
[2023-05-16] MEDS ORDERED: SODIUM CHLORIDE 0.9% 1,000 ML IV STA (10:07)
[2023-05-16] MEDS ORDERED: ONDANSETRON 4 MG/2 ML VIAL IVP STA (10:10)
--- NOTE | 2023-05-16 10:28 | CT ---
EXAMINATION TYPE: CT brain wo con DATE OF EXAM: 05/16/2023 COMPARISON: 02/21/2018 HISTORY: 78-year-old female, Neuro deficits code stroke TECHNIQUE: Examination was done in axial plane without intravenous contrast. Coronal and sagittal r econstructions performed. CT DLP: 1163.6 mGycm Automated exposure control for dose reduction was used. FINDINGS: There is no evidence of acute intracranial hemorrhage, acute ischemic changes, mass, mass-effect, or extra-axial fluid collection. There is no effacement of cerebral sulci or basal subarachnoid cister ns. There is no hydrocephalus. There is no midline shift. Richardson-white matter distinction is preserv ed. Moderate patchy white matter hypodensities in both cerebral hemispheres. Mild generalized atrophy. Rightward nasal septal deviation. Moderate lobulated mucosal thickening throughout the right maxillar y sinus. Orbits and globes appear intact. Mastoid air cells well pneumatized. IMPRESSION: Mild cerebral atrophy and moderate burden of chronic small vessel ischemic disease. No acute intracra nial abnormality seen.
--- NOTE | 2023-05-16 10:37 | CT ---
EXAMINATION TYPE: CT angio head neck DATE OF EXAM: 05/16/2023 COMPARISON: CT brain same day HISTORY: 78-year-old female neurologic deficit, acute, stroke suspected TECHNIQUE: Contiguous axial scanning of the head and neck performed with IV Contrast, patient injecte d with 70 mL of Isovue 370. Coronal/sagittal reconstructions performed. 3-D reconstructions generated on a dedicated independent workstation. CT DLP: 369.7 mGycm Automated exposure control for dose reduction was used. FINDINGS: Neck: Prominent biapical pleural parenchymal scarring and underlying emphysematous change. There is bovine configuration to the aortic arch. The vertebral arteries are codominant and patent throughout their course. The right common carotid artery is patent. Mild atherosclerotic change at the right carotid bifurcation with mild, less than 20% narrowing at th e level of the right carotid bulb by NASCET criteria. Tortuous upper cervical ICA. The left common carotid artery is patent. Mild atherosclerotic change at the left carotid bifurcation with mild, less than 20% narrowing at the origin of the left carotid bulb. Tortuous mid left cervical ICA. Brain: Bilateral internal carotid arteries are patent. Subtle 3 mm protuberance projecting medially from the supraclinoid left ICA, thin cut axial image 595 and coronal image 30. Remainder of the anterior circulation is patent. The bilateral vertebral and basilar arteries are patent as is the remainder of the posterior circulat ion. IMPRESSION: NECK: 1. MILD, LESS THAN 20% BILATERAL PROXIMAL ICA STENOSIS. BRAIN: 2. NO LARGE VESSEL INTRACRANIAL ARTERIAL OCCLUSION OR SIGNIFICANT STENOSIS. 3. A 3 MM PROTUBERANCE PROJECTING MEDIALLY FROM THE SUPRACLINOID LEFT ICA. A SUBTLE ANEURYSM IS DIFFI CULT TO EXCLUDE. RECOMMEND 6 MONTH FOLLOW-UP [facility] [place] TO REASSESS.
[2023-05-16] MEDS ORDERED: ASPIRIN 325 MG TAB PO STA (10:51)
[2023-05-16 11:08] LABS: Amorphous Sediment,Urine Rare /hpf; Bilirubin,Urine Negative (Negative); Blood,Urine Large (Negative); Glucose,Urine (UA) Negative (Negative); Ketones,Urine Negative (Negative); Leukocyte Esterase,Urine Negative (Negative); Mucus,Urine Rare /hpf; Nitrite,Urine Positive (Negative); PH, Urine 7.5 (5.0-8.0); Protein,Urine Trace (Negative); RBC,Urine 2 /hpf (0-5); Specific Gravity,Urine 1.028 (1.001-1.035); Squamous Epithelial Cell,Urine 3 /hpf (0-4); Urobilinogen,Urine <2.0 mg/dL (<2.0); WBC,Urine <1 /hpf (0-5)
[2023-05-16 11:09] LABS: Color,Urine Light Yellow
[2023-05-16 11:10] LABS: Appearance,Urine Clear (Clear)
[2023-05-16 11:19] LABS: Basophils % (A) 0 %; Eosinophils # (A) 0.1 k/uL (0-0.7); Eosinophils % (A) 2 %; HCT 35.5 % (34.0-46.0); HGB 12.3 gm/dL (11.4-16.0); Lymphocytes # (A) 1.6 k/uL (1.0-4.8); Lymphocytes % (A) 53 %; MCH 33.2 pg (25.0-35.0); MCHC 34.6 g/dL (31.0-37.0); MCV 96.2 fL (80.0-100.0); Mean Platelet Volume 8.3; Monocytes # (A) 0.1 k/uL (0-1.0); Monocytes % (A) 4 %; Neutrophils # (A) 1.2 k/uL (1.3-7.7); Neutrophils % (A) 39 %; RDW 13.5 % (11.5-15.5); WBC 3.1 k/uL (3.8-10.6)
[2023-05-16 11:34] LABS: ALT 19 U/L (4-34); AST 31 U/L (14-36); African American GFR (CKD) >90 (>60 ml/min/1.73 sqM); Albumin 3.8 g/dL (3.5-5.0); Alkaline Phosphatase 42 U/L (38-126); Anion Gap 7 mmol/L; Blood Urea Nitrogen 13 mg/dL (7-17); Calcium 8.6 mg/dL (8.4-10.2); Carbon Dioxide 22 mmol/L (22-30); Chloride 110 mmol/L (98-107); Creatine Kinase 46 U/L (30-135); Glucose 97 mg/dL (74-99); Non-African American GFR(CKD) >90 (>60 ml/min/1.73 sqM); Sodium 139 mmol/L (137-145); Total Bilirubin 0.6 mg/dL (0.2-1.3); Total Protein 6.4 g/dL (6.3-8.2)
--- NOTE | 2023-05-16 11:49 | XR ---
EXAMINATION TYPE: XR chest 2V DATE OF EXAM: 05/16/2023 COMPARISON: 01/23/2022 TECHNIQUE: PA and lateral views submitted. HISTORY: Altered mental status FINDINGS: The lungs are clear and there is no pneumothorax, pleural effusion, or focal pneumonia. Heart size normal and no overt failure. Osseous structures demonstrate hypertrophic and degenerative changes of the spine. Diffuse osteopenia with remote trauma left clavicle. Bilateral AC joint arthropathy. Corre late for pulmonary fibrosis. Subsegmental changes at the left lung base favor atelectasis. IMPRESSION: 1. No acute process. Subsegmental consolidation left lung base favor atelectasis correlate clinically . 2. COPD correlate for pulmonary fibrosis.
[2023-05-16 12:00] LABS: Platelet Count 46 k/uL (150-450)
[2023-05-16] MEDS ORDERED: ACETAMINOPHEN TAB 500 MG TAB PO STA (13:09)
--- NOTE | 2023-05-16 13:25 | ED ---
General Adult HPI - General Chief complaint: Neuro Symptoms/Deficit Stated complaint: poss stroke Time Seen by Provider: 05/16/23 10:07 Source: patient, family, EMS, RN notes reviewed, old records reviewed Mode of arrival: EMS - History of Present Illness Initial comments: Patient is a 78-year-old female presents to the department for stroke evaluation. Per EMS, patient's last known well was 6 AM, however per patient's last known well was actually midnight last night when she developed use the restroom. He checked on her at approximately 9 AM this morning and he n oticed that she seemed confused, was not speaking properly, and had left-sided weakness. He called EMS at that time. Per EMS, they were concerned for aphasia as well as left sided weakness. They called ahead over concern for the strokelike symptoms. She is not on blood thinners. No recent fall. Does have a history of recurrent UTIs. She currently has no acute complaints at this time. Mild confusion to the year. Presents for further evaluation at this time. - Related Data Home Medications Medication Instructions Recorded Confirmed Multivit-Min/Iron/Folic/Lutein 1 tab PO DAILY 01/15/17 05/16/23 [Centrum Silver Women Tablet] Venlafaxine HCl ER [Effexor XR] 75 mg PO DAILY 01/15/17 05/16/23 Umeclidinium Brm/Vilanterol Tr 1 puff INHALATION RT-DAILY 03/03/22 05/16/23 [Anoro Ellipta 62.5-25 Mcg INH] Albuterol Sulfate [Albuterol 2 puff PO RT-Q6H PRN 05/16/23 05/16/23 Sulfate Hfa] Alendronate Sodium [Fosamax] 35 mg PO Q7D 05/16/23 05/16/23 Atorvastatin [Lipitor] 10 mg PO HS 05/16/23 05/16/23 Cyanocobalamin (Vitamin B-12) 1,000 mcg PO DAILY 05/16/23 05/16/23 [Vitamin B-12] Estrogens, Conjugated Cream 1 applicator VAGINAL DIRECTED 05/16/23 05/16/23 [Premarin Vaginal Cream] Nitrofurantoin Monohyd/M-Cryst 100 mg PO DAILY 05/16/23 05/16/23 [Macrobid] Previous Rx's Medication Instructions Recorded Metoprolol Tartrate [Lopressor] 50 mg PO BID #60 tab 03/04/17 amLODIPine [Norvasc] 5 mg PO DAILY #30 tab 03/04/17 Allergies Allergy/AdvReac Type Severity Reaction Status Date / Time Penicillins Allergy Rash/Hives Verified 05/16/23 11:08 Review of Systems ROS Statement: Those systems with pertinent positive or pertinent negative responses have been documented in the HPI. Review of Systems: CONST: Denies fever EYES: Denies blurry vision ENT: Denies nasal congestion C/V: Denies Chest pain RESP: Denies shortness of breath GI: Denies abdominal pain : Denies dysuria SKIN: Denies rash. MSK: Denies joint pain. NEURO: Denies headache ROS Other: All systems not noted in ROS Statement are negative. Past Medical History Past Medical History: COPD, Hyperlipidemia, Hypertension Additional Past Medical History / Comment(s): Pt recently admitted to [facility] 01/22/17 with superficial thrombosis L arm cephalic vein, generalized weakness, hypomagnesemia, hypokalemia. Other HX: Multiple admissions for small bowel obstructions. History of Any Multi-Drug Resistant Organisms: ESBL Date of last positivie culture/infection: 12/22/21 MDRO Source:: ESBL URINE Past Surgical History: Bowel Resection Additional Past Surgical History / Comment(s): bowel resection x 2, colonoscopy, hysterectomy Past Anesthesia/Blood Transfusion Reactions: No Reported Reaction Past Psychological History: Anxiety, Depression Smoking Status: Never smoker Past Alcohol Use History: Occasional Past Drug Use History: None Reported - Past Family History Sister(s) Family Medical History: Diabetes Mellitus Father Family Medical History: Coronary Artery Disease (CAD) Additional Family Medical History / Comment(s): Father of a [place] in his 60's or 70's. Mother Family Medical History: No Reported History, Diabetes Mellitus Additional Family Medical History / Comment(s): Mother at the age of 88yrs. General Exam - General Exam Comments Initial Comments: General: Appears in no acute distress. HEAD: Normal with no signs of head trauma. EYES: PERRLA, EOMI, conjunctiva normal, no discharge. Pupils are 3 mm and equal bilaterally. ENT: Hearing grossly intact, normal oropharynx. RESPIRATORY: Clear breath sounds bilaterally. No wheezes, rales, or rhonchi. C/V: Regular rate and rhythm. S1 and S2 auscultated, no edema, peripheral pulses 2+ and intact throughout ABD: Abd is soft, nontender, nondistended EXT: Normal range of motion, no obvious deformity SKIN: No rashes or lesions observed on exposed skin. NEURO: Alert and oriented x 3. Cranial nerves II-XII intact. No focal sensory or strength deficits. GCS of 15. NIH currently approximately 0-1 at the worst is she seems slightly confused to the year/month. Course Vital Signs 05/16/23 05/16/23 05/16/23 10:08 10:18 10:23 Temperature 97.6 F 97.6 F 97.7 F Pulse Rate 81 73 77 Respiratory 20 18 19 Rate Blood Pressure 159/87 176/120 159/82 O2 Sat by Pulse 90 L 95 96 Oximetry 05/16/23 05/16/23 05/16/23 10:30 10:38 10:45 Temperature 37.8 F L Pulse Rate 77 70 68 Respiratory 15 18 13 Rate Blood Pressure 159/87 150/82 153/101 O2 Sat by Pulse 96 99 98 Oximetry 05/16/23 05/16/23 05/16/23 10:53 11:05 11:08 Temperature 38 F L 38 F L Pulse Rate 71 66 70 Respiratory 14 13 21 Rate Blood Pressure 152/82 159/77 157/86 O2 Sat by Pulse 97 95 97 Oximetry 05/16/23 05/16/23 05/16/23 11:20 11:23 11:30 Temperature 98 F Pulse Rate 71 67 70 Respiratory 14 18 21 Rate Blood Pressure 152/82 126/106 157/86 O2 Sat by Pulse 97 97 97 Oximetry 05/16/23 05/16/23 05/16/23 11:38 11:40 11:53 Temperature 37.9 F L 98 F Pulse Rate 70 67 68 Respiratory 19 18 18 Rate Blood Pressure 153/84 126/106 149/81 O2 Sat by Pulse 96 97 98 Oximetry 05/16/23 05/16/23 05/16/23 12:00 12:18 12:23 Temperature 98 F Pulse Rate 73 70 73 Respiratory 17 19 17 Rate Blood Pressure 155/74 153/84 155/74 O2 Sat by Pulse 97 96 97 Oximetry 05/16/23 05/16/23 05/16/23 13:00 13:11 13:17 Temperature 97.5 F L Pulse Rate 78 75 68 Respiratory 17 17 18 Rate Blood Pressure 153/84 149/81 149/81 O2 Sat by Pulse 97 95 98 Oximetry 05/16/23 05/16/23 05/16/23 13:23 13:30 13:53 Temperature 97.9 F 98 F Pulse Rate 78 67 67 Respiratory 18 14 14 Rate Blood Pressure 153/84 149/81 149/81 O2 Sat by Pulse 87 L 96 96 Oximetry 05/16/23 05/16/23 05/16/23 14:11 14:23 14:53 Temperature 97.8 F 97.8 F Pulse Rate 79 65 65 Respiratory 18 20 17 Rate Blood Pressure 160/80 140/80 139/78 O2 Sat by Pulse 97 97 96 Oximetry 05/16/23 05/16/23 15:11 15:23 Temperature 98 F 97.9 F Pulse Rate 67 72 Respiratory 18 17 Rate Blood Pressure 142/79 145/80 O2 Sat by Pulse 96 98 Oximetry Medical Decision Making - Medical Decision Making Was pt. sent in by a medical professional or institution (, PA, TOOTH CUTTER PINION, urgent ca re, hospital, or residential...) When possible be specific @ -No Did you speak to anyone other than the patient for history (EMS, parent, family, police, friend...)? What history was obtained from this source @ -Patient's is at bedside and provided me with the history of last known well being at approximately midnight last night. Did you review nursing and triage notes (agree or disagree)? Why? @ -I reviewed and agree with nursing and triage notes Were old charts reviewed (outside hosp., previous admission, EMS record, old EKG, old radiological studies, urgent care reports/EKG's, residential records)? Report findings @ -No old charts were reviewed Differential Diagnosis (chest pain, altered mental status, abdominal pain women, abdominal pain men, vaginal bleeding, weakness, fever, dyspnea, syncope, headache, dizziness, GI bleed, back pain, seizure, CVA, palpatations, mental health, musculoskeletal)? @ -Differential CVA Ischemic stroke, hemorrhagic stroke, brain tumor, atypical migraine, Wernicke's encephalopathy, seizure, multiple sclerosis, meningitis, encephalitis, hypoglycemia, Guillain-Lopez, electrolytes disturbance, myasthenia gravis.... This is not meant to be an all-inclusive list EKG interpreted by me (3pts min.). @ -As above X-rays interpreted by me (1pt min.). @ -Chest x-ray reveals no obvious acute cardio pulmonary process. CT interpreted by me (1pt min.). @ -Brain shows no obvious acute intracranial process. CT angiogram of the head reveals no obvious significant stenosis or occlusion. Radiology does note a left ICA protuberance which could be a subtle aneurysm but recommend follow-up imaging. This would not explain the patient's left-sided symptoms earlier. U/S interpreted by me (1pt. min.). @ -None done What testing was considered but not performed or refused? (CT, X-rays, U/S, labs)? Why? @ -None What meds were considered but not given or refused? Why? @ -None Did you discuss the management of the patient with other professionals (professionals i.e. , PA, TO[employer] CUTTER PINION, lab, RT, psych nurse, social science instructor, cupola repairer, teacher, penal officer, rn case manager)? Give summary @ -Discussed with neuro critical care Dr. Pickens who is in agreement with the plan for medical management. Discussed with the admitting physician, Dr. Salguero who accepted the admission. Was smoking cessation discussed for >3mins.? @ -No Was critical care preformed (if so, how long)? @ -Yes, 37 minutes Were there social determinants of health that impacted care today? How? (Homelessness, low income, unemployed, alcoholism, drug addiction, transportation, low edu. Level, literacy, decrease access to med. care, penitentiary, rehab)? @ -No Was there de-escalation of care discussed even if they declined (Discuss DNR or withdrawal of care, Hospice)? DNR status @ -No What co-morbidities impacted this encounter? (DM, HTN, Smoking, COPD, CAD, Cancer, CVA, ARF, Chemo, Hep., AIDS, mental health diagnosis, sleep apnea, morbid obesity)? @ -None Was patient admitted / discharged? Hospital course, mention meds given and route, prescriptions, significant lab abnormalities, going to OR and other pertinent info. @ -Based on the patient's presentation and physical exam, I'm concerned for what is possibly a TIA. Symptoms documented and observed by EMS as well as have resolved. [facility] is currently on for mild confusion to year. Last known well was midnight last night. She is not a TPA candidate due to being outside the window and risks far outweigh the benefits. However we will activate as a stroke pager activation. They were in agreement this plan. I spoke to neurocritcare Dr. Johnson who agreed with the plan for medical management of imaging was normal. Patient's imaging negative for any obvious stroke. Subtle finding concerning for possible small aneurysmal dilation of the left ICA and repeat imaging recommended by radiology. Patient's labs are remarkable for appears to be in acute on chronic UTI with positive nitrites despite having less than 1 WBCs. EKG unremarkable. On reevaluation, symptoms have resolved. NIH is currently 0. Discussed with patient as well as family. She will be admitted to the hospital at this time for further evaluation by neurology. They were in agreement this plan. She'll empirically be placed on Rocephin for suspected UTI and urine culture sent. I spoke with the admitting physician, Dr. Salguero who accepted the admission. Undiagnosed new problem with uncertain prognosis? @ -No Drug Therapy requiring intensive monitoring for toxicity (Heparin, Nitro, Insulin, Cardizem)? @ -No Were any procedures done? @ -No Diagnosis/symptom? @ -TIA, UTI Acute, or Chronic, or Acute on Chronic? @ -Acute Uncomplicated (without systemic symptoms) or Complicated (systemic symptoms)? @ -Complicated Side effects of treatment? @ -No Exacerbation, Progression, or Severe Exacerbation? @ -No Poses a threat to life or bodily function? How? (Chest pain, USA, VT, pneumonia, PE, COPD, DKA, ARF, appy, cholecystitis, CVA, Diverticulitis, Homicidal, Suicidal, threat to staff... and all critical care pts) @ -Potentially yes - Lab Data Result diagrams: 05/16/23 10:50 05/16/23 10:50 Lab Results 05/16/23 05/16/23 05/16/23 Range/Units 10:04 10:50 10:50 WBC 3.1 L (3.8-10.6) k/uL RBC 3.70 L (3.80-5.40) m/uL Hgb 12.3 (11.4-16.0) gm/dL Hct 35.5 (34.0-46.0) % MCV 96.2 (80.0-100.0) fL MCH 33.2 (25.0-35.0) pg MCHC 34.6 (31.0-37.0) g/dL RDW 13.5 (11.5-15.5) % Plt Count 46 L (150-450) k/uL MPV 8.3 Neutrophils % 39 % Lymphocytes % 53 % Monocytes % 4 % Eosinophils % 2 % Basophils % 0 % Neutrophils # 1.2 L (1.3-7.7) k/uL Lymphocytes # 1.6 (1.0-4.8) k/uL Monocytes # 0.1 (0-1.0) k/uL Eosinophils # 0.1 (0-0.7) k/uL Basophils # 0.0 (0-0.2) k/uL Manual Slide Review Performed Sodium (137-145) mmol/L Potassium (3.5-5.1) mmol/L Chloride (98-107) mmol/L Carbon Dioxide (22-30) mmol/L Anion Gap mmol/L BUN (7-17) mg/dL Creatinine (0.52-1.04) mg/dL Est GFR (CKD-EPI)AfAm (>60 ml/min/1.73 sqM) Est GFR (CKD-EPI)NonAf (>60 ml/min/1.73 sqM) Glucose (74-99) mg/dL POC Glucose (mg/dL) 92 (70-110) mg/dL POC Glu Lockstitch Sleeve Setter ID Tuttle, Norma Plasma Lactic Acid Chris (0.7-2.0) mmol/L Calcium (8.4-10.2) mg/dL Total Bilirubin (0.2-1.3) mg/dL AST (14-36) U/L ALT (4-34) U/L Alkaline Phosphatase (38-126) U/L Creatine Kinase (30-135) U/L Troponin I (0.000-0.034) ng/mL Total Protein (6.3-8.2) g/dL Albumin (3.5-5.0) g/dL Urine Color Light Yellow Urine Appearance Clear (Clear) Urine pH 7.5 (5.0-8.0) Ur Specific [place] 1.028 (1.001-1.035) Urine Protein Trace H (Negative) Urine Glucose (UA) Negative (Negative) Urine Ketones Negative (Negative) Urine Blood Large H (Negative) Urine Nitrite Positive H (Negative) Urine Bilirubin Negative (Negative) Urine Urobilinogen <2.0 (<2.0) mg/dL Ur Leukocyte Esterase Negative (Negative) Urine RBC 2 (0-5) /hpf Urine WBC <1 (0-5) /hpf Ur Squamous Epith Cells 3 (0-4) /hpf Amorphous Sediment Rare H (None) /hpf Urine Mucus Rare H (None) /hpf 05/16/23 05/16/23 05/16/23 Range/Units 10:50 10:50 10:50 WBC (3.8-10.6) k/uL RBC (3.80-5.40) m/uL Hgb (11.4-16.0) gm/dL Hct (34.0-46.0) % MCV (80.0-100.0) fL MCH (25.0-35.0) pg MCHC (31.0-37.0) g/dL RDW (11.5-15.5) % Plt Count (150-450) k/uL MPV Neutrophils % % Lymphocytes % % Monocytes % % Eosinophils % % Basophils % % Neutrophils # (1.3-7.7) k/uL Lymphocytes # (1.0-4.8) k/uL Monocytes # (0-1.0) k/uL Eosinophils # (0-0.7) k/uL Basophils # (0-0.2) k/uL Manual Slide Review Sodium 139 (137-145) mmol/L Potassium 4.0 (3.5-5.1) mmol/L Chloride 110 H (98-107) mmol/L Carbon Dioxide 22 (22-30) mmol/L Anion Gap 7 mmol/L BUN 13 (7-17) mg/dL Creatinine 0.47 L (0.52-1.04) mg/dL Est GFR (CKD-EPI)AfAm >90 (>60 ml/min/1.73 sqM) Est GFR (CKD-EPI)NonAf >90 (>60 ml/min/1.73 sqM) Glucose 97 (74-99) mg/dL POC Glucose (mg/dL) (70-110) mg/dL POC Glu Lockstitch Sleeve Setter ID Plasma Lactic Acid Chris 1.4 (0.7-2.0) mmol/L Calcium 8.6 (8.4-10.2) mg/dL Total Bilirubin 0.6 (0.2-1.3) mg/dL AST 31 (14-36) U/L ALT 19 (4-34) U/L Alkaline Phosphatase 42 (38-126) U/L Creatine Kinase 46 (30-135) U/L Troponin I <0.012 (0.000-0.034) ng/mL Total Protein 6.4 (6.3-8.2) g/dL Albumin 3.8 (3.5-5.0) g/dL Urine Color Urine Appearance (Clear) Urine pH (5.0-8.0) Ur Specific [place] (1.001-1.035) Urine Protein (Negative) Urine Glucose (UA) (Negative) Urine Ketones (Negative) Urine Blood (Negative) Urine Nitrite (Negative) Urine Bilirubin (Negative) Urine Urobilinogen (<2.0) mg/dL Ur Leukocyte Esterase (Negative) Urine RBC (0-5) /hpf Urine WBC (0-5) /hpf Ur Squamous Epith Cells (0-4) /hpf Amorphous Sediment (None) /hpf Urine Mucus (None) /hpf - EKG Data -: EKG Interpreted by Me EKG Comments: 12-lead Electrocardiogram Interpretation Note EKG was reviewed and interpreted by myself. 12-lead ECG performed at 1048 is interpreted by me as revealing normal sinus rhythm at a rate of 72 beats per minute. [place] is normal. DE interval is 167 ms, QRS durations 101 ms, QTc is 430 ms.. There were no ST or T wave abnormalities to suggest myocardial ischemia or injury. R wave progression across the precordium was satisfactory. By my interpretation this EKG is non-diagnostic for acute ischemia. Critical Care Time Critical Care Time: Yes Total Critical Care Time: 37 Disposition Clinical Impression: TIA (transient ischemic attack), UTI (urinary tract infection) Disposition: ADMITTED IP TO THIS HOSP Condition: Stable Time of Disposition: 12:48
[2023-05-16 15:03] LABS: Prothrombin Time 10.6 sec (9.0-12.0)
[2023-05-16 15:25] LABS: Partial Thromboplastin Time 17.9 sec (22.0-30.0)
--- NOTE | 2023-05-16 15:52 | P.HPIM ---
History of Present Illness H&P Date: 05/16/23 Patient is a very pleasant 78-year-old female with PMH of COPD, hypertension, dyslipidemia that presents the ED for strokelike symptoms. Patient is pleasantly confused and does not remember the events leading up to EMS being called. She currently reports lower abdominal pain and dysuria. She reports pins and needles in both of her hands that has been ongoing for the past 2 months. Apparently he was noted by her that she had slurring of her speech which prompted him to call EMS. This was approximately 9 AM. Patient currently denies any headache, lower extremity edema, nausea or vomiting, fever or chills, cough, chest pain, shortness of breath, palpitations, changes in bowel habits. No changes in appetite or weight. She denies any dizziness, numbness/weakness/tingling of the extremities. In the ED, her vital signs are stable. CBC showed WBC count of 3.1 and platelet count of 46. INR was 1. CMP showed chloride of 110, creatinine is 0.47. Lactic acid was 1.4. Troponin was less than 0.012. Creatinine kinase 46. Urinalysis positive for nitrite. 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 CTA head and neck 20% BL ICA stenosis. CXR findings of COPD and atelectasis on the L base. Patient is admitted for CVA workup. Pertinent positives and negatives as discussed in HPI, a complete review of systems was performed and all other systems are negative. General: non toxic, no distress, appears at stated age Derm: warm, dry Head: atraumatic, normocephalic, symmetric Eyes: EOMI, no lid lag, anicteric sclera Mouth: no lip lesion, mucus membranes moist Cardiovascular: S1S2 reg, no murmur Lungs: CTA bilateral, no rhonchi, no rales , no accessory muscle use Abdominal: soft, nontender to palpation, no guarding, no appreciable organomegaly Ext: no gross muscle atrophy, no edema, no contractures Neuro: CN II-XI grossly intact, no focal neuro deficits Psych: Alert, oriented, appropriate affect TIA Urinary tract infection Leukopenia Thrombocytopenia Chronic conditions: COPD, hypertension, dyslipidemia Based on my assessment of this patient, this patient meets a high complexity level of care. Patient has an acute diagnosis of slurred speech concerning for TIA that poses a threat to life or bodily function. TIA: Given ASA 325 mg PO in the ED. Start ASA 81 mg PO QD. Increase Lipitor to 40 mg PO QHS. Advanced neurochecks.Telemetry monitoring. Fall precautions. Echo. MRI brain. Carotid duplex. A1c and Lipid panel. Urinary tract infection: Rocephin 1g IV QD. Follow UCx. Leukopenia: Unknown etiology. Outpatient workup. Thrombocytopenia: Unknown etiology. Outpatient workup. Chronic conditions: COPD, hypertension, dyslipidemia Heparin SQ for DVT prophylaxis. Decision maker: FULL CODE I have reviewed the following rehab consultant notes: I have reviewed the results of the following tests: CBC, BMP, Coag panel, Lactic acid. UA. CPK. I have ordered the following tests: MRI brain. Carotid duplex. A1c. Lipid panel. UCx. Echocardiogram. I have discussed the care of this patient with the following independent historian: I have independently interpreted the following test below: I have discussed the management of this patient with the following physician: Case discussed extensively with the ED physician. Past Medical History Past Medical History: COPD, Hyperlipidemia, Hypertension Additional Past Medical History / Comment(s): Pt recently admitted to [facility] 01/22/17 with superficial thrombosis L arm cephalic vein, generalized weakness, hypomagnesemia, hypokalemia. Other HX: Multiple admissions for small bowel obstructions. History of Any Multi-Drug Resistant Organisms: ESBL Date of last positivie culture/infection: 12/22/21 MDRO Source:: ESBL URINE Past Surgical History: Bowel Resection Additional Past Surgical History / Comment(s): bowel resection x 2, colonoscopy, hysterectomy Past Anesthesia/Blood Transfusion Reactions: No Reported Reaction Past Psychological History: Anxiety, Depression Smoking Status: Never smoker Past Alcohol Use History: Occasional Past Drug Use History: None Reported - Past Family History Sister(s) Family Medical History: Diabetes Mellitus Father Family Medical History: Coronary Artery Disease (CAD) Additional Family Medical History / Comment(s): Father of a [place] in his 60's or 70's. Mother Family Medical History: No Reported History, Diabetes Mellitus Additional Family Medical History / Comment(s): Mother at the age of 88yrs. Medications and Allergies Home Medications Medication Instructions Recorded Confirmed Type Multivit-Min/Iron/Folic/Lutein 1 tab PO DAILY 01/15/17 05/16/23 History [Centrum Silver Women Tablet] Venlafaxine HCl ER [Effexor XR] 75 mg PO DAILY 01/15/17 05/16/23 History Metoprolol Tartrate [Lopressor] 50 mg PO BID #60 tab 03/04/17 05/16/23 Rx amLODIPine [Norvasc] 5 mg PO DAILY #30 tab 03/04/17 05/16/23 Rx Umeclidinium Brm/Vilanterol Tr 1 puff INHALATION RT-DAILY 03/03/22 05/16/23 History [Anoro Ellipta 62.5-25 Mcg INH] Albuterol Sulfate [Albuterol 2 puff PO RT-Q6H PRN 05/16/23 05/16/23 History Sulfate Hfa] Alendronate Sodium [Fosamax] 35 mg PO Q7D 05/16/23 05/16/23 History Atorvastatin [Lipitor] 10 mg PO HS 05/16/23 05/16/23 History Cyanocobalamin (Vitamin B-12) 1,000 mcg PO DAILY 05/16/23 05/16/23 History [Vitamin B-12] Estrogens, Conjugated Cream 1 applicator VAGINAL DIRECTED 05/16/23 05/16/23 History [Premarin Vaginal Cream] Nitrofurantoin Monohyd/M-Cryst 100 mg PO DAILY 05/16/23 05/16/23 History [Macrobid] Allergies Allergy/AdvReac Type Severity Reaction Status Date / Time Penicillins Allergy Rash/Hives Verified 05/16/23 11:08 Physical Exam Vitals: Vital Signs Temp Pulse Resp BP Pulse Ox 05/16/23 15:23 97.9 F 72 17 145/80 98 05/16/23 15:11 98 F 67 18 142/79 96 05/16/23 14:53 97.8 F 65 17 139/78 96 05/16/23 14:23 65 20 140/80 97 05/16/23 14:11 97.8 F 79 18 160/80 97 05/16/23 13:53 98 F 67 14 149/81 96 05/16/23 13:30 67 14 149/81 96 05/16/23 13:23 97.9 F 78 18 153/84 87 L 05/16/23 13:17 68 18 149/81 98 05/16/23 13:11 97.6 F 75 19 149/81 96 05/16/23 13:00 78 17 153/84 97 05/16/23 12:23 98 F 73 17 155/74 97 05/16/23 12:18 70 19 153/84 96 05/16/23 12:00 73 17 155/74 97 05/16/23 11:53 98 F 68 18 149/81 98 05/16/23 11:40 67 18 126/106 97 05/16/23 11:38 37.9 F L 70 19 153/84 96 05/16/23 11:30 70 21 157/86 97 05/16/23 11:23 98 F 67 18 126/106 97 05/16/23 11:20 71 14 152/82 97 05/16/23 11:08 38 F L 70 21 157/86 97 05/16/23 11:05 66 13 159/77 95 05/16/23 10:53 38 F L 71 14 152/82 97 05/16/23 10:45 68 13 153/101 98 05/16/23 10:38 37.8 F L 70 18 150/82 99 05/16/23 10:30 77 15 159/87 96 05/16/23 10:23 97.7 F 77 19 159/82 96 05/16/23 10:18 97.6 F 73 18 176/120 95 05/16/23 10:08 97.6 F 81 20 159/87 90 L Intake and Output 05/16/23 05/16/23 05/16/23 06:59 14:59 22:59 Other: Weight 131.9 kg Results CBC & Chem 7: 05/16/23 10:50 05/16/23 10:50 Labs: Abnormal Lab Results - Last 24 Hours (Table) 05/16/23 05/16/23 05/16/23 Range/Units 10:50 10:50 10:50 WBC 3.1 L (3.8-10.6) k/uL RBC 3.70 L (3.80-5.40) m/uL Plt Count 46 L (150-450) k/uL Neutrophils # 1.2 L (1.3-7.7) k/uL APTT (22.0-30.0) sec Chloride 110 H (98-107) mmol/L Creatinine 0.47 L (0.52-1.04) mg/dL Urine Protein Trace H (Negative) Urine Blood Large H (Negative) Urine Nitrite Positive H (Negative) Amorphous Sediment Rare H (None) /hpf Urine Mucus Rare H (None) /hpf 05/16/23 Range/Units 14:30 WBC (3.8-10.6) k/uL RBC (3.80-5.40) m/uL Plt Count (150-450) k/uL Neutrophils # (1.3-7.7) k/uL APTT 17.9 L (22.0-30.0) sec Chloride (98-107) mmol/L Creatinine (0.52-1.04) mg/dL Urine Protein (Negative) Urine Blood (Negative) Urine Nitrite (Negative) Amorphous Sediment (None) /hpf Urine Mucus (None) /hpf
--- NOTE | 2023-05-16 19:04 | US ---
EXAMINATION TYPE: US carotid duplex BILAT DATE OF EXAM: 05/16/2023 COMPARISON: CTA: Today CLINICAL INDICATION: Female, 78 years old with history of Stenosis; TIA TECHNIQUE: Carotid duplex ultrasound examination. Indirect Doppler criteria was utilized. FINDINGS: EXAM MEASUREMENTS: RIGHT: Peak Systolic Velocity (PSV) cm/sec ----- Right CCA: 75.5 ----- Right ICA: 135.8 ----- Right ECA: 96.3 ICA/CCA ratio: 1.8 RIGHT: End Diastole cm/sec ----- Right CCA: 15.5 ----- Right ICA: 37.3 ----- Right ECA: 5.7 LEFT: Peak Systolic Velocity (PSV) cm/sec ----- Left CCA: 66.7 ----- Left ICA: 110.4 ----- Left ECA: 65.8 ICA/CCA ratio: 1.7 LEFT: End Diastole cm/sec ----- Left CCA: 17.3 ----- Left ICA: 33.3 ----- Left ECA: 7.6 VERTEBRALS (direction of flow): Right Vertebral: Antegrade Left Vertebral: Antegrade Rhythm: Normal CHIEF COMPRESSOR STATION ENGINEER NOTES: IMPRESSION: 1. 50-69% stenosis of the right carotid bifurcation. 2. Less than 50% stenosis of the left carotid bifurcation Criteria for Assigning % of Stenosis / Diameter reduction (Estimation based on the indirect measurements of the internal carotid artery velocities (ICA PSV). 1. Normal (no stenosis)=ICA PSV < 125 cm/s: ratio < 2.0: ICA EDV<40 cm/s. 2. Less than 50% stenosis=ICA PSV < 125 cm/s: ratio < 2.0: ICA EDV<40 cm/s. 3. 50 to 69% stenosis=ICA PSV of 125 to 230 cm/s: ration 2.0 ? 4.0: ICA EDV 40-100 cm/s. 4. Greater than 70% stenosis to near occlusion= ICA PSV > 230 cm/s: ratio > 4.0: ICA EDV > 100 cm/s. 5. Near occlusion= ICA PSV velocities may be low or undetectable: variable ratio and ICA EDV. 6. Total occlusion=unable to detect flow.
[2023-05-16] MEDS: ATORVASTATIN 40 MG TAB PO SCH (20:00)
[2023-05-16] MEDS: HEPARIN SODIUM,PORCINE 5,000 UNIT/ML 1 ML VIAL SQ SCH (20:00)
[2023-05-16] MEDS: HYDROcodone/APAP 5-325MG 1 EACH TAB PO PRN (20:23)
[2023-05-17] MEDS ORDERED: MELATONIN 5 MG TABLET PO ONE (01:36)
[2023-05-17] MEDS: HYDROcodone/APAP 5-325MG 1 EACH TAB PO PRN ×2 (04:47→20:08)
[2023-05-17] MEDS ORDERED: NON FORMULARY DRUG (Umeclidinium Brm/Vilanterol Tr [Anoro Ellipta 62.5-25 Mcg Inh] 1 EACH INHALATION SCH (08:00)
[2023-05-17] MEDS: FORMOTEROL FUMARATE 20 MCG/2 ML NEBU INHALATION SCH ×2 (08:33→19:47)
[2023-05-17] MEDS: IPRATROPIUM 0.5 MG/2.5 ML NEBU INHALATION SCH ×4 (08:35→19:47)
[2023-05-17] MEDS: CYANOCOBALAMIN 500 MCG TAB PO SCH (09:45)
[2023-05-17] MEDS: HEPARIN SODIUM,PORCINE 5,000 UNIT/ML 1 ML VIAL SQ SCH ×2 (09:45→20:08)
[2023-05-17] MEDS: VENLAFAXINE HCL ER 75 MG CAP PO SCH (09:45)
[2023-05-17 10:11] LABS: Glucose,Whole Blood 106 mg/dL (70-110)
[2023-05-17] MEDS ORDERED: ALBUTEROL NEBULIZED 2.5 MG/3 ML INHALATION PRN (10:59)
[2023-05-17 11:09] LABS: Chol/HDL Ratio 2.92 Ratio; LDL Cholesterol,Calculated 83.7 mg/dL (0.0-131.0)
[2023-05-17 11:37] LABS: African American GFR (CKD) >90 (>60 ml/min/1.73 sqM); Anion Gap 7 mmol/L; Blood Urea Nitrogen 8 mg/dL (7-17); Calcium 8.5 mg/dL (8.4-10.2); Carbon Dioxide 23 mmol/L (22-30); Chloride 110 mmol/L (98-107); Glucose 108 mg/dL (74-99); Non-African American GFR(CKD) >90 (>60 ml/min/1.73 sqM); Potassium 3.8 mmol/L (3.5-5.1); Sodium 140 mmol/L (137-145)
[2023-05-17 11:41] LABS: Basophils % (A) 0 %; Eosinophils # (A) 0.2 k/uL (0-0.7); Eosinophils % (A) 3 %; HCT 41.9 % (34.0-46.0); HGB 13.9 gm/dL (11.4-16.0); Lymphocytes # (A) 2.1 k/uL (1.0-4.8); Lymphocytes % (A) 33 %; MCH 32.6 pg (25.0-35.0); MCHC 33.1 g/dL (31.0-37.0); MCV 98.5 fL (80.0-100.0); Monocytes # (A) 0.4 k/uL (0-1.0); Monocytes % (A) 6 %; Neutrophils # (A) 3.4 k/uL (1.3-7.7); Neutrophils % (A) 54 %; RBC 4.25 m/uL (3.80-5.40); RDW 13.4 % (11.5-15.5); WBC 6.2 k/uL (3.8-10.6)
[2023-05-17 11:54] LABS: Platelet Count 305 k/uL (150-450)
--- NOTE | 2023-05-17 12:22 | CA ---
Transthoracic Echo Report Name: Yuli Celaya Age: 78 Gender: F : 1945 Exam Date: 05/17/2023 08:32 Exam Location: [facility] Ht (in): 62 Wt (lb): 130 Ordering Physician: Fermin Salguero MD Attending/Referring Phys: Tobacco Stemmer Karol Avalos RDCS Procedure CPT: Indications: Thrombus Cardiac Hx: Technical Quality: Fair Contrast 1: Total Dose (mL): Contrast 2: Total Dose (mL): MEASUREMENTS (Male / Female) Normal Values 2D ECHO LV Diastolic Diameter PLAX 3.7 cm 4.2 - 5.9 / 3.9 - 5.3 cm LV Systolic Diameter PLAX 2.5 cm IVS Diastolic Thickness 1.1 cm 0.6 - 1.0 / 0.6 - 0.9 cm LVPW Diastolic Thickness 1.3 cm 0.6 - 1.0 / 0.6 - 0.9 cm LV Relative Wall Thickness 0.6 RV Internal Dim ED PLAX 3.2 cm LA Volume 52.8 cm??? 18 - 58 / 22 - 52 cm??? M-MODE Aortic Root Diameter MM 2.6 cm LA Systolic Diameter MM 4.4 cm LA Ao Ratio MM 1.7 AV Cusp Separation MM 1.3 cm DOPPLER AV Peak Velocity 184.1 cm/s AV Peak Gradient 13.6 mmHg AV Mean Velocity 122.3 cm/s AV Mean Gradient 6.9 mmHg AV Velocity Time Integral 39.6 cm AI Peak Velocity 500.8 cm/s AI Peak Gradient 100.3 mmHg AI Pressure Half Time 489.7 ms LVOT Peak Velocity 135.2 cm/s LVOT Peak Gradient 7.3 mmHg LVOT Velocity Time Integral 30.7 cm MV Area PHT 3.9 cm??? Mitral E Point Velocity 66.6 cm/s Mitral A Point Velocity 128.4 cm/s Mitral E to A Ratio 0.5 MV Deceleration Time 195.3 ms MV E' Velocity 3.4 cm/s Mitral E to MV E' Ratio 19.8 TR Peak Velocity 265.7 cm/s TR Peak Gradient 28.2 mmHg Right Ventricular Systolic Press 32.9 mmHg FINDINGS Left Ventricle Mildly increased left ventricular wall thickness. Left ventricular cavity size normal. Normal left ventricular systolic function with no obvious regional wall motion abnormalities. Left ventricular ejection fraction is estimated at 55-60 %. Right Ventricle Normal right ventricular size and function. Right ventricular systolic pressure within normal limits. Right Atrium Normal right atrial size. Left Atrium Normal left atrial size. Mitral Valve Structurally normal mitral valve. Trace to mild mitral regurgitation. Mild mitral annular calcification. Aortic Valve Trileaflet aortic valve. No aortic stenosis. Mild aortic regurgitation. Tricuspid Valve Structurally normal tricuspid valve. Mild tricuspid regurgitation. Pulmonic Valve Trace pulmonic regurgitation. Pericardium No pericardial effusion. Aorta Normal size aortic root and proximal ascending aorta. CONCLUSIONS Normal LV size and systolic function Prominent posterior pericardial stripe/thickened posterior pericardium Previewed by: Dr. Vince Franklin MD (Electronically Signed) Final Date: 17 May 2023 12:21
--- NOTE | 2023-05-17 14:00 | P.CNNES ---
History of Present Illness Consult date: 05/17/23 Requesting physician: Camilo Warner Reason for Consult: TIA History of Present Illness: Patient is a 78-year-old right-handed female came to the hospital by ambulance yesterday at 10:02 AM for episode of unresponsiveness. Patient states that her could not wake her up. I spoke to patient's , who concurred that yesterday morning when he tried to wake her up, she was not responding. He called the ambulance. She woke up in the hospital. While in route to the hospital, she was half in and out, but not responding. She was not totally unconscious. Patient's states that she had a similar episode 5 years ago when she was found to have an acute UTI. Patient states that she was seen by Dr. Erick escobar, who referred her to Dr. Swan, who felt patient has no issues with her carotids, told her not to take aspirin. Patient's denies any stroke symptoms like slurred speech, facial droop or any problem with the vision. As per EMS flow sheet, when they arrived, patient is laying in her bed, states she woke up at 6 AM and was not feeling well so she stayed in bed. He states he went to get her up just before EMS contacted and she would not wake up so he activated 911. Patient was found to open her eyes with painful stimuli and would not respond verbally she was making grunting sounds. Patient's airway was patent. Patient has history of COPD, hypertension, hyperlipidemia. Patient's blood glucose was 10 6 mg/dL. Eagan stroke scale was positive. Just before patient arrived to ER, she asked a question, which was inappropriate. Patient's vitals at the scene was blood pressure 186/80, pulse rate 76, respirations 16, saturation 95%. CT head revealed mild cerebral atrophy and moderate burden of chronic small vessel ischemic disease. No acute intracranial abnormality seen. Chest x-ray revealed no acute process. Subsegmental consolidation left lung base. COPD correlate for pulmonary fibrosis. EKG shows sinus rhythm. CBC with WBC 3.1, which went up to 6.2. Hemoglobin is normal. PT/PTT normal. Electrolytes, renal function, hepatic dewitt el is normal, CK normal troponin negative. UA shows large amount of blood, positive nitrite. Negative leukocyte esterase. As per nursing report, this morning patient had an episode of generalized t remors lasting for 4-5 minutes. Patient's vitals were within normal limits, afebrile during the episode patient was able to answer questions and squeeze hands equally. Patient appeared scared and aware of tremors episode. No events on remote telemetry. Her blood sugar was 106 at that time. Patient was very tired after this event. Apparently last night patient had a similar episode of tremors, but was still aware, conversant, with no other focal symptoms. Patient had a previous EEG on 01/28/2017, which revealed slowing of the background, suggestive of moderate encephalopathy. No epileptiform activity was seen. Patient's home medications include Effexor, multivitamin, Norvasc, metoprolol, B12, nitrofurantoin, estrogen vaginal cream, Lipitor 10 mg. Patient denies tobacco, drinks alcohol 1 beer once a week Review of Systems Constitutional: Reports weight gain, Denies chills, Denies fever Eyes: denies blurred vision, denies diplopia, denies pain Ears: deny: decreased hearing, ear discharge Ears, nose, mouth and throat: Reports headache (Left occipital region), Reports vertigo ([place]), Denies sore throat Cardiovascular: Reports shortness of breath, Denies chest pain Respiratory: Denies cough, Denies excessive sputum Gastrointestinal: Reports nausea, Denies abdominal pain, Denies diarrhea, Denies vomiting Genitourinary: Denies dysuria, Denies hematuria, Denies pelvic pain Musculoskeletal: Reports low back pain, Reports neck pain, Denies myalgias Integumentary: Denies pruritus, Denies rash Neurological: Reports as per HPI Psychiatric: Reports anxiety, Reports depression Endocrine: Reports fatigue, Reports weight change Hematologic/Lymphatic: Denies easy bleeding, Denies easy bruising Past Medical History Past Medical History: COPD, Hyperlipidemia, Hypertension Additional Past Medical History / Comment(s): Pt recently admitted to [facility] 01/22/17 with superficial thrombosis L arm cephalic vein, generalized weakness, hypomagnesemia, hypokalemia. Other HX: Multiple admissions for small bowel obstructions. History of Any Multi-Drug Resistant Organisms: ESBL Date of last positivie culture/infection: 12/22/21 MDRO Source:: ESBL URINE Past Surgical History: Bowel Resection Additional Past Surgical History / Comment(s): bowel resection x 2, colonoscopy, hysterectomy Past Anesthesia/Blood Transfusion Reactions: No Reported Reaction Past Psychological History: Anxiety, Depression Smoking Status: Never smoker Past Alcohol Use History: Occasional Past Drug Use History: None Reported - Past Family History Sister(s) Family Medical History: Diabetes Mellitus Father Family Medical History: Coronary Artery Disease (CAD) Additional Family Medical History / Comment(s): Father of a MS in his 60's or 70's. Mother Family Medical History: No Reported History, Diabetes Mellitus Additional Family Medical History / Comment(s): Mother at the age of 88yrs. Medications and Allergies Home Medications Medication Instructions Recorded Confirmed Type Multivit-Min/Iron/Folic/Lutein 1 tab PO DAILY 01/15/17 05/16/23 History [Centrum Silver Women Tablet] Venlafaxine HCl ER [Effexor XR] 75 mg PO DAILY 01/15/17 05/16/23 History Metoprolol Tartrate [Lopressor] 50 mg PO BID #60 tab 03/04/17 05/16/23 Rx amLODIPine [Norvasc] 5 mg PO DAILY #30 tab 03/04/17 05/16/23 Rx Umeclidinium Brm/Vilanterol Tr 1 puff INHALATION RT-DAILY 03/03/22 05/16/23 History [Anoro Ellipta 62.5-25 Mcg INH] Albuterol Sulfate [Albuterol 2 puff PO RT-Q6H PRN 05/16/23 05/16/23 History Sulfate Hfa] Alendronate Sodium [Fosamax] 35 mg PO Q7D 05/16/23 05/16/23 History Atorvastatin [Lipitor] 10 mg PO HS 05/16/23 05/16/23 History Cyanocobalamin (Vitamin B-12) 1,000 mcg PO DAILY 05/16/23 05/16/23 History [Vitamin B-12] Estrogens, Conjugated Cream 1 applicator VAGINAL DIRECTED 05/16/23 05/16/23 History [Premarin Vaginal Cream] Nitrofurantoin Monohyd/M-Cryst 100 mg PO DAILY 05/16/23 05/16/23 History [Macrobid] Allergies Allergy/AdvReac Type Severity Reaction Status Date / Time Penicillins Allergy Rash/Hives Verified 05/16/23 11:08 Physical Examination - Vital Signs Vital Signs: Vital Signs Temp Pulse Pulse Resp BP BP BP 05/17/23 11:44 88 05/17/23 11:39 86 05/17/23 10:08 97.8 F 86 14 160/85 05/17/23 07:35 97.8 F 80 16 154/71 05/17/23 00:40 97.5 F L 81 13 172/85 05/16/23 19:26 97.8 F 71 16 123/61 05/16/23 16:30 78 24 174/88 05/16/23 16:11 98 F 75 20 174/88 05/16/23 15:30 72 14 149/81 05/16/23 15:23 97.9 F 72 17 145/80 05/16/23 15:11 98 F 67 18 142/79 05/16/23 14:53 97.8 F 65 17 139/78 05/16/23 14:23 65 20 140/80 05/16/23 14:11 97.8 F 79 18 160/80 05/16/23 13:53 98 F 67 14 149/81 05/16/23 13:30 67 14 149/81 05/16/23 13:23 97.9 F 78 18 153/84 05/16/23 13:17 68 18 149/81 05/16/23 13:11 97.6 F 75 19 149/81 05/16/23 13:00 78 17 153/84 05/16/23 12:23 98 F 73 17 155/74 05/16/23 12:18 70 19 153/84 Pulse Ox 05/17/23 11:44 05/17/23 11:39 05/17/23 10:08 97 05/17/23 07:35 94 L 05/17/23 00:40 95 05/16/23 19:26 95 05/16/23 16:30 95 05/16/23 16:11 95 05/16/23 15:30 96 05/16/23 15:23 98 05/16/23 15:11 96 05/16/23 14:53 96 05/16/23 14:23 97 05/16/23 14:11 97 05/16/23 13:53 96 05/16/23 13:30 96 05/16/23 13:23 87 L 05/16/23 13:17 98 05/16/23 13:11 96 05/16/23 13:00 97 05/16/23 12:23 97 05/16/23 12:18 96 Intake and Output 05/16/23 05/17/23 05/17/23 22:59 06:59 14:59 Intake Total 240 Output Total 850 Balance 240 -850 Intake: Oral 240 Output: Urine 850 Other: # Voids 1 Patient is an elderly female, who appears to be somewhat sick, slightly frail. Patient appears slightly tachypneic. Patient is slightly encephalopathic. She is otherwise alert awake oriented to time place and person. She knows it is April but says the year is 2002. She knows that she is in [facility] in [place]. She knows name of the current president Mr. Avila. Speech and language functions are normal. Patient can name and repeat very well. No aphasia or dysarthria. Attention, concentration is slightly impaired and fund of knowledge is adequate. On cranial nerve examination, pupils are equal, round and reacting to light, visual pelayo are full on confrontation, with no neglect on double simultaneous stimulation. Extraocular muscles are intact with no nystagmus. Patient has very subtle left corner of mouth drooping, but appears baseline. On active testing it was very symmetric. Patient's does not notice any facial droopiness and this time. Her tongue protrudes to the midline. Palatal elevation and sensation normal, hearing and shoulder shrug normal, facial sensation normal. On muscle strength testing, there is mild left drift without pronation. The muscle strength is normal in the upper limbs. In the lower limbs, her hip flexion is about 4+5-bilaterally, with normal ankle dorsiflexion. Deep tendon reflexes are symmetric 2+3 bilaterally in the biceps, brachioradialis in the knees, 1 at the ankles and plantars downgoing bilaterally. No clonus. Sensory to touch is equal with no neglect on double simultaneous stimulation. Cerebellar function showed no ataxia for [id number] testing. Patient has mild shakiness for [id number] testing bilaterally. Mild to moderate shakiness of bilateral outstretched hands. No tremors at rest. No ataxia for [id number] testing on either side. Tone and bulk of muscles normal. Gait deferred.. On general examination, there is no carotid bruit or murmur, S1-S2 audible. Chest is clear on consultation. Abdomen is soft nontender. No organomegaly, bowel sounds present. Peripheral pulses are present. No edema. Results - Laboratory Findings CBC and BMP: 05/17/23 11:02 05/17/23 11:02 Abnormal Lab Findings: Abnormal Labs 05/16/23 05/16/23 05/16/23 10:50 10:50 10:50 WBC 3.1 L RBC 3.70 L Plt Count 46 L Neutrophils # 1.2 L APTT Chloride 110 H Creatinine 0.47 L Glucose Triglycerides HDL Cholesterol Urine Protein Trace H Urine Blood Large H Urine Nitrite Positive H Amorphous Sediment Rare H Urine Mucus Rare H 05/16/23 05/16/23 05/17/23 10:50 14:30 11:02 WBC RBC Plt Count Neutrophils # APTT 17.9 L Chloride 110 H Creatinine 0.46 L Glucose 108 H Triglycerides 183.00 H HDL Cholesterol 62.70 H Urine Protein Urine Blood Urine Nitrite Amorphous Sediment Urine Mucus Assessment and Plan Assessment: * Altered mental status with unresponsiveness, likely due to acute delirium, possible UTI. * Acute delirium * History of similar episode of unresponsiveness 5 years ago, felt to be from UTI. * Hypertension * Hyperlipidemia * COPD Plan: * Patient has possible acute UTI. Patient currently on ceftriaxone. * Check EEG for episodic unresponsiveness. * CTA of the neck revealed mild, less than 20% bilateral proximal ICA stenosis. * CTA of the brain showed no large vessel intracranial arterial occlusion or s ignificant stenosis. A 3 mm protuberance projecting medially from the supraclinoid left ICA. A subtle aneurysm is difficult to exclude. Recommend six-month follow-up MRA tejon of [place] to reassess. This is incidental finding. Recommend follow-up with vascular neurology/neuro intervention outp atient. * Carotid Doppler revealed 50-69% stenosis of the right carotid bifurcation. Less than 50% stenosis of the left carotid bifurcation. Antegrade flow in both vertebral arteries. * Hemoglobin A1c 5.4 * Lipid panel with cholesterol 183, LDL 83, HDL 62 and triglycerides 183. Continue Lipitor 40 mg daily. * Patient has not been taking aspirin for last 1 year. Resume aspirin 81 mg daily. * Neurology will follow. Thank you for the consult.
[2023-05-17] MEDS ORDERED: amLODIPine 5 MG TAB PO STA (14:25)
[2023-05-17] MEDS: ONDANSETRON 4 MG/2 ML VIAL IVP PRN (14:29)
--- NOTE | 2023-05-17 15:24 | P.PN ---
Subjective Progress Note Date: 05/17/23 Hospital Course: 78-year-old female with PMH of COPD, hypertension, dyslipidemia that presents the ED for strokelike symptoms. n the ED, her vital signs are stable. CBC showed WBC count of 3.1 and platelet count of 46. INR was 1. CMP showed chloride of 110, creatinine is 0.47. Lactic acid was 1.4. Troponin was less than 0.012. Creatinine kinase 46. Urinalysis positive for nitrite. 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 CTA head and neck 20% BL ICA stenosis. CXR findings of COPD and atelectasis on the L base. Patient is admitted for CVA workup. Subjective: Patient did have frequent episodes of body shaking, but was awake and able to respond to commands. Denies any significant urinary complaints at the moment Pertinent positives and negatives as discussed above, a complete review of systems was performed and all other systems are negative. Vitals Signs Reviewed. General: nontoxic, no distress, appears at stated age Derm: warm, dry Head: atraumatic, normocephalic, symmetric Eyes: EOMI, no lid lag, anicteric sclera Mouth: no lip lesion, mucus membranes moist Cardiovascular: S1S2 reg, no murmur Lungs: CTA bilateral, no rhonchi, no rales , no accessory muscle use Abdominal: soft, nontender to palpation, no guarding, no appreciable organomegaly Ext: no gross muscle atrophy, no edema, no contractures Neuro: CN II-XI grossly intact, no focal neuro deficits Psych: Alert, oriented, appropriate affect Data Reviewed Today: Pertinent Labs: WBC 6.2, hemoglobin 13.9, platelet 305, sodium 140, potassium 3.8, creatinine 0.46 Imaging: Echocardiogram showed normal LV size and systolic function, thickened posterior pericardium, carotid ultrasound showed 50-69% stenosis of right carotid bifurcation, less than 50% stenosis of the left part of bifurcation. Assessment and Plan: Acute metabolic encephalopathy Acute delirium Urinary tract infection Leukopenia, resolved Thrombocytopenia, resolved Chronic conditions: COPD, hypertension, dyslipidemia - Nephrology note reviewed, EEG pending -Brain MRI pending -Continue IV ceftriaxone -Rest of the home medications reviewed and reconciled DVT ppx: Subcu heparin Code status: Full code Anticipated discharge place: Pending clinical course Anticipated discharge time: Pending clinical course Objective - Vital Signs Vital signs: Vital Signs Temp 97.8 F 05/17/23 14:47 Pulse 84 05/17/23 14:47 Resp 16 05/17/23 14:47 BP 180/76 05/17/23 14:47 Pulse Ox 97 05/17/23 14:47 FiO2 Intake & Output 05/16/23 05/17/23 05/17/23 18:59 06:59 18:59 Intake Total 240 Output Total 850 900 Balance 240 -850 -900 Weight 131.9 kg Intake: Oral 240 Output: Urine 850 900 Other: # Voids 1 - Labs CBC & Chem 7: 05/17/23 11:02 05/17/23 11:02 Labs: Abnormal Lab Results - Last 24 Hours (Table) 05/16/23 05/16/23 05/17/23 Range/Units 10:50 14:30 11:02 APTT 17.9 L (22.0-30.0) sec Chloride 110 H (98-107) mmol/L Creatinine 0.46 L (0.52-1.04) mg/dL Glucose 108 H (74-99) mg/dL Triglycerides 183.00 H (0.00-149.00) mg/dL HDL Cholesterol 62.70 H (40.00-60.00) mg/dL
--- NOTE | 2023-05-17 18:51 | MR ---
EXAMINATION TYPE: MR brain wo con DATE OF EXAM: 05/17/2023 5:01 PM COMPARISON: NONE HISTORY: Neuro deficit, acute, stroke suspected FINDINGS: The ventricles, basal cisterns and sulci overlying the cerebral convexities are mildly enlarged. There is evidence of mild periventricular white matter ischemic demyelination. Remote deep white matter insults are also noted. No acute edema is seen on diffusion weighted imaging. There is no evidence for midline shift or mass effect. Acute intracranial hemorrhage or extra-axial collection is not evident. The paranasal sinuses and mastoid air cells are well-aerated. IMPRESSION: Age-related atrophic and chronic small vessel ischemic change. No acute intracranial process at this time.
[2023-05-17] MEDS: METOPROLOL TARTRATE 50 MG TAB PO SCH (20:10)
[2023-05-17] MEDS: ATORVASTATIN 40 MG TAB PO SCH (20:10)
[2023-05-17] MEDS ORDERED: MELATONIN 5 MG TABLET PO SCH (21:00)
[2023-05-18] MEDS ORDERED: MELATONIN 5 MG TABLET PO ONE ×2 (00:21→23:58)
[2023-05-18] MEDS: HYDROcodone/APAP 5-325MG 1 EACH TAB PO PRN ×3 (00:25→18:03)
[2023-05-18] MEDS: FORMOTEROL FUMARATE 20 MCG/2 ML NEBU INHALATION SCH (07:42)
[2023-05-18] MEDS: IPRATROPIUM 0.5 MG/2.5 ML NEBU INHALATION SCH ×3 (07:43→14:11)
[2023-05-18 07:54] VITALS: RESP 16
[2023-05-18] MEDS: CYANOCOBALAMIN 500 MCG TAB PO SCH (08:05)
[2023-05-18] MEDS: VENLAFAXINE HCL ER 75 MG CAP PO SCH (08:05)
[2023-05-18] MEDS: METOPROLOL TARTRATE 50 MG TAB PO SCH (08:06)
[2023-05-18] MEDS: HEPARIN SODIUM,PORCINE 5,000 UNIT/ML 1 ML VIAL SQ SCH (08:08)
[2023-05-18] MEDS ORDERED: MULTIVITAMINS, THERA 1 EACH TAB PO SCH (09:00)
[2023-05-18] MEDS ORDERED: amLODIPine 5 MG TAB PO SCH (09:00)
[2023-05-18] MEDS ORDERED: ASPIRIN 81 MG PO SCH (09:00)
--- NOTE | 2023-05-18 12:20 | EEG ---
ELECTROENCEPHALOGRAM REPORT PREAMBLE: This is a 78-year-old female with unresponsiveness and tremors. This study is performed to evaluate for any epileptiform activity. EEG FINDINGS: This is a 21-channel digital EEG recorded with video component, utilizing 10/20 international system with referential and bipolar montages. Background consists of well developed, well regulated moderate voltage activity in 9 hertz alpha. Background is posterior dominant and reactive to eye opening and closing. Photic driving response was seen with some flash frequencies. Drowsiness was seen with appearance of bilaterally symmetric theta frequency rhythm. Deeper stages of sleep were not seen. No focal or generalized epileptiform activity was seen. IMPRESSION: This is a normal awake and drowsy EEG. No focal, lateralized, or epileptiform activity was seen. MMODL / IJN: [id number] /
[2023-05-18] MEDS: ONDANSETRON 4 MG/2 ML VIAL IVP PRN (12:47)
[2023-05-18 14:01] VITALS: BP 155/53; PULSE 62; TEMP 98.2
--- NOTE | 2023-05-18 14:39 | P.DS ---
Providers Date of admission: 05/16/23 13:10 Expected date of discharge: 05/18/23 Attending physician: Fermin Salguero MD Consults: 05/16/23 13:11 Consult Physician Routine Consulting Provider: Cassi Alvares Consult Reason/Comments: tia Do you want consulting provider notified?: Yes Primary care physician: [facility] Course: Discharge Diagnosis: Acute metabolic encephalopathy Acute delirium Urinary tract infection Leukopenia Thrombocytopenia Hospital Course: 78-year-old female with PMH of COPD, hypertension, dyslipidemia that presents the ED for strokelike symptoms. n the ED, her vital signs are stable. CBC showed WBC count of 3.1 and platelet count of 46. INR was 1. CMP showed chloride of 110, creatinine is 0.47. Lactic acid was 1.4. Troponin was less than 0.012. Creatinine kinase 46. Urinalysis positive for nitrite. 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 CTA head and neck 20% BL ICA stenosis. CXR findings of COPD and atelectasis on the L base. Patient is admitted for CVA workup and urinary tract infection. Symptoms improved with IV ceftriaxone. Brain MRI showed age-related atrophic and chronic small vessel ischemic changes, no acute process. EEG did not show any epileptiform activity. Patient to follow-up with PCP. Patient seen and examined at bedside. Vital signs reviewed and stable. General: nontoxic, no distress, appears at stated age Derm: warm, dry Head: atraumatic, normocephalic, symmetric Eyes: EOMI, no lid lag, anicteric sclera Mouth: no lip lesion, mucus membranes moist Cardiovascular: S1S2 reg, no murmur Lungs: CTA bilateral, no rhonchi, no rales , no accessory muscle use Abdominal: soft, nontender to palpation, no guarding, no appreciable organomegaly Ext: no gross muscle atrophy, no edema, no contractures Neuro: CN II-XI grossly intact, no focal neuro deficits Psych: Alert, oriented, appropriate affect A total of 36 minutes of time were spent preparing this complex discharge summary. Patient was discharged on 05/18/23 at 1438. Patient Condition at Discharge: Stable Plan - Discharge Summary New Discharge Prescriptions: New Aspirin 81 mg PO DAILY #60 tab Cefdinir [Omnicef] 300 mg PO Q12HR #4 capsule Continue Venlafaxine HCl ER [Effexor XR] 75 mg PO DAILY Multivit-Min/Iron/Folic/Lutein [Centrum Silver Women Tablet] 1 tab PO DAILY amLODIPine [Norvasc] 5 mg PO DAILY #30 tab Metoprolol Tartrate [Lopressor] 50 mg PO BID #60 tab Albuterol Sulfate [Albuterol Sulfate Hfa] 2 puff PO RT-Q6H PRN PRN Reason: Shortness Of Breath Cyanocobalamin (Vitamin B-12) [Vitamin B-12] 1,000 mcg PO DAILY Alendronate Sodium [Fosamax] 35 mg PO Q7D Umeclidinium Brm/Vilanterol Tr [Anoro Ellipta 62.5-25 Mcg INH] 1 puff INHALATION RT-DAILY Estrogens, Conjugated Cream [Premarin Vaginal Cream] 1 applicator VAGINAL DIRECTED Atorvastatin [Lipitor] 10 mg PO HS Discontinued Nitrofurantoin Monohyd/M-Cryst [Macrobid] 100 mg PO DAILY Discharge Medication List Multivit-Min/Iron/Folic/Lutein [Centrum Silver Women Tablet] 1 tab PO DAILY 01/15/17 [History] Venlafaxine HCl ER [Effexor XR] 75 mg PO DAILY 01/15/17 [History] Metoprolol Tartrate [Lopressor] 50 mg PO BID #60 tab 03/04/17 [Rx] amLODIPine [Norvasc] 5 mg PO DAILY #30 tab 03/04/17 [Rx] Umeclidinium Brm/Vilanterol Tr [Anoro Ellipta 62.5-25 Mcg INH] 1 puff INHALATION RT-DAILY 03/03/22 [History] Albuterol Sulfate [Albuterol Sulfate Hfa] 2 puff PO RT-Q6H PRN 05/16/23 [History] Alendronate Sodium [Fosamax] 35 mg PO Q7D 05/16/23 [History] Atorvastatin [Lipitor] 10 mg PO HS 05/16/23 [History] Cyanocobalamin (Vitamin B-12) [Vitamin B-12] 1,000 mcg PO DAILY 05/16/23 [History] Estrogens, Conjugated Cream [Premarin Vaginal Cream] 1 applicator VAGINAL DIRECTED 05/16/23 [History] Aspirin 81 mg PO DAILY #60 tab 05/18/23 [Rx] Cefdinir [Omnicef] 300 mg PO Q12HR #4 capsule 05/18/23 [Rx] Follow up Appointment(s)/Referral(s): Jerome Hanna DO [Primary Care Provider] - 1-2 days Patient Instructions/Handouts: Encephalopathy (DC) Activity/Diet/Wound Care/Special Instructions: Please see your PCP. Discharge Disposition: HOME SELF-CARE
--- NOTE | 2023-05-18 16:15 | P.PN ---
Subjective Progress Note Date: 05/18/23 Patient was seen for a follow-up. Patient states she is feeling better. Earlier she was little dizzy, felt will pass out. However she is working with a physical therapy. Patient states the clicking in her head has gone away. Offers no new complaints. Objective - Vital Signs Vital signs: Vital Signs Temp 98.2 F 05/18/23 13:59 Pulse 62 05/18/23 13:59 Resp 16 05/18/23 13:59 BP 155/53 05/18/23 13:59 Pulse Ox 97 05/18/23 13:59 FiO2 21 05/18/23 07:43 Intake & Output 05/17/23 05/18/23 05/18/23 18:59 06:59 18:59 Output Total 900 750 200 Balance -900 -750 -200 Weight 58.967 kg Output: Urine 900 750 200 Other: Voiding Method External Catheter External Catheter External Catheter # Bowel Movements 0 - Exam Mental status, speech and language functions are normal. Examination unchanged. - Labs CBC & Chem 7: 05/17/23 11:02 05/17/23 11:02 Assessment and Plan Assessment: * Altered mental status with unresponsiveness, likely due to acute delirium, po ssible UTI. * Acute delirium * History of similar episode of unresponsiveness 5 years ago, felt to be from UTI. * Hypertension * Hyperlipidemia * COPD Plan: * Patient has possible acute UTI. Patient to be discharged on Ceftin. * EEG was normal. No epileptiform activity seen. * MRI of the brain showed no acute ischemic stroke. I personally reviewed MRI agree with the findings. * CTA of the neck revealed mild, less than 20% bilateral proximal ICA stenosis. * CTA of the brain showed no large vessel intracranial arterial occlusion or significant stenosis. A 3 mm protuberance projecting medially from the supraclinoid left ICA. A subtle aneurysm is difficult to exclude. Recommend six-month follow-up MRA kaw of [place] to reassess. This is incidental finding. Recommend follow-up with vascular neurology/neuro intervention outpatient. * Carotid Doppler revealed 50-69% stenosis of the right carotid bifurcation. Less than 50% stenosis of the left carotid bifurcation. Antegrade flow in both vertebral arteries. * Hemoglobin A1c 5.4 * Lipid panel with cholesterol 183, LDL 83, HDL 62 and triglycerides 183. Continue Lipitor 40 mg daily. * Patient has not been taking aspirin for last 1 year. Resume aspirin 81 mg daily. * Neurologically clear for discharge.
== END 2023-05-18 18:15 | disposition home or self-care (01) ==
LOC: EC 10:02 → 6NMEDSUR 13:10
PROVIDERS: ADMIT Family Medicine; ATTEND Family Medicine
DX: G93.41 Metabolic encephalopathy (principal); N39.0 Urinary tract infection, site not specified; D72.819 Decreased white blood cell count, unspecified; D69.6 Thrombocytopenia, unspecified; J44.9 Chronic obstructive pulmonary disease, unspecified; E78.5 Hyperlipidemia, unspecified; F41.9 Anxiety disorder, unspecified; F32.A Depression, unspecified; I10 Essential (primary) hypertension; I65.23 Occlusion and stenosis of bilateral carotid arteries; Z87.440 Personal history of urinary (tract) infections; Z79.899 Other long term (current) drug therapy; Z79.83 Long term (current) use of bisphosphonates; Z88.0 Allergy status to penicillin
CPT/HCPCS: 96376 ×2; 96366 ×2; 96372 ×3; 96361; 96365; 96375; 99291; 36415; 94640 ×4; 94760; 95816; 93005; 93306; 97530; 97162; 97166; 80061; 80053; 80048; 82550; 83605; 84484; 85025 ×2; 85610; 85730; 81001; 83036; 71046; 93880; 70496; 70450; 70498; 70551; G0378 ×3; J1644 ×3; J2405 ×3; J0696 ×3; Q9967

== ENCOUNTER 2024-02-22 11:35 | Emergency (ER) | payer MEDICARE ==
[2024-02-22 11:44] VITALS: TEMP 97.7
--- NOTE | 2024-02-22 12:01 | ED ---
Abdominal Pain HPI - General Chief Complaint: Abdominal Pain Stated Complaint: Abdominal Pain Time Seen by Provider: 02/22/24 11:59 Source: patient, RN notes reviewed Mode of arrival: wheelchair Limitations: no limitations - History of Present Illness Initial Comments: 79-year-old female presented to the ER with a chief complaint of abdominal pain. Patient has a past medical history significant for multiple bowel resections and laparoscopic exploratory lysis of adhesion surgeries. Last surgery approximately 3 years ago per patient. Surgeries completed at [facility]. Patient reports for the past week she has been having intense left- sided abdominal pain with extreme nausea. Patient denies emesis, fevers or chills. She reports normal bowel movements without hematochezia or melena. She denies any urinary complaints or decreased appetite. Patient denies any headache, cough, congestion, chest pain, shortness of breath or peripheral edema. - Related Data Home Medications Medication Instructions Recorded Confirmed Venlafaxine HCl ER [Effexor XR] 75 mg PO DAILY 01/15/17 02/22/24 Umeclidinium Brm/Vilanterol Tr 1 puff INHALATION RT-DAILY 03/03/22 02/22/24 [Anoro Ellipta 62.5-25 Mcg INH] Albuterol Sulfate [Albuterol 2 puff INHALATION RT-Q6H PRN 05/16/23 02/22/24 Sulfate Hfa] Alendronate Sodium [Fosamax] 35 mg PO MO 05/16/23 02/22/24 Atorvastatin [Lipitor] 10 mg PO HS 05/16/23 02/22/24 Estrogens, Conjugated Cream 1 gm VAGINAL MOTH 05/16/23 02/22/24 [Premarin Vaginal Cream] Amoxicillin [Amoxicillin 125 mg/5 1 dose PO DIRECTED 02/22/24 02/22/24 ml] Ascorbic Acid [Vitamin C] 1,000 mg PO DAILY 02/22/24 02/22/24 Dailyvite 1 tab PO DAILY 02/22/24 02/22/24 EPINEPHrine (Auto Inject) [Epipen] 0.3 mg IM ONCE PRN 02/22/24 02/22/24 Trimethoprim [Trimpex] 100 mg PO HS 02/22/24 02/22/24 amLODIPine [Norvasc] 5 mg PO HS 02/22/24 02/22/24 Previous Rx's Medication Instructions Recorded Metoprolol Tartrate [Lopressor] 50 mg PO BID #60 tab 03/04/17 Aspirin 81 mg PO DAILY #60 tab 05/18/23 Na Phos,M-B/Na Phos,Di-Ba [Fleet 1 dose RECTAL ONCE #2 each 02/22/24 Adult] polyethylene glycoL 3350 [Miralax] 17 gm PO DAILY #527 gm 02/22/24 Allergies Allergy/AdvReac Type Severity Reaction Status Date / Time Penicillins Allergy Rash/Hives Verified 02/22/24 13:42 Review of Systems ROS Statement: Those systems with pertinent positive or pertinent negative responses have been documented in the HPI. ROS Other: All systems not noted in ROS Statement are negative. Past Medical History Past Medical History: COPD, Hyperlipidemia, Hypertension Additional Past Medical History / Comment(s): Pt recently admitted to [facility] 01/22/17 with superficial thrombosis L arm cephalic vein, generalized weakness, hypomagnesemia, hypokalemia. Other HX: Multiple admissions for small bowel obstructions. History of Any Multi-Drug Resistant Organisms: ESBL Date of last positivie culture/infection: 12/22/21 MDRO Source:: ESBL URINE Past Surgical History: Bowel Resection Additional Past Surgical History / Comment(s): bowel resection x 2, colonoscopy, hysterectomy Past Anesthesia/Blood Transfusion Reactions: No Reported Reaction Past Psychological History: Anxiety, Depression Smoking Status: Never smoker Past Alcohol Use History: Occasional Past Drug Use History: None Reported - Past Family History Sister(s) Family Medical History: Diabetes Mellitus Father Family Medical History: Coronary Artery Disease (CAD) Additional Family Medical History / Comment(s): Father of a MA in his 60's or 70's. Mother Family Medical History: No Reported History, Diabetes Mellitus Additional Family Medical History / Comment(s): Mother at the age of 88yrs. General Exam Limitations: no limitations General appearance: alert, in no apparent distress Respiratory exam: Present: normal lung sounds bilaterally. Absent: respiratory distress, wheezes, rales, rhonchi, stridor Cardiovascular Exam: Present: regular rate, normal rhythm, normal heart sounds. Absent: systolic murmur, diastolic murmur, rubs, gallop, clicks GI/Abdominal exam: Present: soft, tenderness (mild left sided), normal bowel sounds. Absent: distended, guarding, rebound, rigid Neurological exam: Present: alert, oriented X3, CN II-XII intact Skin exam: Present: warm, dry, intact, normal color. Absent: rash Course Vital Signs 02/22/24 02/22/24 02/22/24 11:36 13:51 15:18 Temperature 97.7 F Pulse Rate 55 L 57 L 59 L Respiratory 18 14 16 Rate Blood Pressure 132/73 149/73 147/84 O2 Sat by Pulse 95 94 L 94 L Oximetry Medical Decision Making - Medical Decision Making Was pt. sent in by a medical professional or institution (, PA, ECHO VASCULAR TECH, urgent care, hospital, or [place] health care facility...) When possible be specific @ -No Did you speak to anyone other than the patient for history (EMS, parent, family, police, friend...)? What history was obtained from this source @ - aiding in HPI Did you review nursing and triage notes (agree or disagree)? Why? @ -I reviewed and agree with nursing and triage notes Were old charts reviewed (outside hosp., previous admission, EMS record, old EKG, old radiological studies, urgent care reports/EKG's, [place] health care facility records)? Report findings @ -No old charts were reviewed Differential Diagnosis (chest pain, altered mental status, abdominal pain women, abdominal pain men, vaginal bleeding, weakness, fever, dyspnea, syncope, headache, dizziness, GI bleed, back pain, seizure, CVA, palpatations, mental health, musculoskeletal)? @ -Differential Abdominal Pain Women:Appendicitis, Cholecystitis, diverticulosis, ischemic bowel, pancreatitis, hepatitis, UTI, gastroenteritis, AAA, incarcerated hernia, bowel obstruction, constipation, inflammatory bowel, hepatitis, peptic ulcer disease, splenic infarction, perforated viscus, vulvitis, ovarian torsion, PID, kidney stone, placenta abruption, this is not meant to be an all-inclusive list EKG interpreted by me (3pts min.). @ -As above X-rays interpreted by me (1pt min.). @ -None done CT interpreted by me (1pt min.). @ -CT abdomen pelvis significant for surgically absent uterus. Vaginal cuff appears patulous with suggestion of debris and small foci of air. Previous small bowel surgery in the lower abdomen pelvis. Moderate stool burden. Moderate sized hiatal hernia. U/S interpreted by me (1pt. min.). @ -None done What testing was considered but not performed or refused? (CT, X-rays, U/S, labs)? Why? @ -None What meds were considered but not given or refused? Why? @ -None Did you discuss the management of the patient with other professionals (prof pollack ifranklin Boss, PA, ECHO VASCULAR TECH, lab, RT, psych nurse, social media community manager, media consultant outside sales, teacher, commanding officer homicide squad, bilingual case manager)? Give summary @ -No Was smoking cessation discussed for >3mins.? @ -No Was critical care preformed (if so, how long)? @ -No Were there social determinants of health that impacted care today? How? (Homelessness, low income, unemployed, alcoholism, drug addiction, transportation, low edu. Level, literacy, decrease access to med. care, long-term, rehab)? @ -No Was there de-escalation of care discussed even if they declined (Discuss DNR or withdrawal of care, Hospice)? DNR status @ -No What co-morbidities impacted this encounter? (DM, HTN, Smoking, COPD, CAD, Cancer, CVA, ARF, Chemo, Hep., AIDS, mental health diagnosis, sleep apnea, morbid obesity)? @ -History of bowel resection Was patient admitted / discharged? Hospital course, mention meds given and route, prescriptions, significant lab abnormalities, going to OR and other pertinent info. @ -Discharge. 79-year-old female presented to the ER with a chief complaint of abdominal pain. History and physical exam completed. Vitals upon arrival significant for a temperature 97.7, pulse 55, respiratory rate 18, blood pressure 132/73, oxygen saturation 95% on room air. Patient in no signs of acute distress and nontoxic-appearing. Mild left-sided abdominal tenderness to palpation with normal bowel sounds. Lung sounds clear to auscultation bilaterally. Laboratory studies obtained nonspecific. Urine with trace protein and ketones correlated with dehydration. CT abdomen pelvis performed due to patient's extensive bowel resection and abdominal surgical history. CT abdomen pelvis significant for moderate stool burden and a moderately sized hiatal hernia. Uterus surgically absent and vaginal cuff appears patulous. Patient received IV fluids and symptomatic control in the ER. Upon reevaluation, patien t resting comfortably in exam room with no signs of acute distress reporting improved symptoms. Due to CT findings of possible abnormality in the vaginal cuff palpation of suprapubic region performed. Patient had no focal tenderness and denied any vaginal complaints. Results discussed with patient, all questions answered. MiraLAX and Fleet enemas prescribed. Advise close follow- up with PCP. Strict return parameters discussed. Patient discharged in stable condition. Patient and verbally expressed understanding and agreement with care plan. Case discussed with ED attending, Dr. Lomeli. Undiagnosed new problem with uncertain prognosis? @ -No Drug Therapy requiring intensive monitoring for toxicity (Heparin, Nitro, Insulin, Cardizem)? @ -No Were any procedures done? @ -No Diagnosis/symptom? @ -Constipation Acute, or Chronic, or Acute on Chronic? @ -Acute Uncomplicated (without systemic symptoms) or Complicated (systemic symptoms)? @ -Uncomplicated Side effects of treatment? @ -No Exacerbation, Progression, or Severe Exacerbation? @ -No Poses a threat to life or bodily function? How? (Chest pain, USA, MA, pneumonia, PE, COPD, DKA, ARF, appy, cholecystitis, CVA, Diverticulitis, Homicidal, Suicidal, threat to staff... and all critical care pts) @ -No - Lab Data Result diagrams: 02/22/24 12:23 02/22/24 12:23 Lab Results 02/22/24 02/22/24 02/22/24 Range/Units 12:23 12:23 12:23 WBC 6.9 (3.8-10.6) k/uL RBC 4.20 (3.80-5.40) m/uL Hgb 13.4 (11.4-16.0) gm/dL Hct 40.7 (34.0-46.0) % MCV 96.9 (80.0-100.0) fL MCH 31.8 (25.0-35.0) pg MCHC 32.8 (31.0-37.0) g/dL RDW 13.5 (11.5-15.5) % Plt Count 318 (150-450) k/uL MPV 8.5 Neutrophils % 55 % Lymphocytes % 33 % Monocytes % 6 % Eosinophils % 3 % Basophils % 1 % Neutrophils # 3.8 (1.3-7.7) k/uL Lymphocytes # 2.3 (1.0-4.8) k/uL Monocytes # 0.4 (0-1.0) k/uL Eosinophils # 0.2 (0-0.7) k/uL Basophils # 0.0 (0-0.2) k/uL Sodium 138 (137-145) mmol/L Potassium 5.0 (3.5-5.1) mmol/L Chloride 108 H (98-107) mmol/L Carbon Dioxide 21 L (22-30) mmol/L Anion Gap 9 mmol/L BUN 21 H (7-17) mg/dL Creatinine 0.78 (0.52-1.04) mg/dL Est GFR (CKD-EPI)AfAm 83 (>60 ml/min/1.73 sqM) Est GFR (CKD-EPI)NonAf 72 (>60 ml/min/1.73 sqM) Glucose 96 (74-99) mg/dL Plasma Lactic Acid Chris (0.7-2.0) mmol/L Calcium 10.2 (8.4-10.2) mg/dL Total Bilirubin 0.7 (0.2-1.3) mg/dL AST 35 (14-36) U/L ALT 14 (4-34) U/L Alkaline Phosphatase 42 (38-126) U/L Total Protein 7.1 (6.3-8.2) g/dL Albumin 4.7 (3.5-5.0) g/dL Amylase 72 (30-110) U/L Lipase 174 (23-300) U/L Urine Color Dark Yellow Urine Appearance Cloudy H (Clear) Urine pH 5.5 (5.0-8.0) Ur Specific [place] 1.026 (1.001-1.035) Urine Protein Trace H (Negative) Urine Glucose (UA) Negative (Negative) Urine Ketones Trace H (Negative) Urine Blood Negative (Negative) Urine Nitrite Negative (Negative) Urine Bilirubin Negative (Negative) Urine Urobilinogen <2.0 (<2.0) mg/dL Ur Leukocyte Esterase Negative (Negative) Urine RBC 1 (0-5) /hpf Urine WBC 1 (0-5) /hpf Ur Squamous Epith Cells 13 H (0-4) /hpf Calcium Oxalate Crystal Rare H (None) /hpf Urine Bacteria Few H (None) /hpf Hyaline Casts 12 H (0-2) /lpf Urine Mucus Moderate H (None) /hpf 02/21/ Range/Units 12:23 WBC (3.8-10.6) k/uL RBC (3.80-5.40) m/uL Hgb (11.4-16.0) gm/dL Hct (34.0-46.0) % MCV (80.0-100.0) fL MCH (25.0-35.0) pg MCHC (31.0-37.0) g/dL RDW (11.5-15.5) % Plt Count (150-450) k/uL MPV Neutrophils % % Lymphocytes % % Monocytes % % Eosinophils % % Basophils % % Neutrophils # (1.3-7.7) k/uL Lymphocytes # (1.0-4.8) k/uL Monocytes # (0-1.0) k/uL Eosinophils # (0-0.7) k/uL Basophils # (0-0.2) k/uL Sodium (137-145) mmol/L Potassium (3.5-5.1) mmol/L Chloride (98-107) mmol/L Carbon Dioxide (22-30) mmol/L Anion Gap mmol/L BUN (7-17) mg/dL Creatinine (0.52-1.04) mg/dL Est GFR (CKD-EPI)AfAm (>60 ml/min/1.73 sqM) Est GFR (CKD-EPI)NonAf (>60 ml/min/1.73 sqM) Glucose (74-99) mg/dL Plasma Lactic Acid Chris 1.3 (0.7-2.0) mmol/L Calcium (8.4-10.2) mg/dL Total Bilirubin (0.2-1.3) mg/dL AST (14-36) U/L ALT (4-34) U/L Alkaline Phosphatase (38-126) U/L Total Protein (6.3-8.2) g/dL Albumin (3.5-5.0) g/dL Amylase (30-110) U/L Lipase (23-300) U/L Urine Color Urine Appearance (Clear) Urine pH (5.0-8.0) Ur Specific [place] (1.001-1.035) Urine Protein (Negative) Urine Glucose (UA) (Negative) Urine Ketones (Negative) Urine Blood (Negative) Urine Nitrite (Negative) Urine Bilirubin (Negative) Urine Urobilinogen (<2.0) mg/dL Ur Leukocyte Esterase (Negative) Urine RBC (0-5) /hpf Urine WBC (0-5) /hpf Ur Squamous Epith Cells (0-4) /hpf Calcium Oxalate Crystal (None) /hpf Urine Bacteria (None) /hpf Hyaline Casts (0-2) /lpf Urine Mucus (None) /hpf - EKG Data -: EKG Interpreted by Me EKG Comments: EKG taken at 12: 02 showing sinus bradycardia with no acute ST segment or T wave abnormalities. Ventricular rate 53, SD interval 173, QRS duration 92, QT/QTc 430/412. - Radiology Data Radiology results: report reviewed, image reviewed Disposition Clinical Impression: Constipation, Mild dehydration Disposition: HOME SELF-CARE Condition: Stable Instructions (If sedation given, give patient instructions): Constipation (ED) Additional Instructions: Please follow-up with PCP. Recommend using [id number] MiraLAX, Dulcolax and Fleet enemas for relief. Return to the ER for any new or worsening concerns. Prescriptions: Na Phos,M-B/Na Phos,Di-Ba [Fleet Adult] 1 dose RECTAL ONCE #2 each polyethylene glycoL 3350 [Miralax] 17 gm PO DAILY #527 gm Is patient prescribed a controlled substance at d/c from ED?: No Referrals: Jerome Hanna DO [Primary Care Provider] - 1-2 days Time of Disposition: 14:59
[2024-02-22] MEDS: SODIUM CHLORIDE 0.9% 1,000 ML IV STA (12:30)
[2024-02-22] MEDS: HYDROmorphone 0.5 MG/0.5 ML SYRINGE IVP STA ×2 (12:31→14:16)
[2024-02-22] MEDS: SODIUM CHLORIDE 0.9% 500 ML 500 ML IV STA (12:32)
[2024-02-22] MEDS: ONDANSETRON 4 MG/2 ML VIAL IVP STA (12:34)
[2024-02-22 12:45] LABS: Basophils % (A) 1 %; Eosinophils # (A) 0.2 k/uL (0-0.7); Eosinophils % (A) 3 %; HCT 40.7 % (34.0-46.0); HGB 13.4 gm/dL (11.4-16.0); Lymphocytes # (A) 2.3 k/uL (1.0-4.8); Lymphocytes % (A) 33 %; MCH 31.8 pg (25.0-35.0); MCHC 32.8 g/dL (31.0-37.0); MCV 96.9 fL (80.0-100.0); Mean Platelet Volume 8.5; Monocytes # (A) 0.4 k/uL (0-1.0); Monocytes % (A) 6 %; Neutrophils # (A) 3.8 k/uL (1.3-7.7); Neutrophils % (A) 55 %; Platelet Count 318 k/uL (150-450); RDW 13.5 % (11.5-15.5); WBC 6.9 k/uL (3.8-10.6)
[2024-02-22 12:50] LABS: ALT 14 U/L (4-34); AST 35 U/L (14-36); African American GFR (CKD) 83 (>60 ml/min/1.73 sqM); Albumin 4.7 g/dL (3.5-5.0); Alkaline Phosphatase 42 U/L (38-126); Amylase 72 U/L (30-110); Anion Gap 9 mmol/L; Blood Urea Nitrogen 21 mg/dL (7-17); Calcium 10.2 mg/dL (8.4-10.2); Carbon Dioxide 21 mmol/L (22-30); Chloride 108 mmol/L (98-107); Glucose 96 mg/dL (74-99); Lipase 174 U/L (23-300); Non-African American GFR(CKD) 72 (>60 ml/min/1.73 sqM); Sodium 138 mmol/L (137-145); Total Bilirubin 0.7 mg/dL (0.2-1.3); Total Protein 7.1 g/dL (6.3-8.2)
[2024-02-22 12:51] LABS: Appearance,Urine Cloudy (Clear); Bacteria,Urine Few /hpf; Bilirubin,Urine Negative (Negative); Blood,Urine Negative (Negative); Calcium Oxalate Crystals,Urine Rare /hpf; Color,Urine Dark Yellow; Glucose,Urine (UA) Negative (Negative); Hyaline Casts,Urine 12 /lpf (0-2); Ketones,Urine Trace (Negative); Leukocyte Esterase,Urine Negative (Negative); Mucus,Urine Moderate /hpf; Nitrite,Urine Negative (Negative); PH, Urine 5.5 (5.0-8.0); Protein,Urine Trace (Negative); RBC,Urine 1 /hpf (0-5); Specific Gravity,Urine 1.026 (1.001-1.035); Squamous Epithelial Cell,Urine 13 /hpf (0-4); Urobilinogen,Urine <2.0 mg/dL (<2.0); WBC,Urine 1 /hpf (0-5)
--- NOTE | 2024-02-22 14:26 | CT ---
EXAMINATION TYPE: CT abdomen pelvis w con DATE OF EXAM: 02/22/2024 COMPARISON: 08/31/2021 HISTORY: 79-year-old female Abdominal pain TECHNIQUE: Contiguous axial scanning of the abdomen and pelvis following administration of 100 ml Iso rio 300 IV contrast. Delayed images through the kidneys and coronal/sagittal reconstructions perform ed. CT DLP: 499.5 mGycm Automated exposure control for dose reduction was used. FINDINGS: Heart normal size without pericardial effusion. Some chronic interstitial fibrosis in the lower lungs , similar to 2020. There is a moderate-sized hiatal hernia with a third of the stomach in the lower chest. There is some diffuse gastric mucosal enhancement which may relate to the phase of the study. Unchanged 1.1 cm cyst posterior right liver lobe. Portal venous system is patent. No abnormal gallbladder distention. Unchanged 1.1 cm nodularity left adrenal gland. Right adrenal gland, kidneys, spleen, and pancreas show no gross abnormality. The main pancreatic aky t is visualized at the upper limits of normal at 2.8 mm. Mild to moderate atherosclerotic calcifications infrarenal abdominal aorta. No dilated small bowel, free fluid, or free air. No mesenteric or retroperitoneal lymphadenopathy. Evidence of prior bowel surgery in the lower abdomen and pelvis. Unable to clearly delineate the exac t surgery that was performed but it appears to involve small bowel loops in the lower abdomen. Clinic ally correlate. Moderate stool burden. No perisplenic inflammatory change. Bladder is partially distended. Uterus appears surgically absent. There is a patulous vaginal cuff with some possible debris at the r ight lateral fornix, axial image 66. Small foci of air at the vaginal cuff also noted, axial image 66 and 68. Refer to coronal images which 55 and 56. Unable to exclude some contiguous soft tissue to th e right side of the vaginal cuff, axial image 66 2 and adjacent lower lobe. Neither ovary clearly see n. No pelvic lymphadenopathy. Bones: No osseous destructive process. Inferior endplate deformity T12 has a chronic appearance. Mode rate degenerative change of the hips. IMPRESSION: 1. UTERUS SURGICALLY ABSENT. THE VAGINAL CUFF APPEARS PATULOUS WITH SUGGESTION OF DEBRIS AND SMALL FO CI OF AIR ESPECIALLY WITHIN THE RIGHT LATERAL FORNIX. CORRELATE FOR ANY RETAINED ABNORMAL DEBRIS OR S ECRETIONS. REFER TO CORONAL IMAGES 54 THROUGH 56. 2. EVIDENCE OF PREVIOUS SMALL BOWEL SURGERY IN THE LOWER ABDOMEN/PELVIS. 3. MODERATE STOOL BURDEN. 4. MODERATE-SIZED HIATAL HERNIA WITH A THIRD OF THE STOMACH IN THE LOWER CHEST.
[2024-02-22 15:23] VITALS: BP 147/84; PULSE 59; RESP 16
== END 2024-02-22 15:19 | disposition home or self-care (01) ==
LOC: EC 11:35
DX: K59.00 Constipation, unspecified (principal); E86.0 Dehydration; R00.1 Bradycardia, unspecified; Z88.0 Allergy status to penicillin
CPT/HCPCS: 36415; 93005; 80053; 82150; 83605; 83690; 85025; 81001; 74177; 99285; 96374; 96375; 96376; 96361; J2405; J1170; Q9967

== ENCOUNTER 2024-05-09 13:57 | Inpatient (IN) | payer MEDICARE ==
[2024-05-10] MEDS ORDERED: HEPARIN SODIUM,PORCINE 5,000 UNIT/ML 1 ML VIAL ONE ×2 (09:25→21:07)
[2024-05-10] MEDS ORDERED: KETOROLAC 15 MG/ML 1 ML VIAL ONE ×3 (09:25→21:07)
[2024-05-10] MEDS ORDERED: FAMOTIDINE 20 MG/2 ML VIAL ONE ×2 (09:26→21:08)
[2024-05-10] MEDS ORDERED: cefTRIAXone 1 GM VIAL ONE (09:26)
[2024-05-10] MEDS ORDERED: ATORVASTATIN 10 MG TAB ONE (21:08)
[2024-05-11] MEDS ORDERED: FAMOTIDINE 20 MG/2 ML VIAL ONE (08:56)
[2024-05-11] MEDS ORDERED: ASPIRIN 325 MG TAB ONE (08:56)
[2024-05-11] MEDS ORDERED: cefTRIAXone 1 GM VIAL ONE (08:56)
[2024-05-11] MEDS ORDERED: HEPARIN SODIUM,PORCINE 5,000 UNIT/ML 1 ML VIAL ONE ×2 (08:56→19:55)
[2024-05-11] MEDS ORDERED: KETOROLAC 15 MG/ML 1 ML VIAL ONE ×2 (12:25→19:54)
[2024-05-11] MEDS ORDERED: METOPROLOL TARTRATE 50 MG TAB ONE (19:54)
[2024-05-11] MEDS ORDERED: ATORVASTATIN 10 MG TAB ONE (19:55)
[2024-05-11] MEDS ORDERED: amLODIPine 5 MG TAB ONE (19:55)
[2024-05-11] MEDS ORDERED: ACETAMINOPHEN TAB 325 MG TAB ONE (22:23)
[2024-05-12] MEDS ORDERED: KETOROLAC 15 MG/ML 1 ML VIAL ONE ×4 (03:58→23:13)
[2024-05-12] MEDS ORDERED: IPRATROPIUM 0.5 MG/2.5 ML NEBU INHALATION ONE (04:46)
[2024-05-12] MEDS ORDERED: ASPIRIN 325 MG TAB ONE (09:21)
[2024-05-12] MEDS ORDERED: METOPROLOL TARTRATE 50 MG TAB ONE ×2 (09:21→20:09)
[2024-05-12] MEDS ORDERED: FAMOTIDINE 20 MG TAB ONE ×2 (09:21→20:09)
[2024-05-12] MEDS ORDERED: HEPARIN SODIUM,PORCINE 5,000 UNIT/ML 1 ML VIAL ONE ×2 (09:22→20:09)
[2024-05-12] MEDS ORDERED: cefTRIAXone 1 GM VIAL ONE (09:22)
[2024-05-12] MEDS ORDERED: ACETAMINOPHEN TAB 325 MG TAB ONE ×2 (20:09→20:11)
[2024-05-12] MEDS ORDERED: ATORVASTATIN 10 MG TAB ONE (20:09)
[2024-05-12] MEDS ORDERED: amLODIPine 5 MG TAB ONE (20:10)
[2024-05-13] MEDS ORDERED: ACETAMINOPHEN TAB 325 MG TAB ONE ×2 (02:57→20:15)
[2024-05-13] MEDS ORDERED: KETOROLAC 15 MG/ML 1 ML VIAL ONE ×3 (06:48→21:59)
[2024-05-13] MEDS ORDERED: ASPIRIN 325 MG TAB ONE (10:28)
[2024-05-13] MEDS ORDERED: FAMOTIDINE 20 MG TAB ONE ×2 (10:28→20:15)
[2024-05-13] MEDS ORDERED: HEPARIN SODIUM,PORCINE 5,000 UNIT/ML 1 ML VIAL ONE ×2 (10:28→20:14)
[2024-05-13] MEDS ORDERED: METOPROLOL TARTRATE 50 MG TAB ONE (10:28)
[2024-05-13] MEDS ORDERED: cefTRIAXone 1 GM VIAL ONE (10:29)
[2024-05-13] MEDS ORDERED: ATORVASTATIN 10 MG TAB ONE (20:15)
[2024-05-14] MEDS ORDERED: IPRATROPIUM-ALBUTEROL 3 ML NEB ONE (05:04)
[2024-05-14] MEDS ORDERED: KETOROLAC 15 MG/ML 1 ML VIAL ONE ×3 (06:37→16:37)
[2024-05-14] MEDS ORDERED: ASPIRIN 325 MG TAB ONE (08:27)
[2024-05-14] MEDS ORDERED: FAMOTIDINE 20 MG TAB ONE ×2 (08:27→20:19)
[2024-05-14] MEDS ORDERED: HEPARIN SODIUM,PORCINE 5,000 UNIT/ML 1 ML VIAL ONE ×2 (08:27→20:18)
[2024-05-14] MEDS ORDERED: cefTRIAXone 1 GM VIAL ONE (08:27)
[2024-05-14] MEDS ORDERED: ACETAMINOPHEN TAB 325 MG TAB ONE ×2 (11:30→20:31)
[2024-05-14] MEDS ORDERED: amLODIPine 5 MG TAB ONE (20:19)
[2024-05-14] MEDS ORDERED: ATORVASTATIN 10 MG TAB ONE (20:19)
[2024-05-14] MEDS ORDERED: METOPROLOL TARTRATE 50 MG TAB ONE (20:19)
[2024-05-15] MEDS ORDERED: KETOROLAC 15 MG/ML 1 ML VIAL ONE ×3 (01:31→20:59)
[2024-05-15] MEDS ORDERED: IPRATROPIUM-ALBUTEROL 3 ML NEB ONE (04:57)
[2024-05-15] MEDS ORDERED: FAMOTIDINE 20 MG TAB ONE ×2 (09:32→20:54)
[2024-05-15] MEDS ORDERED: cefTRIAXone 1 GM VIAL ONE (09:33)
[2024-05-15] MEDS ORDERED: HEPARIN SODIUM,PORCINE 5,000 UNIT/ML 1 ML VIAL ONE ×2 (09:33→20:54)
[2024-05-15] MEDS ORDERED: ASPIRIN 325 MG TAB ONE (09:33)
[2024-05-15] MEDS ORDERED: ACETAMINOPHEN TAB 325 MG TAB ONE ×2 (10:37→16:34)
[2024-05-15] MEDS ORDERED: ONDANSETRON 4 MG/2 ML VIAL ONE (11:13)
[2024-05-15] MEDS ORDERED: ATORVASTATIN 10 MG TAB ONE (20:55)
[2024-05-15] MEDS ORDERED: amLODIPine 5 MG TAB ONE (20:55)
[2024-05-15] MEDS ORDERED: Acetaminophen-Codeine 300-30mg TAB ONE (23:23)
[2024-05-16] MEDS ORDERED: Acetaminophen-Codeine 300-30mg TAB ONE ×2 (06:21→13:26)
[2024-05-16] MEDS ORDERED: ASPIRIN 325 MG TAB ONE (09:36)
[2024-05-16] MEDS ORDERED: FAMOTIDINE 20 MG TAB ONE (09:36)
[2024-05-16] MEDS ORDERED: HEPARIN SODIUM,PORCINE 5,000 UNIT/ML 1 ML VIAL ONE (09:37)
[2024-05-16] MEDS ORDERED: METOPROLOL TARTRATE 12.5 MG TAB ONE (09:37)
[2024-05-16] MEDS ORDERED: amLODIPine 5 MG TAB ONE (09:37)
[2024-05-16] MEDS ORDERED: cefTRIAXone 1 GM VIAL ONE (09:37)
[2024-05-16] MEDS ORDERED: ACETAMINOPHEN TAB 325 MG TAB ONE ×2 (09:46→17:15)
--- NOTE | 2024-06-04 13:50 | MR ---
Site ID [facility] Patient Yuli Celaya ID [id number] Order # Procedure MR brain wo/w con & cervical spine wo con EXAMINATION TYPE: MR brain wo/w cspine wo DATE OF EXAM: 05/10/2024 CLINICAL INDICATION: cva, seizure, neck pain, falls COMPARISON: THIS EXAM WAS READ DURING PACS DOWNTIME, NO PRIORS AVAILABLE.. TECHNIQUE: Multi planar, multi sequence imaging was performed through the brain including: T1, T2, Inversion rec overy, Diffusion weighted imaging, and gradient echo imaging. No gadolinium was given. Multi planar, multi sequence imaging was performed utilizing: T1-weighted, T2-weighted, and turbo inv ersion recovery imaging of the cervical spine. IV Contrast: Gadavist 5.5 ml FINDINGS: The leary-white junctions, ventricular system, basal cisterns appear unremarkable. Patchy areas of hig h T2 signal intensity are seen within the periventricular white matter. Midline structures show no ab normality. Diffusion-weighted imaging shows no evidence of restricted diffusion. The susceptibility w eighted images do not reveal any evidence for micro-hemorrhage. The bone marrow signal is within normal limits. Paranasal sinuses and mastoid air cells: No significant paranasal sinus disease. Visualized orbits: Orbital contents are intact. Alignment: The cervical vertebral bodies have preserved heights. Alignment is within normal limits gi alejandro patient positioning. Bones: Scattered Modic endplate changes with osteophytes and disc space narrowing. Multilevel degener ative disc disease is noted and most pronounced at the C5-C7 vertebral levels. Cord: The spinal cord is unremarkable with regards to their signal intensity and morphology. Discs: Multilevel disc desiccation is present. C2-C3: No significant disc pathology. The spinal canal is patent. Bilateral facet and uncovertebral j oint arthropathy are present with mild left neural foraminal stenosis. The right neural foramen is pa tent. C3-C4: No significant disc pathology. The spinal canal is patent. Bilateral facet and uncovertebral j oint arthropathy are present with mild bilateral neural foraminal stenosis. C4-C5: No significant disc pathology. The spinal canal is patent. Bilateral facet and uncovertebral j oint arthropathy are present with mild bilateral neural foraminal stenosis. C5-C6: A disc osteophyte complex is present which minimally narrows the ventral subarachnoid space. B ilateral facet and uncovertebral joint arthropathy are present with mild to moderate bilateral neural foraminal stenosis. C6-C7: No significant disc pathology. The spinal canal is patent. Bilateral facet and uncovertebral j oint arthropathy are present with moderate to severe left and mild right neural foraminal stenosis. C7-T1: No significant disc pathology. The spinal canal is patent. No neural foraminal stenosis. Other: None. IMPRESSION: 1. No evidence of intracranial mass or acute/subacute infarct. 2. Nonspecific white matter changes, likely secondary to small vessel ischemic disease. 3. No evidence for disc herniation or significant spinal canal stenosis. 4. Multilevel disc degeneration with associated osteoarthritic changes. Neural foraminal stenosis worse at C6-C7 with moderate to severe left.
--- NOTE | 2024-06-07 10:01 | CT ---
Patient Yuli Celaya ID [id number] Order # Procedure CT brain wo con EXAMINATION TYPE: CT brain wo con CT DLP: 1100.1 mGycm, Automated exposure control for dose reduction was used. DATE OF EXAM: 05/09/2024 11:06 AM COMPARISON: THIS EXAM WAS READ DURING PACS DOWNTIME, NO PRIORS AVAILABLE. CLINICAL INDICATION: fall last night. TECHNIQUE: Brain: Axial CT images of the brain were obtained with coronal and sagittal reformats created and rev iewed. Contrast used: None. Oral contrast used: None. FINDINGS: Brain: Extra-axial spaces: No abnormal extra-axial fluid collections. Ventricular system: Within normal limits Cerebral parenchyma: Right caudate nucleus low-density area. No acute intraparenchymal hemorrhage or mass effect. The leary-white junction is well differentiated. Cerebellum: Unremarkable. Mass effect: No evidence of midline shift. Intracranial vasculature: Atherosclerotic calcifications of the intracranial vessels. Soft tissues: Normal. Calvarium/osseous structures: No depressed skull fracture. Paranasal sinuses and mastoid air cells: Mild scattered paranasal sinus disease. Visualized orbits: Bilateral aphakia IMPRESSION: 1. Indeterminate low-density area in the right caudate nucleus with nonspecific scattered white david er changes. Correlate with MRI for acute/subacute ischemia. 2. No evidence for intracranial hemorrhage.
--- NOTE | 2024-06-07 10:01 | CT ---
Patient Yuli Celaya ID [id number] Order # Procedure CT ANGIO HEAD/NECK W/ + W/O EXAMINATION TYPE: CT angio head neck CT DLP: 1412 mGycm, Automated exposure control for dose reduction was used. DATE OF EXAM: 05/09/2024 11:21 AM COMPARISON: THIS EXAM WAS READ DURING PACS DOWNTIME, NO PRIORS AVAILABLE.. CLINICAL INDICATION: Fall TECHNIQUE: Axially acquired helical CT angiogram of the head and neck was obtained with contrast. Axi al images are supplemented with 3D reconstructions and MIP images which were post-processed at an in dependent workstation. NASCET criteria used. Contrast used: 65 cc [id number] Oral contrast used: None. FINDINGS: CTA HEAD: No evidence of acute intracranial hemorrhage, mass effect, or midline shift. The ventricles, sulci, a nd cisterns are unremarkable. The visualized portions of the internal carotid arteries, middle cerebral arteries, anterior cerebral arteries, and posterior cerebral arteries are patent. The basilar and vertebral arteries are patent. CTA NECK: Right Carotid System: The common carotid and external carotid arteries are patent. There is 30% % stenosis at the carotid b ifurcation secondary to calcified/noncalcified plaque. The rest of the internal carotid artery is pat ent. Left Carotid System: The common carotid and external carotid arteries are patent. There is less than 25% stenosis at the c arotid bifurcation secondary to calcified/noncalcified plaque. The rest of the internal carotid arter y is patent. Vertebral arteries are patent without evidence hemodynamically significant stenosis. There is a three-vessel aortic arch. The origins of the great vessels are patent. No evidence of hemo dynamically significant stenosis. IMPRESSION: 1. No evidence of dissection of the cervical internal carotid arteries or vertebral arteries or any e vidence of significant stenosis at the carotid bifurcations. 2. No evidence of intracranial high-grade stenosis or intracranial aneurysm.
--- NOTE | 2024-06-12 08:35 | XR ---
Site ID [facility] Patient Yuli Celaya ID [id number] Order # Procedure CHEST SINGLE VIEW EXAMINATION TYPE: XR chest 1V DATE OF EXAM: 05/10/2024 1:20 PM CLINICAL INDICATION: SOB HERE DUE TO STROKE SYMPTOMS NOTE LEFT CLAVICLE COMPARISON: CT TECHNIQUE: XR chest 1V Frontal view of the chest. FINDINGS: Lungs/Pleura: There is no evidence of pleural effusion, focal consolidation, or pneumothorax. Pulmonary vascularity: Unremarkable. Heart/mediastinum: Cardiomediastinal silhouette is unremarkable. Musculoskeletal: No acute osseous pathology. IMPRESSION: 1. No acute cardiopulmonary disease/process. 2. Remote left clavicle injury.
--- NOTE | 2024-06-21 14:40 | CONS ---
CONSULTATION REASON FOR CONSULTATION: Infection. HISTORY OF PRESENT ILLNESS: The patient is an 79-year-old female with multiple comorbidities including hypertension, depression, hyperlipidemia, and osteoporosis. The patient has been brought into the hospital for evaluation of mental status changes and weakness. Apparently, symptoms had been going on for a day or two before the patient was brought into the hospital. No clear history of any fever or any chills. Initially, the patient was noted to be slightly hypothermic; however, when a rectal temperature was done, the patient did have temperature of 98 degrees Fahrenheit, this was reported by nursing staff. The patient has been lethargic. Did have a stroke workup including CT of the brain that was negative for any bleed. Did have mildly positive UA. Did receive a dose of Rocephin. Infectious Disease was consulted for further management. The patient is currently lethargic, though arousable. However, not a very good historian, so most of the information has been obtained from review of the chart and talking to nursing staff. REVIEW OF SYSTEMS: Positive points have been mentioned in HPI. Complete review could not be obtained because of mental status. PAST MEDICAL HISTORY: Mentioned above. PAST SURGICAL HISTORY: Reviewed. SOCIAL HISTORY: Reviewed. FAMILY HISTORY: Reviewed. MEDICATIONS: The patient is on, 1. Lopressor. 2. Effexor. 3. Norvasc. 4. Fosamax. 5. Lipitor. PHYSICAL EXAMINATION: VITAL SIGNS: Blood pressure is 106/96, pulse of 86, temperature of 98, she is 95% on room air. GENERAL DESCRIPTION: This is an elderly female, lying in bed, in no distress. No tachypnea or accessory muscle of respiration use. HEENT: Shows no pallor or scleral icterus. Oral mucous membranes are dry. NECK: Trachea is central. No thyromegaly. LUNGS: Unlabored breathing. Clear to auscultation anteriorly. HEART: S1, S2. Regular rate and rhythm. ABDOMEN: Soft. No tenderness. No guarding or rigidity. No organomegaly. EXTREMITIES: No edema in the feet. SKIN: No rashes. No masses palpable. NEUROLOGICAL: The patient is awake, but not verbal. Orientation could not be determined. LABORATORY DATA: Creatinine 0.64. LFTs are normal. UA has been mildly positive. White count of 5.29. CT of the brain was negative for any bleed. DIAGNOSTIC IMPRESSION AND PLAN: 1. The patient presented to the hospital with mental status changes, weakness, which are likely multifactorial, possible component of urinary tract infection, likely from enteric gram-negative pathogen. 2. We will start the patient on Rocephin 1 g daily, pending culture completion. 3. We will follow the clinical condition and culture to further adjust medication if needed. Thank you for this consultation. We will follow this patient along with you. MMODL / IJN: [id number] /
--- NOTE | 2024-06-21 14:44 | PN ---
PROGRESS NOTE DATE OF SERVICE: 05/16/2024 LOCATION: Critical access hospital REASON FOR FOLLOWUP: Urinary tract infection. INTERVAL HISTORY: The patient is afebrile. The patient is more awake and alert. She is breathing comfortably on room air. Denies any chest pain, shortness of breath, or cough. No abdominal pain or diarrhea. PHYSICAL EXAMINATION: VITAL SIGNS: Blood pressure 128/78 with a pulse of 71, temperature and 93% on room air. GENERAL DESCRIPTION: This is an elderly female, lying in bed, in no distress. RESPIRATORY SYSTEM: Unlabored breathing. Clear to auscultation anteriorly. HEART: S1, S2. Regular rate and rhythm. ABDOMEN: Soft. No tenderness. LABORATORY DATA: Creatinine 0.7. White count 3.4. DIAGNOSTIC IMPRESSION AND PLAN: The patient admitted to hospital with mental status change, which is multifactorial, possible component of UTI, has received adequate antibiotic therapy in form Rocephin, which can be discontinued on discharge. Questions of concerns were answered. MMODL / IJN: [id number] /
--- NOTE | 2024-06-26 14:36 | PN ---
PROGRESS NOTE DATE OF SERVICE: 05/11/2024 REASON FOR FOLLOWUP: Urinary tract infection. INTERVAL HISTORY: The patient is afebrile. The patient is slightly more awake and alert today. She is breathing comfortably on room air. Denies any chest pain or cough. No abdominal pain or diarrhea. PHYSICAL EXAMINATION: VITAL SIGNS: Blood pressure 136/88, pulse of 94, temperature 97.4. She is 96% on room air. GENERAL DESCRIPTION: The patient is an elderly female, lying in bed, in no distress. RESPIRATORY SYSTEM: Unlabored breathing. Clear to auscultation anteriorly. HEART: S1, S2. Regular rate and rhythm. ABDOMEN: Soft, no tenderness. LABORATORY DATA: White count 6.49, creatinine 0.73. Cultures are currently pending. DIAGNOSTIC IMPRESSION AND PLAN: The patient presented to the hospital with weakness, which is multifactorial in this patient with concern for possible UTI. The patient has clinically responded to Rocephin, to continue while waiting for the culture to finalize and monitor clinical course closely. MMODL / IJN: [id number] /
--- NOTE | 2024-06-26 14:36 | PN ---
PROGRESS NOTE DATE OF SERVICE: 05/12/2024 LOCATION: 354. REASON FOR FOLLOWUP: Urinary tract infection. INTERVAL HISTORY: The patient is afebrile. The patient is slightly more awake and alert today. Denies any chest pain, shortness of breath, or cough. No vomiting and no diarrhea have been reported. PHYSICAL EXAMINATION: VITAL SIGNS: Blood pressure 125/67, pulse 56, temperature 97% on room air. GENERAL DESCRIPTION: This is an elderly female lying in bed in no distress. RESPIRATORY SYSTEM: Unlabored breathing. LUNGS: Clear to auscultation anteriorly. HEART: S1 and S2. Regular rate. ABDOMEN: Soft, no tenderness. LABORATORY DATA: White count normal at 6.49, creatinine 0.9. DIAGNOSTIC IMPRESSION AND PLAN: The patient was admitted to the hospital with mental status changes, weakness, which is multifactorial, possible component of urinary tract infection. Still waiting for urine culture to finalize. Continue with Rocephin and monitor clinical course closely. MMODL / IJN: [id number] /
--- NOTE | 2024-06-26 14:36 | PN ---
PROGRESS NOTE LOCATION: 353. REASON FOR FOLLOWUP: Urinary tract infection. INTERVAL HISTORY: The patient is afebrile. The patient seems to be slightly more awake today compared to yesterday. Did respond to her name and also some simple questions. No vomiting, diarrhea and no change reported by the nursing staff. PHYSICAL EXAMINATION: VITAL SIGNS: Blood pressure 121/79 with a pulse of 78, temperature 99.4. GENERAL DESCRIPTION: This is an elderly female lying in bed, in no distress. RESPIRATORY SYSTEM: Unlabored breathing. Clear to auscultation anteriorly. HEART: S1, S2. Regular rate and rhythm. ABDOMEN: Soft, no tenderness. EXTREMITIES: No edema in the feet. LABORATORY: Urine culture currently pending. DIAGNOSTIC IMPRESSION AND PLAN: The patient was admitted to the hospital with weakness, mental status changes, multifactorial, possible component of UTI. Currently waiting for the culture to finalize. The patient is on Rocephin to continue and monitor clinical course closely. MMODL / IJN: [id number] /
--- NOTE | 2024-06-26 14:42 | PN ---
PROGRESS NOTE DATE OF SERVICE: 05/13/2024 LOCATION: 354. REASON FOR FOLLOWUP: Urinary tract infection. INTERVAL HISTORY: The patient is afebrile. The patient is more awake and alert. She is breathing comfortably on room air. No chest pain, shortness of breath, or cough. No abdominal pain. No diarrhea. PHYSICAL EXAMINATION: VITAL SIGNS: Blood pressure 119/56, pulse of 86, temperature 97.5, sating 98% on room air. GENERAL DESCRIPTION: This is an elderly female, lying in bed in no distress. RESPIRATORY SYSTEM: Unlabored breathing. Clear to auscultation anteriorly. HEART: S1, S2. Regular rate and rhythm. ABDOMEN: Soft, no tenderness. EXTREMITIES: No edema in feet. LABS: Cultures are currently pending. DIAGNOSTIC IMPRESSION AND PLAN: The patient was admitted to the hospital with weakness, mental status changes, multifactorial, concerning for urinary tract infection. She has clinically responded to Rocephin, to continue while waiting for the culture to finalize and monitor clinical course closely. MMODL / IJN: [id number] /
--- NOTE | 2024-06-26 14:42 | PN ---
PROGRESS NOTE LOCATION: 354. REASON FOR FOLLOWUP: Urinary tract infection. INTERVAL HISTORY: The patient is afebrile. She is breathing comfortably. Denies any chest pain, shortness of breath, or cough. No nausea. No abdominal pain, diarrhea. More awake and alert. PHYSICAL EXAMINATION: VITAL SIGNS: Blood pressure 112/62, pulse of 54, temperature 97.6. GENERAL DESCRIPTION: This is an elderly female, lying in bed, in no distress. RESPIRATORY: Unlabored breathing. Clear to auscultation anteriorly. HEART: S1, S2. Regular rate and rhythm. ABDOMEN: Soft, no tenderness. EXTREMITIES: No edema in feet. LABORATORY DATA: Cultures are currently pending. DIAGNOSTIC IMPRESSION AND PLAN: Patient admitted to hospital with weakness; mental status change, multifactorial, possible component of urinary tract infection. Overall improvement on Rocephin. Unfortunately, culture is still pending. May consider short course of oral Ceftin on discharge. Continue supportive care. MMODL / IJN: [id number] /
--- NOTE | 2024-06-26 14:42 | PN ---
PROGRESS NOTE DATE OF SERVICE: 05/15/2024 LOCATION: 354. REASON FOR FOLLOWUP: Urinary tract infection. INTERVAL HISTORY: The patient is afebrile. The patient is breathing comfortably on room air. Denies any chest pain, shortness of breath, or cough. No nausea, no vomiting. No abdominal pain or diarrhea. Feeling better. EXAMINATION: VITAL SIGNS: Blood pressure 171/74 with a pulse of , temperature of 97.4. She is 97% on room air. GENERAL: This is an elderly female up in the chair, in no distress. RESPIRATORY SYSTEM: Unlabored breathing, clear to auscultation anteriorly. HEART: S1, S2. Regular rate and rhythm. ABDOMEN: Soft, no tenderness. EXTREMITIES: No edema in feet. LABS: White count 3.95, creatinine 0.6. DIAGNOSTIC IMPRESSION AND PLAN: Patient to hospital with weakness, mental status change, multifactorial, possible component of UTI. The patient has overall improvement oral Ceftin on discharge. Questions concerns were answered. MMODL / IJN: [id number] /
== END 2024-05-16 17:14 | disposition home or self-care (01) | DRG 88 ==
LOC: DISRECOVER 13:57 → UNDOADMIN 05-12 20:39 → UNDODISIN 05-16 17:14
PROVIDERS: ADMIT Hospitalist; ATTEND Hospitalist
DX: S06.0XAA Concussion with loss of consciousness status unknown, initial encounter (principal); G93.41 Metabolic encephalopathy; R47.01 Aphasia; N39.0 Urinary tract infection, site not specified; J44.9 Chronic obstructive pulmonary disease, unspecified; I10 Essential (primary) hypertension; I16.0 Hypertensive urgency; R00.1 Bradycardia, unspecified; E78.5 Hyperlipidemia, unspecified; S42.002A Fracture of unspecified part of left clavicle, initial encounter for closed fracture; M48.02 Spinal stenosis, cervical region; T46.5X6A Underdosing of other antihypertensive drugs, initial encounter; R40.2132 Coma scale, eyes open, to sound, at arrival to emergency department; R40.2352 Coma scale, best motor response, localizes pain, at arrival to emergency department; R40.2212 Coma scale, best verbal response, none, at arrival to emergency department; M50.323 Other cervical disc degeneration at C6-C7 level; W19.XXXA Unspecified fall, initial encounter; Z91.148 Patient's other noncompliance with medication regimen for other reason; Z91.198 Patient's noncompliance with other medical treatment and regimen for other reason; Z79.51 Long term (current) use of inhaled steroids; Z87.891 Personal history of nicotine dependence; Z79.82 Long term (current) use of aspirin; Z79.899 Other long term (current) drug therapy; Z87.440 Personal history of urinary (tract) infections; Z88.0 Allergy status to penicillin; Z90.49 Acquired absence of other specified parts of digestive tract; Z86.69 Personal history of other diseases of the nervous system and sense organs
CPT/HCPCS: 70450; 70496; 70498; 70552; 71045; 72141; 80061; 83036; 87040; 94640; 99291

== ENCOUNTER 2024-06-20 09:14 | Day surgery (SDC) | payer MEDICARE ==
--- NOTE | 2024-06-20 07:38 | P.GSHP ---
History of Present Illness H&P Date: 06/20/24 CHIEF COMPLAINT: GERD HISTORY OF PRESENT ILLNESS: The patient is a 79-year-old female who presents reports gastroesophageal reflux disease. Upper endoscopy was offered for further evaluation and management. PAST MEDICAL HISTORY: Please see list. PAST SURGICAL HISTORY: Please see list. MEDICATIONS: Please see list. ALLERGIES: Please see list. SOCIAL HISTORY: No illicit drug use FAMILY HISTORY: No reports of Crohn disease or ulcerative colitis. REVIEW OF ORGAN SYSTEMS: CONSTITUTIONAL: No reports of fevers or chills. GI: Denies any blood in stools or constipation. PHYSICAL EXAM: VITAL SIGNS: Stable GENERAL: Well-developed and pleasant in no acute distress. HEENT: No scleral icterus. Extraocular movements grossly intact. Moist buccal mucosa. NECK: Supple without lymphadenopathy. CHEST: Unlabored respirations. Equal bilateral excursions. CARDIOVASCULAR: Regular rate and rhythm. Distal 2+ pulses. ABDOMEN: Soft, nondistended. MUSCULOSKELETAL: No clubbing, cyanosis, or edema. ASSESSMENT: 1. Gastroesophageal reflux disease PLAN: 1. Recommend proceeding with an upper endoscopy Past Medical History Past Medical History: COPD, Hyperlipidemia, Hypertension Additional Past Medical History / Comment(s): Pt recently admitted to [facility] 01/22/17 with superficial thrombosis L arm cephalic vein, generalized weakness, hypomagnesemia, hypokalemia. Other HX: Multiple admissions for small bowel obstructions. History of Any Multi-Drug Resistant Organisms: ESBL Date of last positivie culture/infection: 12/22/21 MDRO Source:: ESBL URINE Past Surgical History: Bowel Resection Additional Past Surgical History / Comment(s): bowel resection x 2, colonoscopy, hysterectomy Past Anesthesia/Blood Transfusion Reactions: No Reported Reaction Past Psychological History: Anxiety, Depression Smoking Status: Never smoker Past Alcohol Use History: Occasional Past Drug Use History: None Reported - Past Family History Sister(s) Family Medical History: Diabetes Mellitus Father Family Medical History: Coronary Artery Disease (CAD) Additional Family Medical History / Comment(s): Father of a MS in his 60's or 70's. Mother Family Medical History: No Reported History, Diabetes Mellitus Additional Family Medical History / Comment(s): Mother at the age of 88yrs. Medications and Allergies Home Medications Medication Instructions Recorded Confirmed Type Venlafaxine HCl ER [Effexor XR] 75 mg PO DAILY 01/15/17 02/22/24 History Metoprolol Tartrate [Lopressor] 50 mg PO BID #60 tab 03/04/17 02/22/24 Rx Umeclidinium Brm/Vilanterol Tr 1 puff INHALATION RT-DAILY 03/03/22 02/22/24 History [Anoro Ellipta 62.5-25 Mcg INH] Albuterol Sulfate [Albuterol 2 puff INHALATION RT-Q6H PRN 05/16/23 02/22/24 History Sulfate Hfa] Alendronate Sodium [Fosamax] 35 mg PO MO 05/16/23 02/22/24 History Atorvastatin [Lipitor] 10 mg PO HS 05/16/23 02/22/24 History Estrogens, Conjugated Cream 1 gm VAGINAL MOTH 05/16/23 02/22/24 History [Premarin Vaginal Cream] Aspirin 81 mg PO DAILY #60 tab 05/18/23 02/22/24 Rx Amoxicillin [Amoxicillin 125 mg/5 1 dose PO DIRECTED 02/22/24 02/22/24 History ml] Ascorbic Acid [Vitamin C] 1,000 mg PO DAILY 02/22/24 02/22/24 History Dailyvite 1 tab PO DAILY 02/22/24 02/22/24 History EPINEPHrine (Auto Inject) [Epipen] 0.3 mg IM ONCE PRN 02/22/24 02/22/24 History Na Phos,M-B/Na Phos,Di-Ba [Fleet 1 dose RECTAL ONCE #2 each 02/22/24 Rx Adult] Trimethoprim [Trimpex] 100 mg PO HS 02/22/24 02/22/24 History amLODIPine [Norvasc] 5 mg PO HS 02/22/24 02/22/24 History polyethylene glycoL 3350 [Miralax] 17 gm PO DAILY #527 gm 02/22/24 Rx Allergies Allergy/AdvReac Type Severity Reaction Status Date / Time Penicillins Allergy Rash/Hives Verified 02/22/24 13:42
[2024-06-20 10:06] VITALS: TEMP 97.1
[2024-06-20] MEDS: IV FLUID CONTINUATION 1,000 ML IV ONE (10:17)
[2024-06-20] MEDS: LACTATED RINGERS 1,000 ML IV SCH (10:17)
[2024-06-20] MEDS ORDERED: LIDOCAINE 1% INJ 10MG/ML (20 ML MDV) ONE (11:01)
[2024-06-20] MEDS ORDERED: PROPOFOL 10 MG/ML 20 ML VIAL IV ONE (11:01)
--- NOTE | 2024-06-20 11:29 | P.PCN ---
Date of Procedure: 06/20/24 Description of Procedure: PREOPERATIVE DIAGNOSIS: Diaphragmatic hiatal hernia Gastroesophageal reflux disease Atypical chest pain POSTOPERATIVE DIAGNOSIS: Gastroesophageal reflux disease. Acute on chronic gastric ulcer Gastritis. Diaphragmatic hiatal hernia Esophagus candidiasis OPERATION: Esophagogastroduodenoscopy with biopsies along esophagus, antrum and duodenum SURGEON: Veronica Gaffney MD ANESTHESIA: MAC. INDICATIONS: The patient is a 79-year-old female who presents with hiatal hernia, atypical chest pain and reflux disease. Benefits and risks of the procedure were described. Informed consent was obtained. DESCRIPTION: The patient was brought into the endoscopy suite and laid in the left lateral decubitus position. An Olympus gastroscope was passed along the posterior oropharynx down to the distal esophagus where the squamocolumnar junction was encountered at 40 cm from the incisors. The stomach was entered and no bile reflux was found. Additional findings are listed below. Biopsies with cold forceps were obtained of the antrum. The first through third portion of the duodenum was examined. Retroflexion of the scope confirmed Hill grade 4 lower esophageal valve. The squamocolumnar junction demonstrated LA grade B erosive esophagitis. The stomach was desufflated. The patient tolerated the procedure well. FINDINGS: Squamocolumnar junction 35 cm from the incisors. Diaphragmatic hiatus at 40 cm. Hiatal hernia, 5 cm Hill grade 4 lower esophageal valve. LA grade B erosive esophagitis. Biopsies of esophagus obtained Acute gastric ulcer, antrum 2 mm, biopsied Biopsies obtained of the duodenum. Chronic gastritis with biopsies obtained. Plaque-like white deposits suspicious for candidiasis of the esophagus RECOMMENDATIONS: Omeprazole 40 mg for 2 weeks for acute gastric ulcer Plan - Discharge Summary New Discharge Prescriptions: New Omeprazole [PriLOSEC] 40 mg PO DAILY #14 cap Continue Venlafaxine HCl ER [Effexor XR] 75 mg PO DAILY Albuterol Sulfate [Albuterol Sulfate Hfa] 2 puff INHALATION RT-Q6H PRN PRN Reason: Shortness Of Breath Alendronate Sodium [Fosamax] 35 mg PO MO Aspirin 81 mg PO DAILY #60 tab amLODIPine [Norvasc] 5 mg PO BID Ascorbic Acid [Vitamin C] 1,000 mg PO DAILY Trimethoprim [Trimpex] 100 mg PO HS Metoprolol Tartrate [Lopressor] 12.5 mg PO BID Umeclidinium Brm/Vilanterol Tr [Anoro Ellipta 62.5-25 Mcg INH] 1 puff INHALATION RT-DAILY Estrogens, Conjugated Cream [Premarin Vaginal Cream] 1 gm VAGINAL MOTH Atorvastatin [Lipitor] 10 mg PO HS Dailyvite 1 tab PO DAILY polyethylene glycoL 3350 [Miralax] 17 gm PO DAILY #527 gm Na Phos,M-B/Na Phos,Di-Ba [Fleet Adult] 1 dose RECTAL ONCE #2 each Discharge Medication List Venlafaxine HCl ER [Effexor XR] 75 mg PO DAILY 01/15/17 [History] Umeclidinium Brm/Vilanterol Tr [Anoro Ellipta 62.5-25 Mcg INH] 1 puff INHALATION RT-DAILY 03/03/22 [History] Albuterol Sulfate [Albuterol Sulfate Hfa] 2 puff INHALATION RT-Q6H PRN 05/16/23 [History] Alendronate Sodium [Fosamax] 35 mg PO MO 05/16/23 [History] Atorvastatin [Lipitor] 10 mg PO HS 05/16/23 [History] Estrogens, Conjugated Cream [Premarin Vaginal Cream] 1 gm VAGINAL MOTH 05/16/23 [History] Aspirin 81 mg PO DAILY #60 tab 05/18/23 [Rx] Ascorbic Acid [Vitamin C] 1,000 mg PO DAILY 02/22/24 [History] Dailyvite 1 tab PO DAILY 02/22/24 [History] Na Phos,M-B/Na Phos,Di-Ba [Fleet Adult] 1 dose RECTAL ONCE #2 each 02/22/24 [Rx] Trimethoprim [Trimpex] 100 mg PO HS 02/22/24 [History] amLODIPine [Norvasc] 5 mg PO BID 02/22/24 [History] polyethylene glycoL 3350 [Miralax] 17 gm PO DAILY #527 gm 02/22/24 [Rx] Metoprolol Tartrate [Lopressor] 12.5 mg PO BID 06/20/24 [History] Omeprazole [PriLOSEC] 40 mg PO DAILY #14 cap 06/20/24 [Rx] Follow up Appointment(s)/Referral(s): Veronica Gaffney MD [STAFF PHYSICIAN] - 07/24/24 1:00 pm Patient Instructions/Handouts: Peptic Ulcer (DC), Hiatal Hernia (DC) Discharge Disposition: HOME SELF-CARE
[2024-06-20 12:00] VITALS: BP 134/65; PULSE 68; RESP 18
== END 2024-06-20 12:27 | disposition home or self-care (01) ==
LOC: ORWHC2ENDO 09:14
PROVIDERS: ATTEND Surgery Plastic and Reconstructive Surgery
CPT/HCPCS: 43239; 88305; 88312

== ENCOUNTER 2024-10-26 05:33 | Day surgery (SDC) | payer MEDICARE ==
--- NOTE | 2024-10-26 05:57 | P.GSHP ---
History of Present Illness H&P Date: 10/26/24 CHIEF COMPLAINT: Paraesophageal hiatal hernia with gastroesophageal reflux disease. HISTORY OF PRESENT ILLNESS: The patient is a 79-year-old female who presents with symptomatic paraesophageal hiatal hernia over one year with gastroesophageal reflux disease. She has completed upper endoscopy workup. Now she presents for surgical intervention. PAST MEDICAL HISTORY: Please see list. PAST SURGICAL HISTORY: Please see list. MEDICATIONS: Please see list. ALLERGIES: Please see list. SOCIAL HISTORY: No illicit drug use FAMILY HISTORY: No reports of Crohn disease or ulcerative colitis. REVIEW OF ORGAN SYSTEMS: CONSTITUTIONAL: No reports of fevers or chills. Generalized debility. HEENT: Denies any troubles with the vision or hearing. ENDOCRINE: No reports of hypothyroidism. No diabetes. RESPIRATORY: No recent pneumonias. CARDIOVASCULAR: Has hypertensive heart disease. Cardiac risk assessment obtained. GI: Has gastroesophageal reflux disease MUSCULOSKELETAL: Has occasional joint pain including back pain. Has osteoporosis NEURO: No seizure disorders or headaches. No recent stroke. PSYCH: Has depressive disorder GENITOURINARY: No active blood in urine. No urinary hesitancy. HEMATOLOGIC: No personal or family history of DVTs or pulmonary emboli. SKIN: No skin cancer. PHYSICAL EXAM: VITAL SIGNS: Stable GENERAL: Well-developed pleasant and in no acute distress. HEENT: No scleral icterus. Extraocular movements grossly intact. Moist buccal mucosa. NECK: Supple without lymphadenopathy. CHEST: Unlabored respirations. Equal bilateral excursions. CARDIOVASCULAR: Regular rate and rhythm. Distal 2+ pulses. ABDOMEN: Soft, nondistended. No peritoneal signs. MUSCULOSKELETAL: No clubbing, cyanosis, or edema. SKIN: Well-perfused. Good skin turgor. REPORTS: Upper endoscopy demonstrates paraesophageal hiatal hernia STUDIES: CT of the abdomen pelvis from January 2024 reviewed demonstrates intrathoracic paraesophageal hiatal hernia with incarceration. REPORTS: Cardiology risk assessment obtained. Please see chart. ASSESSMENT: 1. Diaphragmatic paraesophageal hiatal hernia with severe gastroesophageal reflux disease. PLAN: 1. Recommend proceeding with a robotic paraesophageal hiatal hernia with possible mesh. 2. Benefits and risks of surgical intervention was discussed including possibility of open technique. 3. Inpatient hospitalization recommended of 2 nights 4. DVT prophylaxis. 5. Antibiotic prophylaxis. 6. She has also completed a very low caloric high-protein diet to address underlying hepatomegaly. 7. Non narcotic pain management including abdominal wall block described 8. Blood sugar glucose described. 9. Weight loss management described. 10. Patient's elevated risk due to generalized debility. Past Medical History Past Medical History: COPD, GERD/Reflux, Hyperlipidemia, Hypertension, Osteoarthritis (OA), Seizure Disorder Additional Past Medical History / Comment(s): seizure x 1 after day surgery > 20 yrs. ago from an unknown "medication combination", superficial thrombosis Lt arm cephalic vein from an IV 2017, generalized weakness, hx. hypomagnesemia, hypokalemia, multiple admissions for small bowel obstructions, hx. reflux, frequent UTIs - no antibiotics x 2 mos., hiatal hernia, Pt's denies that pt. has memory issues other than normal for age but does not want hospital to leave messages w/ her because she will forget. History of Any Multi-Drug Resistant Organisms: ESBL Date of last positivie culture/infection: 12/22/21 MDRO Source:: ESBL URINE Past Surgical History: Bowel Resection, Hysterectomy Additional Past Surgical History / Comment(s): bowel resection x 2, colonoscopies Past Anesthesia/Blood Transfusion Reactions: No Reported Reaction Smoking Status: Former smoker - Past Family History Sister(s) Family Medical History: Diabetes Mellitus Father Family Medical History: Coronary Artery Disease (CAD) Additional Family Medical History / Comment(s): Father of a [place] in his 60's or 70's. Mother Family Medical History: No Reported History, Diabetes Mellitus Additional Family Medical History / Comment(s): Mother at the age of 88yrs. Medications and Allergies Home Medications Medication Instructions Recorded Confirmed Type Venlafaxine HCl ER [Effexor XR] 75 mg PO DAILY 01/15/17 10/23/24 History Umeclidinium Brm/Vilanterol Tr 1 puff INHALATION RT-DAILY 03/03/22 10/23/24 History [Anoro Ellipta 62.5-25 Mcg INH] Albuterol Sulfate [Albuterol 2 puff INHALATION RT-Q6H PRN 05/16/23 10/23/24 History Sulfate Hfa] Alendronate Sodium [Fosamax] 35 mg PO MO 05/16/23 10/23/24 History Estrogens, Conjugated Cream 1 gm VAGINAL MOTH 05/16/23 10/23/24 History [Premarin Vaginal Cream] Ascorbic Acid [Vitamin C] 1,000 mg PO DAILY 02/22/24 10/23/24 History Dailyvite 1 tab PO DAILY 02/22/24 10/23/24 History amLODIPine [Norvasc] 5 mg PO BID 02/22/24 10/23/24 History Metoprolol Tartrate [Lopressor] 12.5 mg PO BID 06/20/24 10/23/24 History Psyllium Husk (with Sugar) 1 dose PO DAILY 10/23/24 10/23/24 History [Metamucil Powder] polyethylene glycoL 3350 [Miralax] 17 gm PO DAILY PRN 10/23/24 10/23/24 History Allergies Allergy/AdvReac Type Severity Reaction Status Date / Time No Known Allergies Allergy Verified 10/23/24 10:37
[2024-10-26] MEDS: IV FLUID CONTINUATION 1,000 ML IV ONE (06:21)
[2024-10-26] MEDS ORDERED: HYDROmorphone 0.5 MG/0.5 ML SYRINGE IVP PRN (07:00)
[2024-10-26] MEDS ORDERED: MIDAZOLAM 2 MG/2 ML VIAL IV PRN (07:00)
[2024-10-26] MEDS: ACETAMINOPHEN TAB 500 MG TAB PO PRN (07:06)
[2024-10-26] MEDS: ONDANSETRON 4 MG/2 ML VIAL IVP PRN (07:21)
[2024-10-26] MEDS: HEPARIN SODIUM,PORCINE 5,000 UNIT/ML 1 ML VIAL SQ PRN (07:21)
[2024-10-26] MEDS: LACTATED RINGERS 1,000 ML IV SCH (07:26)
[2024-10-26 07:30] LABS: Basophils % (A) 0 %; Eosinophils # (A) 0.1 k/uL (0-0.7); Eosinophils % (A) 1 %; HCT 38.7 % (34.0-46.0); HGB 13.1 gm/dL (11.4-16.0); Lymphocytes # (A) 1.8 k/uL (1.0-4.8); Lymphocytes % (A) 22 %; MCH 31.9 pg (25.0-35.0); MCHC 33.9 g/dL (31.0-37.0); MCV 94.1 fL (80.0-100.0); Mean Platelet Volume 7.5; Monocytes # (A) 0.4 k/uL (0-1.0); Monocytes % (A) 5 %; Neutrophils # (A) 5.7 k/uL (1.3-7.7); Neutrophils % (A) 69 %; Platelet Count 391 k/uL (150-450); RBC 4.12 m/uL (3.80-5.40); RDW 13.1 % (11.5-15.5); WBC 8.2 k/uL (3.8-10.6)
[2024-10-26 07:41] LABS: ALT 19 U/L (4-34); African American GFR (CKD) >90 (>60 ml/min/1.73 sqM); Anion Gap 9 mmol/L; Blood Urea Nitrogen 21 mg/dL (7-17); Carbon Dioxide 28 mmol/L (22-30); Chloride 103 mmol/L (98-107); Glucose 97 mg/dL (74-99); Non-African American GFR(CKD) 83 (>60 ml/min/1.73 sqM); Sodium 140 mmol/L (137-145); Total Bilirubin 0.7 mg/dL (0.2-1.3); Total Protein 7.1 g/dL (6.3-8.2)
[2024-10-26 07:54] LABS: Albumin 4.6 g/dL (3.5-5.0)
[2024-10-26 07:56] LABS: AST 31 U/L (14-36); Potassium 4.1 mmol/L (3.5-5.1)
[2024-10-26 07:57] LABS: Alkaline Phosphatase 35 U/L (38-126)
[2024-10-26] MEDS: LIDOCAINE 1%-EPI 1:100,000 20 ML VIAL SQ ONE (08:08)
[2024-10-26] MEDS: LACTATED RINGERS 1,000 ML IV ONE ×2 (08:54→11:25)
[2024-10-26] MEDS ORDERED: HYDROmorphone 1 MG/ML 1 ML SYRINGE IVP PRN (11:08)
[2024-10-26] MEDS ORDERED: ALBUTEROL NEBULIZED 2.5 MG/3 ML INHALATION PRN (11:12)
[2024-10-26] MEDS ORDERED: NALOXONE 0.4 MG/ML 1 ML VIAL IV PRN (11:13)
--- NOTE | 2024-10-26 11:17 | P.OP ---
Date of Procedure: 10/26/24 Description of Procedure: SURGEON: YULIANA ABRAHAM MD PREOPERATIVE DIAGNOSES: 1. Symptomatic paraesophageal diaphragmatic hiatal hernia. 2. Gastroesophageal reflux disease. 3. Hypertensive heart disease 4. Generalized anxiety disorder 5. Bilateral upper abdominal pain 6. History of intra-abdominal adhesions POSTOPERATIVE DIAGNOSES: 1. Paraesophageal midline diaphragmatic hernia, 6 cm, with incarceration. 2. Gastroesophageal reflux disease. 3. Hypertensive heart disease 4. Generalized anxiety disorder 5. Esophageal dysmotility with ineffective esophageal motility 6. Severe intra-abdominal adhesions including interloop adhesions OPERATION: 1. Robotic-assisted da Darryl Xi laparoscopic repair of incarcerated paraesophageal hiatal hernia, 6 x 4 cm, with [place] Biopatch A 8 x 8 cm. 2. Intraoperative esophagogastroduodenoscopy 3. Placement of 56-Slovak bougie for esophageal dysmotility 4. Robotic-assisted da Darryl Xi laparoscopic extensive lysis of adhesions over 1 hour ANESTHESIA: General with local anesthetic. ESTIMATED BLOOD LOSS: 5 mL SPECIMENS REMOVED: None COMPLICATIONS: None. Condition: stable Disposition: floor FINDINGS: 1. Midline incarcerated paraesophageal hiatal hernia 3 x 3 cm 2. Intraoperative upper endoscopy confirms complete closure of hiatal hernia from Hill grade 3 to Hill grade 1 3. Intraesophageal length over 2 cm 4. Severe intra-abdominal interloop and pelvic adhesions requiring over 1 hour lysis of adhesions, over 60% of the case INDICATIONS: The patient is a 79-year-old female who presents with gastroesophageal reflux disease poorly controlled despite medications, and a symptomatic diaphragmatic hiatal hernia. Preoperative workup including upper endoscopy demonstrated a sliding hiatal hernia. Given the severity of symptoms, the patient had elected for surgical intervention. Benefits and risks including bleeding, infection, recurrence, dysphagia, injury to the lung, need for further surgery was described at length. Informed consent was obtained. DESCRIPTION: The patient was brought into the operating room and placed in supine position. Preoperatively the patient had received heparin subcutaneously for DVT prophylaxis. After general induction, the abdomen was prepped and draped in standard sterile fashion. The patient had previously voided prior to coming to the operating room. Ioban draping was placed along the abdomen. A timeout protocol was confirmed with the surgical team, for which the patient's name, procedure to be performed including DVT prophylaxis with bilateral SCDs, and preoperative antibiotics were also confirmed. A robotic da Darryl Xi system was prepped and primed. At 12 cm from the xiphoid to just below the umbilicus, proposed port sites were marked with indelible marker along the left axillary line, left mid-clavicular line with each ports were marked 10 cm from each other. A 5 mm 0 degrees laparoscopic trocar entry was performed along the left upper quadrant. The abdomen was insufflated to 15 mmHg pressure was tolerated well. Diagnostic laparoscopy demonstrated no injury to bowel, viscera, or mesentery. No injury had occurred to the small bowel or viscera. The liver was smooth consistent with two-week high-protein low-carb diet. Previous trochar sites from cholecystectomy were used. Next, one 8 mm robotic port was placed along the right upper abdomen. An 8-mm port was were placed along the right lateral lateral abdominal wall. The camera 8-mm port was maintained along the epigastrium. Another 12 mm port was placed along the left upper abdominal wall after exchanging the 5 mm port. Please note that the ports were placed at least 20 cm away from the target anatomy. Care was taken to check that each robotic arm were safely away from collision with the bed or the patient. At the epigastrium, a medium sized Teri liver retractor was placed under direct visualization with the Iron Rn Transitional Care placed under the right shoulder of the patient. All robotic arms were used. The patient was repositioned in reverse Trendelenburg position at 21-degrees after lowering the bed. The robot was docked above the right side of the patient. Using a grasper for arm 3, a grasper for arm 1, including vessel sealer for arm 2, the robotic system was docked and primed as described. Instruments were interchanged by the behavioral assistant. I had sat at the console. The gastrohepatic ligament was cleaved using a vessel sealer. Next, the phrenoesophageal ligament was mobilized and the distal esophagus was mobilized circumferentially. The left and right crura was identified. Circumferentially, the hernia sac was excised and brought into the peritoneal cavity. Moderate dissection into the mediastinum was performed to release the esophagus into the abdominal cavity. The paraesophageal hiatal hernia sac was also incised and divided from the es ophagus. Care was taken to avoid any gastrotomy. The measured defect was consistent with 3 cm axial length and 3 cm in width. After dissection, the distal esophagus of 2+ cm was brought into the abdominal cavity. Once the hiatus and crura was dissected, 2-0 VLOC nonabsorbable suture was placed to reapproximate the diaphragmatic hiatus posteriorly. To buttress the repair, a [place] Biopatch A was prepared along the back table and cut in half of a valenzuela-hole fashion as to reinforce the repair as an underlay. The mesh was placed along the crural repair and tagged using horizontal mattress sutures using 2-0 VLOC. I went to the head of the bed to perform intraoperative esophagogastroduodenoscopy and placement of a 56Fr bougie. The bougie was passed along the posterior oropharynx into the stomach to address pre-existing esophageal dysmotility for 2 minutes then removed. An Olympus gastroscope was passed through posterior oropharynx. Retroflexion of the scope confirmed a Hill grade 1 lower esophageal valve. The stomach had been desufflated. No evidence of leaks were found of the esophagus or stomach. The GI tract with desufflated This concluded the endoscopic portion of the case. The robot was undocked from the patient. I re-scrubbed into the case. All instruments and pneumoperitoneum and specimens were evacuated from the abdominal cavity. Incisions were reapproximated using 4-0 Monocryl in an interrupted subcuticular fashion. Liquid glue was applied to the skin. Local anesthetic was infiltrated in all wounds for postop analgesia. At the end of the procedure, needle, sponge, and instrument count was verified correct by the surgical instrument repair specialist. The patient had tolerated the procedure well and was taken to the postanesthesia unit in stable condition.
[2024-10-26] MEDS: ACETAMINOPHEN IV (For NPO) 650 MG in EMPTY BAG 1 BAG IVPB SCH (13:31)
[2024-10-26] MEDS: ONDANSETRON 4 MG/2 ML VIAL IVP SCH (13:31)
[2024-10-26] MEDS: fentaNYL PCA 500 MCG/50 ML BAG IV SCH (14:25)
[2024-10-26] MEDS: D5-0.45% NACL WITH KCL 20MEQ/L 1,000 ML IV SCH (14:36)
[2024-10-26] MEDS: SIMETHICONE 40 MG/0.6 ML DROPS 2,000 MG/30 ML BOTTLE PO SCH (14:43)
--- NOTE | 2024-10-26 18:25 | FL ---
EXAMINATION TYPE: FL esophagus cervic/pharynx DATE OF EXAM: 10/26/2024 3:48 PM COMPARISON: None CLINICAL INDICATION:Female, 79 years old with history of rule out leak/obstruction; postsurgical kuhn ge. TECHNIQUE: The procedure was explained and patient history elicited. All patient questions were ans wered prior to start of procedure. A mold setter radiograph of the abdomen was also reviewed. Multiple flu oroscopic spot images of the esophagus, stomach and duodenum were obtained following ingestion of liq uid barium and EZ-gas crystals. Fluoroscopic time: 9 seconds Fluoroscopic images:0 Radiographs taken: 89 DAP: Not reported [id number] FINDINGS: Postsurgical changes no evidence friable hernia. Contrast is seen extending into the gastric lumen an d towards the duodenum without evidence for extravasation. There is mild tertiary contractions with d elayed delayed emptying of the distal esophagus. Free air seen under the diaphragm compatible with re cent surgical change. IMPRESSION: 1. No evidence for hiatal hernia or extravasation. 2. Esophageal dysmotility. [facility], , 10/26/2024 6:23 PM
[2024-10-26] MEDS: METOPROLOL TARTRATE 12.5 MG TAB PO SCH (20:47)
[2024-10-26] MEDS: amLODIPine 5 MG TAB PO SCH (20:47)
[2024-10-26] MEDS: HEPARIN SODIUM,PORCINE 5,000 UNIT/ML 1 ML VIAL SQ SCH (20:47)
[2024-10-27 09:50] VITALS: BP 128/58; RESP 18; TEMP 97.8
[2024-10-27] MEDS: FORMOTEROL FUMARATE 20 MCG/2 ML NEBU INHALATION SCH (09:54)
[2024-10-27] MEDS: TIOTROPIUM 2.5 MCG INHALER INHALATION SCH (09:54)
[2024-10-27 11:07] VITALS: PULSE 79
[2024-10-27 11:32] VITALS: BMI 20.6
[2024-10-27] MEDS: ACETAMINOPHEN IV (For NPO) 650 MG in EMPTY BAG 1 BAG IVPB SCH (12:17)
--- NOTE | 2024-10-27 14:31 | P.DS ---
Providers Date of admission: 10/26/24 Expected date of discharge: 10/27/24 Attending physician: Veronica Gaffney Consults: 10/26/24 05:59 Consult Physician Routine Consulting Provider: [facility] Consult Reason/Comments: [facility] Do you want consulting provider notified?: Yes Primary care physician: [facility] Course: CHIEF COMPLAINT: Hiatal hernia HISTORY OF PRESENT ILLNESS: The patient is a 79-year-old female admitted for incarcerated hiatal hernia including tractable abdominal pain. She underwent hiatal hernia repair with lysis of adhesions. Esophagram was independently reviewed demonstrating no leak or obstruction. Patient was tolerating diet. Her is at bedside. Pain was well-controlled. Patient has pre-existing urinary incontinence for which a PureWick was being used. ROS: No reports of nausea and vomiting. No bowel movements. No fevers or chills. No new chest pain. No productive sputum PHYSICAL EXAM: VITAL SIGNS: Reviewed CONSTITUTIONAL: Well developed and in no acute distress. EYES: Conjuctivae without sclera icterus. Extraocular movements grossly intact. HEAD, EARS, NOSE, THROAT: Moist buccal mucosa. Head is atraumatic, normocephalic. Hears conversational speech. No nasal drainage. RESPIRATORY: Non-labored respirations and equal bilateral excursions. CARDIOVASCULAR: Palpable 2+ radial pulses. ABDOMEN: Incisions clean dry intact MUSCULOSKELETAL: No gross deformity of the lower extremities noted. No clubbing. No cyanosis. SKIN: Good skin turgor. Well perfused. NEUROLOGIC: Cranial nerves II through XII grossly intact. No focal or lateralizing signs. PSYCH: Appropriate affect. Alert and oriented to person, place and time. CLINICAL LABS: Reviewed. ASSESSMENT: 1. Incarcerated hiatal hernia 2. Intractable abdominal pain due to adhesions PLAN: 1. Clinically stable for discharge 2. Post hiatal hernia diarrhea in detail including close outpatient follow-up via telehealth Pertinent Studies: Esophagram negative for leak or obstruction Procedures: Robotic hiatal hernia repair with lysis of adhesions Patient Condition at Discharge: Stable Plan - Discharge Summary Discharge Rx Participant: No New Discharge Prescriptions: New Simethicone 40 mg/0.6 ml Drops [Mylicon Drops] 40 mg PO Q6HR PRN #30 ml PRN Reason: Abdominal Distention Acetaminophen [Tylenol] 650 mg PO Q4H #30 tab Continue Venlafaxine HCl ER [Effexor XR] 75 mg PO DAILY Albuterol Sulfate [Albuterol Sulfate Hfa] 2 puff INHALATION RT-Q6H PRN PRN Reason: Shortness Of Breath Alendronate Sodium [Fosamax] 35 mg PO MO amLODIPine [Norvasc] 5 mg PO BID Ascorbic Acid [Vitamin C] 1,000 mg PO DAILY Metoprolol Tartrate [Lopressor] 12.5 mg PO BID Umeclidinium Brm/Vilanterol Tr [Anoro Ellipta 62.5-25 Mcg INH] 1 puff INHALATION RT-DAILY Estrogens, Conjugated Cream [Premarin Vaginal Cream] 1 gm VAGINAL MOTH Dailyvite 1 tab PO DAILY polyethylene glycoL 3350 [Miralax] 17 gm PO DAILY PRN PRN Reason: Constipation Psyllium Husk (with Sugar) [Metamucil Powder] 1 dose PO DAILY Discharge Medication List Venlafaxine HCl ER [Effexor XR] 75 mg PO DAILY 01/15/17 [History] Umeclidinium Brm/Vilanterol Tr [Anoro Ellipta 62.5-25 Mcg INH] 1 puff INHALATION RT-DAILY 03/03/22 [History] Albuterol Sulfate [Albuterol Sulfate Hfa] 2 puff INHALATION RT-Q6H PRN 05/16/23 [History] Alendronate Sodium [Fosamax] 35 mg PO MO 05/16/23 [History] Estrogens, Conjugated Cream [Premarin Vaginal Cream] 1 gm VAGINAL MOTH 05/16/23 [History] Ascorbic Acid [Vitamin C] 1,000 mg PO DAILY 02/22/24 [History] Dailyvite 1 tab PO DAILY 02/22/24 [History] amLODIPine [Norvasc] 5 mg PO BID 02/22/24 [History] Metoprolol Tartrate [Lopressor] 12.5 mg PO BID 06/20/24 [History] Psyllium Husk (with Sugar) [Metamucil Powder] 1 dose PO DAILY 10/23/24 [History] polyethylene glycoL 3350 [Miralax] 17 gm PO DAILY PRN 10/23/24 [History] Acetaminophen [Tylenol] 650 mg PO Q4H #30 tab 10/27/24 [Rx] Simethicone 40 mg/0.6 ml Drops [Mylicon Drops] 40 mg PO Q6HR PRN #30 ml 10/27/24 [Rx] Follow up Appointment(s)/Referral(s): Veronica Gaffney MD [STAFF PHYSICIAN] - 10/30/24 6:45 pm Patient Instructions/Handouts: Laparoscopic Hiatal Hernia Repair (DC), Lysis of Abdominal Adhesions (GEN) Activity/Diet/Wound Care/Special Instructions: Liquid diet only for 2 weeks until Nov 09 2024 No lifting over 4 pounds in 4 weeks, November 24January shower No soaking in bath tubs for 2 weeks, Nov 09, 2024 Please notify your surgeon if you develop nausea and vomiting including new onset of abdominal pain. Please ambulate at all times. Use Simethicone, Gas-X, Tylenol and ibuprofen or Aleve scheduled for the next 24-48 hours for best pain relief. Use ice along incisions for the today to prevent swelling. Please open, cut, crush pills larger than the size of a tic tack No carbonated beverages. No straws. Do not remove scopolamine patch for 3 days, if present Avoiding Gas Avoid drinking through a straw. Do not chew gum or tobacco. These actions cause you to swallow air, which produces excess gas in your stomach. Chew with your mouth closed. Avoid any foods that cause stomach gas and distention. These foods include corn, dried beans, peas, lentils, onions, broccoli, cauliflower and any food from the cabbage family. Avoid carbonated drinks, alcohol, citrus and tomato products. Carbonated drinks (sodas) are not allowed for the first six to eight weeks after surgery. After this time you can try them again in small amounts Clear Liquid Diet The first diet after surgery is the clear liquid diet. It includes the following liquids: Apple juice Cranberry juice Grape juice Chicken broth Beef broth Flavored gelatin (Jell-O) Decaf tea and coffee Caffeinated beverages are permitted based on tolerance Popsicles Lao ice Full Liquid Diet The full liquid diet contains anything on the clear liquid diet, plus: Milk, soy, rice and almond (no chocolate) Cream of wheat, cream of rice, grits Strained creamed soups (no tomato or broccoli) Vanilla and strawberry-flavored ice cream Sherbet Blended, custard styled or whipped yogurt (plain or vanilla only) Vanilla and butterscotch pudding (no chocolate or coconut) Nutritional drinks including Ensure, Boost, [place] Instant Breakfast (no chocolate-flavored) Note: Dairy products, such as milk, ice cream and pudding, may cause diarrhea in some people just after surgery. You may need to avoid milk products. If so, substitute them with lactose-free beverages, such as soy, rice, Lactaid or almond milks. Discharge Disposition: HOME SELF-CARE
== END 2024-10-27 16:08 | disposition home or self-care (01) ==
LOC: OR 05:33 → 4SSUR 12:30 → OR 10-27 16:08
PROVIDERS: ATTEND Surgery Plastic and Reconstructive Surgery
DX: K21.9 Gastro-esophageal reflux disease without esophagitis (principal); K44.0 Diaphragmatic hernia with obstruction, without gangrene; K22.4 Dyskinesia of esophagus; K66.0 Peritoneal adhesions (postprocedural) (postinfection); I11.9 Hypertensive heart disease without heart failure; E78.5 Hyperlipidemia, unspecified; J44.9 Chronic obstructive pulmonary disease, unspecified; G40.909 Epilepsy, unspecified, not intractable, without status epilepticus; R32 Unspecified urinary incontinence; M19.90 Unspecified osteoarthritis, unspecified site; F41.1 Generalized anxiety disorder; R16.0 Hepatomegaly, not elsewhere classified; Z79.83 Long term (current) use of bisphosphonates; Z79.899 Other long term (current) drug therapy; Z87.891 Personal history of nicotine dependence; Z86.718 Personal history of other venous thrombosis and embolism; Z87.440 Personal history of urinary (tract) infections; Z82.49 Family history of ischemic heart disease and other diseases of the circulatory system
CPT/HCPCS: 43282; S2900; 74210; 80053; 85025; 94640